=== PATIENT | male | born 1945 | race Caucasian/White ===

== ENCOUNTER 2022-04-06 09:44 | Emergency (ER) | payer MEDICARE, OTHER, SELFPAY ==
[2022-04-06] VITALS (7 sets, daily range): BP systolic 126–144; BP diastolic 74–100; PULSE 59–99; RESP 12–18; TEMP 36.2–36.9; O2SAT 98–100; BMI 20.9
--- NOTE | 2022-04-06 10:02 | CRLHL7_ITS ---
For Patients: As a result of the Cures Act, medical imaging exams and procedure reports are released immediately into your electronic medical record. You may view this report before your referring provider. If you have questions, please contact your health care provider. INDICATION: Fall. FINDINGS: Three views of the left wrist were obtained. There is a comminuted fracture in the distal radius which is displaced and impacted posteriorly. There is no other fracture seen or dislocation. There are degenerative change in the 1st carpometacarpal joint. Impression: Comminuted fracture distal radius with posterior displacement and impaction. Dictated by Rober Edwards MD @ 04/06/2022 10:47:39 AM (Electronically Signed)
--- NOTE | 2022-04-06 12:20 | ED.UPPEXIN ---
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 He was knocked down landing on an outstretched left wrist. He had immediate left wrist pain. Denies any numbness tingling. Denies any pain elsewhere. States nothing else was injured. There was no loss of consciousness, no neck or back pain. No difficulty breathing. MD complaint: injury to: left and wrist Other injuries: none Related Data Allergies Allergy/AdvReac Type Severity Reaction Status Date / Time No Known Drug Allergies Allergy Verified 04/06/22 10:02 Review of Systems Narrative: as per HPI Exam Const: Vital Signs, click to edit/add: Vital Signs - 24 hr 04/06/22 09:52 Temperature 97.2 F L Pulse Rate [Pulse Oximeter] 69 Respiratory Rate 12 Blood Pressure [Ri ght Upper Arm] 129/74 Pulse Oximetry 99 Oxygen Delivery Me thod Room Air Documenting provider has reviewed patient's vital signs: yes Common normals: no apparent distress, average body habitus, oriented x3, no limitations, healthy appearing, alert and well nourished General appearance: cooperative, comfortable, well kempt and well developed Other: Swelling and deformitiy noted along left wrist with dorsal angulation noted. Can move fingers but states it hurts wrist to do so. Has normal cap refill and light touch sensation throughout left hand. HENMT: Common normals: normocephalic, head/scalp atraumatic, hearing grossly normal bilaterally, external nose normal, nasal mucous membranes and turbinates normal, moist oral mucous membranes, oropharynx normal, dentition normal and gingiva normal Head and scalp: normocephalic and atraumatic Nose: external nose normal and nasal mucous membranes and turbinates normal Eye: Common normals: PERRL, EOMs intact bilaterally, conjunctivae normal and no scleral icterus Conjunctiva: conjunctiva(e) normal Pupil: PERRL Neck & C-Spine: Common normals: full ROM, no lymphadenopathy, supple and no JVD Chest: Common normals: inspection of chest normal Resp: Common normals: normal respiratory effort, no retractions, no use of accessory muscles and clear to auscultation bilaterally Auscultation: clear to auscultation bilaterally Cardio: Common normals: no JVD, regular rate, regular rhythm, S1 normal heart sound, S2 normal heart sound, no gallops, no clicks and no murmurs Rate: regular rate Rhythm: regular rhythm Heart sounds: S1 normal and S2 normal Neuro: Common normals: oriented x3 Sensorium/orientation: alert Psych: Appearance: well kempt Course Course Hospital Course: Performed hematoma block along left wrist. Try to palpate along the fracture line along the dorsal wrist. Fanned out 10 mL of 1% lidocaine. Will let this sit, give him 1 tablet of Manson and see how he tolerates that. Plan will be to try a reduction with the hematoma block. Reevaluation(s) Reevaluation #1: Patient's hematoma block has been unsuccessful. I do believe to comfortably reduce this, will need to have some IV anesthesia. We will be calling in the nurse religious studies professor to help assist us. It is far too busy and the volume too high for the other ED partner to assist me. Anesthesia has been page but they are busy doing another procedure at this point. Will need to just wait a few moments for them to arrive. Time: 13:34 Reevaluation #2: Patient's neurovascular status remains intact. He has gotten sling for comfort. We will discharge to home for outpatient orthopedic follow-up. Time: 15:55 Consultations Consultation #1: Spoke with Dr. Freedman orthopedic hand surgery at [place]. He has the patient's contact information and will follow up with them for outpatient management, surgery at some point. I will contact him back if I have any concerns post reduction. Time: 14:11 Vital Signs Vital signs: Initial Vital Signs Temperature 97.2 F L 04/06/22 09:52 Temperature Source Temporal Artery Scan 04/06/22 09:52 Pulse Rate 69 04/06/22 09:52 Pulse Rhythm 04/06/22 09:52 Respiratory Rate 12 04/06/22 09:52 Blood Pressure 129/74 04/06/22 09:52 Blood Pressure Mean 92 04/06/22 09:52 Blood Pressure Position Sitting 04/06/22 09:52 Pulse Oximetry 99 04/06/22 09:52 Oxygen Delivery Method 04/06/22 09:52 Vital Signs Temperature 97.2 F L 04/06/22 09:52 Pulse Rate 69 04/06/22 09:52 Respiratory Rate 12 04/06/22 09:52 Blood Pressure 129/74 04/06/22 09:52 Pulse Oximetry 99 04/06/22 09:52 Oxygen Delivery Method 04/06/22 09:52 Temperature 97.2 F L 04/06/22 09:52 Pulse Rate 69 04/06/22 09:52 Respiratory Rate 12 04/06/22 09:52 Blood Pressure 129/74 04/06/22 09:52 Pulse Oximetry 99 04/06/22 09:52 Oxygen Delivery Method 04/06/22 09:52 MDM - Extremity Injury (Upper) Imaging Data X-ray left wrist: Attestation: I have reviewed the pertinent imaging results. My impression: Distal left radius with comminution, displacement. Radiologist's impression: Patient: [facility] Facility:?[facility] Patient ID:?[id number] Site Patient ID:?[id number]. Site :?[id number] Study:?XRay Extremity Left WRIST 3 VIEW-04/06/2022 10:18:34 AM Ordering Physician:?PROVIDER TEMGermán Final Report: INDICATION: Fall. FINDINGS: Three views of the left wrist were obtained. There is a comminuted fracture in the distal radius which is displaced and impacted posteriorly. There is no other fracture seen or dislocation. There are degenerative change in the 1st carpometacarpal joint. Impression: Comminuted fracture distal radius with posterior displacement and impaction. Dictated by Rober Edwards MD @ 04/06/2022 10:47:39 AM (Electronic Signature) X-ray left wrist post reduction images: Attestation: I have reviewed the pertinent imaging results. My impression: On AP view, much better alignment. On the lateral view, still see some slight dorsal angulation but improved from pre reduction on my preliminary review. Await Radiology over-read. Radiologist's impression: Patient: [facility] Facility:?[facility] Patient ID:?[id number] Site Patient ID:?[id number]. Site :?[id number] Study:?XRay Extremity Left WRIST 2V-04/06/2022 2:49:23 PM Ordering Physician:Heidi Gabriel Final Report: Indication: Post reduction Comparison: Three views left wrist dated April 06, 2022 Technique: AP and lateral views left wrist were obtained. Findings: There is a mildly impacted fracture of the distal radius with mild apex dorsal angulation, moderately improved status post casting and reduction. Degenerative changes of the 1st carpometacarpal and radiocarpal joints are appreciated. There is moderate carpal soft tissue swelling. Impression: Improved fracture alignment of mildly impacted Colles fracture of the distal radius status post reduction and casting. Dictated by Moy Ferrera MD @ 04/06/2022 3:41:44 PM (Electronic Signature) Core Measures AMI core measures followed: No Critical Care Time Critical Care Time Critical Care Time: No Discharge Plan Discharge Clinical Impression: Distal radius fracture, left Patient Disposition: Home, Self-Care Condition: Stable Instructions: Wrist Fracture in Adults (ED) Additional Instructions: Need to keep splint on and keep this dry. Ice and elevate this wrist area as much as possible or the next few days to help diminish swelling. Need to follow up with Orthopedics at [place] with the appointment that they will contact you with. Did speak with Dr. Freedman while you were here. He is a [place] orthopedic hand surgeon. He will have his office contact you for appropriate follow-up. Can use [id number] medicines that you typically would use such as Tylenol for pain control, follow bottle directions for dosing. Follow Up/Referrals: Francisco Santana MD [Primary Care Provider] - Stand Alone Forms: [facility] Info Instructions Procedures Orthopedic Fracture Reduction Fracture #1: Written consent by: patient Time Out Performed: Yes Side: left Fracture location: radius Details: distal Analgesia: procedural sedation and hematoma block (failed, moved to sedation) Technique: direct manipulation and traction/counter-traction Post Reduction X-rays Demonstrate: acceptable reduction (Still some mild dorsal angulation on my review of the films but much better than prior to the reduction) Post-reduction neuro exam: intact Post-reduction vascular exam: intact Splint Applied: Yes (Dorsal volar short-arm with Ortho Glass) Patient Tolerated Procedure: well Additional Comments: We are sending all of his images to [place] for the surgeon.
[2022-04-06] MEDS: HYDROCODONE-ACETAMIN 5-325 MG 1 TAB PO (13:24)
--- NOTE | 2022-04-06 14:28 | CRLHL7_ITS ---
For Patients: As a result of the Century Cures Act, medical imaging exams and procedure reports are released immediately into your electronic medical record. You may view this report before your referring provider. If you have questions, please contact your health care provider. Indication: Post reduction Comparison: Three views left wrist dated April 06, 2022 Technique: AP and lateral views left wrist were obtained. Findings: There is a mildly impacted fracture of the distal radius with mild apex dorsal angulation, moderately improved status post casting and reduction. Degenerative changes of the 1st carpometacarpal and radiocarpal joints are appreciated. There is moderate carpal soft tissue swelling. Impression: Improved fracture alignment of mildly impacted Colles fracture of the distal radius status post reduction and casting. Dictated by Moy Ferrera MD @ 04/06/2022 3:41:44 PM (Electronically Signed)
--- NOTE | 2022-04-06 14:43 | W.ANESCHARGE ---
Anesthesia Charges Start Date/Time Anesthesia Start Date: 04/06/22 Anesthesia Start Time: 14:14 Stop Date/Time Anesthesia Stop Date: 04/06/22 Anesthesia Stop Time: 14:38 Summary Emergency: Yes Extremes of Age: Over 71-CPT [id number]
== END 2022-04-06 17:01 | disposition home or self-care (01) ==
PROVIDERS: Emergency Provider Family Medicine; PCP Family Medicine
DX: S52.502A Unspecified fracture of the lower end of left radius, initial encounter for closed fracture (principal); W03.XXXA Other fall on same level due to collision with another person, initial encounter
CPT/HCPCS: 1820; 25605; 73100; 73110; 94761; 99100; 99140; 99283; 99284; A9270; J2250; J2704; J3010

== ENCOUNTER 2022-05-10 10:11 | Outpatient (CLI) | payer MEDICARE, OTHER, SELFPAY | END 2022-05-10 10:12 | disposition home or self-care (01) | LOC: NFLDUCREF 05-13 14:59 | PROVIDERS: PCP Family Medicine; Visit Provider Nurse Practitioner Family | DX: R30.0 Dysuria (principal); N39.0 Urinary tract infection, site not specified | CPT/HCPCS: 87086 ==

== ENCOUNTER 2022-07-24 19:53 | Outpatient (CLI) | payer MEDICARE, OTHER, SELFPAY | END 2022-07-24 19:54 | disposition home or self-care (01) | LOC: AMB 07-25 06:58 | PROVIDERS: Visit Provider Family Medicine | DX: R50.9 Fever, unspecified (principal); R53.81 Other malaise | CPT/HCPCS: A0425; A0427 ==

== ENCOUNTER 2022-07-24 20:24 | Inpatient (IN) | payer MEDICARE, OTHER, SELFPAY ==
[2022-07-24] VITALS (28 sets, daily range): BP systolic 102–149; BP diastolic 56–132; PULSE 50–83; RESP 20–24; TEMP 36.9–38.9; O2SAT 91–100; BMI 23.0
--- NOTE | 2022-07-24 20:43 | CRLHL7_ITS ---
For Patients: As a result of the Cures Act, medical imaging exams and procedure reports are released immediately into your electronic medical record. You may view this report before your referring provider. If you have questions, please contact your health care provider. INDICATION: Fever of unknown origin. History of multiple myeloma. TECHNIQUE: Chest 2 views. COMPARISON: None. FINDINGS: No focal consolidation, pleural effusion, or pneumothorax. Interstitial opacities in the lower lungs bilaterally. Cardiomegaly with prominent central pulmonary vascularity. Degenerative changes of the spine. IMPRESSION: 1. Interstitial opacities in the lower lungs may be infectious/inflammatory due to edema. 2. Cardiomegaly. Dictated by Ivy Ortiz MD @ 07/24/2022 9:12:16 PM (Electronically Signed)
--- NOTE | 2022-07-24 20:46 | ED.GENADULT ---
HPI - General Adult General Chief complaint: Fever Stated complaint: Fever, Dehydration Time Seen by Provider: 07/24/22 20:25 Source: patient Mode of arrival: ambulatory Limitations: no limitations History of Present Illness HPI narrative: 76-year-old male currently on treatment for multiple myeloma presents to the emergency department with fever. Fever started yesterday was up to 102 at home. He called his oncologist for advice and they recommended ED presentation. He regularly uses Tylenol for arthritis pain and has been taking that. He was instructed to discontinue at the request of his crystallography teacher because they were worried it could mask further fever. He denies any localizing symptoms of infection. There is no productive cough, no dysuria, no abdominal pain, no sore throat or myalgias. He notes no recent falls, trauma or injury. I reviewed the records and see that he was evaluated for urinary infection back in April, treated without complication. He does not have an indwelling catheter. He has no history of bacteremia or sepsis. He gets his oncology care through [facility] and I do not have access to those records unfortunately. He has not tried any other interventions to help with his symptoms. He denies weakness, headache or other neurological changes. Past medical history most notable for prior GI bleed, on pantoprazole now for this with no complications. He does take aspirin daily because this per his report balance is out thrombotic risk from 1 of his chemotherapy agents. He is actively on chemotherapy both oral and injectable for his multiple myeloma with no recent adjustments in his therapy plan. He does not have an indwelling port or PICC line. He has a history of a nephrectomy for kidney cancer he also has a prior history of prostate cancer. His home meds are amlodipine, pantoprazole, aspirin 81 once daily, levothyroxine, his chemotherapy meds which he cannot pronounce and a B12 supplement. Socially no tobacco, no alcohol. 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 ROS is notable for the fever and some generalized aches as above, otherwise denies times 12 systems. Related Data Home Medications Medication Instructions Recorded Confirmed acetaminophen 325 mg tablet 975 mg PO BID PRN 05/10/22 07/24/22 acyclovir 400 mg tablet 400 mg PO BID 05/10/22 07/24/22 amlodipine 10 mg tablet 10 mg PO QDAY 05/10/22 07/24/22 aspirin 325 mg tablet,delayed 325 mg PO QDAY 05/10/22 07/24/22 release calcium carbonate-vitamin D3 1 tab PO DAILY 05/10/22 07/24/22 daratumumab 20 mg/mL intravenous 1,800 mg IV .Thursday05/10/22 07/24/22 solution dexamethasone 4 mg tablet 20 mg PO .Thursday05/10/22 07/24/22 lenalidomide 10 mg capsule 10 mg PO QDAY 05/10/22 07/24/22 (Revlimid) levothyroxine 150 mcg capsule 150 mcg PO QDAY 05/10/22 07/24/22 levothyroxine 175 mcg tablet 175 mcg PO QDAY 05/10/22 07/24/22 (Levo-T) mecobalamin (vitamin B12) 1,000 1,000 mcg PO QDAY 05/10/22 07/24/22 mcg chewable tablet metronidazole 0.75 % topical gel 1 applic topical QDAY 05/10/22 07/24/22 pantoprazole 40 mg tablet,delayed 40 mg PO QDAY 05/10/22 07/24/22 release prochlorperazine maleate 10 mg 10 mg PO Q6H PRN 05/10/22 07/24/22 tablet sulfamethoxazole 400 1 tab PO QDAY 05/10/22 07/24/22 mg-trimethoprim 80 mg tablet Allergies Allergy/AdvReac Type Severity Reaction Status Date / Time No Known Drug Allergies Allergy Verified 05/10/22 10:03 [facility] Medical History (Updated 07/24/22 @ 22:29 by Latha Madrid MD) History of kidney cancer History of prostate cancer Multiple myeloma Phimosis of penis Urinary tract infection Surgical History (Updated 07/24/22 @ 20:51 by Latha Madrid MD) History of nephrectomy Social History Smoking Status: Never smoker Do you use any of these nicotine containing products: None How often do you have a drink containing alcohol: never AUDIT-C Alcohol total score: 0 Non-prescribed substance use: denies use service: No Exam Const: Vital Signs, click to edit/add: Vital Signs - 24 hr 07/24/22 20:29 07/24/22 21:10 07/24/22 20:41 Temperature 102.1 F H 102 F H Pulse Rate 75 Pulse Rate [Right Pulse Oximeter] 78 Respiratory Rate 24 20 Blood Pressure Blood Pressure [Ri ght Upper Arm] 133/78 Pulse Oximetry 100 97 96 Oxygen Delivery Me thod Room Air Room Air 07/24/22 20:45 07/24/22 20:46 07/24/22 21:00 Temperature Pulse Rate 75 75 73 Pulse Rate [Right Pulse Oximeter] Respiratory Rate Blood Pressure 138/76 Blood Pressure [Ri ght Upper Arm] Pulse Oximetry 97 96 97 Oxygen Delivery Me thod 07/24/22 21:01 07/24/22 21:02 07/24/22 21:15 Temperature Pulse Rate 74 73 75 Pulse Rate [Right Pulse Oximeter] Respiratory Rate Blood Pressure 148/77 H Blood Pressure [Ri ght Upper Arm] Pulse Oximetry 97 96 98 Oxygen Delivery Me thod 07/24/22 21:22 07/24/22 21:30 07/24/22 21:31 Temperature Pulse Rate 77 71 73 Pulse Rate [Right Pulse Oximeter] Respiratory Rate Blood Pressure 149/132 H 145/77 H Blood Pressure [Ri ght Upper Arm] Pulse Oximetry 97 93 94 Oxygen Delivery Me thod Documenting provider has reviewed patient's vital signs: yes Common normals: no apparent distress and alert General appearance: cooperative Orientation/consciousness: Yes awake Other: Patient presents with rigors, mentating normally. Does appear slightly dehydrated but well kept. Answers questions appropriately, excellent historian. HENMT: Common normals: normocephalic Head and scalp: normal to inspection and normocephalic Face and sinus: normal facial exam Mouth: oral and palatal mucosa normal Throat: posterior oropharynx normal Eye: Common normals: EOMs intact bilaterally and conjunctivae normal General eye: normal appearance of both eyes Conjunctiva: conjunctiva(e) normal Neck & C-Spine: Common normals: full ROM and no lymphadenopathy Resp: Common normals: normal respiratory effort, no use of accessory muscles and clear to auscultation bilaterally Effort & inspection: able to speak in complete sentences Auscultation: clear to auscultation bilaterally Cardio: Common normals: regular rate, regular rhythm, S1 normal heart sound, S2 normal heart sound, no murmurs and peripheral pulses 2+ throughout Rate: regular rate Rhythm: regular rhythm Heart sounds: S1 normal and S2 normal Peripheral pulses: pulses 2+ throughout GI: Other: Large periUmbilical hernia noted, easily reduces and is nontender. Normoactive bowel sounds throughout. No masses, no hepatosplenomegaly. Extremity: Common normals: normal capillary refill and no pedal edema Neuro: Sensorium/orientation: awake and alert Speech: speech normal Motor exam: strength 5/5 throughout Other: Tremor noted Psych: Attitude: engaged Activity/motor behavior: appropriate eye contact Memory/cognition: memory grossly intact Insight: insight good Judgement: judgment good Skin: Common normals: no rashes or lesions noted Narrative: No wounds, open ulcerations or cellulitis General skin exam: no rashes or lesions noted Course Vital Signs Vital signs: Initial Vital Signs Temperature 102.1 F H 07/24/22 20:29 Temperature Source Temporal Artery Scan 07/24/22 20:29 Pulse Rate 78 07/24/22 20:29 Pulse Rhythm 07/24/22 20:29 Respiratory Rate 24 07/24/22 20:29 Blood Pressure 133/78 07/24/22 20:29 Blood Pressure Mean 96 07/24/22 20:29 Pulse Oximetry 100 07/24/22 20:29 Oxygen Delivery Method 07/24/22 20:29 Vital Signs Temperature 102.1 F H 07/24/22 20:29 Pulse Rate 78 07/24/22 20:29 Respiratory Rate 24 07/24/22 20:29 Blood Pressure 133/78 07/24/22 20:29 Pulse Oximetry 100 07/24/22 20:29 Oxygen Delivery Method 07/24/22 20:29 Temperature 102 F H 07/24/22 21:10 Pulse Rate 73 07/24/22 21:31 Respiratory Rate 20 07/24/22 21:10 Blood Pressure 145/77 H 07/24/22 21:31 Pulse Oximetry 94 07/24/22 21:31 Oxygen Delivery Method 07/24/22 21:10 Medical Decision Making [facility] Narrative Medical decision making narrative: Differential diagnosis including fever of unknown origin. Most likely neutropenic fever. Cannot exclude occult urine, respiratory, viral, pharyngeal or blood infections. 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 Bolus 1 L of IV fluid, Tylenol for fever. This will not impair my ability to make any diagnosis. Patient will likely need to be admitted for further workup, following blood cultures and empiric antibiotics if he is neutropenic. Update: Patient not neutropenic but certainly white blood cell count is suppressed. Markedly elevated CRP, elevated prolactin. Normal lactate with no signs of hypotension. Creatinine is elevated but sounds like it is fairly near his baseline currently. Findings reviewed with patient. Recommend hospitalization. Discussed antibiotic management with hospitalist team, they recommend Zosyn. I have dosed the 1st doses at 3.375, will defer further management to their team. Patient has received 1 L of fluids. He was agreeable to hospitalization. Lab Data Lab results reviewed: Yes I reviewed the patient's lab results Labs: Lab Results 07/24/22 07/24/22 07/24/22 Range/Units 20:40 20:46 20:46 WBC 2.31 L (4.50-11.00) K/uL RBC 3.05 L (4.30-5.90) m/uL Hgb 10.4 L (13.5-17.5) gm/dL Hct 31.5 L (37.0-53.0) % MCV 103 H (80-100) fL MCH 34 (26-34) pg MCHC 33 (32-36) gm/dL RDW Coeff of Trena 14.4 (11.5-15.5) % Plt Count 116 L (140-440) K/uL Neut % (Auto) 71.0 (42.0-72.0) % Lymph % (Auto) 14.3 L (20-44) % Phelps % (Auto) 7.8 (0.0-11.0) % Eos % (Auto) 1.7 (0.0-7.0) % Baso % (Auto) 0.0 (0.0-3.0) % Neut # (Auto) 1.60 L (1.7-7.0) K/uL Lymph # (Auto) 0.30 L (0.90-2.90) K/uL Phelps # (Auto) 0.20 (0.00-0.90) K/UL Eos # (Auto) 0.00 (0.00-0.50) K/uL Baso # (Auto) 0.00 (0.00-0.30) K/uL Diff Slide Review Acceptable Review (Acceptable) Sodium 133 L (135-149) mmol/L Potassium 4.3 (3.6-5.1) mmol/L Chloride 104 (96-114) mmol/L Carbon Dioxide 20 (20-32) mmol/L BUN 30 (7-30) mg/dL Creatinine 1.7 H (0.5-1.5) mg/dL Estimated Creat Clear 38.54 Estimated GFR 42 ml/min Glucose 97 (60-115) mg/dL Lactate (0.5-1.9) mmol/L Calcium 8.0 L (8.4-10.6) mg/dL Magnesium (1.5-2.6) mg/dL Total Bilirubin 0.4 (0.1-1.5) mg/dL AST 17 (12-35) U/L ALT 16 (4-50) U/L Alkaline Phosphatase 59 (40-150) U/L C-Reactive Protein 21.5 H (0.5-1.0) mg/dL Total Protein 5.9 L (6.0-8.3) g/dL Albumin 3.2 L (3.3-5.0) g/dL Procalcitonin 1.96 H (<0.50) ng/mL Urine Color (Yellow) Urine Appearance (Clear) Urine pH (5.0-8.5) Ur Specific Dumont (1.000-1.030) Urine Protein (Negative) Urine Glucose (UA) (Negative) Urine Ketones (Negative) Urine Blood (Negative) Urine Nitrite (Negative) Urine Bilirubin (Negative) Urine Urobilinogen (0.2-1.0) Ur Leukocyte Esterase (Negative) SARS-CoV-2 (PCR) Negative SARS-CoV-2 (Negative) Influenza Type A (PCR) Negative PCR FLU A (Negative) Influenza Type B (PCR) Negative PCR FLU B (Negative) RSV (PCR) Negative PCR RSV (Negative) Group A Strep DNA (Not Detectd) 07/24/22 07/24/22 07/24/22 Range/Units 20:46 21:00 21:20 WBC (4.50-11.00) K/uL RBC (4.30-5.90) m/uL Hgb (13.5-17.5) gm/dL Hct (37.0-53.0) % MCV (80-100) fL MCH (26-34) pg MCHC (32-36) gm/dL RDW Coeff of Trena (11.5-15.5) % Plt Count (140-440) K/uL Neut % (Auto) (42.0-72.0) % Lymph % (Auto) (20-44) % Phelps % (Auto) (0.0-11.0) % Eos % (Auto) (0.0-7.0) % Baso % (Auto) (0.0-3.0) % Neut # (Auto) (1.7-7.0) K/uL Lymph # (Auto) (0.90-2.90) K/uL Phelps # (Auto) (0.00-0.90) K/UL Eos # (Auto) (0.00-0.50) K/uL Baso # (Auto) (0.00-0.30) K/uL Diff Slide Review (Acceptable) Sodium (135-149) mmol/L Potassium (3.6-5.1) mmol/L Chloride (96-114) mmol/L Carbon Dioxide (20-32) mmol/L BUN (7-30) mg/dL Creatinine (0.5-1.5) mg/dL Estimated Creat Clear Estimated GFR ml/min Glucose (60-115) mg/dL Lactate 1.5 (0.5-1.9) mmol/L Calcium (8.4-10.6) mg/dL Magnesium 1.6 (1.5-2.6) mg/dL Total Bilirubin (0.1-1.5) mg/dL AST (12-35) U/L ALT (4-50) U/L Alkaline Phosphatase (40-150) U/L C-Reactive Protein (0.5-1.0) mg/dL Total Protein (6.0-8.3) g/dL Albumin (3.3-5.0) g/dL Procalcitonin (<0.50) ng/mL Urine Color (Yellow) Urine Appearance (Clear) Urine pH (5.0-8.5) Ur Specific Dumont (1.000-1.030) Urine Protein (Negative) Urine Glucose (UA) (Negative) Urine Ketones (Negative) Urine Blood (Negative) Urine Nitrite (Negative) Urine Bilirubin (Negative) Urine Urobilinogen (0.2-1.0) Ur Leukocyte Esterase (Negative) SARS-CoV-2 (PCR) (Negative) Influenza Type A (PCR) (Negative) Influenza Type B (PCR) (Negative) RSV (PCR) (Negative) Group A Strep DNA NOT DETECTED (Not Detectd) 07/24/22 Range/Units 21:45 WBC (4.50-11.00) K/uL RBC (4.30-5.90) m/uL Hgb (13.5-17.5) gm/dL Hct (37.0-53.0) % MCV (80-100) fL MCH (26-34) pg MCHC (32-36) gm/dL RDW Coeff of Trena (11.5-15.5) % Plt Count (140-440) K/uL Neut % (Auto) (42.0-72.0) % Lymph % (Auto) (20-44) % Phelps % (Auto) (0.0-11.0) % Eos % (Auto) (0.0-7.0) % Baso % (Auto) (0.0-3.0) % Neut # (Auto) (1.7-7.0) K/uL Lymph # (Auto) (0.90-2.90) K/uL Phelps # (Auto) (0.00-0.90) K/UL Eos # (Auto) (0.00-0.50) K/uL Baso # (Auto) (0.00-0.30) K/uL Diff Slide Review (Acceptable) Sodium (135-149) mmol/L Potassium (3.6-5.1) mmol/L Chloride (96-114) mmol/L Carbon Dioxide (20-32) mmol/L BUN (7-30) mg/dL Creatinine (0.5-1.5) mg/dL Estimated Creat Clear Estimated GFR ml/min Glucose (60-115) mg/dL Lactate (0.5-1.9) mmol/L Calcium (8.4-10.6) mg/dL Magnesium (1.5-2.6) mg/dL Total Bilirubin (0.1-1.5) mg/dL AST (12-35) U/L ALT (4-50) U/L Alkaline Phosphatase (40-150) U/L C-Reactive Protein (0.5-1.0) mg/dL Total Protein (6.0-8.3) g/dL Albumin (3.3-5.0) g/dL Procalcitonin (<0.50) ng/mL Urine Color Yellow (Yellow) Urine Appearance Clear (Clear) Urine pH 7.0 (5.0-8.5) Ur Specific Dumont 1.020 (1.000-1.030) Urine Protein 2+ A (Negative) Urine Glucose (UA) Negative (Negative) Urine Ketones Negative (Negative) Urine Blood 1+ A (Negative) Urine Nitrite Positive A (Negative) Urine Bilirubin Negative (Negative) Urine Urobilinogen 0.2 (0.2-1.0) Ur Leukocyte Esterase Trace A (Negative) SARS-CoV-2 (PCR) (Negative) Influenza Type A (PCR) (Negative) Influenza Type B (PCR) (Negative) RSV (PCR) (Negative) Group A Strep DNA (Not Detectd) Imaging Data Chest x-ray: My impression: There is something right greater than left but bilateral in the lower half of the lungs. I would favor more of an edematous process over infectious, but cannot exclude. and there certainly is some hyperinflation, diaphragm flattening and some chronic appearing changes. He has terrible kyphosis and signs of osteoporosis which are of course chronic. Radiologist's impression: IMPRESSION: 1. Interstitial opacities in the lower lungs may be infectious/inflammatory due to edema. ECG Data Attestation: I personally reviewed and interpreted this ECG as follows: Prior ECG tracings: not available for review Interpretation: Normal sinus rhythm, rate 72. [place] is essentially normal. There is a right bundle branch block and a slight widening of the QRS. Unfortunately do not have a comparison. Discharge Plan Discharge Clinical Impression: Complicated urinary tract infection, Neutropenia, Acute on chronic renal failure Patient Disposition: Admitted As Inpatient
[2022-07-24 20:55] LABS: Lactate* 1.5 mmol/L (0.5-1.9)
[2022-07-24 20:57] LABS: Eosinophils Percent Auto 1.7 % (0.0-7.0); Hematocrit 31.5 % (37.0-53.0); Hemoglobin* 10.4 gm/dL (13.5-17.5); Immature Granulocytes Pct Auto 5.2 %; Lymphocytes Percent Auto 14.3 % (20-44); Mean Corpuscular HGB Conc 33 gm/dL (32-36); Mean Corpuscular Hemoglobin 34 pg (26-34); Mean Corpuscular Volume 103 fL (80-100); Monocytes Percent Auto 7.8 % (0.0-11.0); Platelet Count* 116 K/uL (140-440); RDW Coefficient of Variation % 14.4 % (11.5-15.5); Red Blood Count 3.05 m/uL (4.30-5.90); White Blood Count* 2.31 K/uL (4.50-11.00)
[2022-07-24] MEDS: 0.9 % SODIUM CHLORIDE 1000 ml 1,000 ML 500 ML IV (21:00)
[2022-07-24 21:03] LABS: Slide Review Reflex Yes
[2022-07-24 21:11] LABS: Albumin* 3.2 g/dL (3.3-5.0); Chloride* 104 mmol/L (96-114); Sodium* 133 mmol/L (135-149)
[2022-07-24 21:12] LABS: Potassium* 4.3 mmol/L (3.6-5.1)
[2022-07-24 21:14] LABS: Bilirubin Total* 0.4 mg/dL (0.1-1.5); Creatinine* 1.7 mg/dL (0.5-1.5); Est. Creatinine Clearance* 38.54; Estimated Glomerular Filt Rate 42 ml/min
[2022-07-24] MEDS: ACETAMINOPHEN 500 MG TABLET 1000 MG PO (21:14)
[2022-07-24 21:15] LABS: Alanine Aminotransferase* 16 U/L (4-50); Alkaline Phosphatase* 59 U/L (40-150); Aspartate Amino Transferase* 17 U/L (12-35); Blood Urea Nitrogen* 30 mg/dL (7-30); Carbon Dioxide* 20 mmol/L (20-32); Glucose* 97 mg/dL (60-115); Total Protein* 5.9 g/dL (6.0-8.3)
[2022-07-24 21:21] LABS: Slide Review Acceptable Review (Acceptable)
[2022-07-24 21:27] LABS: PCR FLU A Negative PCR FLU A (Negative); PCR FLU B Negative PCR FLU B (Negative); PCR RSV Negative PCR RSV (Negative)
[2022-07-24 21:31] LABS: Procalcitonin* 1.96 ng/mL (<0.50)
[2022-07-24 21:32] LABS: C Reactive Protein* 21.5 mg/dL (0.5-1.0)
[2022-07-24 21:35] LABS: SARS PCR* Negative SARS-CoV-2 (Negative)
[2022-07-24 21:36] LABS: Strep A DNA Probe* NOT DETECTED (Not Detectd)
[2022-07-24 21:43] LABS: Magnesium* 1.6 mg/dL (1.5-2.6)
[2022-07-24 21:48] LABS: Appearance Urine Clear (Clear); Bilirubin Urine Negative (Negative); Blood Urine 1+ (Negative); Color Urine Yellow (Yellow); Glucose Urine Negative (Negative); Ketones Urine Negative (Negative); Leukocyte Esterase Urine Trace (Negative); Nitrite Urine Positive (Negative); Protein Urine 2+ (Negative); Urobilinogen Urine 0.2 (0.2-1.0)
[2022-07-24 22:32] LABS: Bacteria Urine Many; Mucus Urine Moderate; RBC Urine 0-2 (0-2); Squamous Epithelial Cell Urine Few (None-Few)
--- NOTE | 2022-07-24 22:45 | W.PC.EDHO ---
Primary Language: Preferred Language: Orientation Status: x Alert & Oriented Transfers By: x Assist of 1 Active Medications Discontinued Medications Generic Name Dose Route Start Last Admin Trade Name Satish PRN Reason Stop Dose Admin Acetaminophen 1,000 mg 07/24/22 20:47 07/24/22 21:14 Acetaminophen 500 Mg Tablet PO 07/24/22 20:48 1,000 mg ONCE ONE Administration Sodium Chloride 1,000 mls @ 500 mls/hr 07/24/22 20:45 07/24/22 22:30 0.9 % Sodium Chloride 1000 Ml IV 07/24/22 22:44 Infused .Q2H JEWELL Infusion Description of Symptoms ED Triage Present Problem Patient currently being treated with chemotherapy Description for multiple myeloma. On his last week. States that he gets injections in his belly and also takes a tablet. No port access. Presents with a 102 degree fever that started last evening. 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 Started chemotherapy in February. Pain Pain Intensity 5 Pain Scale Used Arredondo-Luke (Faces) IV Insertion/Site Date of IV Line Insertion [ 07/24/22 Left Antecubital] Oxygen Administration Pulse Oximetry 94 Pulse Oximetry 93 Pulse Oximetry 97 Pulse Oximetry 98 Pulse Oximetry 97 Pulse Oximetry 96 Pulse Oximetry 97 Pulse Oximetry 97 Pulse Oximetry 96 Pulse Oximetry 97 Pulse Oximetry 96 Pulse Oximetry 100 Oxygen Delivery Method Room Air Oxygen Delivery Method Room Air Cardiac Monitoring EKG Method 12 Lead
--- NOTE | 2022-07-24 22:47 | ED.NURSE ---
Patient report given to Mel CANTRELL
--- NOTE | 2022-07-24 23:25 | PM.IMHP1 ---
Hospitalist- H&P: HPI History of Present Illness Date Seen: 07/24/22 Chief complaint: Fever, Dehydration Narrative: ADMISSION HISTORY AND PHYSICAL - HOSPITALIST Chief Complaint: Weakness, fever HPI: 76-year-old male who is currently being treated for multiple myeloma presents with fever and weakness. His symptoms started rather abruptly in the last 48 hours. Chills. One loose stool yesterday. No cough. No phlegm. No headache. No abdominal pain. Lack of appetite getting worse throughout last 24 hours. No dysuria. Incontinence that is a little worse than baseline. He has a history of renal cell and prostate cancer in the past but those are both in remission. He is followed at [facility] for his multiple myeloma. She has no history of artificial valve or joint replacement. No recent travel. 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 He was just admitted in May in [place] for hyperkalemia, TC. That had presented as a sudden onset of dysuria with ultimately a negative urine culture. His UA did look suspicious for UTI prior to negative culture. His hyperkalemia was thought to be related to Bactrim dosing. His TC was likely related to Bactrim, diuretics, pre renal azotemia. ER COURSE: Febrile illness labs: Elevated CRP, procalcitonin. Low normal white blood cell count without neutropenia. Evidence of leukopenia. Potentially bilateral infiltrates verses edema. Cardiomegaly. Other than rigors and fever, vital signs are stable. He is on room air. Chest x-ray was reviewed with Radiology. Given his chronic kidney disease we chose not to order CT scan CODE STATUS: FULL CODE EMERGENCY CONTACT PLAN: , Yesenia, emergency contact [phone] Cell Phone I've updated the PFSH, medications and allergies in the [facility] tabs. INVESTIGATIONS: LABS/MICRO/ECG/IMAGING Temp upon arrival to the ED 102? F Blood pressure 148/77, the low has been 102/65 Pulses been 50s to 60s Respiratory rate 20, unlabored Pulse ox 92% on room air CBC reflects a Total white blood cell count of 2.31, neutrophils 71% (ANC 1640), lymphocytes 14.3% (330) --this is decreased from even 2 days ago when his will white count was 5.5. Lymphopenia is not new. --CRP 21.5, procalcitonin 1.96 Hemoglobin is stable, 10.4 - previously 10.8 Platelet count 116, was 139 earlier this week Sodium 133 this is been noted previously to be 130-133. Creatinine is 1.7, 1.79 2 days ago. Earlier this year he was up to greater than 2 within TC on CKD secondary to Bactrim use Magnesium is normal Lactate normal LFTs are normal UA shows 1+ blood, positive nitrite, trace leukocyte esterase, 10-25 white blood cells CXR 1. Interstitial opacities in the lower lungs may be infectious/inflammatory due to edema. 2. Cardiomegaly. Blood culture x2 pending Urine culture pending Right bundle branch block on his EKG is not new. This is been noted back to the 1970s at [facility] (thought to be congenital) REVIEW OF SYSTEMS: 12-point ROS completed with patient and negative unless otherwise stated in HPI or below. PHYSICAL EXAM: CONSTITUTIONAL: looks ill; shaking/incontinence noted. tired appearing. soft spoken but knows his history. VITAL SIGNS: see record. HEENT: Normocephalic, atraumatic. PERRL, EOMI, conjunctivae pink, no scleral icterus. Ears and nose externally normal. Pharynx DRY. NECK: No JVD. No carotid bruit, no thyromegaly, no adenopathy. CHEST: crackles @ bases HEART: S1 and S2 normal. No harsh murmurs. no edema. MUSCULOSKELETAL: No gross joint deformity or swelling. NEURO: Cranial nerves intact. Grossly intact. No asymmetric findings. : uncircumscribed. no obvious discharge, redness. SKIN: No rashes, petechiae, concerning changes PSYCHIATRIC: Euthymic. ADMIT TO MEDSURG: FLOOR CARE DVT: Lovenox GI: PO intake Time spent: 70 minutes examining patient, conferring with family and patient, care staff, developing care plan [facility] Medical History (Updated 07/25/22 @ 00:14 by Ashley Mcintyre MD) Chronic anemia History of GI bleed History of kidney cancer History of prostate cancer Hypertension Multiple myeloma Phimosis of penis Surgical History (Updated 07/24/22 @ 23:27 by Ashley Mcintyre MD) History of bone marrow biopsy History of nephrectomy History of prostatectomy S/P tonsillectomy and adenoidectomy Social History Smoking Status: Never smoker Do you use any of these nicotine containing products: None How often do you have a drink containing alcohol: never AUDIT-C Alcohol total score: 0 Non-prescribed substance use: denies use service: No Meds Home Medications and Allergies Home Medications Medication Instructions Recorded Confirmed Type acetaminophen 325 mg tablet 975 mg PO BID PRN 05/10/22 07/24/22 History acyclovir 400 mg tablet 400 mg PO BID 05/10/22 07/24/22 History amlodipine 10 mg tablet 10 mg PO QDAY 05/10/22 07/24/22 History aspirin 325 mg tablet,delayed 325 mg PO QDAY 05/10/22 07/24/22 History release calcium carbonate-vitamin D3 1 tab PO DAILY 05/10/22 07/24/22 History daratumumab 20 mg/mL intravenous 1,800 mg IV .Thursday05/10/22 07/24/22 History solution dexamethasone 4 mg tablet 20 mg PO .Thursday05/10/22 07/24/22 History lenalidomide 10 mg capsule 10 mg PO QDAY 05/10/22 07/24/22 History (Revlimid) levothyroxine 150 mcg capsule 150 mcg PO QDAY 05/10/22 07/24/22 History levothyroxine 175 mcg tablet 175 mcg PO QDAY 05/10/22 07/24/22 History (Levo-T) mecobalamin (vitamin B12) 1,000 1,000 mcg PO QDAY 05/10/22 07/24/22 History mcg chewable tablet metronidazole 0.75 % topical gel 1 applic topical QDAY 05/10/22 07/24/22 History pantoprazole 40 mg tablet,delayed 40 mg PO QDAY 05/10/22 07/24/22 History release prochlorperazine maleate 10 mg 10 mg PO Q6H PRN 05/10/22 07/24/22 History tablet sulfamethoxazole 400 1 tab PO QDAY 05/10/22 07/24/22 History mg-trimethoprim 80 mg tablet Allergies Allergy/AdvReac Type Severity Reaction Status Date / Time No Known Drug Allergies Allergy Verified 05/10/22 10:03 Exam Const: Vital Signs, click to edit/add: Vital Signs - 24 hr 07/24/22 20:29 07/24/22 21:10 07/24/22 20:41 Temperature 102.1 F H 102 F H Pulse Rate 75 Pulse Rate [Right Pulse Oximeter] 78 Respiratory Rate 24 20 Blood Pressure Blood Pressure [Ri ght Upper Arm] 133/78 Pulse Oximetry 100 97 96 Oxygen Delivery Me thod Room Air Room Air 07/24/22 20:45 07/24/22 20:46 07/24/22 21:00 Temperature Pulse Rate 75 75 73 Pulse Rate [Right Pulse Oximeter] Respiratory Rate Blood Pressure 138/76 Blood Pressure [Ri ght Upper Arm] Pulse Oximetry 97 96 97 Oxygen Delivery Me thod 07/24/22 21:01 07/24/22 21:02 07/24/22 21:15 Temperature Pulse Rate 74 73 75 Pulse Rate [Right Pulse Oximeter] Respiratory Rate Blood Pressure 148/77 H Blood Pressure [Ri ght Upper Arm] Pulse Oximetry 97 96 98 Oxygen Delivery Me thod 07/24/22 21:22 07/24/22 21:30 07/24/22 21:31 Temperature Pulse Rate 77 71 73 Pulse Rate [Right Pulse Oximeter] Respiratory Rate Blood Pressure 149/132 H 145/77 H Blood Pressure [Ri ght Upper Arm] Pulse Oximetry 97 93 94 Oxygen Delivery Me thod 07/24/22 21:32 07/24/22 21:45 07/24/22 21:47 Temperature Pulse Rate 75 76 77 Pulse Rate [Right Pulse Oximeter] Respiratory Rate Blood Pressure 131/69 Blood Pressure [Ri ght Upper Arm] Pulse Oximetry 92 93 92 Oxygen Delivery Me thod 07/24/22 22:00 07/24/22 22:02 07/24/22 22:15 Temperature Pulse Rate 81 83 83 Pulse Rate [Right Pulse Oximeter] Respiratory Rate Blood Pressure 119/62 Blood Pressure [Ri ght Upper Arm] Pulse Oximetry 92 93 94 Oxygen Delivery Me thod 07/24/22 22:17 07/24/22 22:30 07/24/22 22:31 Temperature Pulse Rate 77 58 L 50 L Pulse Rate [Right Pulse Oximeter] Respiratory Rate Blood Pressure 113/64 110/56 L Blood Pressure [Ri ght Upper Arm] Pulse Oximetry 93 91 92 Oxygen Delivery Me thod 07/24/22 22:45 07/24/22 22:47 07/24/22 23:00 Temperature Pulse Rate 60 60 59 L Pulse Rate [Right Pulse Oximeter] Respiratory Rate Blood Pressure 107/61 Blood Pressure [Ri ght Upper Arm] Pulse Oximetry 92 92 92 Oxygen Delivery Me thod 07/24/22 23:02 07/24/22 23:06 Temperature Pulse Rate 65 Pulse Rate [Right Pulse Oximeter] 78 Respiratory Rate 20 Blood Pressure 102/65 Blood Pressure [Ri ght Upper Arm] 133/78 Pulse Oximetry 92 Oxygen Delivery Me thod Hospitalist - H&P: Result Labs Labs: Short CBC 07/24/22 Range/Units 20:46 WBC 2.31 L (4.50-11.00) K/uL Hgb 10.4 L (13.5-17.5) gm/dL Hct 31.5 L (37.0-53.0) % Plt Count 116 L (140-440) K/uL BMP 07/24/22 20:46 Sodium 133 L Potassium 4.3 Chloride 104 Carbon Dioxide 20 BUN 30 Creatinine 1.7 H Glucose 97 Calcium 8.0 L Liver Function 07/24/22 Range/Units 20:46 Total Bilirubin 0.4 (0.1-1.5) mg/dL AST 17 (12-35) U/L ALT 16 (4-50) U/L Alkaline Phosphatase 59 (40-150) U/L Albumin 3.2 L (3.3-5.0) g/dL Urine 07/24/22 Range/Units 21:45 Urine Color Yellow (Yellow) Urine Appearance Clear (Clear) Urine pH 7.0 (5.0-8.5) Ur Specific [place] 1.020 (1.000-1.030) Urine Protein 2+ A (Negative) Urine Glucose (UA) Negative (Negative) Assessment and Plan Assessment and plan (1) Febrile illness, acute: Problem comment: -rigors, chills. Documented fever. Not technically neutropenic. Lymphopenic. Immunocompromised on current multiple myeloma therapy. Bacteremia risk high. Started Zosyn, add vanc and azithromycin. Can be tailored 24 hours based on culture results. -hx of phimosis; prev urine culture negative at [facility] 06/02 - keep broad view for source of fever -possible community-acquired pneumonia with elevated procalcitonin and chest x-ray findings -adding BNP and echo for tomorrow -fluids, monitor labs and fever curve -, Yes[place], is bedside and his advocate. 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 Iverson is a 76 year old male with IgG [place] Myeloma who is on daratumumab SQ on days 1, 15 for C3-C6, and day 1 of cycle 7 and beyond, lenalidomide 5 mg daily, dexamethasone 12 mg on Tuesdays, and 8 mg on Fridays. He remains on acyclovir and aspirin. -PJP ppx: no need given dex 20 weekly < 40 weekly threshold -VZV/HSV ppx: home acyclovir 400 BID -thrombosis ppx: home aspirin 325mg daily -bone ppx: quarterly Zometa, daily calcium-vitamin D -home PRN compazine/zofran Status: Acute (3) Acute on chronic renal failure: Problem comment: baseline creat is 1.5 (HTN, left nephrectomy) 1.7 tonight; pre-renal from febrile illness Status: Acute (4) Hypertension: Problem comment: Will hold amlodipine while blood pressures are normotensive Status: Acute (5) CKD (chronic kidney disease): Problem comment: Secondary to hypertension and nephrectomy Status: Acute (6) Hypothyroid: Problem comment: -home levothyroxine 150 mcg three times weekly plus 175 mcg four times weekly Status: Acute (7) Chronic anemia: Problem comment: Hemoglobin runs in the mid 10s. Needed transfusions after a GI bleed in 2014. Thought to have a chronic anemia related to chronic kidney disease and B12 deficiency. Status: Acute (8) Phimosis of penis: Problem comment: Noted. Uncircumcised. Foreskin did not retract. Status: Acute
[2022-07-25] VITALS (10 sets, daily range): BP systolic 101–139; BP diastolic 61–74; PULSE 57–72; RESP 16–18; TEMP 36.7–37.2; O2SAT 95–97
[2022-07-25] MEDS: PANTOPRAZOLE SODIUM 40 MG INJ IVP (01:43)
[2022-07-25] MEDS: CYANOCOBALAMIN (VITAMIN B-12) 500 MCG TABLET 1000 MCG PO ×2 (01:43→09:07)
[2022-07-25] MEDS: 0.9 % SODIUM CHLORIDE 1000 ml 1,000 ML 125 ML IV (01:43)
[2022-07-25] MEDS: ASPIRIN EC 325 MG TABLET PO ×2 (01:43→09:07)
[2022-07-25 03:00] LABS: NT Pro B Type NatriureticPept* 1230 pg/mL
[2022-07-25] MEDS: ACETAMINOPHEN 325 MG TABLET PO (03:54)
[2022-07-25] MEDS: PIPERACILLIN/TAZOBACTAM 3.375 GM in 0.9 % SODIUM CHLORIDE Mini-bag 100 ML IVPB ×4 (04:05→22:16)
[2022-07-25] MEDS: LEVOTHYROXINE 75 MCG TABLET 150 MCG PO (06:35)
[2022-07-25 07:03] LABS: HCO3 VBG 23 mmol/L (21-28); Ionized Calcium* 1.02 mmol/L (1.11-1.30); Lactate* 0.7 mmol/L (0.5-1.9); PCO2 VBG 35 mmHG (40-50); PO2 VBG 28.3 mmHG (25-47); pH VBG 7.418 (7.32-7.43)
[2022-07-25 07:05] LABS: Eosinophils Percent Auto 2.3 % (0.0-7.0); Hemoglobin* 9.1 gm/dL (13.5-17.5); Immature Granulocytes Pct Auto 4.7 %; Immature Reticulocyte Fraction 8.6 % (2.3-13.4); Lymphocytes Percent Auto 13.4 % (20-44); Mean Corpuscular HGB Conc 33 gm/dL (32-36); Mean Corpuscular Hemoglobin 34 pg (26-34); Mean Corpuscular Volume 104 fL (80-100); Monocytes Percent Auto 7.6 % (0.0-11.0); Platelet Count* 95 K/uL (140-440); RDW Coefficient of Variation % 14.5 % (11.5-15.5); Reticulocyte Hemoglobin Equivi 25.9 pg (29.0-35.0); Reticulocyte Percent 0.4 % (0.5-2.0); Reticulocytes Absolute 0.01 # (0.03-0.08)
[2022-07-25 07:20] LABS: Hemoglobin A1C* 5.55 % (0-5.6)
[2022-07-25 07:26] LABS: Albumin* 2.6 g/dL (3.3-5.0); Chloride* 105 mmol/L (96-114); Sodium* 131 mmol/L (135-149)
[2022-07-25 07:29] LABS: Creatinine* 1.8 mg/dL (0.5-1.5); Est. Creatinine Clearance* 34.68; Estimated Glomerular Filt Rate 39 ml/min
[2022-07-25 07:30] LABS: Alanine Aminotransferase* 13 U/L (4-50); Alkaline Phosphatase* 44 U/L (40-150); Aspartate Amino Transferase* 17 U/L (12-35); Bilirubin Total* 0.5 mg/dL (0.1-1.5); Blood Urea Nitrogen* 28 mg/dL (7-30); Calcium* 7.1 mg/dL (8.4-10.6); Carbon Dioxide* 22 mmol/L (20-32); Glucose* 89 mg/dL (60-115); Iron* 17 ug/dL (49-181); Magnesium* 1.5 mg/dL (1.5-2.6); Total Protein* 5.1 g/dL (6.0-8.3)
[2022-07-25 07:37] LABS: Slide Review Reflex Yes; White Blood Count* 1.72 K/uL (4.50-11.00)
[2022-07-25 07:38] LABS: Slide Review Acceptable Review (Acceptable)
[2022-07-25 07:39] LABS: Percent Iron Saturation 8 % (20-50); Total Iron Binding Capacity 211 ug/dL (261-462)
[2022-07-25 07:41] LABS: NT Pro B Type NatriureticPept* 1210 pg/mL; Troponin I* 0.05 ng/mL (0.01-0.04)
[2022-07-25 07:46] LABS: Procalcitonin* 1.85 ng/mL (<0.50)
[2022-07-25 08:00] LABS: C Reactive Protein* 20.1 mg/dL (0.5-1.0)
--- NOTE | 2022-07-25 08:15 | PC.NURSE ---
Pt is alert and oriented x3. Afebrile. Pt reports 2/10 pain in back of neck and lower back, pain managed with?scheduled Tylenol. Pt denies SOB, Chest pain, and N/V. Pt is up with A1 and tolerating a regular diet.?Pt slept intermittently throughout night,?pt was pleasant and cooperative. at bed side. ?
[2022-07-25] MEDS: ACYCLOVIR 200 MG CAPSULE 400 MG PO ×2 (09:07→20:37)
[2022-07-25] MEDS: AZITHROMYCIN 250 MG TABLET 500 MG PO (09:07)
[2022-07-25] MEDS: OMEPRAZOLE 20 MG CAPSULE DR 40 MG PO (09:07)
--- NOTE | 2022-07-25 10:14 | PM.IMPN1 ---
Progress Note: A&P Assessment and plan (1) Febrile illness, acute: Problem details: -rigors, chills. Documented fever. Not technically neutropenic. Lymphopenic. Immunocompromised on current multiple myeloma therapy. Bacteremia risk high. Started Zosyn and azithromycin. Can be tailored 24 hours based on culture results. -hx of phimosis; prev urine culture negative at [place] 06/02 - keep broad view for source of fever -possible community-acquired pneumonia with elevated procalcitonin and chest x-ray findings. Consider PCP. I favor pneumonia over UTI as the cause of current illness. -adding BNP and echo for tomorrow -fluids, monitor labs and fever curve -, Yesenia, is bedside and his advocate. 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 Iverson is a 76 year old male with IgG [place] Myeloma who is on daratumumab SQ on days 1, 15 for C3-C6, and day 1 of cycle 7 and beyond, lenalidomide 5 mg daily, dexamethasone 12 mg on Tuesdays, and 8 mg on Fridays. He remains on acyclovir and aspirin. -PJP ppx: no need given dex 20 weekly < 40 weekly threshold -VZV/HSV ppx: home acyclovir 400 BID -thrombosis ppx: home aspirin 325mg daily -bone ppx: quarterly Zometa, daily calcium-vitamin D -home PRN compazine/zofran Status: Acute (3) CKD (chronic kidney disease): Problem details: Secondary to hypertension and nephrectomy. Continue to monitor. TC with hyperkalemia in May due to Bactrim Status: Acute (4) Pancytopenia: Problem details: Due to multiple myeloma and treatment. Status: Acute (5) Hyponatremia: Problem details: Due to aggressive water drinking. Modest fluid restriction. Encourage solid food Status: Acute (6) Acute on chronic renal failure: Problem details: baseline creat is 1.5 (HTN, left nephrectomy) 1.7 tonight; pre-renal from febrile illness Status: Acute Plan Continue in hospital for monitoring and treatment of infection, pneumonia and UTI. Therapy to assess for acute weakness. Coordinate with [facility] Time Spent With Patient Total time spent: Total time spent today is 50 minutes, 30 minutes in coordination of care and discussing with patient, and other providers ongoing evaluation management of fever and myeloma Subjective Date Seen: 07/25/22 Interval history: 76-year-old male undergoing treatment for multiple myeloma is seen in follow-up for hospital admission for fever, fatigue malaise and weakness. Onset of symptoms the evening 2 days ago with chills and profound weakness. Yesterday he spent most the day in bed. He ate some food but by evening had no appetite. He had fever. He has had no respiratory illness symptoms no GI or symptoms. On admission he was found to have mild pulmonary infiltrates, consistent with pneumonia, as well as abnormal urinalysis. He has been treated with Zosyn and azithromycin. He is currently getting treated with lenalidomide and daratumumab. Due to side effects similar to what he is currently experiencing his lenalidomide dose is reduced to 5 mg daily. He received his last injection of daratumumab, his 14th, 3 days ago. He has not had any adverse reaction to daratumumab in the past. He also received dexamethasone 12 mg on Tuesdays and 8 mg on Fridays. He had previously been on Bactrim for PCP prophylaxis. At the beginning of May he was hospitalized after getting full-dose Bactrim for UTI which caused him to have hyperkalemia and acute kidney injury. Bactrim has subsequently been discontinued. He is also on acyclovir. He is not aware of any ongoing fever or chills. Does not have cold or cough symptoms today. He did have breakfast this morning and has been drinking water consistently. He still feels profoundly weak. Exam Narrative: Exam Narrative: He is alert and in no distress. Tired appearing. He is oriented to his circumstances and able to give his own history. This is corroborated by his was also present. Eyes normal. Sclerae nonicteric. Oropharynx normal. Neck is supple without mass or adenopathy. Respirations are clear to auscultation except for a rare crackle at the right mid lung field laterally. Cardiovascular: S1, S2, regular rate and rhythm. No murmur gallop or rub. Abdomen: Bowel sounds active. Abdomen is soft. He has a large incisional abdominal hernia, possibly a diastasis recti below the umbilicus. This is nontender. No other tenderness or mass. Extremities with good perfusion, good pulses, no edema or tenderness. Skin without rash. Const: Vital Signs, click to edit/add: Vital Signs - 24 hr 07/24/22 20:29 07/24/22 21:10 07/24/22 20:41 Temperature 102.1 F H 102 F H Pulse Rate 75 Pulse Rate [Pulse Oximeter] Pulse Rate [Right Pulse Oximeter] 78 Respiratory Rate 24 20 Blood Pressure Blood Pressure [Ri ght Arm] Blood Pressure [Ri ght Upper Arm] 133/78 Pulse Oximetry 100 97 96 Oxygen Delivery Me thod Room Air Room Air 07/24/22 20:45 07/24/22 20:46 07/24/22 21:00 Temperature Pulse Rate 75 75 73 Pulse Rate [Pulse Oximeter] Pulse Rate [Right Pulse Oximeter] Respiratory Rate Blood Pressure 138/76 Blood Pressure [Ri ght Arm] Blood Pressure [Ri ght Upper Arm] Pulse Oximetry 97 96 97 Oxygen Delivery Me thod 07/24/22 21:01 07/24/22 21:02 07/24/22 21:15 Temperature Pulse Rate 74 73 75 Pulse Rate [Pulse Oximeter] Pulse Rate [Right Pulse Oximeter] Respiratory Rate Blood Pressure 148/77 H Blood Pressure [Ri ght Arm] Blood Pressure [Ri ght Upper Arm] Pulse Oximetry 97 96 98 Oxygen Delivery Me thod 07/24/22 21:22 07/24/22 21:30 07/24/22 21:31 Temperature Pulse Rate 77 71 73 Pulse Rate [Pulse Oximeter] Pulse Rate [Right Pulse Oximeter] Respiratory Rate Blood Pressure 149/132 H 145/77 H Blood Pressure [Ri ght Arm] Blood Pressure [Ri ght Upper Arm] Pulse Oximetry 97 93 94 Oxygen Delivery Me thod 07/24/22 21:32 07/24/22 21:45 07/24/22 21:47 Temperature Pulse Rate 75 76 77 Pulse Rate [Pulse Oximeter] Pulse Rate [Right Pulse Oximeter] Respiratory Rate Blood Pressure 131/69 Blood Pressure [Ri ght Arm] Blood Pressure [Ri ght Upper Arm] Pulse Oximetry 92 93 92 Oxygen Delivery Me thod 07/24/22 22:00 07/24/22 22:02 07/24/22 22:15 Temperature Pulse Rate 81 83 83 Pulse Rate [Pulse Oximeter] Pulse Rate [Right Pulse Oximeter] Respiratory Rate Blood Pressure 119/62 Blood Pressure [Ri ght Arm] Blood Pressure [Ri ght Upper Arm] Pulse Oximetry 92 93 94 Oxygen Delivery Me thod 07/24/22 22:17 07/24/22 22:30 07/24/22 22:31 Temperature Pulse Rate 77 58 L 50 L Pulse Rate [Pulse Oximeter] Pulse Rate [Right Pulse Oximeter] Respiratory Rate Blood Pressure 113/64 110/56 L Blood Pressure [Ri ght Arm] Blood Pressure [Ri ght Upper Arm] Pulse Oximetry 93 91 92 Oxygen Delivery Me thod 07/24/22 22:45 07/24/22 22:47 07/24/22 23:00 Temperature Pulse Rate 60 60 59 L Pulse Rate [Pulse Oximeter] Pulse Rate [Right Pulse Oximeter] Respiratory Rate Blood Pressure 107/61 Blood Pressure [Ri ght Arm] Blood Pressure [Ri ght Upper Arm] Pulse Oximetry 92 92 92 Oxygen Delivery Me thod 07/24/22 23:02 07/24/22 23:06 07/24/22 23:22 Temperature 98.4 F Pulse Rate 65 Pulse Rate [Pulse Oximeter] Pulse Rate [Right Pulse Oximeter] 78 Respiratory Rate 20 22 Blood Pressure 102/65 Blood Pressure [Ri ght Arm] 110/64 Blood Pressure [Ri ght Upper Arm] 133/78 Pulse Oximetry 92 93 Oxygen Delivery Me thod Room Air 07/24/22 23:22 07/24/22 23:57 07/24/22 23:57 Temperature 98.4 F Pulse Rate Pulse Rate [Pulse Oximeter] 64 Pulse Rate [Right Pulse Oximeter] Respiratory Rate 22 Blood Pressure Blood Pressure [Ri ght Arm] 110/64 Blood Pressure [Ri ght Upper Arm] Pulse Oximetry 93 93 93 Oxygen Delivery Me thod Room Air Room Air 07/25/22 03:54 07/25/22 03:00 07/24/22 23:57 Temperature 99.0 F 99.0 F Pulse Rate 66 Pulse Rate [Pulse Oximeter] 65 Pulse Rate [Right Pulse Oximeter] Respiratory Rate 18 Blood Pressure Blood Pressure [Ri ght Arm] 120/63 Blood Pressure [Ri ght Upper Arm] Pulse Oximetry 96 Oxygen Delivery Me thod Room Air 07/25/22 07:20 07/25/22 07:17 Temperature 98.4 F Pulse Rate 57 L Pulse Rate [Pulse Oximeter] 58 L Pulse Rate [Right Pulse Oximeter] Respiratory Rate 18 Blood Pressure Blood Pressure [Ri ght Arm] 110/65 [facility] Pulse Oximetry 95 Oxygen Delivery Me thod Room Air Labs Labs: Laboratory Results - last 24 hr 07/24/22 07/24/22 07/24/22 20:40 20:46 20:46 WBC 2.31 L RBC 3.05 L Hgb 10.4 L Hct 31.5 L MCV 103 H MCH 34 MCHC 33 RDW Coeff of Trena 14.4 Plt Count 116 L Neut % (Auto) 71.0 Lymph % (Auto) 14.3 L [place] % (Auto) 7.8 Eos % (Auto) 1.7 Baso % (Auto) 0.0 Neut # (Auto) 1.60 L Lymph # (Auto) 0.30 L [place] # (Auto) 0.20 Eos # (Auto) 0.00 Baso # (Auto) 0.00 Diff Slide Review Acceptable Review Absolute Retic Percent Retic Immature Retic Fraction Retic Hgb Equivalent VBG pH VBG pCO2 VBG pO2 VBG HCO3 Sodium 133 L Potassium 4.3 Chloride 104 Carbon Dioxide 20 BUN 30 Creatinine 1.7 H Estimated Creat Clear 38.54 Estimated GFR 42 Glucose 97 Hemoglobin A1c Lactate Calcium 8.0 L Ionized Calcium Mariah Magnesium Iron TIBC % Saturation Total Bilirubin 0.4 AST 17 ALT 16 Alkaline Phosphatase 59 Troponin I C-Reactive Protein 21.5 H NT-Pro-B Natriuret Pep Total Protein 5.9 L Albumin 3.2 L Procalcitonin 1.96 H TSH Urine Color Urine Appearance Urine pH Ur Specific Colbert Urine Protein Urine Glucose (UA) Urine Ketones Urine Blood Urine Nitrite Urine Bilirubin Urine Urobilinogen Ur Leukocyte Esterase Urine RBC Urine WBC Ur Squamous Epith Cells Urine Bacteria Urine Mucus SARS-CoV-2 (PCR) Negative SARS-CoV-2 Influenza Type A (PCR) Negative PCR FLU A Influenza Type B (PCR) Negative PCR FLU B RSV (PCR) Negative PCR RSV Group A Strep DNA 07/24/22 07/24/22 07/24/22 20:46 21:00 21:20 WBC RBC Hgb Hct MCV MCH MCHC RDW Coeff of Trena Plt Count Neut % (Auto) Lymph % (Auto) [place] % (Auto) Eos % (Auto) Baso % (Auto) Neut # (Auto) Lymph # (Auto) [place] # (Auto) Eos # (Auto) Baso # (Auto) Diff Slide Review Absolute Retic Percent Retic Immature Retic Fraction Retic Hgb Equivalent VBG pH VBG pCO2 VBG pO2 VBG HCO3 Sodium Potassium Chloride Carbon Dioxide BUN Creatinine Estimated Creat Clear Estimated GFR Glucose Hemoglobin A1c Lactate 1.5 Calcium Ionized Calcium Mariah Magnesium 1.6 Iron TIBC % Saturation Total Bilirubin AST ALT Alkaline Phosphatase Troponin I C-Reactive Protein NT-Pro-B Natriuret Pep 1230 Total Protein Albumin Procalcitonin TSH Urine Color Urine Appearance Urine pH Ur Specific Colbert Urine Protein Urine Glucose (UA) Urine Ketones Urine Blood Urine Nitrite Urine Bilirubin Urine Urobilinogen Ur Leukocyte Esterase Urine RBC Urine WBC Ur Squamous Epith Cells Urine Bacteria Urine Mucus SARS-CoV-2 (PCR) Influenza Type A (PCR) Influenza Type B (PCR) RSV (PCR) Group A Strep DNA NOT DETECTED 07/24/22 07/25/22 07/25/22 21:45 05:48 05:48 WBC 1.72 L* RBC 2.70 L Hgb 9.1 L Hct 28.0 L MCV 104 H MCH 34 MCHC 33 RDW Coeff of Trena 14.5 Plt Count 95 L Neut % (Auto) 72.0 Lymph % (Auto) 13.4 L [place] % (Auto) 7.6 Eos % (Auto) 2.3 Baso % (Auto) 0.0 Neut # (Auto) 1.20 L Lymph # (Auto) 0.20 L [place] # (Auto) 0.10 Eos # (Auto) 0.00 Baso # (Auto) 0.00 Diff Slide Review Acceptable Review Absolute Retic 0.01 L Percent Retic 0.4 L Immature Retic Fraction 8.6 Retic Hgb Equivalent 25.9 L VBG pH VBG pCO2 VBG pO2 VBG HCO3 Sodium 131 L Potassium 4.0 Chloride 105 Carbon Dioxide 22 BUN 28 Creatinine 1.8 H Estimated Creat Clear 34.68 Estimated GFR 39 Glucose 89 Hemoglobin A1c Lactate Calcium 7.1 L Ionized Calcium Mariah Magnesium 1.5 Iron TIBC % Saturation Total Bilirubin 0.5 AST 17 ALT 13 Alkaline Phosphatase 44 Troponin I 0.05 H C-Reactive Protein 20.1 H NT-Pro-B Natriuret Pep 1210 Total Protein 5.1 L Albumin 2.6 L Procalcitonin 1.85 H TSH Urine Color Yellow Urine Appearance Clear Urine pH 7.0 Ur Specific Colbert 1.020 Urine Protein 2+ A Urine Glucose (UA) Negative Urine Ketones Negative Urine Blood 1+ A Urine Nitrite Positive A Urine Bilirubin Negative Urine Urobilinogen 0.2 Ur Leukocyte Esterase Trace A Urine RBC 0-2 Urine WBC 10-25 A Ur Squamous Epith Cells Few Urine Bacteria Many A Urine Mucus Moderate A SARS-CoV-2 (PCR) Influenza Type A (PCR) Influenza Type B (PCR) RSV (PCR) Group A Strep DNA 07/25/22 07/25/22 07/25/22 05:48 05:48 05:48 WBC RBC Hgb Hct MCV MCH MCHC RDW Coeff of Trena Plt Count Neut % (Auto) Lymph % (Auto) [place] % (Auto) Eos % (Auto) Baso % (Auto) Neut # (Auto) Lymph # (Auto) [place] # (Auto) Eos # (Auto) Baso # (Auto) Diff Slide Review Absolute Retic Percent Retic Immature Retic Fraction Retic Hgb Equivalent VBG pH 7.418 VBG pCO2 35 L VBG pO2 28.3 VBG HCO3 23 Sodium Potassium Chloride Carbon Dioxide BUN Creatinine Estimated Creat Clear Estimated GFR Glucose Hemoglobin A1c 5.55 Lactate 0.7 Calcium Ionized Calcium Mariah 1.02 L Magnesium Iron 17 L TIBC 211 L % Saturation 8 L Total Bilirubin AST ALT Alkaline Phosphatase Troponin I C-Reactive Protein NT-Pro-B Natriuret Pep Total Protein Albumin Procalcitonin TSH 3.800 Urine Color Urine Appearance Urine pH Ur Specific Colbert Urine Protein Urine Glucose (UA) Urine Ketones Urine Blood Urine Nitrite Urine Bilirubin Urine Urobilinogen Ur Leukocyte Esterase Urine RBC Urine WBC Ur Squamous Epith Cells Urine Bacteria Urine Mucus SARS-CoV-2 (PCR) Influenza Type A (PCR) Influenza Type B (PCR) RSV (PCR) Group A Strep DNA Imaging Chest x-ray: Radiologist's impression: INDICATION: Fever of unknown origin. History of multiple myeloma. TECHNIQUE: Chest 2 views. COMPARISON: None. FINDINGS: No focal consolidation, pleural effusion, or pneumothorax. Interstitial opacities in the lower lungs bilaterally. Cardiomegaly with prominent central pulmonary vascularity.? Degenerative changes of the spine. IMPRESSION: 1. Interstitial opacities in the lower lungs may be infectious/inflammatory due to edema. 2. Cardiomegaly.
--- NOTE | 2022-07-25 10:59 | NUTR.NU ---
RDN Note for RN Consult: On admission, pt states he has had >34 lb recent weight loss. Current BMI 21.9 which is lower than ideal for this age population. Weight history obtained from pt and : pt was up to 185 in 2019, prior to diagnosis of Multiple Myeloma. Weight loss has been over 3 years time. With current treatment, has now begun to regain weight. Lowest weight at [place] was 142 lbs, about 2 months ago. Has been gaining since that time (gets weekly visit). States his appetite has been good and he hasn't even needed his antinausea medication. They have received education for nutrition with primary concern to limit potassium due to higher levels. 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 Pt denies need or interest in any additional snacks or supplements.
--- NOTE | 2022-07-25 17:58 | PC.NURSE ---
Pt has been cooperative, pleasant, and calm during shift. Pt has been tired and slept on and off during shift. Pt is alert and oriented x 4. Pt has had pain ranging from 0-2 during shift. Pt was up in chair and tolerated well. Pt is a SBA with a walker. Pt at bedside most of shift. Pt has had a good appetite for breakfast and lunch.?
[2022-07-25] MEDS: ENOXAPARIN 40 MG/0.4 ML INJ SUBCUT (20:38)
[2022-07-25] MEDS: SODIUM CHLORIDE 0.9 % (FLUSH) 10 ML SYRINGE 5 ML IVF (20:39)
[2022-07-26] VITALS (10 sets, daily range): BP systolic 111–144; BP diastolic 67–78; PULSE 62–93; RESP 14–20; TEMP 36.6–37.3; O2SAT 91–97
[2022-07-26] MEDS: PIPERACILLIN/TAZOBACTAM 3.375 GM in 0.9 % SODIUM CHLORIDE Mini-bag 100 ML IVPB ×2 (04:32→04:33)
[2022-07-26] MEDS: 0.9 % SODIUM CHLORIDE 250 ml IV ×2 (04:36→14:11)
[2022-07-26 06:27] LABS: Basophils Percent Auto 0.7 % (0.0-3.0); Eosinophils Percent Auto 0.7 % (0.0-7.0); Hematocrit 28.1 % (37.0-53.0); Hemoglobin* 9.1 gm/dL (13.5-17.5); Immature Granulocytes Pct Auto 0.7 %; Lymphocytes Percent Auto 11.3 % (20-44); Mean Corpuscular HGB Conc 32 gm/dL (32-36); Mean Corpuscular Hemoglobin 34 pg (26-34); Mean Corpuscular Volume 103 fL (80-100); Monocytes Percent Auto 6.6 % (0.0-11.0); Platelet Count* 99 K/uL (140-440); RDW Coefficient of Variation % 14.3 % (11.5-15.5); Red Blood Count 2.72 m/uL (4.30-5.90)
--- NOTE | 2022-07-26 06:32 | PC.NURSE ---
Patient is alert and oriented x 3, vss, on RA, Assist of 1-2, regular diet. Patient slightly febrile @ 99.5, very weak and tremulous, has difficulty standing and remaining upright. No cough present or sputum. Patient has been using his IS regularly. Voiding in urinal at bedside. stayed overnight, it appears that her presence is comforting to him as well as reducing most anxiety. BP and HR are stable.
[2022-07-26 06:39] LABS: Chloride* 104 mmol/L (96-114); Potassium* 3.5 mmol/L (3.6-5.1); Sodium* 132 mmol/L (135-149)
[2022-07-26 06:42] LABS: Creatinine* 2.1 mg/dL (0.5-1.5); Est. Creatinine Clearance* 29.49; Estimated Glomerular Filt Rate 32 ml/min
[2022-07-26 06:43] LABS: Blood Urea Nitrogen* 24 mg/dL (7-30); Calcium* 6.9 mg/dL (8.4-10.6); Carbon Dioxide* 21 mmol/L (20-32); Glucose* 99 mg/dL (60-115)
[2022-07-26 07:09] LABS: C Reactive Protein* 19.9 mg/dL (0.5-1.0); Troponin I* 0.08 ng/mL (0.01-0.04)
[2022-07-26 07:18] LABS: Slide Review Reflex Yes; White Blood Count* 1.51 K/uL (4.50-11.00)
[2022-07-26] MEDS: LEVOTHYROXINE 100 MCG TABLET PO (07:24)
[2022-07-26] MEDS: LEVOTHYROXINE 75 MCG TABLET PO (07:25)
--- NOTE | 2022-07-26 07:25 | PC.NURSE ---
Critical lab: WBC of 1.51 received @ 07[address] this morning [address] lab. Dr. Valera updated; no new orders immediately. Primary nurse also updated.
[2022-07-26 08:18] LABS: Slide Review Acceptable Review (Acceptable)
[2022-07-26] MEDS: ASPIRIN EC 325 MG TABLET PO (09:39)
[2022-07-26] MEDS: CYANOCOBALAMIN (VITAMIN B-12) 500 MCG TABLET 1000 MCG PO (09:39)
[2022-07-26] MEDS: OMEPRAZOLE 20 MG CAPSULE DR 40 MG PO (09:39)
[2022-07-26] MEDS: POTASSIUM CHLORIDE 10 MEQ CAPSULE ER 40 MEQ PO (09:39)
[2022-07-26] MEDS: ACYCLOVIR 200 MG CAPSULE 400 MG PO ×2 (09:39→21:13)
[2022-07-26] MEDS: AZITHROMYCIN 250 MG TABLET 500 MG PO (09:40)
[2022-07-26] MEDS: PIPERACILLIN/TAZOBACTAM 2.25 GM in 0.9 % SODIUM CHLORIDE Mini-bag 100 ML IVPB ×3 (09:57→21:13)
[2022-07-26] MEDS: MAGNESIUM IV 2 GM/50 ML PIGGYBACK IVPB (10:44)
--- NOTE | 2022-07-26 15:03 | P.IMPN_ITS ---
Progress Note: A&P Assessment and plan (1) Febrile illness, acute: Problem details: -rigors, chills. Documented fever. Not technically neutropenic. Lymphopenic. Immunocompromised on current multiple myeloma therapy. Bacteremia risk high. Started Zosyn and azithromycin. Can be tailored 24 hours based on culture results. -hx of phimosis; prev urine culture negative at [place] 06/02 - keep broad view for source of fever -possible community-acquired pneumonia with elevated procalcitonin and chest x- ray findings. Consider PCP. I favor pneumonia over UTI as the cause of current illness. -adding BNP and echo for tomorrow -fluids, monitor labs and fever curve -, Yesenia, is bedside and his advocate. 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 Iverson is a 76 year old male with IgG [place] Myeloma who is on daratumumab SQ on days 1, 15 for C3-C6, and day 1 of cycle 7 and beyond, lenalidomide 5 mg daily, dexamethasone 12 mg on Tuesdays, and 8 mg on Fridays. He remains on acyclovir and aspirin. -PJP ppx: no need given dex 20 weekly < 40 weekly threshold -VZV/HSV ppx: home acyclovir 400 BID -thrombosis ppx: home aspirin 325mg daily -bone ppx: quarterly Zometa, daily calcium-vitamin D -home PRN compazine/zofran Status: Acute (3) CKD (chronic kidney disease): Problem details: Secondary to hypertension and nephrectomy. Continue to monitor. TC with hyperkalemia in May due to Bactrim Status: Acute (4) Pancytopenia: Problem details: Due to multiple myeloma and treatment. Status: Acute (5) Hyponatremia: Problem details: Due to aggressive water drinking. Modest fluid restriction. Encourage solid food Status: Acute (6) Acute on chronic renal failure: Problem details: baseline creat is 1.5 (HTN, left nephrectomy) 1.7 tonight; pre-renal from febrile illness. Continue to monitor and dose medications accordingly. Status: Acute (7) Hypokalemia: Problem details: Replace and follow. Status: Acute (8) Elevated troponin: Problem details: Asymptomatic. Suspect stress-induced ischemia. Status: Acute Plan Continue in-hospital for IV antibiotics, monitoring and management of acute kidney injury and pancytopenia. Time Spent With Patient Total time spent: Total time spent today is 40 minutes, 30 minutes in coordination of care discussing with patient and ongoing evaluation management of these issues. Subjective Date Seen: 07/26/22 Interval history: 76-year-old male seen in followup of hospital admission for sepsis. Source of info fact judd is possibly pneumonia and/or urinary tract infection. Urine culture now showing Klebsiella pneumonia a which is ESBL positive. It is sensitive to levofloxacin and piperacillin tazobactam. Patient reports feeling no better today. Possibly even a little weaker today than yesterday. He does feel warm and cold but has not had documented fever. Vital signs are relatively stable. He has a poor appetite but has been taking in fluid, primarily water. He is encouraged to take in nutritious liquids as well. No new symptoms of illness. Exam Narrative: Exam Narrative: He is alert and oriented and tired appearing. Otherwise appears in no distress. He is able to give his own history. He is seen with his today. Oropharynx normal. Neck is supple out mass or adenopathy. Respirations are clear to auscultation with a rare basilar crackle. Cardiovascular: S1, S2, regular rate and rhythm. Abdomen: Bowel sounds active. Abdomen is soft. Mid abdominal incisional hernia is nontender and easily reduced. Extremities without edema and with good peripheral pulses Const: Vital Signs, click to edit/add: Vital Signs - 24 hr 07/25/22 15:43 07/25/22 19:25 07/25/22 22:57 Temperature 98.1 F Pulse Rate 69 Pulse Rate [Pulse Oximeter] 72 72 Respiratory Rate 16 16 Blood Pressure [Ri t Arm] 126/74 Pulse Oximetry 96 Oxygen Delivery Me thod 07/25/22 22:57 07/25/22 23:00 07/26/22 03:00 Temperature 98.3 F Pulse Rate 69 Pulse Rate [Pulse Oximeter] 72 69 Respiratory Rate 16 16 Blood Pressure [Ri t Arm] 139/73 144/76 H Pulse Oximetry 97 91 Oxygen Delivery Me thod Room Air Room Air 07/26/22 07:48 07/26/22 07:51 07/26/22 11:50 Temperature 98.5 F 97.8 F Pulse Rate 74 Pulse Rate [Pulse Oximeter] 71 62 Respiratory Rate 20 18 Blood Pressure [Ri ght Arm] 141/77 H 120/71 Pulse Oximetry 93 97 Oxygen Delivery Me thod Room Air Room Air 07/26/22 14:34 Temperature Pulse Rate 71 Pulse Rate [Pulse Oximeter] Respiratory Rate Blood Pressure [Ri ght Arm] Pulse Oximetry Oxygen Delivery Me thod Documenting provider has reviewed patient's vital signs: yes Labs Labs: Laboratory Results - last 24 hr 07/26/22 07/26/22 05:57 05:57 WBC 1.51 L* RBC 2.72 L Hgb 9.1 L Hct 28.1 L MCV 103 H MCH 34 MCHC 32 RDW Coeff of Trena 14.3 Plt Count 99 L Neut % (Auto) 80.0 H Lymph % (Auto) 11.3 L [place] % (Auto) 6.6 Eos % (Auto) 0.7 Baso % (Auto) 0.7 Neut # (Auto) 1.20 L Lymph # (Auto) 0.20 L [place] # (Auto) 0.10 Eos # (Auto) 0.00 Baso # (Auto) 0.00 Diff Slide Review Acceptable Review Sodium 132 L Potassium 3.5 L Chloride 104 Carbon Dioxide 21 BUN 24 Creatinine 2.1 H Estimated Creat Clear 29.49 Estimated GFR 32 Glucose 99 Calcium 6.9 L Troponin I 0.08 H* C-Reactive Protein 19.9 H
--- NOTE | 2022-07-26 17:55 | PC.NURSE ---
Shift Summary: Patient pleasant and cooperative. Worked with PT/OT today. at bedside most of day and has been helpful. Tolerating regular diet well, patients appetite has improved since yesterday. Denies pain or nausea. Vitals stable and WNL, o2 sats >90% on RA. Using urinal when tired, otherwise has ambulated to bathroom.
[2022-07-26] MEDS: ENOXAPARIN 40 MG/0.4 ML INJ SUBCUT (21:13)
[2022-07-27] VITALS (12 sets, daily range): BP systolic 120–143; BP diastolic 69–82; PULSE 62–80; RESP 12–20; TEMP 36.7–38.2; O2SAT 91–98
[2022-07-27] MEDS: PIPERACILLIN/TAZOBACTAM 2.25 GM in 0.9 % SODIUM CHLORIDE Mini-bag 100 ML IVPB ×4 (03:40→21:05)
--- NOTE | 2022-07-27 06:06 | PC.NURSE ---
Patient is alert and oriented x 4, on RA, vss, regular diet. Patient is afebrile, fluid intake and output is very good, appetite is poor. He continues to be tremulous and weak, requiring an assist of two to safely transfer. Complained of intermittent hot flashes but when checked temp was normal. Patient and his feeling frustrated about lack of definitive etiology for his current illness. continues to help patient with cares, voiding as well as emotional support.
[2022-07-27 07:10] LABS: Chloride* 102 mmol/L (96-114); Potassium* 3.6 mmol/L (3.6-5.1); Sodium* 128 mmol/L (135-149)
[2022-07-27 07:13] LABS: Creatinine* 2.2 mg/dL (0.5-1.5); Est. Creatinine Clearance* 28.11; Estimated Glomerular Filt Rate 30 ml/min
[2022-07-27 07:14] LABS: Blood Urea Nitrogen* 21 mg/dL (7-30); Calcium* 6.7 mg/dL (8.4-10.6); Carbon Dioxide* 19 mmol/L (20-32); Glucose* 98 mg/dL (60-115); Hematocrit 29.7 % (37.0-53.0); Hemoglobin* 9.9 gm/dL (13.5-17.5); Immature Granulocytes Pct Auto 0.9 %; Lymphocytes Percent Auto 13.4 % (20-44); Magnesium* 1.8 mg/dL (1.5-2.6); Mean Corpuscular HGB Conc 33 gm/dL (32-36); Mean Corpuscular Hemoglobin 34 pg (26-34); Mean Corpuscular Volume 102 fL (80-100); Monocytes Percent Auto 7.1 % (0.0-11.0); Neutrophils Percent Auto 78.6 % (42.0-72.0); Platelet Count* 111 K/uL (140-440); RDW Coefficient of Variation % 14.1 % (11.5-15.5); Red Blood Count 2.92 m/uL (4.30-5.90)
[2022-07-27 07:36] LABS: C Reactive Protein* 18.3 mg/dL (0.5-1.0); Troponin I* 0.09 ng/mL (0.01-0.04)
[2022-07-27] MEDS: LEVOTHYROXINE 100 MCG TABLET PO (08:08)
[2022-07-27] MEDS: LEVOTHYROXINE 75 MCG TABLET PO (08:09)
[2022-07-27] MEDS: 0.9 % SODIUM CHLORIDE 1000 ml 1,000 ML 500 ML IV (08:13)
[2022-07-27 08:18] LABS: White Blood Count* 1.12 K/uL (4.50-11.00)
[2022-07-27 08:19] LABS: Slide Review Reflex No
[2022-07-27] MEDS: OMEPRAZOLE 20 MG CAPSULE DR 40 MG PO (09:04)
[2022-07-27] MEDS: ACYCLOVIR 200 MG CAPSULE 400 MG PO ×2 (09:04→21:00)
[2022-07-27] MEDS: CYANOCOBALAMIN (VITAMIN B-12) 500 MCG TABLET 1000 MCG PO (09:04)
[2022-07-27] MEDS: ASPIRIN EC 325 MG TABLET PO (09:04)
[2022-07-27] MEDS: AZITHROMYCIN 250 MG TABLET 500 MG PO (09:04)
--- NOTE | 2022-07-27 15:13 | PM.IMPN1 ---
Progress Note: A&P Assessment and plan (1) Febrile illness, acute: Problem details: -rigors, chills. Documented fever. Immunocompromised on current multiple myeloma therapy. Bacteremia risk high. Started Zosyn and azithromycin. -hx of phimosis; prev urine culture negative at [facility] 06/02 - keep broad view for source of fever -possible community-acquired pneumonia with elevated procalcitonin and chest x-ray findings. Consider PCP. Absolute neutrophil count now 900 I favor urinary tract infection as the source of his acute illness. 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 Iverson is a 76 year old male with IgG [place] Myeloma who is on daratumumab SQ on days 1, 15 for C3-C6, and day 1 of cycle 7 and beyond, lenalidomide 5 mg daily, dexamethasone 12 mg on Tuesdays, and 8 mg on Fridays. He remains on acyclovir and aspirin. -PJP ppx: no need given dex 20 weekly < 40 weekly threshold -VZV/HSV ppx: home acyclovir 400 BID -thrombosis ppx: home aspirin 325mg daily -bone ppx: quarterly Zometa, daily calcium-vitamin D -home PRN compazine/zofran Status: Acute (3) CKD (chronic kidney disease): Problem details: Secondary to hypertension and nephrectomy. Continue to monitor. TC with hyperkalemia in May due to Bactrim Status: Acute (4) Pancytopenia: Problem details: Due to multiple myeloma and treatment. Absolute neutrophil count now 900. I spoke with [facility]hematology on-call. They recommended continuing current course of treatment without any intervention for pancytopenia or neutropenia Status: Acute (5) Hyponatremia: Problem details: Due to aggressive water drinking. Modest fluid restriction. Encourage solid food. Status: Acute (6) Acute on chronic renal failure: Problem details: baseline creat is 1.5 (HTN, left nephrectomy) 1.7 tonight; pre-renal from febrile illness. Continue to monitor and dose medications accordingly. Status: Acute (7) Hypokalemia: Problem details: Replace and follow. Status: Acute (8) Elevated troponin: Problem details: Asymptomatic. Suspect stress-induced ischemia. Status: Acute (9) Weakness: Problem details: Profound weakness due to current illness. PT and OT to evaluate and treat Status: Acute Plan Continue in hospital for IV antibiotics and monitoring of neutropenia. Anticipate discharge to home when strong enough to walk, fever has resolved, able to take in adequate p.o. food and fluid and stable electrolytes. Time Spent With Patient Total time spent: Total time spent today is 45 minutes, 35 minutes in coordination of care and discussing with patient, and [facility] corporate director plan of care for multiple myeloma and infection Subjective Date Seen: 07/27/22 Interval history: 76-year-old male seen in followup of hospitalization for sepsis in the context of multiple myeloma treatment and pancytopenia. Patient reports still feeling profoundly weak and fatigued. He if continues to feel warm and have sweats but has not had a documented fever. He noted that he was able to walk to the bathroom today for the 1st time. No significant breathing troubles no cough or chest pain. Still a very poor appetite. He is tolerating liquids quite a bit and continues to drink a lot of water. Exam Narrative: Exam Narrative: He is alert and appears in no distress. Tired appearing however. Speech is normal in he is oriented to his circumstances. He is seen with his today. Respirations are clear to auscultation. Cardiovascular: S1, S2, regular rate and rhythm. No murmur gallop or rub. Abdomen: Bowel sounds active. Abdomen is soft without tenderness or mass extremities without edema. Good perfusion all 4 extremities. Const: Vital Signs, click to edit/add: Vital Signs - 24 hr 07/26/22 19:55 07/26/22 20:22 07/26/22 22:04 Temperature 98 F Pulse Rate Pulse Rate [Pulse Oximeter] 67 Respiratory Rate 16 16 16 Blood Pressure [Ri t Arm] 132/78 Pulse Oximetry 93 Oxygen Delivery Me thod Room Air 07/26/22 23:35 07/27/22 02:07 07/27/22 03:37 Temperature 98.2 F 98.8 F Pulse Rate 64 Pulse Rate [Pulse Oximeter] 65 66 Respiratory Rate 14 14 Blood Pressure [Ri t Arm] 119/72 134/73 Pulse Oximetry 92 91 Oxygen Delivery Me thod Room Air Room Air 07/27/22 07:17 07/27/22 07:56 07/27/22 11:21 Temperature 99 F 99.4 F Pulse Rate 67 Pulse Rate [Pulse Oximeter] 80 68 Respiratory Rate 18 Blood Pressure [Ri ght Arm] 143/77 H 127/75 Pulse Oximetry 93 98 Oxygen Delivery Me thod Room Air Room Air 07/27/22 15:05 Temperature 98.1 F Pulse Rate Pulse Rate [Pulse Oximeter] 64 Respiratory Rate 18 Blood Pressure [Ri ght Arm] 124/73 Pulse Oximetry 94 Oxygen Delivery Me thod Room Air Documenting provider has reviewed patient's vital signs: yes Labs Labs: Laboratory Results - last 24 hr 07/27/22 07/27/22 06:03 06:03 WBC 1.12 L* RBC 2.92 L Hgb 9.9 L Hct 29.7 L MCV 102 H MCH 34 MCHC 33 RDW Coeff of Trena 14.1 Plt Count 111 L Neut % (Auto) 78.6 H Lymph % (Auto) 13.4 L [place] % (Auto) 7.1 Eos % (Auto) 0.0 Baso % (Auto) 0.0 Neut # (Auto) 0.90 L Lymph # (Auto) 0.20 L [place] # (Auto) 0.10 Eos # (Auto) 0.00 Baso # (Auto) 0.00 Sodium 128 L Potassium 3.6 Chloride 102 Carbon Dioxide 19 L BUN 21 Creatinine 2.2 H Estimated Creat Clear 28.11 Estimated GFR 30 Glucose 98 Calcium 6.7 L Magnesium 1.8 Troponin I 0.09 H* C-Reactive Protein 18.3 H
--- NOTE | 2022-07-27 17:08 | PC.NURSE ---
Addendum entered by Jazmyn Quiroga RN 07/27/22 19:00: @ 1830 patient states pain has resolved, repeat EKG done per MD order, Temp taken at this time 99. Addendum entered by Jazmyn Quiroga RN 07/27/22 18:07: Patient c/o not feeling right and a short episode of chest pain. Temp 100.7, given PRN acetaminophen. EKG done, updated and new orders for lab draw now. Original Note: Shift Summary: Patient pleasant and cooperative. Up with one assist, walker and gait belt. Up in chair for meals, ambulated to bathroom, throughout day became more fatigued. T-max 99.4. Vitals stable and WNL, o2 sats >90% on RA. Encouraged to increase calorie intake, drinking ensure clear between meals. Denied pain or nausea.
[2022-07-27] MEDS: ACETAMINOPHEN 325 MG TABLET 975 MG PO (17:47)
--- NOTE | 2022-07-27 18:28 | CRLHL7_ITS ---
For Patients: As a result of the Century Cures Act, medical imaging exams and procedure reports are released immediately into your electronic medical record. You may view this report before your referring provider. If you have questions, please contact your health care provider. INDICATION: fever, chest pain HISTORY: Fever. Chest pain. COMPARISON: 07/24/2022. TECHNIQUE: Chest, 1 view portable semi upright. FINDINGS: Interstitial and alveolar opacities, right greater than left, have progressed when compared with 07/24/2022. There is no pneumothorax or deep sulcus sign. The central airway is normal. The osseous structures are intact. No sizable pleural effusion. IMPRESSION: 1. Pulmonary opacities have progressed, particularly in the right lower lung zone, when compared with 07/24/2022. 2. Pneumonia is favored over asymmetric pulmonary edema. Dictated by Declan Lewis MD @ 07/27/2022 8:15:03 PM Dictated by: Declan Lewis MD @ 07/27/2022 20:15:10 (Electronically Signed)
[2022-07-27 18:39] LABS: Eosinophils Percent Auto 1.1 % (0.0-7.0); Hematocrit 25.7 % (37.0-53.0); Hemoglobin* 8.6 gm/dL (13.5-17.5); Immature Granulocytes Pct Auto 1.1 %; Mean Corpuscular HGB Conc 34 gm/dL (32-36); Mean Corpuscular Hemoglobin 34 pg (26-34); Mean Corpuscular Volume 102 fL (80-100); Monocytes Percent Auto 6.5 % (0.0-11.0); Neutrophils Percent Auto 79.3 % (42.0-72.0); Platelet Count* 110 K/uL (140-440); Red Blood Count 2.52 m/uL (4.30-5.90)
[2022-07-27 18:40] LABS: White Blood Count* 0.92 K/uL (4.50-11.00)
[2022-07-27 18:41] LABS: Slide Review Reflex No
[2022-07-27 18:55] LABS: Chloride* 104 mmol/L (96-114); Potassium* 3.4 mmol/L (3.6-5.1); Sodium* 128 mmol/L (135-149)
[2022-07-27 18:57] LABS: Creatinine* 2.1 mg/dL (0.5-1.5); Est. Creatinine Clearance* 29.44; Estimated Glomerular Filt Rate 32 ml/min
[2022-07-27 18:58] LABS: Blood Urea Nitrogen* 22 mg/dL (7-30); Calcium* 6.4 mg/dL (8.4-10.6); Carbon Dioxide* 17 mmol/L (20-32); Glucose* 113 mg/dL (60-115)
[2022-07-27 19:15] LABS: Procalcitonin* 1.67 ng/mL (<0.50)
[2022-07-27 19:21] LABS: Troponin I* 0.08 ng/mL (0.01-0.04)
[2022-07-27] MEDS: SODIUM CHLORIDE 0.9 % (FLUSH) 10 ML SYRINGE 5 ML IVF (21:04)
[2022-07-27] MEDS: ENOXAPARIN 40 MG/0.4 ML INJ SUBCUT (21:04)
--- NOTE | 2022-07-27 21:13 | P.IMPN_ITS ---
Progress Note: A&P Assessment and plan (1) Elevated troponin: Problem details: Asymptomatic. Suspect stress-induced ischemia. - CP this evening, but EKG and troponin reassuring; troponin now trending down with peak of 0.9. ECHO done 07/24. Status: Acute (2) Pancytopenia: Problem details: Due to multiple myeloma and treatment. Absolute neutrophil count now 900. I spoke with [facility]/hematology on-call. They recommended continuing current course of treatment without any intervention for pancytopenia or neutropenia Status: Acute (3) Febrile illness, acute: Problem details: -rigors, chills. Documented fever. Immunocompromised on current multiple myeloma therapy. Bacteremia risk high. Started Zosyn and azithromycin. -hx of phimosis; prev urine culture negative at [facility] 06/02 - keep broad view for source of fever -possible community-acquired pneumonia with elevated procalcitonin and chest x- ray findings. Consider PCP. Absolute neutrophil count now 900 I favor urinary tract infection as the source of his acute illness. Pyelonephritis with a solitary kidney - New fever this evening with progression of infiltrate on CXR. Procalcitonin is slightly improved, but with new fever, I think we should add vancomycin to cover for possible HCAP/MRSA. Discussed risk of worsening renal failure with use of vanco/zosyn with patient and family. Also need to consider PCP, but I think this is less likely and patient had recent adverse reaction to bactrim use. Consider ID consult. 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 Iverson is a 76 year old male with IgG [place] Myeloma who is on daratumumab SQ on days 1, 15 for C3-C6, and day 1 of cycle 7 and beyond, lenalidomide 5 mg daily, dexamethasone 12 mg on Tuesdays, and 8 mg on Fridays. He remains on acyclovir and aspirin. -PJP ppx: no need given dex 20 weekly < 40 weekly threshold -VZV/HSV ppx: home acyclovir 400 BID -thrombosis ppx: home aspirin 325mg daily -bone ppx: quarterly Zometa, daily calcium-vitamin D -home PRN compazine/zofran Status: Acute (5) Acute on chronic renal failure: Problem details: baseline creat is 1.5 (HTN, left nephrectomy) stabilized around 2; pre-renal from febrile illness. Continue to monitor and dose medications accordingly. Status: Acute Subjective Time Seen by Provider: 20:45 Date Seen: 07/27/22 Interval history: 76 y/o male on chemo for MM has been in hospital on zosyn/vanco for neutropenic fever. This afternoon he felt tired after therapy and had a brief episode of sharp chest pain while shifting in bed. The pain was a zing or a twinge and lasted only seconds, but because he felt generally unwell, he asked his nurse to check his vitals and his temp was elevated. His last true fever was on 07/24. He has had several low grade temperatures in the meantime. He has no other new symptoms today. He feels better now. His is with him in the room. She tells me she is a retired nurse and she is concerned about his kidney, especially with the addition of any new medications. We discussed the results of the labs drawn this evening as well as the chest x-ray. We discussed the possibility of drug resistant organisms, such as MRSA, treating with vancomycin, and the possibility of worsening renal function with the use of zosyn and vanco together. Exam Narrative: Exam Narrative: General: No acute distress. Awake alert oriented. Const: Vital Signs, click to edit/add: Vital Signs - 24 hr 07/26/22 22:04 07/26/22 23:35 07/27/22 02:07 Temperature 98.2 F Pulse Rate 64 Pulse Rate [Pulse Oximeter] 65 Respiratory Rate 16 14 Blood Pressure [Ri ght Arm] 119/72 Pulse Oximetry 92 Oxygen Delivery Me thod Room Air 07/27/22 03:37 07/27/22 07:17 07/27/22 07:56 Temperature 98.8 F 99 F Pulse Rate 67 Pulse Rate [Pulse Oximeter] 66 80 Respiratory Rate 14 Blood Pressure [Ri ght Arm] 134/73 143/77 H Pulse Oximetry 91 93 Oxygen Delivery Me thod Room Air Room Air 07/27/22 11:21 07/27/22 15:05 07/27/22 17:47 Temperature 99.4 F 98.1 F 100.7 F H Pulse Rate Pulse Rate [Pulse Oximeter] 68 64 Respiratory Rate 18 18 Blood Pressure [Ri ght Arm] 127/75 124/73 Pulse Oximetry 98 94 Oxygen Delivery Me thod Room Air Room Air 07/27/22 17:50 07/27/22 18:35 07/27/22 18:55 Temperature 100.7 F H 99 F 99 F Pulse Rate Pulse Rate [Pulse Oximeter] 69 Respiratory Rate 20 Blood Pressure [Ri ght Arm] 141/82 H Pulse Oximetry 91 Oxygen Delivery Me thod Room Air Documenting provider has reviewed patient's vital signs: yes Labs Labs: Laboratory Results - last 24 hr 07/27/22 07/27/22 07/27/22 06:03 06:03 18:22 WBC 1.12 L* 0.92 L* RBC 2.92 L 2.52 L Hgb 9.9 L 8.6 L Hct 29.7 L 25.7 L MCV 102 H 102 H MCH 34 34 MCHC 33 34 RDW Coeff of Trena 14.1 14.0 Plt Count 111 L 110 L Neut % (Auto) 78.6 H 79.3 H Lymph % (Auto) 13.4 L 12.0 L [place] % (Auto) 7.1 6.5 Eos % (Auto) 0.0 1.1 Baso % (Auto) 0.0 0.0 Neut # (Auto) 0.90 L 0.70 L Lymph # (Auto) 0.20 L 0.10 L [place] # (Auto) 0.10 0.10 Eos # (Auto) 0.00 0.00 Baso # (Auto) 0.00 0.00 Sodium 128 L Potassium 3.6 Chloride 102 Carbon Dioxide 19 L BUN 21 Creatinine 2.2 H Estimated Creat Clear 28.11 Estimated GFR 30 Glucose 98 Lactate Calcium 6.7 L Magnesium 1.8 Troponin I 0.09 H* C-Reactive Protein 18.3 H Procalcitonin 07/27/22 07/27/22 18:22 18:22 WBC RBC Hgb Hct MCV MCH MCHC RDW Coeff of Trena Plt Count Neut % (Auto) Lymph % (Auto) [place] % (Auto) Eos % (Auto) Baso % (Auto) Neut # (Auto) Lymph # (Auto) [place] # (Auto) Eos # (Auto) Baso # (Auto) Sodium 128 L Potassium 3.4 L Chloride 104 Carbon Dioxide 17 L BUN 22 Creatinine 2.1 H Estimated Creat Clear 29.44 Estimated GFR 32 Glucose 113 Lactate 1.0 Calcium 6.4 L Magnesium Troponin I 0.08 H* C-Reactive Protein Procalcitonin 1.67 H Ordering Physician: Ana Koenig M.D. Date of Service: 07/27/22 Procedure(s): XR chest 1V portable Accession Number(s): [id number] cc: Ana Koenig M.D.; Provider,Not a Local ~ For Patients: As a result of the Cures Act, medical imaging exams and procedure reports are released immediately into your electronic medical record. You may view this report before your referring provider. If you have questions, please contact your health care provider. INDICATION: fever, chest pain HISTORY: Fever. Chest pain. COMPARISON: 07/24/2022. TECHNIQUE: Chest, 1 view portable semi upright. FINDINGS: Interstitial and alveolar opacities, right greater than left, have progressed when compared with 07/24/2022. There is no pneumothorax or deep sulcus sign. The central airway is normal. The osseous structures are intact. No sizable pleural effusion. IMPRESSION: 1. Pulmonary opacities have progressed, particularly in the right lower lung zone, when compared with 07/24/2022. 2. Pneumonia is favored over asymmetric pulmonary edema. Dictated by Declan Lewis MD @ 07/27/2022 8:15:03 PM Dictated by: Declan Lewis MD @ 07/27/2022 20:15:10 (Electronically Signed) EKG at 4:50 p.m. had the right and left limb leads switched, but was otherwise unchanged from previous EKG. Repeat EKG was done around 6:30 p.m. and was unchanged from previous EKGs.
[2022-07-28] VITALS (10 sets, daily range): BP systolic 120–142; BP diastolic 72–86; PULSE 60–68; RESP 12–28; TEMP 36.8–39; O2SAT 91–97
[2022-07-28] MEDS: PIPERACILLIN/TAZOBACTAM 2.25 GM in 0.9 % SODIUM CHLORIDE Mini-bag 100 ML IVPB ×4 (03:52→20:55)
[2022-07-28] MEDS: LEVOTHYROXINE 75 MCG TABLET 150 MCG PO (06:17)
[2022-07-28 07:01] LABS: Eosinophils Percent Auto 1.3 % (0.0-7.0); Hematocrit 27.1 % (37.0-53.0); Immature Granulocytes Pct Auto 5.2 %; Lymphocytes Percent Auto 11.7 % (20-44); Mean Corpuscular HGB Conc 33 gm/dL (32-36); Mean Corpuscular Hemoglobin 34 pg (26-34); Mean Corpuscular Volume 101 fL (80-100); Monocytes Percent Auto 6.5 % (0.0-11.0); Neutrophils Percent Auto 75.3 % (42.0-72.0); Platelet Count* 112 K/uL (140-440); RDW Coefficient of Variation % 13.9 % (11.5-15.5); Red Blood Count 2.68 m/uL (4.30-5.90)
[2022-07-28 07:14] LABS: Chloride* 104 mmol/L (96-114); Potassium* 3.3 mmol/L (3.6-5.1); Sodium* 129 mmol/L (135-149)
[2022-07-28 07:16] LABS: Creatinine* 2.3 mg/dL (0.5-1.5); Est. Creatinine Clearance* 27.32; Estimated Glomerular Filt Rate 29 ml/min
[2022-07-28 07:17] LABS: Blood Urea Nitrogen* 21 mg/dL (7-30); Carbon Dioxide* 18 mmol/L (20-32)
[2022-07-28 07:18] LABS: Calcium* 6.6 mg/dL (8.4-10.6); Glucose* 93 mg/dL (60-115)
[2022-07-28 07:34] LABS: C Reactive Protein* 16.5 mg/dL (0.5-1.0)
[2022-07-28 07:58] LABS: Slide Review Reflex Yes; White Blood Count* 0.77 K/uL (4.50-11.00)
[2022-07-28 07:59] LABS: Slide Review Acceptable Review (Acceptable)
[2022-07-28] MEDS: POTASSIUM BICARB 25 MEQ EFFERVESCENT TAB 50 MEQ PO (09:12)
[2022-07-28] MEDS: OMEPRAZOLE 20 MG CAPSULE DR 40 MG PO (09:13)
[2022-07-28] MEDS: ASPIRIN EC 325 MG TABLET PO (09:13)
[2022-07-28] MEDS: CYANOCOBALAMIN (VITAMIN B-12) 500 MCG TABLET 1000 MCG PO (09:13)
[2022-07-28] MEDS: AZITHROMYCIN 250 MG TABLET 500 MG PO (09:13)
[2022-07-28] MEDS: ACYCLOVIR 200 MG CAPSULE 400 MG PO ×2 (09:14→20:54)
[2022-07-28] MEDS: SODIUM CHLORIDE 0.9 % (FLUSH) 10 ML SYRINGE 5 ML IVF ×2 (09:32→20:56)
[2022-07-28] MEDS: SODIUM BICARBONATE 650 MG TABLET PO ×3 (10:23→18:00)
[2022-07-28 13:18] LABS: C.Difficile Negative (Negative); CDIFFEPI 027 PRESUMPTIVE NEGATIVE (Negative)
--- NOTE | 2022-07-28 13:41 | PM.IMPN1 ---
Progress Note: A&P Assessment and plan (1) Elevated troponin: Problem details: Asymptomatic. Suspect stress-induced ischemia. - CP this evening, but EKG and troponin reassuring; troponin now trending down with peak of 0.9. ECHO done 07/24. Status: Acute (2) Pancytopenia: Problem details: Due to multiple myeloma and treatment. Absolute neutrophil count now 900. I spoke with [facility]/hematology on-call. They recommended continuing current course of treatment without any intervention for pancytopenia or neutropenia Status: Acute (3) Febrile illness, acute: Problem details: Two likely sources for sepsis with acute febrile illness are urinary tract infection/pyelonephritis due to Klebsiella pneumonia and bilateral pneumonia with radiographically worsening infiltrates. Patient is not having specific symptoms related to these but is constitutionally quite ill with weakness fatigue malaise and fever. 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 Iverson is a 76 year old male with IgG [place] Myeloma who is on daratumumab SQ on days 1, 15 for C3-C6, and day 1 of cycle 7 and beyond, lenalidomide 5 mg daily, dexamethasone 12 mg on Tuesdays, and 8 mg on Fridays. He remains on acyclovir and aspirin. -PJP ppx: no need given dex 20 weekly < 40 weekly threshold -VZV/HSV ppx: home acyclovir 400 BID -thrombosis ppx: home aspirin 325mg daily -bone ppx: quarterly Zometa, daily calcium-vitamin D -home PRN compazine/zofran Status: Acute (5) Acute on chronic renal failure: Problem details: baseline creat is 1.5 (HTN, left nephrectomy) Creatinine continuing to rise. Now somewhat acidotic. Continue to monitor and dose medications accordingly. Status: Acute (6) Pneumonia: Problem details: Bilateral pneumonia, right greater than left. Radiographically appears worse on July 28 than on admission on July 24 2022. Continue piperacillin tazobactam and azithromycin. Testing from 3 days ago shows a normal beta D glucan. Check MRSA nasal swab. if no MRSA will hold off on vancomycin. If positive for MRSA start vancomycin and switch from Zosyn to imipenem Status: Acute (7) Urinary tract infection: Problem details: Urinary tract infection with ESBL Klebsiella pneumonia 07/24/2022. Susceptible to piperacillin tazobactam. Status: Acute (8) Diarrhea: Problem details: Acute on chronic. Check C diff test. Status: Acute Plan I spoke with Oncology at [facility] about possible transfer. They have no beds available at this time. Unable to speak to Infectious Disease consult at this time. Continue in our hospital for IV antibiotics for pyelonephritis and pneumonia as well as monitoring of vital signs and clinical illness. Plan of care was discussed in detail with patient and his and other providers. Time Spent With Patient Total time spent: Total time spent today is 55 minutes, 35 minutes in coordination of care discussing with patient, and other providers ongoing evaluation management of sepsis, pneumonia, pyelonephritis, pancytopenia, immunosuppression, acute kidney injury. Subjective Date Seen: 07/28/22 Interval history: 76-year-old male seen in followup of hospital admission for fever, sepsis, non STEMI, pancytopenia. He reports feeling a little stronger today. His appetite is also modestly improved. He had a fever last night of 100.7. He reports no trouble with breathing. He is not requiring oxygen. His vitals have been relatively normal other than his low-grade fever. He is still profoundly weak but able to walk with a walker now. 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 He is having diarrhea. Still drinking plenty of fluids and having good urine output. Exam Narrative: Exam Narrative: He is tired appearing and tremulous but otherwise appears in no distress. He is a little more talkative today. He is oriented to his circumstances. Respirations are clear to auscultation. No obvious wheezing crackles or consolidation. Cardiovascular: S1, S2, regular rate and rhythm. Abdomen is soft without tenderness or mass. Abdominal hernia is nontender and easily be reduced. Extremities without edema. He has somewhat diminished perfusion and extremities are mildly cool to touch today. Const: Vital Signs, click to edit/add: Vital Signs - 24 hr 07/27/22 15:05 07/27/22 17:47 07/27/22 17:50 Temperature 98.1 F 100.7 F H 100.7 F H Pulse Rate [Pulse Oximeter] 64 69 Respiratory Rate 18 20 Blood Pressure [Ri ght Arm] 124/73 141/82 H Pulse Oximetry 94 91 Oxygen Delivery Me thod Room Air Room Air 07/27/22 18:35 07/27/22 18:55 07/27/22 19:35 Temperature 99 F 99 F 98.5 F Pulse Rate [Pulse Oximeter] 66 Respiratory Rate 12 Blood Pressure [Ri ght Arm] 120/72 Pulse Oximetry 94 Oxygen Delivery Me thod Room Air 07/27/22 22:15 07/28/22 03:47 07/28/22 07:00 Temperature 98.5 F 98.2 F 98.6 F Pulse Rate [Pulse Oximeter] 62 64 68 Respiratory Rate 12 12 25 H Blood Pressure [Ri ght Arm] 126/69 142/74 H 139/77 Pulse Oximetry 96 91 94 Oxygen Delivery Me thod Room Air Room Air Room Air 07/28/22 07:00 07/28/22 10:41 07/28/22 11:00 Temperature 98.6 F Pulse Rate [Pulse Oximeter] 68 68 66 Respiratory Rate 25 H 28 H 24 Blood Pressure [Ri ght Arm] 120/77 Pulse Oximetry 95 Oxygen Delivery Me thod Room Air Documenting provider has reviewed patient's vital signs: yes Labs Labs: Laboratory Results - last 24 hr 07/27/22 07/27/22 07/27/22 18:22 18:22 18:22 WBC 0.92 L* RBC 2.52 L Hgb 8.6 L Hct 25.7 L MCV 102 H MCH 34 MCHC 34 RDW Coeff of Trena 14.0 Plt Count 110 L Neut % (Auto) 79.3 H Lymph % (Auto) 12.0 L [place] % (Auto) 6.5 Eos % (Auto) 1.1 Baso % (Auto) 0.0 Neut # (Auto) 0.70 L Lymph # (Auto) 0.10 L [place] # (Auto) 0.10 Eos # (Auto) 0.00 Baso # (Auto) 0.00 Diff Slide Review Sodium 128 L Potassium 3.4 L Chloride 104 Carbon Dioxide 17 L BUN 22 Creatinine 2.1 H Estimated Creat Clear 29.44 Estimated GFR 32 Glucose 113 Lactate 1.0 Calcium 6.4 L Troponin I 0.08 H* C-Reactive Protein Procalcitonin 1.67 H Stl C.difficile Tox PCR St C. diff Tox Epid 027 07/28/22 07/28/22 07/28/22 06:00 06:00 12:00 WBC 0.77 L* RBC 2.68 L Hgb 9.0 L Hct 27.1 L MCV 101 H MCH 34 MCHC 33 RDW Coeff of Trena 13.9 Plt Count 112 L Neut % (Auto) 75.3 H Lymph % (Auto) 11.7 L [place] % (Auto) 6.5 Eos % (Auto) 1.3 Baso % (Auto) 0.0 Neut # (Auto) 0.60 L Lymph # (Auto) 0.10 L [place] # (Auto) 0.10 Eos # (Auto) 0.00 Baso # (Auto) 0.00 Diff Slide Review Acceptable Review Sodium 129 L Potassium 3.3 L Chloride 104 Carbon Dioxide 18 L BUN 21 Creatinine 2.3 H Estimated Creat Clear 27.32 Estimated GFR 29 Glucose 93 Lactate Calcium 6.6 L Troponin I C-Reactive Protein 16.5 H Procalcitonin Stl C.difficile Tox PCR Negative St C. diff Tox Epid 027 PRESUMPTIVE NEGATIVE
[2022-07-28] MEDS: 0.9 % SODIUM CHLORIDE 250 ml IV (16:04)
--- NOTE | 2022-07-28 18:30 | PC.NURSE ---
Nursing Care Hours: [id number] Pt this shift calm and cooperative, alert and oriented. Assist x1 with walker and gait belt. Fairly steady once standing up right. Continuous total body tremors this shift. Pt intermittently c/o feeling cold but denies that the shivering is from being cold. Oral temp highest was 99.6, oxygen stable on room air. Bilat mottled legs after breakfast noted while sitting in chair. Observed after 1 hour in bed and bilat legs WNL. Loose stool x4 this shift. Preliminary stool sample negative for c.diff. Left LS coarse, IS effort at 1000. Pt easily fatigued but does state he is starting to feel stronger today than previous days.
[2022-07-28] MEDS: ENOXAPARIN 30 MG/0.3ML INJ SUBCUT (20:54)
[2022-07-28] MEDS: ACETAMINOPHEN 325 MG TABLET 975 MG PO (20:54)
[2022-07-29] VITALS (7 sets, daily range): BP systolic 123–142; BP diastolic 63–91; PULSE 53–68; RESP 18–32; TEMP 36.3–37.1; O2SAT 95–99
--- NOTE | 2022-07-29 03:10 | PC.NURSE ---
SHIFT NOTE 19-23: Pt had a temp of 102.2F at 2029, updated with no new orders received, PRN Tylenol given, temp rechecked one hour after Tylenol and was 98.4F Pt's stayed the night, very doting and supportive to pt. Pt A&O, fatigued, up to BR with a 1 assist and a walker. Denies pain, SOB, CP, and N/V. Oxygen saturations >90% on RA.
[2022-07-29] MEDS: PIPERACILLIN/TAZOBACTAM 2.25 GM in 0.9 % SODIUM CHLORIDE Mini-bag 100 ML IVPB ×2 (03:19→09:19)
[2022-07-29] MEDS: SODIUM CHLORIDE 0.9 % (FLUSH) 10 ML SYRINGE 5 ML IVF ×3 (03:20→21:18)
--- NOTE | 2022-07-29 05:31 | PC.NURSE ---
Shift note: Temperature rechecked at 0030 was 98.9, pt complained chill and sweating. Bed linens and gown changed. Temperature checked at 0300 was 98.8, complained of chilled again and warm blanket given which stabilized patient's the condition. Denied pain, SOB, and cough. present to support care of .
[2022-07-29] MEDS: LEVOTHYROXINE 75 MCG TABLET PO (06:11)
[2022-07-29] MEDS: LEVOTHYROXINE 100 MCG TABLET PO (06:11)
[2022-07-29 07:05] LABS: Basophils Percent Auto 1.3 % (0.0-3.0); Eosinophils Percent Auto 1.3 % (0.0-7.0); Hematocrit 28.1 % (37.0-53.0); Hemoglobin* 9.4 gm/dL (13.5-17.5); Immature Granulocytes Pct Auto 1.3 %; Lymphocytes Percent Auto 15.6 % (20-44); Mean Corpuscular HGB Conc 34 gm/dL (32-36); Mean Corpuscular Hemoglobin 34 pg (26-34); Mean Corpuscular Volume 100 fL (80-100); Monocytes Percent Auto 7.8 % (0.0-11.0); Neutrophils Percent Auto 72.7 % (42.0-72.0); Platelet Count* 135 K/uL (140-440); RDW Coefficient of Variation % 13.8 % (11.5-15.5)
[2022-07-29 07:18] LABS: Chloride* 105 mmol/L (96-114); Potassium* 3.4 mmol/L (3.6-5.1); Sodium* 132 mmol/L (135-149)
[2022-07-29 07:21] LABS: Carbon Dioxide* 22 mmol/L (20-32); Creatinine* 2.3 mg/dL (0.5-1.5); Est. Creatinine Clearance* 28.65; Estimated Glomerular Filt Rate 29 ml/min
[2022-07-29 07:22] LABS: Blood Urea Nitrogen* 26 mg/dL (7-30); Calcium* 7.1 mg/dL (8.4-10.6); Glucose* 106 mg/dL (60-115)
[2022-07-29 07:48] LABS: Slide Review Acceptable Review (Acceptable); Slide Review Reflex Yes; White Blood Count* 0.77 K/uL (4.50-11.00)
[2022-07-29] MEDS: ASPIRIN EC 325 MG TABLET PO (09:18)
[2022-07-29] MEDS: OMEPRAZOLE 20 MG CAPSULE DR 40 MG PO (09:18)
[2022-07-29] MEDS: CYANOCOBALAMIN (VITAMIN B-12) 500 MCG TABLET 1000 MCG PO (09:18)
[2022-07-29] MEDS: AZITHROMYCIN 250 MG TABLET 500 MG PO (09:18)
[2022-07-29] MEDS: ACYCLOVIR 200 MG CAPSULE 400 MG PO (09:18)
[2022-07-29] MEDS: SODIUM BICARBONATE 650 MG TABLET PO ×3 (09:19→18:37)
[2022-07-29] MEDS: POTASSIUM BICARB 25 MEQ EFFERVESCENT TAB PO (10:25)
--- NOTE | 2022-07-29 11:17 | PM.IMPN1 ---
Progress Note: A&P Assessment and plan (1) Elevated troponin: Problem details: Asymptomatic. Suspect stress-induced ischemia. - CP this evening, but EKG and troponin reassuring; troponin now trending down with peak of 0.9. ECHO done 07/24. Status: Acute (2) Pancytopenia: Problem details: Due to multiple myeloma and treatment. Absolute neutrophil count now 600. I spoke with [facility]ology/hematology on-call. They recommended continuing current course of treatment without any intervention for pancytopenia or neutropenia. Platelets are slowly improving. Hemoglobin is stable to improving. Status: Acute (3) Febrile illness, acute: Problem details: Two likely sources for sepsis with acute febrile illness are urinary tract infection/pyelonephritis due to ESBL Klebsiella pneumonia and bilateral pneumonia with radiographically worsening infiltrates. Patient is not having specific symptoms related to these but is constitutionally quite ill with weakness, fatigue, malaise and fever. Continue treating both conditions and monitoring for other potential infectious problems in the context of immunosuppression from myeloma and myeloma treatment Status: Acute (4) Multiple myeloma: Problem details: Followed by [facility] (Peyton Ryder MD). Testing at [facility] last week, July 22, showed the myeloma was well controlled. 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 Iverson is a 76 year old male with IgG [place] Myeloma who is on daratumumab SQ on days 1, 15 for C3-C6, and day 1 of cycle 7 and beyond, lenalidomide 5 mg daily, dexamethasone 12 mg on Tuesdays, and 8 mg on Fridays. He remains on acyclovir and aspirin. Has previously tolerated daratumumab injections well. Did require reduction in lenalidomide dose due to toxicity. -PJP ppx: no need given dex 20 weekly < 40 weekly threshold -VZV/HSV ppx: home acyclovir 400 BID -thrombosis ppx: home aspirin 325mg daily -bone ppx: quarterly Zometa, daily calcium-vitamin D -home PRN compazine/zofran Status: Acute (5) Acute on chronic renal failure: Problem details: baseline creat is 1.5 (HTN, left nephrectomy) Creatinine continuing to rise. Now somewhat acidotic. On sodium bicarb. Continue to monitor and dose medications accordingly. Status: Acute (6) Pneumonia: Problem details: Bilateral pneumonia, right greater than left. Radiographically appears worse on July 28 than on admission on July 24 2022. Has had 5 days of Zosyn and azithromycin. Switched to levofloxacin today, renally dosed. Testing from 4 days ago shows a normal beta D glucan. MRSA nasal swab is negative. Status: Acute (7) Urinary tract infection: Problem details: Probably pyelonephritis in solitary kidney. Urinary tract infection with ESBL Klebsiella pneumonia 07/24/2022. Susceptible to piperacillin tazobactam and levofloxacin. Status: Acute (8) Diarrhea: Problem details: Acute on chronic. C diff negative Status: Acute Plan Continue in hospital for evaluation management of fever, acute kidney injury, pneumonia, pyelonephritis, Time Spent With Patient Total time spent: Total time spent today is 45 minutes, 30 minutes in coordination of care and discussing with patient and other providers ongoing management of sepsis and pneumonia and pyelonephritis and acute kidney injury Subjective Date Seen: 07/29/22 Interval history: 76-year-old male seen in followup of hospital admission for fever, sepsis, non STEMI, pancytopenia. He reports feeling a little stronger today. His appetite is also modestly improved. He had a fever last night of 102.2. He reports no trouble with breathing. He is not requiring oxygen. His vitals have been relatively normal other than his low-grade fever. He is still profoundly weak but able to walk with a walker now. 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 He is having small frequent episodes of diarrhea. No blood in his stool. C diff test yesterday was negative. Still drinking plenty of fluids and having good urine output. Exam Narrative: Exam Narrative: He is alert, tremulous but otherwise in no distress. Breathing is unlabored. He is oriented to his circumstances. Respirations are clear to auscultation. Cardiovascular: S1, S2, regular rate and rhythm. No murmur gallop or rub. Abdomen: Bowel sounds active. Abdomen is soft without tenderness. Hernia is soft and herniated bowels easy to reduce. No tenderness. Extremities are slightly cool to touch and slightly mottled. Const: Vital Signs, click to edit/add: Vital Signs - 24 hr 07/28/22 15:00 07/28/22 15:00 07/28/22 17:09 Temperature 98.6 F 99.2 F Pulse Rate [Pulse Oximeter] 64 64 Respiratory Rate 18 18 26 H Blood Pressure [Ri ght Arm] 134/79 Pulse Oximetry 97 Oxygen Delivery Me thod Room Air 07/28/22 20:54 07/28/22 20:30 07/28/22 23:00 Temperature 102.2 F H 102.2 F H 98.6 F Pulse Rate [Pulse Oximeter] 66 60 Respiratory Rate 20 18 Blood Pressure [Ri ght Arm] 141/86 H 122/72 Pulse Oximetry 96 94 Oxygen Delivery Me thod Room Air Room Air 07/28/22 21:45 07/28/22 23:00 07/29/22 03:00 Temperature 98.4 F 98.8 F Pulse Rate [Pulse Oximeter] 60 53 L Respiratory Rate 18 18 Blood Pressure [Ri ght Arm] 139/82 Pulse Oximetry 96 Oxygen Delivery Me thod Room Air Documenting provider has reviewed patient's vital signs: yes Labs Labs: Laboratory Results - last 24 hr 07/28/22 07/29/22 07/29/22 12:00 05:59 05:59 WBC 0.77 L* RBC 2.80 L Hgb 9.4 L Hct 28.1 L MCV 100 MCH 34 MCHC 34 RDW Coeff of Trena 13.8 Plt Count 135 L Neut % (Auto) 72.7 H Lymph % (Auto) 15.6 L [place] % (Auto) 7.8 Eos % (Auto) 1.3 Baso % (Auto) 1.3 Neut # (Auto) 0.60 L Lymph # (Auto) 0.10 L [place] # (Auto) 0.10 Eos # (Auto) 0.00 Baso # (Auto) 0.00 Diff Slide Review Acceptable Review Sodium 132 L Potassium 3.4 L Chloride 105 Carbon Dioxide 22 BUN 26 Creatinine 2.3 H Estimated Creat Clear 28.65 Estimated GFR 29 Glucose 106 Calcium 7.1 L Stl C.difficile Tox PCR Negative St C. diff Tox Epid 027 PRESUMPTIVE NEGATIVE
[2022-07-29] MEDS: levoFLOXacin 500 MG TABLET PO (13:21)
[2022-07-29] MEDS: ACYCLOVIR 200 MG CAPSULE 800 MG PO (18:38)
[2022-07-29] MEDS: ENOXAPARIN 30 MG/0.3ML INJ SUBCUT (20:27)
--- NOTE | 2022-07-29 23:20 | PC.NURSE ---
Nursing Care Hours: [id number] Pt this shift calm and cooperative with cares, in the room assisting pt with needs. SB assist with walker, steady gait noted. Loose stools x2 this shift. Maroon color noted, Hemoccult positive x1. Eating greater than 50% of meals. Pt states I had a good, almost normal day today. Right lung coarse mid lobe, Left lung clear. SL, IV patent.
[2022-07-30] VITALS (8 sets, daily range): BP systolic 119–132; BP diastolic 70–88; PULSE 62–81; RESP 18–24; TEMP 36.5–37.4; O2SAT 94–98
[2022-07-30] MEDS: ACYCLOVIR 200 MG CAPSULE 800 MG PO ×5 (00:02→23:35)
[2022-07-30] MEDS: guaiFENesin 100 MG/ML CUP PO (04:07)
[2022-07-30] MEDS: LEVOTHYROXINE 75 MCG TABLET 150 MCG PO (06:28)
[2022-07-30 06:52] LABS: Eosinophils Percent Auto 1.2 % (0.0-7.0); Immature Granulocytes Pct Auto 1.2 %; Lymphocytes Percent Auto 14.8 % (20-44); Mean Corpuscular HGB Conc 33 gm/dL (32-36); Mean Corpuscular Hemoglobin 34 pg (26-34); Mean Corpuscular Volume 102 fL (80-100); Monocytes Percent Auto 7.4 % (0.0-11.0); Neutrophils Percent Auto 75.4 % (42.0-72.0); Platelet Count* 164 K/uL (140-440); RDW Coefficient of Variation % 13.8 % (11.5-15.5); Red Blood Count 2.66 m/uL (4.30-5.90)
[2022-07-30 07:16] LABS: Chloride* 102 mmol/L (96-114); Sodium* 130 mmol/L (135-149)
[2022-07-30 07:19] LABS: Blood Urea Nitrogen* 24 mg/dL (7-30); Calcium* 7.1 mg/dL (8.4-10.6); Carbon Dioxide* 22 mmol/L (20-32); Creatinine* 1.9 mg/dL (0.5-1.5); Est. Creatinine Clearance* 32.93; Estimated Glomerular Filt Rate 36 ml/min; Glucose* 93 mg/dL (60-115)
[2022-07-30 07:20] LABS: Magnesium* 1.6 mg/dL (1.5-2.6)
--- NOTE | 2022-07-30 07:44 | PC.NURSE ---
END OF SHIFT NOTE: PT PLEASANT AND COOPERATIVE. JAYY () STAYED THE NIGHT AT PT BEDSIDE; CARES VERY WELL FOR . PT DENIES CP, SOB, N/V. AMBULATES WITH WALKER A1/SBA. VSS ON RA; AFEBRILE. PT AND REPORT PT MOVING MUCH BETTER TODAY THAN PREVIOUS DAYS. ORTHOSTATIC BP'S COMPLETED. BED ALARM ON AND CALL LIGHT WITHIN PT?S REACH.?
[2022-07-30 07:50] LABS: Slide Review Reflex No; White Blood Count* 0.81 K/uL (4.50-11.00)
[2022-07-30] MEDS: OMEPRAZOLE 20 MG CAPSULE DR 40 MG PO (08:58)
[2022-07-30] MEDS: CYANOCOBALAMIN (VITAMIN B-12) 500 MCG TABLET 1000 MCG PO (09:38)
[2022-07-30] MEDS: levoFLOXacin 250 MG TABLET PO (09:38)
[2022-07-30] MEDS: SODIUM BICARBONATE 650 MG TABLET PO ×3 (09:39→17:37)
[2022-07-30] MEDS: ASPIRIN EC 325 MG TABLET PO (09:39)
[2022-07-30] MEDS: SODIUM CHLORIDE 0.9 % (FLUSH) 10 ML SYRINGE 5 ML IVF ×2 (09:39→21:21)
--- NOTE | 2022-07-30 10:28 | PC.NURSE ---
End of shift- [id number]: Pleasant and cooperative, alert and oriented patient. VSS and pt is afebrile. SPO2 maintained >90% on RA. He denied any pain. LS CTA, but diminished. He denied nausea and ate 75% of a regular diet without difficulty. 1x loose BM this morning and voided approximately 600ml of clear, yellow urine. He was up to the chair and BR with SBA and belt and tolerated it well. is at bedside and assisting with cares.
--- NOTE | 2022-07-30 11:12 | P.IMPN_ITS ---
Progress Note: A&P Assessment and plan (1) Elevated troponin: Problem details: Asymptomatic. Suspect stress-induced ischemia. Status: Acute (2) Pancytopenia: Problem details: Due to multiple myeloma and treatment. Absolute neutrophil count stabilized at 600. Hemoglobin and platelets are relatively stable. Continue to monitor Status: Acute (3) Febrile illness, acute: Problem details: Two likely sources for sepsis with acute febrile illness are urinary tract infection/pyelonephritis due to ESBL Klebsiella pneumonia and bilateral pneumonia with radiographically worsening infiltrates. Patient is not having specific symptoms related to these but is constitutionally quite ill with weakness, fatigue, malaise and fever. Continue treating both conditions and monitoring for other potential infectious problems in the context of immunosuppression from myeloma and myeloma treatment. I spoke with his oncologist at [facility]. She requested testing for EBV, CMV, adenovirus. She also recommended increasing acyclovir to treatment doses rather than prophylactic doses temporarily Status: Acute (4) Multiple myeloma: Problem details: Followed by [facility] (Peyton Ryder MD). Testing at [facility] last week, July 22, showed the myeloma was well controlled. 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 Iverson is a 76 year old male with IgG [place] Myeloma who is on daratumumab SQ on days 1, 15 for C3-C6, and day 1 of cycle 7 and beyond, lenalidomide 5 mg daily, dexamethasone 12 mg on Tuesdays, and 8 mg on Fridays. He remains on acyclovir and aspirin. Has previously tolerated daratumumab injections well. Did require reduction in lenalidomide dose due to toxicity. -PJP ppx: no need given dex 20 weekly < 40 weekly threshold -VZV/HSV ppx: home acyclovir 400 BID -thrombosis ppx: home aspirin 325mg daily -bone ppx: quarterly Zometa, daily calcium-vitamin D -home PRN compazine/zofran Status: Acute (5) Acute on chronic renal failure: Problem details: baseline creat is 1.5 (HTN, left nephrectomy) Creatinine improved today from 2.3 down to 1.9. Continue sodium bicarb for now. Status: Acute (6) Pneumonia: Problem details: Bilateral pneumonia, right greater than left. Radiographically appears worse on July 28 than on admission on July 24 2022. Has had 5 days of Zosyn and azithromycin. Switched to levofloxacin today, renally dosed. Testing from 4 days ago shows a normal beta D glucan. MRSA nasal swab is negative. Status: Acute (7) Urinary tract infection: Problem details: Probably pyelonephritis in solitary kidney. Urinary tract infection with ESBL Klebsiella pneumonia 07/24/2022. Susceptible to piperacillin tazobactam and levofloxacin. Continue levofloxacin, dosed for kidney function Status: Acute (8) Diarrhea: Problem details: Acute on chronic. C diff negative Status: Acute (9) GI bleeding: Problem details: Small blood in stool. Continue to monitor hemoglobin. History of a GI bleed in 2014 requiring 13 units of blood transfusion. Source of the bleed was never fully identified. Patient is on omeprazole. Has a history of iron deficiency anemia but has not recently been on iron supplementation. If hemoglobin is stablethan this can be evaluated as an outpatient. Status: Acute (10) Iron deficiency anemia: Problem details: Restart oral iron. Probably will need IV iron. Status: Acute (11) Hypocalcemia: Problem details: Increase calcium supplementation Status: Acute Plan Continue in-hospital for monitoring of pneumonia and sepsis. Anticipate discharge in the next 1-2 days if he continues to improve. Time Spent With Patient Total time spent: Total time spent today is 45 minutes, 30 minutes in coordination care discussing with patient and and other providers ongoing management of fever and weakness and myeloma Subjective Date Seen: 07/30/22 Interval history: 76-year-old male seen in followup of hospital admission for fever, sepsis, non STEMI, pancytopenia. He reports feeling better today. His appetite is improved. He has been walking independently with a walker and now trying to walk without his walker. He had no fever or chills last night and no documented fever. He reports no trouble with breathing. He is not requiring oxygen. His vitals have been relatively normal. He is having small frequent episodes of diarrhea. He had a small amount of blood in his stool last night. C diff test 2 days ago was negative. Still drinking plenty of fluids and having good urine output. He had previously been on iron therapy orally but that was discontinued. On this admission his iron studies indicate iron deficiency. Exam Narrative: Exam Narrative: He is alert and appears in no distress. He is less tremulous today. He is moving better with his walker and walking today. Respirations with few bibasilar crackles. Fairly good air exchange. Cardiovascular: S1, S2, regular rate and rhythm. No murmur gallop rub. Abdomen: Bowel sounds active. Abdomen is soft without tenderness. Large hernia is easily reduced and nontender. Extremities without edema. Good peripheral perfusion. No rash Const: Vital Signs, click to edit/add: Vital Signs - 24 hr 07/29/22 13:00 07/29/22 15:00 07/29/22 15:00 Temperature 98.1 F 97.6 F Pulse Rate [Pulse Oximeter] 63 60 60 Pulse Rate [orthos tatic lying Pulse Oximeter] Pulse Rate [orthos tatic sitting Puls e Oximeter] Pulse Rate [orthos tatic standing Pul se Oximeter] Respiratory Rate 18 24 24 Blood Pressure [Ri ght Arm] 123/63 142/87 H Blood Pressure [or thostatic lying Ri ght Arm] Blood Pressure [or thostatic sitting Right Arm] Blood Pressure [or thostatic standing Right Arm] Pulse Oximetry 96 98 Oxygen Delivery Me thod Room Air Room Air 07/29/22 18:44 07/29/22 21:18 07/29/22 23:00 Temperature 97.5 F L 98.5 F Pulse Rate [Pulse Oximeter] 62 68 62 Pulse Rate [orthos tatic lying Pulse Oximeter] Pulse Rate [orthos tatic sitting Puls e Oximeter] Pulse Rate [orthos tatic standing Pul se Oximeter] Respiratory Rate 20 32 H 20 Blood Pressure [Ri ght Arm] 142/91 H Blood Pressure [or thostatic lying Ri ght Arm] Blood Pressure [or thostatic sitting Right Arm] Blood Pressure [or thostatic standing Right Arm] Pulse Oximetry 99 98 Oxygen Delivery Me thod Room Air Room Air 07/29/22 23:00 07/30/22 03:00 07/30/22 06:00 Temperature 97.3 F L 98.3 F Pulse Rate [Pulse Oximeter] 62 62 Pulse Rate [orthos tatic lying Pulse Oximeter] 63 Pulse Rate [orthos tatic sitting Puls e Oximeter] 69 Pulse Rate [orthos tatic standing Pul se Oximeter] 81 Respiratory Rate 20 20 Blood Pressure [Ri ght Arm] 137/81 131/79 Blood Pressure [or thostatic lying Ri ght Arm] 130/74 Blood Pressure [or thostatic sitting Right Arm] 132/84 Blood Pressure [or thostatic standing Right Arm] 119/76 Pulse Oximetry 95 94 Oxygen Delivery Me thod Room Air Room Air 07/30/22 08:32 07/30/22 07:00 Temperature 98.4 F Pulse Rate [Pulse Oximeter] 66 66 Pulse Rate [orthos tatic lying Pulse Oximeter] Pulse Rate [orthos tatic sitting Puls e Oximeter] Pulse Rate [orthos tatic standing Pul se Oximeter] Respiratory Rate 24 24 Blood Pressure [Ri ght Arm] 124/88 Blood Pressure [or thostatic lying Ri ght Arm] Blood Pressure [or thostatic sitting Right Arm] Blood Pressure [or thostatic standing Right Arm] Pulse Oximetry 96 Oxygen Delivery Me thod Room Air Documenting provider has reviewed patient's vital signs: yes Labs Labs: Laboratory Results - last 24 hr 07/30/22 07/30/22 05:44 05:44 WBC 0.81 L* RBC 2.66 L Hgb 9.0 L Hct 27.0 L MCV 102 H MCH 34 MCHC 33 RDW Coeff of Trena 13.8 Plt Count 164 Neut % (Auto) 75.4 H Lymph % (Auto) 14.8 L [place] % (Auto) 7.4 Eos % (Auto) 1.2 Baso % (Auto) 0.0 Neut # (Auto) 0.60 L Lymph # (Auto) 0.10 L [place] # (Auto) 0.10 Eos # (Auto) 0.00 Baso # (Auto) 0.00 Sodium 130 L Potassium 4.0 Chloride 102 Carbon Dioxide 22 BUN 24 Creatinine 1.9 H Estimated Creat Clear 32.93 Estimated GFR 36 Glucose 93 Calcium 7.1 L Magnesium 1.6
--- NOTE | 2022-07-30 18:38 | PC.NURSE ---
Pt up with SBA within room. Denies pain. Lungs clear, using IS with encouragement. Pt's , Yesenia, at bedside helpful and considerate.
[2022-07-30] MEDS: ENOXAPARIN 30 MG/0.3ML INJ SUBCUT (21:20)
[2022-07-31 03:24] VITALS: BP 125/78; PULSE 63; RESP 18; TEMP 37.3; O2SAT 93
--- NOTE | 2022-07-31 06:04 | PC.NURSE ---
END OF SHIFT NOTE: PT PLEASANT AND COOPERATIVE. - JAYY, AT BEDSIDE THROUGHOUT THE NIGHT. PT DENIES?CP, SOB, N/V. AMBULATES WITH WALKER AND SBA. VSS ON RA; AFEBRILE. CALL LIGHT WITHIN PT?S REACH. PT TAKES MEDS ONE AT A TIME. UNEVENTFUL NIGHT.
[2022-07-31] MEDS: ACYCLOVIR 200 MG CAPSULE 800 MG PO ×2 (06:13→11:34)
[2022-07-31] MEDS: LEVOTHYROXINE 100 MCG TABLET PO (06:14)
[2022-07-31] MEDS: LEVOTHYROXINE 75 MCG TABLET PO (06:14)
[2022-07-31 07:36] LABS: Hematocrit 27.6 % (37.0-53.0); Hemoglobin* 9.1 gm/dL (13.5-17.5); Lymphocytes Percent Auto 13.3 % (20-44); Mean Corpuscular HGB Conc 33 gm/dL (32-36); Mean Corpuscular Hemoglobin 34 pg (26-34); Mean Corpuscular Volume 102 fL (80-100); Monocytes Percent Auto 9.2 % (0.0-11.0); Neutrophils Percent Auto 72.5 % (42.0-72.0); Platelet Count* 196 K/uL (140-440); RDW Coefficient of Variation % 13.8 % (11.5-15.5); Red Blood Count 2.72 m/uL (4.30-5.90)
[2022-07-31 07:45] VITALS: BP 135/85; PULSE 60; RESP 16; TEMP 36.7; O2SAT 97
[2022-07-31 07:51] LABS: Chloride* 103 mmol/L (96-114)
[2022-07-31 07:52] LABS: Potassium* 3.9 mmol/L (3.6-5.1); Sodium* 131 mmol/L (135-149)
[2022-07-31] MEDS: SODIUM BICARBONATE 650 MG TABLET PO ×2 (07:53→11:34)
[2022-07-31] MEDS: FERROUS SULFATE 325 MG TABLET PO (07:53)
[2022-07-31 07:54] LABS: Creatinine* 1.9 mg/dL (0.5-1.5); Est. Creatinine Clearance* 32.67; Estimated Glomerular Filt Rate 36 ml/min
[2022-07-31 07:55] LABS: Blood Urea Nitrogen* 27 mg/dL (7-30); Carbon Dioxide* 24 mmol/L (20-32); Glucose* 92 mg/dL (60-115)
[2022-07-31 07:56] LABS: Calcium* 7.3 mg/dL (8.4-10.6)
[2022-07-31] MEDS: ASPIRIN EC 325 MG TABLET PO (08:30)
[2022-07-31] MEDS: levoFLOXacin 250 MG TABLET PO (08:30)
[2022-07-31] MEDS: OMEPRAZOLE 20 MG CAPSULE DR 40 MG PO (08:30)
[2022-07-31] MEDS: CYANOCOBALAMIN (VITAMIN B-12) 500 MCG TABLET 1000 MCG PO (08:30)
[2022-07-31 08:51] LABS: Slide Review Reflex Yes
[2022-07-31 08:52] LABS: White Blood Count* 0.98 K/uL (4.50-11.00)
[2022-07-31 08:58] LABS: Slide Review Acceptable Review (Acceptable)
[2022-07-31 10:25] VITALS: BP 102/65; PULSE 67; RESP 16; TEMP 36.7
[2022-07-31 11:30] VITALS: BP 135/83; PULSE 66; RESP 18; TEMP 36.8; O2SAT 97
--- NOTE | 2022-07-31 14:54 | PC.NURSE ---
D/c: Pt A&O. Vs WNL and reported no pain. SBA. helped with shower. Discharge paper went over with pt and . All questions answered. Pt awaiting to leave hospital following virtual nephrology appt.
--- NOTE | 2022-07-31 15:01 | P.DS_ITS ---
DS: Providers Provider Date Seen: 07/31/22 Date of admission: 07/24/22 23:11 Primary care physician: Not a Local Provider Admitting Clinician: Ashley Mcintyre MD Attending Physician on discharge: Cheko Valera MD Date of Discharge: 07/31/22 DS: Diagnosis Discharge Diagnosis (1) Febrile illness, acute: Status: Acute Problem details: Two likely sources for sepsis with acute febrile illness are urinary tract infection/pyelonephritis due to ESBL Klebsiella pneumonia and bilateral pneumonia with radiographically worsening infiltrates. Patient is not having specific symptoms related to these but is constitutionally quite ill with weakness, fatigue, malaise and fever. Continue treating both conditions and monitoring for other potential infectious problems in the context of immunosuppression from myeloma and myeloma treatment. (2) Pneumonia: Status: Acute Problem details: Bilateral pneumonia, right greater than left. Radiographically appears worse on July 28 than on admission on July 24 2022. Has had 5 days of Zosyn and azithromycin. Switched to levofloxacin today, renally dosed. Testing from 4 days ago shows a normal beta D glucan. MRSA nasal swab is negative. (3) Urinary tract infection: Status: Acute Problem details: Probably pyelonephritis in solitary kidney. Urinary tract infection with ESBL Klebsiella pneumonia 07/24/2022. Susceptible to piperacillin tazobactam and levofloxacin. Continue levofloxacin, dosed for kidney function (4) Elevated troponin: Status: Acute Problem details: Asymptomatic. Suspect stress-induced ischemia. (5) Pancytopenia: Status: Acute Problem details: Due to multiple myeloma and treatment. Absolute neutrophil count sujey of 600 and now 700. Hemoglobin and platelets are relatively stable. Continue to monitor (6) Multiple myeloma: Status: Acute Problem details: Followed by [facility] (Peyton Ryder MD). Testing at [facility] last week, July 22, showed the myeloma was well controlled. 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 Iverson is a 76 year old male with IgG [place] Myeloma who is on daratumumab SQ on days 1, 15 for C3-C6, and day 1 of cycle 7 and beyond, lenalidomide 5 mg daily, dexamethasone 12 mg on Tuesdays, and 8 mg on Fridays. He remains on acyclovir and aspirin. Has previously tolerated daratumumab injections well. Did require reduction in lenalidomide dose due to toxicity. -PJP ppx: no need given dex 20 weekly < 40 weekly threshold -VZV/HSV ppx: home acyclovir 400 BID -thrombosis ppx: home aspirin 325mg daily -bone ppx: quarterly Zometa, daily calcium-vitamin D -home PRN compazine/zofran (7) Acute on chronic renal failure: Status: Acute Problem details: baseline creat is 1.5 (HTN, left nephrectomy) Creatinine improved today from 2.3 down to 1.9. (8) Diarrhea: Status: Acute Problem details: Acute on chronic. C diff negative (9) GI bleeding: Status: Acute Problem details: Small blood in stool. Continue to monitor hemoglobin. History of a GI bleed in 2015 requiring 13 units of blood transfusion. Source of the bleed was never fully identified. Patient is on omeprazole. Has a history of iron deficiency anemia but has not recently been on iron supplementation. If hemoglobin is stable then this can be evaluated as an outpatient. (10) Iron deficiency anemia: Status: Acute Problem details: Restart oral iron. Probably will need IV iron. Review with hematology (11) Hypocalcemia: Status: Acute Problem details: Increase calcium supplementation. Review with nephrology DS: Summary Hospital Course Hospital Course: 76-year-old male with multiple myeloma admitted to the hospital with onset of profound fatigue weakness malaise fever and chills. Severity of illness consistent with sepsis. The time of admission he was found to have both bibasilar pneumonia and abnormal urinalysis. He did not have symptoms suggestive of urinary infection or pneumonia. He did not have cough or dyspnea, dysuria or flank pain. He was treated with fluids and piperacillin/tazobactam and azithromycin. His urine culture grew Klebsiella pneumonia which was susceptible to piperacillin tazobactam and Levaquin. After 5 days of piperacillin tazobactam he was switched to Levaquin. Clinically he very slowly improved over the next few days. On admission he was unable to stand and was not eating. He has now progressed to ambulating independently. He is now eating and near normal diet. He had acute on chronic kidney injury. His baseline creatinine is but 1.5. On admission it was 1.7. Despite resuscitation for sepsis his creatinine went up to 2.3. With this he had metabolic acidosis. His CO2 went down to 18. He was treated with sodium bicarb and this normalized. He did not have hyperkalemia but did have some hypokalemia. He had good urine output through his hospital stay. He had mild elevation of his troponin without chest pain or electrocardiographic changes. This was felt to be type 2 or stressed induced myocardial ischemia. He had some diarrhea through his hospital stay. He he tested negative for C diff. he had a small amount of blood in 1 of his stools. Hemoglobin remains stable. There was no further investigation for GI bleeding. He did have iron studies which showed iron deficiency based on a reduced iron of 17 and TIBC of 211 giving a saturation of 8%. He had pancytopenia through his hospital stay. Hemoglobin stabilized in the low 9 range and platelets stabilized in the low 100 to 120 range. Neutrophils were 1100 on admission, dropped to 600 and improved to 700 on discharge. Status at Discharge Functional status at discharge: independent ambulation Overall status at discharge: patient is progressing back to baseline Time Spent with Patient Time attestation: Total time spent providing and/or coordinating discharge services: Time spent: Greater than 30 minutes Exam Narrative: Exam Narrative: He is alert and appears in no distress. Speech is normal. He is less tremulous today. Respirations are clear to auscultation. Cardiovascular: S1, S2, regular rate and rhythm. Abdomen is soft without tenderness or mass. Hernia is soft and easily reduced. Extremities with good perfusion. No edema. Const: Vital Signs, click to edit/add: Vital Signs - 24 hr 07/30/22 16:15 07/30/22 16:15 07/30/22 20:00 Temperature 97.7 F 98 F Pulse Rate Pulse Rate [Pulse Oximeter] 69 69 67 Respiratory Rate 18 18 Blood Pressure Blood Pressure [Ri t Arm] 120/78 119/75 Pulse Oximetry 98 98 Oxygen Delivery Me thod Room Air Room Air 07/30/22 23:30 07/30/22 23:30 07/31/22 03:24 Temperature 99.3 F 99.2 F Pulse Rate Pulse Rate [Pulse Oximeter] 63 63 63 Respiratory Rate 18 18 18 Blood Pressure Blood Pressure [[facility]] 124/70 125/78 Pulse Oximetry 96 93 Oxygen Delivery Me thod Room Air Room Air 07/31/22 07:45 07/31/22 10:25 07/31/22 11:30 Temperature 98.0 F 98.0 F 98.3 F Pulse Rate 67 Pulse Rate [Pulse Oximeter] 60 66 Respiratory Rate 16 16 18 Blood Pressure 102/65 Blood Pressure [Ri ght Arm] 135/85 135/83 Pulse Oximetry 97 97 Oxygen Delivery Me thod Room Air Room Air Documenting provider has reviewed patient's vital signs: yes DS: Data Data Completed and Pending Labs on day of discharge: Labs from last 24 hours 07/31/22 06:06 WBC 0.98 L* RBC 2.72 L Hgb 9.1 L Hct 27.6 L MCV 102 H MCH 34 MCHC 33 RDW Coeff of Trena 13.8 Plt Count 196 Neut % (Auto) 72.5 H Lymph % (Auto) 13.3 L [place] % (Auto) 9.2 Eos % (Auto) 2.0 Baso % (Auto) 1.0 Neut # (Auto) 0.70 L Lymph # (Auto) 0.10 L [place] # (Auto) 0.10 Eos # (Auto) 0.00 Baso # (Auto) 0.00 Diff Slide Review Acceptable Review Sodium 131 L Potassium 3.9 Chloride 103 Carbon Dioxide 24 BUN 27 Creatinine 1.9 H Estimated Creat Clear 32.67 Estimated GFR 36 Glucose 92 Calcium 7.3 L C-Reactive Protein 6.0 H Preliminary micro results at discharge 07/27/22 18:31 Blood Culture - Preliminary Blood NO GROWTH AFTER 72 HOURS 07/27/22 18:22 Blood Culture - Preliminary Blood NO GROWTH AFTER 72 HOURS Discharge Plan Discharge Disposition: Home, Self-Care Date of Admission: 07/24/22 23:11 Attending Provider on Discharge: Rober Valera Primary Care Provider: Provider,Not a Local Condition: Improved Anticipated Discharge Date/Time: 07/31/22 15:30 Discharge Medications: New levofloxacin 250 mg Tablet 250 mg PO DAILY Qty: 4 0RF calcium carbonate-vitamin D3 [Oyster Shell Calcium-Vit D3] 500 mg-5 mcg (200 unit) Tablet 1 tab PO BIDWM Qty: 60 0RF ferrous sulfate 325 mg (65 mg iron) Tablet 325 mg PO DAILYWM Qty: 30 0RF Continued acyclovir 400 mg tablet 400 mg PO BID aspirin 325 mg tablet,delayed release (DR/EC) 325 mg PO DAILY calcium carbonate-vitamin D3 [Calcium 600 with Vitamin D3] 1 tab PO DAILY dexamethasone 4 mg tablet 20 mg PO .Thursday Patient Comments: on thursday weekly prochlorperazine maleate 10 mg tablet 10 mg PO Q6H PRN amlodipine 10 mg tablet 10 mg PO DAILY levothyroxine 150 mcg capsule 150 mcg PO MOWEFR@0630 Patient Comments: 3 days a week levothyroxine [Levo-T] 175 mcg tablet 175 mcg PO SUTUTHSA@0630 Patient Comments: 4 days a week pantoprazole 40 mg tablet,delayed release (DR/EC) 40 mg PO DAILY mecobalamin (vitamin B12) 1,000 mcg tablet,chewable 1,000 mcg PO DAILY acetaminophen 325 mg tablet 975 mg PO BID PRN metronidazole 0.75 % gel 1 applic topical QDAY qkhiygqxetv-ythevqjkjypan-lkod 1,800 mg-30,000 unit/15 mL solution 15 ml subcut Q14D Rx Instructions: administer weeks 1 through 9 of treatment regimen, ON Thursday cetirizine [24Hour Allergy] 10 mg tablet 10 mg PO DAILY Discontinued lenalidomide [Revlimid] 5 mg capsule 5 mg PO DAILY Rx Instructions: days 1- Discharge Orders: Discharge Order (Routine); Ordered 07/31/22 Ordered By: Rober Valera Patient Education: Iron Supplements (By mouth), Levofloxacin (By mouth), Calcium Supplement (By mouth) (Antacid, Aneesh-Citrate, Calcarb 600,... Activity Level: Activity as Tolerated Discharge Diet: Regular Follow Up Appointments: Francisco Santana MD [Staff Physician] - Provider,Not a Local [Primary Care Provider] - Forms: [employer] Info Instructions
[2022-07-31 15:48] LABS: Phosphorus* 3.5 mg/dL (2.5-4.5)
--- NOTE | 2022-07-31 16:34 | PC.NURSE ---
PATIENT DISCHARGED TO HOME WITH AT 1632
[2022-08-01 23:07] LABS: CMV Qnt Plasma IU/mL Not Detected; CMV Qnt Plasma Interp Not Detected (Not Detected); CMV Qnt Plasma log IU/mL Not Detected
== END 2022-07-31 16:30 | disposition home or self-care (01) | DRG 871 ==
LOC: ED 22:29 → MEDSURG 23:12
PROVIDERS: Family Medicine; Admitting Provider Family Medicine; Emergency Provider Family Medicine; Visit Provider Family Medicine
DX: A41.9 Sepsis, unspecified organism (principal); J18.9 Pneumonia, unspecified organism; C90.00 Multiple myeloma not having achieved remission; N39.0 Urinary tract infection, site not specified; N17.9 Acute kidney failure, unspecified; E87.1 Hypo-osmolality and hyponatremia; I24.8 Other forms of acute ischemic heart disease; Z16.12 Extended spectrum beta lactamase (ESBL) resistance; D61.818 Other pancytopenia; K92.1 Melena; N10 Acute pyelonephritis; D70.9 Neutropenia, unspecified; R50.81 Fever presenting with conditions classified elsewhere; I12.9 Hypertensive chronic kidney disease with stage 1 through stage 4 chronic kidney disease, or unspecified chronic kidney disease; N18.9 Chronic kidney disease, unspecified; D63.1 Anemia in chronic kidney disease; Z90.5 Acquired absence of kidney; N47.1 Phimosis; R19.7 Diarrhea, unspecified; B96.1 Klebsiella pneumoniae [K. pneumoniae] as the cause of diseases classified elsewhere; D50.9 Iron deficiency anemia, unspecified; E83.51 Hypocalcemia; E87.6 Hypokalemia; I45.10 Unspecified right bundle-branch block; E03.9 Hypothyroidism, unspecified; Z85.528 Personal history of other malignant neoplasm of kidney; Z85.46 Personal history of malignant neoplasm of prostate
CPT/HCPCS: 36415; 51798; 71045; 71046; 80048; 80053; 81003; 81015; 82330; 82803; 83036; 83540; 83550; 83605; 83735; 83880; 84100; 84145; 84443; 84484; 85025; 85045; 86140; 86664; 87040; 87045; 87046; 87081; 87086; 87186; 87252; 87427; 87493; 87497; 87502; 87634; 87635; 87651; 93005; 93306; 97110; 97112; 97116; 97161; 97165; 97530; 97535; 99283; 99285; A9270; C9113; J1650; J2543; J3370; J3475; J7030; J7050; J7120

== ENCOUNTER 2022-12-20 20:57 | Inpatient (IN) | payer MEDICARE, OTHER, SELFPAY ==
[2022-12-20 21:25] VITALS: BP 103/64; PULSE 73; RESP 16; TEMP 36.9; O2SAT 95; BMI 23.5
[2022-12-20 21:59] LABS: Appearance Urine Cloudy (Clear); Bilirubin Urine Negative (Negative); Blood Urine Trace-lysed (Negative); Color Urine Yellow (Yellow); Glucose Urine Negative (Negative); Ketones Urine Negative (Negative); Leukocyte Esterase Urine Trace (Negative); Nitrite Urine Negative (Negative); Protein Urine 2+ (Negative); Urobilinogen Urine 0.2 (0.2-1.0)
[2022-12-20 22:09] LABS: Amorphous Sediment Urine Few; Bacteria Urine Many; RBC Urine 0-2 (0-2); Squamous Epithelial Cell Urine Few (None-Few)
[2022-12-20 22:35] LABS: PCR FLU A Negative PCR FLU A (Negative); PCR FLU B Negative PCR FLU B (Negative); PCR RSV Negative PCR RSV (Negative)
[2022-12-20 22:43] LABS: SARS PCR* Negative SARS-CoV-2 (Negative)
[2022-12-20 22:53] VITALS: BP 129/88; RESP 18; TEMP 37.3; O2SAT 95
[2022-12-21] VITALS (12 sets, daily range): BP systolic 96–127; BP diastolic 60–83; PULSE 63–76; RESP 16–26; TEMP 36.2–37.2; O2SAT 89–99; BMI 23.5
--- NOTE | 2022-12-21 00:25 | XR_ITS ---
Patient: IRINA MANDUJANO Facility:?[facility] Patient ID:?[id number] Site Patient ID:?[id number] Site :?[id number] Study:?XRay-Chest 2 VIEWS-12/21/2022 1:08:03 AM Ordering Physician:THAI Final Report: HISTORY: Shortness of breath. TECHNIQUE: Two views of the chest. COMPARISON: 07/27/2022. FINDINGS: Cardiac size within normal limits. No pulmonary vascular congestion. No consolidation or pulmonary edema. No pneumothorax or pleural effusion. There are degenerative changes of the spine. IMPRESSION: No acute cardiopulmonary disease. Dictated by Thomas Andino MD @ 12/21/2022 1:26:22 AM Dictated by: Thomas Andino MD @ 12/21/2022 01:26:28 Signed by:Laura Andino MD @12/21/2022 1:26:28 AM (Electronic Signature)
--- NOTE | 2022-12-21 00:27 | ED_ITS ---
HPI - General Adult General Chief complaint: Fever Stated complaint: Fever, fatigue, chills Time Seen by Provider: 12/21/22 00:08 Source: patient and family History of Present Illness HPI narrative: 77-year-old male with known history multiple myeloma presents to the emergency department with a 2 day history of fatigue and chills, fever beginning this evening to 100.0 at home. No obvious localizing source of infection. No neurological changes, focal weakness, falls or injury, cough or abdominal pain. Patient had similar symptoms a week ago. His reports that they were evaluated at the [facility]. He was also having some left lateral lower rib pain at that time. CT scan of the abdomen and x-rays were normal per their report. I do not have access to those records. Conservative management was recommended. He reports that he did feel a little bit better the began feeling worse yesterday. Appetite has remained stable. No diarrhea. He does have a history of urinary tract infections. He is status post prostate surgery and does have some ongoing urinary incontinence. Reports that this is unchanged. No obvious dysuria. He is known to carry Klebsiella in his urine, based on his report it sounds as though this is treated for the most part as a non infectious bacterial colonization. He has had a bumpy medical course this spring and was hospitalized at our facility in July for complicated urinary infection. He also later went on to have a GI bleed. He does have immunosuppression secondary to his multiple myeloma and is still actively on treatment, followed by [facility]. Prior hospitalization from July as well as cultures that I do have access to a reviewed. Past medical history most notable for recent GI bleed, complicated urinary infections in the past mostly stemming from history of prostate cancer and also history of multiple myeloma. He also has a history of well-controlled hypertension. Allergies are to Bactrim and contrast. ROS notable for the generalized symptoms as above. Previous left rib pain has resolved. Related Data Home Medications Medication Instructions Recorded Confirmed acetaminophen 325 mg tablet 975 mg PO BID PRN 05/10/22 12/20/22 acyclovir 400 mg tablet 400 mg PO BID 05/10/22 12/20/22 amlodipine 10 mg tablet 10 mg PO DAILY 05/10/22 12/20/22 aspirin 325 mg tablet,delayed 325 mg PO DAILY 05/10/22 12/20/22 release calcium carbonate-vitamin D3 1 tab PO DAILY 05/10/22 12/20/22 dexamethasone 4 mg tablet 20 mg PO .Thursday05/10/22 12/20/22 levothyroxine 150 mcg capsule 150 mcg PO MOWEFR@30 05/10/22 12/20/22 levothyroxine 175 mcg tablet 175 mcg PO SUTUTHSA@0630 05/10/22 12/20/22 (Levo-T) metronidazole 0.75 % topical gel 1 applic topical QDAY 05/10/22 12/20/22 pantoprazole 40 mg tablet,delayed 40 mg PO DAILY 05/10/22 12/20/22 release prochlorperazine maleate 10 mg 10 mg PO Q6H PRN 05/10/22 12/20/22 tablet cetirizine 10 mg tablet (24Hour 10 mg PO DAILY 07/25/22 12/20/22 Allergy) daratumumab 1,800 15 ml subcut Q14D 07/25/22 12/20/22 [id number] 30,000 unit/15 mL subcut soln aspirin 162.5 mg capsule,extended 162.5 mg PO DAILY 12/20/22 12/20/22 release 24 hr lenalidomide 5 mg capsule 5 mg PO DAILY 12/20/22 12/20/22 (Revlimid) Previous Rx's Medication Instructions Recorded calcium carbonate 500 mg-vitamin 1 tab PO BIDWM #60 tabs 07/31/22 D3 5 mcg (200 unit) tablet (Oyster Shell Calcium-Vitamin D3) ferrous sulfate 325 mg (65 mg 325 mg PO DAILYWM #30 tabs 07/31/22 iron) tablet Allergies Allergy/AdvReac Type Severity Reaction Status Date / Time Iodinated Contrast Media Allergy Severe Verified 08/25/22 15:37 sulfamethoxazole Allergy Severe Verified 08/25/22 15:37 [From Bactrim] trimethoprim [From Bactrim] Allergy Severe Verified 08/25/22 15:37 [facility] Medical History Hypocalcemia ?E83.51 - Hypocalcemia (ICD-10) Iron deficiency anemia ?D50.9 - Iron deficiency anemia, unspecified (ICD-10) GI bleeding ?K92.2 - Gastrointestinal hemorrhage, unspecified (ICD-10) Diarrhea ?R19.7 - Diarrhea, unspecified (ICD-10) Urinary tract infection ?N39.0 - Urinary tract infection, site not specified (ICD-10) Pneumonia ?J18.9 - Pneumonia, unspecified organism (ICD-10) Weakness ?R53.1 - Weakness (ICD-10) Iron deficiency ?E61.1 - Iron deficiency (ICD-10) Pancytopenia ?D61.818 - Other pancytopenia (ICD-10) Chronic anemia ?D64.9 - Anemia, unspecified (ICD-10) History of GI bleed ?Z87.19 - Personal history of other diseases of the digestive system (ICD-10) Hypothyroid ?E03.9 - Hypothyroidism, unspecified (ICD-10) CKD (chronic kidney disease) ?N18.9 - Chronic kidney disease, unspecified (ICD-10) Hypertension ?I10 - Essential (primary) hypertension (ICD-10) History of kidney cancer ?Z85.528 - Personal history of other malignant neoplasm of kidney (ICD-10) History of prostate cancer ?Z85.46 - Personal history of malignant neoplasm of prostate (ICD-10) Multiple myeloma ?C90.00 - Multiple myeloma not having achieved remission (ICD-10) 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 - Phimosis (ICD-10) Surgical History History of bone marrow biopsy ?Z98.890 - Other specified postprocedural states (ICD-10) S/P tonsillectomy and adenoidectomy ?Z90.89 - Acquired absence of other organs (ICD-10) History of prostatectomy ?Z90.79 - Acquired absence of other genital organ(s) (ICD-10) History of nephrectomy ?Z90.5 - Acquired absence of kidney (ICD-10) Social History Smoking Status: Never smoker Do you use any of these nicotine containing products: None How often do you have a drink containing alcohol: never AUDIT-C Alcohol total score: 0 Non-prescribed substance use: denies use service: No Exam Const: Vital Signs, click to edit/add: Vital Signs - 24 hr 12/20/22 21:25 12/20/22 22:53 12/20/22 22:53 Temperature 98.4 F 99.1 F 99.1 F Pulse Rate [Pulse Oximeter] 73 Respiratory Rate 16 18 18 Blood Pressure [Le ft Arm] 129/88 Blood Pressure [Ri ght Upper Arm] 103/64 129/88 Pulse Oximetry 95 95 95 Oxygen Delivery Me thod Room Air Room Air Room Air Documenting provider has reviewed patient's vital signs: yes Common normals: no apparent distress and alert General appearance: cooperative, comfortable and well kempt Orientation/consciousness: Yes awake Other: Good historian. Does not appear acutely ill. HENMT: Common normals: normocephalic and head/scalp atraumatic Head and scalp: normocephalic and atraumatic Face and sinus: normal facial exam Mouth: oral and palatal mucosa normal Throat: posterior oropharynx normal Eye: Common normals: conjunctivae normal General eye: normal appearance of both eyes Conjunctiva: conjunctiva(e) normal Neck & C-Spine: Common normals: full ROM and no lymphadenopathy Chest: Common normals: inspection of chest normal Resp: Common normals: normal respiratory effort, no use of accessory muscles and clear to auscultation bilaterally Effort & inspection: able to speak in complete sentences Auscultation: clear to auscultation bilaterally Cardio: Common normals: regular rate, regular rhythm, S1 normal heart sound, S2 normal heart sound and no murmurs Rate: regular rate Rhythm: regular rhythm Heart sounds: S1 normal and S2 normal GI: Common normals: Normal to inspection, nondistended, normoactive bowel sounds present Other: Incisional hernia present, reducible, lower abdomen. No obvious mass Extremity: Common normals: normal capillary refill and no pedal edema Neuro: Sensorium/orientation: awake and alert Motor exam: strength 5/5 throughout (Able pull self up on bed rales, move limbs independently.) and no movement abnormalities noted Psych: Appearance: well kempt Activity/motor behavior: appropriate eye contact Insight: insight good Judgement: judgment good Skin: Common normals: no rashes or lesions noted General skin exam: no rashes or lesions noted Course Course Hospital Course: Suspect infection. Recommended viral swabs come blood cultures, urinalysis, chest x-ray. Basic labs to look at liver, electrolytes in CBC. Suspect he will be neutropenic. No obvious signs of sepsis. No hypotension, tachycardia or fever currently. Awaiting findings. Reevaluation(s) Reevaluation #1: Continue documentation on Kishor mckeon?: Created during EMR down time Chest x-ray per my interpretation showing no evidence of cardiac enlargement, no pneumonia, rib fracture or other abnormality. Per Radiology interpretation, normal chest x-ray. I have spent some time reviewing outpatient [facility] records. Again I have some access to those but not [facility] records due to EMR down time and maintenance. I can see that his creatinine is stable for him but a little elevated today at to. His white blood cell count is better than usual at 2.84 as he is often neutropenic. Hemoglobin essentially stable at 10.5 with a baseline of what appears to be around 11 typically. Platelets 188. Sodium 132 which is stable for patient normal liver enzymes creatinine mildly elevated at 2 as stated with normal glucose of 105. His urinalysis does show some small amount of leukocyte esterase and blood. It looks like he does often have those present. Before down time I was able to see that is viral swabs were negative a s well. I reviewed some cultures and sensitivities from his outside records and he does clearly grow ESBL multi-drug resistant Klebsiella. It appears as though he is sensitive to meropenem and Zosyn. Indeterminate to Unasyn, nitrofurantoin and tobramycin in the low last culture but had previously been sensitive to tobramycin and nitrofurantoin in August. It would be unsafe to assume that these will work this time due to the most recent culture and sensitivity from August. Patient is now requiring 1 L of oxygen, is not showing hypotension. I do believe he needs be admitted for IV carbapenems, further observation and IV antibiotic for treatment of presumptive urine infection and possible early sepsis. Will discuss with hospitalist team.? Reevaluation #2: Update: Patient was accepted by hospitalist team. Started on imipenem due to availability. Based on his creatinine clearance should dose every 12 hours. Accepted by hospitalist, will transfer to medical floor for treatment of suspected urosepsis. Vital Signs Vital signs: Initial Vital Signs Temperature 98.4 F 12/20/22 21:25 Temperature Source Oral 12/20/22 21:25 Pulse Rate 73 12/20/22 21:25 Respiratory Rate 16 12/20/22 21:25 Blood Pressure 103/64 12/20/22 21:25 Blood Pressure Mean 77 12/20/22 21:25 Blood Pressure Position Sitting 12/20/22 21:25 Pulse Oximetry 95 12/20/22 21:25 Oxygen Delivery Method Room Air 12/20/22 21:25 Vital Signs Temperature 98.4 F 12/20/22 21:25 Pulse Rate 73 12/20/22 21:25 Respiratory Rate 16 12/20/22 21:25 Blood Pressure 103/64 12/20/22 21:25 Pulse Oximetry 95 12/20/22 21:25 Oxygen Delivery Method Room Air 12/20/22 21:25 Temperature 99.1 F 12/20/22 22:53 Pulse Rate 73 12/20/22 21:25 Respiratory Rate 18 12/20/22 22:53 Blood Pressure 129/88 12/20/22 22:53 Pulse Oximetry 95 12/20/22 22:53 Oxygen Delivery Method Room Air 12/20/22 22:53 Medical Decision Making Lab Data Lab results reviewed: Yes I reviewed the patient's lab results Lab results narrative: Chemistries reported separately, see down time form. Notable for creatinine higher than typical. Labs: Lab Results 12/20/22 12/21/22 Range/Units 21:43 00:46 WBC 2.84 L (4.50-11.00) K/uL RBC 3.46 L (4.30-5.90) m/uL Hgb 10.5 L (13.5-17.5) gm/dL Hct 32.7 L (37.0-53.0) % MCV 95 (80-100) fL MCH 30 (26-34) pg MCHC 32 (32-36) gm/dL RDW Coeff of Trena 16.7 H (11.5-15.5) % Plt Count 188 (140-440) K/uL Neut % (Auto) 66.5 (42.0-72.0) % Lymph % (Auto) 14.1 L (20-44) % Eddy % (Auto) 13.0 H (0.0-11.0) % Eos % (Auto) 3.9 (0.0-7.0) % Baso % (Auto) 0.4 (0.0-3.0) % Neut # (Auto) 1.90 (1.7-7.0) K/uL Lymph # (Auto) 0.40 L (0.90-2.90) K/uL Eddy # (Auto) 0.40 (0.00-0.90) K/UL Eos # (Auto) 0.10 (0.00-0.50) K/uL Baso # (Auto) 0.00 (0.00-0.30) K/uL Abs Immat Gran (auto) 0.10 (0.00-0.30) K/uL Imm/Tot Granulo (auto) 2.1 % Lactate 1.7 (0.5-1.9) mmol/L Urine Color Yellow (Yellow) Urine Appearance Cloudy A (Clear) Urine pH 5.0 (5.0-8.5) Ur Specific [place] 1.020 (1.000-1.030) Urine Protein 2+ A (Negative) Urine Glucose (UA) Negative (Negative) Urine Ketones Negative (Negative) Urine Blood Trace-lysed A (Negative) Urine Nitrite Negative (Negative) Urine Bilirubin Negative (Negative) Urine Urobilinogen 0.2 (0.2-1.0) Ur Leukocyte Esterase Trace A (Negative) Urine RBC 0-2 (0-2) Urine WBC 10-25 A (0-5) Ur Squamous Epith Cells Few (None-Few) Amorphous Sediment Few A (None) Urine Bacteria Many A (None) SARS-CoV-2 (PCR) Negative SARS-CoV-2 (Negative) Influenza Type A (PCR) Negative PCR FLU A (Negative) Influenza Type B (PCR) Negative PCR FLU B (Negative) RSV (PCR) Negative PCR RSV (Negative) Discharge Plan Discharge Clinical Impression: Infection due to ESBL-producing Klebsiella pneumoniae, Acute on chronic renal failure Patient Disposition: Admitted As Inpatient
[2022-12-21 00:49] LABS: Lactate* 1.7 mmol/L (0.5-1.9)
[2022-12-21 00:52] LABS: Basophils Percent Auto 0.4 % (0.0-3.0); Eosinophils Percent Auto 3.9 % (0.0-7.0); Hematocrit 32.7 % (37.0-53.0); Hemoglobin* 10.5 gm/dL (13.5-17.5); Immature Granulocytes Pct Auto 2.1 %; Lymphocytes Percent Auto 14.1 % (20-44); Mean Corpuscular HGB Conc 32 gm/dL (32-36); Mean Corpuscular Hemoglobin 30 pg (26-34); Mean Corpuscular Volume 95 fL (80-100); Neutrophils Percent Auto 66.5 % (42.0-72.0); Platelet Count* 188 K/uL (140-440); RDW Coefficient of Variation % 16.7 % (11.5-15.5); Red Blood Count 3.46 m/uL (4.30-5.90); White Blood Count* 2.84 K/uL (4.50-11.00)
[2022-12-21 00:53] LABS: Slide Review Reflex No
[2022-12-21 04:37] LABS: Albumin* 3.1 g/dL (3.3-5.0); Chloride* 104 mmol/L (96-114); Potassium* 4.4 mmol/L (3.6-5.1); Sodium* 132 mmol/L (135-149)
[2022-12-21 05:02] LABS: Blood Urea Nitrogen* 40 mg/dL (7-30); Calcium* 8.5 mg/dL (8.4-10.6); Carbon Dioxide* 18 mmol/L (20-32); Est. Creatinine Clearance* 29.38; Estimated Glomerular Filt Rate 34 ml/min
[2022-12-21 05:03] LABS: Alanine Aminotransferase* 16 U/L (4-50); Alkaline Phosphatase* 55 U/L (40-150); Aspartate Amino Transferase* 16 U/L (12-35); Bilirubin Total* 0.3 mg/dL (0.1-1.5); Glucose* 105 mg/dL (60-115); Procalcitonin* 0.18 ng/mL (<0.50); Total Protein* 6.1 g/dL (6.0-8.3)
--- NOTE | 2022-12-21 05:09 | PC.NURSE ---
0200 updated on patients need for 02, 1L per NC applied. M/S updated on [facility] acceptance [id number] report given to Olive CANTRELL on M/S 0451. patient to room 260 on M/S at 0515
--- NOTE | 2022-12-21 06:03 | PM.IMCN1 ---
Date of Consult Consult date: 12/21/22 Primary Care Provider: Juwan Goldman MD Consult Narrative Narrative: 77-year-old male with past medical history of prostate CA, CKD, multiple myeloma and HTN was brought in to the emergency department by his family for 2 days history of progressive fatigue, fevers and chills. He reports since last Thursday he has been experiencing significant lack of energy and all what he wanted his to sleep. He was hospitalized back in 07/2022 and was treated with levofloxacin and Zosyn for presumed pneumonia and UTI and at that time his urine grew Klebsiella. He denies otherwise any chest pain, shortness of breath, cough, change in bowel habits. Reports was fairly functional 2 to 3 weeks ago. In the ED, he was hemodynamically stable, labs grossly unremarkable except for CKD and positive nitrate, leukocyte esterase and small bacteria on a clean-catch of urine. He does have a history of Klebsiella ESBL in his urine which is nguyen resistant except for imipenem and meropenem. He was also noted to have an elevated CRP for which was opted to be hospitalized for IV antibiotics and further monitoring for concern of possible early sepsis. [facility] Medical History Hypocalcemia ?E83.51 - Hypocalcemia (ICD-10) Iron deficiency anemia ?D50.9 - Iron deficiency anemia, unspecified (ICD-10) GI bleeding ?K92.2 - Gastrointestinal hemorrhage, unspecified (ICD-10) Diarrhea ?R19.7 - Diarrhea, unspecified (ICD-10) Urinary tract infection ?N39.0 - Urinary tract infection, site not specified (ICD-10) Pneumonia ?J18.9 - Pneumonia, unspecified organism (ICD-10) Weakness ?R53.1 - Weakness (ICD-10) Iron deficiency ?E61.1 - Iron deficiency (ICD-10) Pancytopenia ?D61.818 - Other pancytopenia (ICD-10) Chronic anemia ?D64.9 - Anemia, unspecified (ICD-10) History of GI bleed ?Z87.19 - Personal history of other diseases of the digestive system (ICD-10) Hypothyroid ?E03.9 - Hypothyroidism, unspecified (ICD-10) CKD (chronic kidney disease) ?N18.9 - Chronic kidney disease, unspecified (ICD-10) Hypertension ?I10 - Essential (primary) hypertension (ICD-10) History of kidney cancer ?Z85.528 - Personal history of other malignant neoplasm of kidney (ICD-10) History of prostate cancer ?Z85.46 - Personal history of malignant neoplasm of prostate (ICD-10) Multiple myeloma ?C90.00 - Multiple myeloma not having achieved remission (ICD-10) 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 - Phimosis (ICD-10) Surgical History History of bone marrow biopsy ?Z98.890 - Other specified postprocedural states (ICD-10) S/P tonsillectomy and adenoidectomy ?Z90.89 - Acquired absence of other organs (ICD-10) History of prostatectomy ?Z90.79 - Acquired absence of other genital organ(s) (ICD-10) History of nephrectomy ?Z90.5 - Acquired absence of kidney (ICD-10) Social History Smoking Status: Never smoker Do you use any of these nicotine containing products: None How often do you have a drink containing alcohol: never AUDIT-C Alcohol total score: 0 Non-prescribed substance use: denies use service: No Meds Home Medications and Allergies Home Medications Medication Instructions Recorded Confirmed Type acetaminophen 325 mg tablet 975 mg PO BID PRN 05/10/22 12/20/22 History acyclovir 400 mg tablet 400 mg PO BID 05/10/22 12/20/22 History amlodipine 10 mg tablet 10 mg PO DAILY 05/10/22 12/20/22 History aspirin 325 mg tablet,delayed 325 mg PO DAILY 05/10/22 12/20/22 History release calcium carbonate-vitamin D3 1 tab PO DAILY 05/10/22 12/20/22 History dexamethasone 4 mg tablet 20 mg PO .Thursday05/10/22 12/20/22 History levothyroxine 150 mcg capsule 150 mcg PO MOWEFR@30 05/10/22 12/20/22 History levothyroxine 175 mcg tablet 175 mcg PO SUTUTHSA@0630 05/10/22 12/20/22 History (Levo-T) metronidazole 0.75 % topical gel 1 applic topical QDAY 05/10/22 12/20/22 History pantoprazole 40 mg tablet,delayed 40 mg PO DAILY 05/10/22 12/20/22 History release prochlorperazine maleate 10 mg 10 mg PO Q6H PRN 05/10/22 12/20/22 History tablet cetirizine 10 mg tablet (24Hour 10 mg PO DAILY 07/25/22 12/20/22 History Allergy) daratumumab 1,800 15 ml subcut Q14D 07/25/22 12/20/22 History [id number]-[id number] 30,000 unit/15 mL subcut soln aspirin 162.5 mg capsule,extended 162.5 mg PO DAILY 12/20/22 12/20/22 History release 24 hr lenalidomide 5 mg capsule 5 mg PO DAILY 12/20/22 12/20/22 History (Revlimid) Allergies Allergy/AdvReac Type Severity Reaction Status Date / Time Iodinated Contrast Media Allergy Severe Verified 08/25/22 15:37 sulfamethoxazole Allergy Severe Verified 08/25/22 15:37 [From Bactrim] trimethoprim [From Bactrim] Allergy Severe Verified 08/25/22 15:37 Exam Narrative: Exam Narrative: Exam (performed via interactive video with assistance of bedside nurse): General: alert, cooperative, no acute distress, appears fatigued HEENT: Pupils reported ERRL, oral mucosa pink and moist without erythema Lungs: clear to auscultation bilaterally without crackle or wheeze CV: regular rate and rhythm without loud murmur rub or gallop Abd: bowel sounds present, denies tenderness and does not exhibit signs of pain with palpation done by bedside nurse Ext: no pitting edema noted Skin: no rashes, bruises or lesions appreciated on gross visualization of exposed skin Neuro: alert, oriented x 3. grossly intact, moves all extremities without any significant focal deficit appreciated by nurse Const: Vital Signs, click to edit/add: Vital Signs - 24 hr 12/20/22 21:25 12/20/22 22:53 12/20/22 22:53 Temperature 98.4 F 99.1 F 99.1 F Pulse Rate [Pulse Oximeter] 73 Respiratory Rate 16 18 18 Blood Pressure [Le ft Arm] 129/88 Blood Pressure [Ri ght Upper Arm] 103/64 129/88 Pulse Oximetry 95 95 95 Oxygen Delivery Me thod Room Air Room Air Room Air Oxygen Flow Rate 12/21/22 01:00 12/21/22 02:00 12/21/22 02:01 Temperature 99 F Pulse Rate [Pulse Oximeter] 63 68 Respiratory Rate 18 16 Blood Pressure [Le ft Arm] Blood Pressure [Ri ght Upper Arm] 127/74 124/76 Pulse Oximetry 94 89 91 Oxygen Delivery Me thod Room Air Room Air Nasal Cannula Oxygen Flow Rate 1 12/21/22 04:00 12/21/22 05:11 Temperature 99 F Pulse Rate [Pulse Oximeter] 66 Respiratory Rate 16 Blood Pressure [Le ft Arm] Blood Pressure [Ri ght Upper Arm] 118/76 Pulse Oximetry 94 92 Oxygen Delivery Me thod Nasal Cannula Nasal Cannula Oxygen Flow Rate 1 1 Labs Labs: Short CBC 12/21/22 Range/Units 00:46 WBC 2.84 L (4.50-11.00) K/uL Hgb 10.5 L (13.5-17.5) gm/dL Hct 32.7 L (37.0-53.0) % Plt Count 188 (140-440) K/uL BMP 12/21/22 00:46 Sodium 132 L Potassium 4.4 Chloride 104 Carbon Dioxide 18 L BUN 40 H Creatinine 2.0 H Glucose 105 Calcium 8.5 Liver Function 12/21/22 Range/Units 00:46 Total Bilirubin 0.3 (0.1-1.5) mg/dL AST 16 (12-35) U/L ALT 16 (4-50) U/L Alkaline Phosphatase 55 (40-150) U/L Albumin 3.1 L (3.3-5.0) g/dL Urine 12/20/22 Range/Units 21:43 Urine Color Yellow (Yellow) Urine Appearance Cloudy A (Clear) Urine pH 5.0 (5.0-8.5) Ur Specific [place] 1.020 (1.000-1.030) Urine Protein 2+ A (Negative) Urine Glucose (UA) Negative (Negative) Assessment and Plan Assessment and plan (1) Urinary tract infection: Problem comment: Probably pyelonephritis in solitary kidney. Urinary tract infection with ESBL Klebsiella pneumonia 07/24/2022. Susceptible to piperacillin tazobactam and levofloxacin. Continue levofloxacin, dosed for kidney function Status: Acute Plan 1. Complicated UTI: Patient with history of ESBL Klebsiella. Received one-time dose of imipenem in the ED. Continue with ertapenem based on previous sensitivities. Follow-up final urine culture results. Currently HD stable. 2. CKD: Avoid nephrotoxins and adjust medications based on kidney function. Daily renal panel. Has new low bicarb, check lactate 3. HTN: Hydralazine as needed for BP more than 160/110 4. Multiple myeloma 5. History of prostate CA Prophylaxis: Heparin subcu CODE STATUS: Sofia [facility] Thank you for including Kamini Rushing Hospitalist in the patients care. This service is available for further assistance as requested by your care team by calling [phone].
[2022-12-21] MEDS: LEVOTHYROXINE 75 MCG TABLET PO (06:40)
[2022-12-21] MEDS: OMEPRAZOLE 20 MG CAPSULE DR 40 MG PO (06:40)
[2022-12-21] MEDS: LEVOTHYROXINE 100 MCG TABLET PO (06:41)
[2022-12-21] MEDS: 0.9 % SODIUM CHLORIDE 500 ML 500 ML 75 ML IV (06:54)
--- NOTE | 2022-12-21 07:25 | PC.NURSE ---
pt to floor at 0525 accompanied by his Yesenia. Titrated pt to RA. respirations in the 20s, pt denies SOB. afebrile.
[2022-12-21 07:27] LABS: Lactate Sepsis w/Reflex* 0.7 mmol/L (0.5-1.9)
[2022-12-21] MEDS: FERROUS SULFATE 325 MG TABLET PO (09:21)
[2022-12-21] MEDS: CETIRIZINE HCL 10 MG TABLET PO (09:21)
[2022-12-21] MEDS: AMLODIPINE 10 MG TABLET PO (09:21)
[2022-12-21] MEDS: ACYCLOVIR 200 MG CAPSULE 400 MG PO ×2 (09:21→20:34)
--- NOTE | 2022-12-21 16:53 | P.IMHP_ITS ---
Hospitalist- H&P: HPI History of Present Illness Time Seen by Provider: 16:00 Date Seen: 12/21/22 Chief complaint: Fever, fatigue, chills Narrative: Kishor Christianson is a 77 year old man presents with 2 days of increasing fatigue, rigors, and rising temperatures up to 100.0? F at home. No obvious localizing symptoms. Does have history of Klebsiella pneumoniae urinary tract infection with extended spectrum beta lactamase activity. Most recently this occurred in July of 2022 for which he was on several days of IV ertapenem including in the outpatient setting. Is actively receiving treatment for multiple myeloma at this time. Follows with [facility]. On assessment in our emergency department blood cultures were obtained. These are negative today. Urine cultures are growing Gram-negative rods. Id and sensitivity on these are still pending. Presently on IV ertapenem and tolerating. Review of Systems Status of ROS: Reports: 10 or more systems reviewed and unremarkable except as noted in History and below Narrative: Chronic physical debility. Lives with his . 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 She is very concerned about the fact that he has a single kidney. They work very well together. [facility] Medical History (Updated 12/21/22 @ 16:53 by Terence Greenfield MD) Single kidney ?Z90.5 - Acquired absence of kidney (ICD-10) Elevated troponin ?R77.8 - Other specified abnormalities of plasma proteins (ICD-10) Hypokalemia ?E87.6 - Hypokalemia (ICD-10) Infection due to ESBL-producing Klebsiella pneumoniae ?A49.8 - Other bacterial infections of unspecified site (ICD-10) ?Z16.12 - Extended spectrum beta lactamase (ESBL) resistance (ICD-10) Hypocalcemia ?E83.51 - Hypocalcemia (ICD-10) Iron deficiency anemia ?D50.9 - Iron deficiency anemia, unspecified (ICD-10) GI bleeding ?K92.2 - Gastrointestinal hemorrhage, unspecified (ICD-10) Diarrhea ?R19.7 - Diarrhea, unspecified (ICD-10) Pneumonia ?J18.9 - Pneumonia, unspecified organism (ICD-10) Urinary tract infection ?N39.0 - Urinary tract infection, site not specified (ICD-10) Weakness ?R53.1 - Weakness (ICD-10) Iron deficiency ?E61.1 - Iron deficiency (ICD-10) Pancytopenia ?D61.818 - Other pancytopenia (ICD-10) Chronic anemia ?D64.9 - Anemia, unspecified (ICD-10) History of GI bleed ?Z87.19 - Personal history of other diseases of the digestive system (ICD-10) Hypothyroid ?E03.9 - Hypothyroidism, unspecified (ICD-10) CKD (chronic kidney disease) ?N18.9 - Chronic kidney disease, unspecified (ICD-10) Hypertension ?I10 - Essential (primary) hypertension (ICD-10) History of kidney cancer ?Z85.528 - Personal history of other malignant neoplasm of kidney (ICD-10) History of prostate cancer ?Z85.46 - Personal history of malignant neoplasm of prostate (ICD-10) Multiple myeloma ?C90.00 - Multiple myeloma not having achieved remission (ICD-10) 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 - Phimosis (ICD-10) Surgical History History of bone marrow biopsy ?Z98.890 - Other specified postprocedural states (ICD-10) S/P tonsillectomy and adenoidectomy ?Z90.89 - Acquired absence of other organs (ICD-10) History of prostatectomy ?Z90.79 - Acquired absence of other genital organ(s) (ICD-10) History of nephrectomy ?Z90.5 - Acquired absence of kidney (ICD-10) Social History What is your current living situation?: I presently have a place to live Problems where you live: no known problems Problems where you live details: na In the past 12 months, utilities in danger of being shut off: no In the past 12 mos, have been you worried that your food would run out before you had money to buy more?: never true In the past 12 mos, the food you bought just didn't last and you didn't have money to buy more?: never true Highest level of school completed/degree received: Bachelor's degree Smoking Status: Never smoker Do you use any of these nicotine containing products: None How often do you have a drink containing alcohol: never AUDIT-C Alcohol total score: 0 Non-prescribed substance use: denies use How often does anyone, including family, friends and others, physically hurt you : never How often does anyone, including family, friends and others, insult or talk down to you: never How often does anyone, including family, friends and others, threaten you with harm: never How often does anyone, including family, friends and others, scream or curse at you: never service: No Meds Home Medications and Allergies Home Medications Medication Instructions Recorded Confirmed Type acetaminophen 325 mg tablet 975 mg PO BID PRN 05/10/22 12/20/22 History acyclovir 400 mg tablet 400 mg PO BID 05/10/22 12/20/22 History amlodipine 10 mg tablet 10 mg PO DAILY 05/10/22 12/20/22 History dexamethasone 4 mg tablet 20 mg PO Q7D 05/10/22 12/21/22 History levothyroxine 175 mcg tablet 175 mcg PO SUTUTHSA@0630 05/10/22 12/20/22 History (Levo-T) pantoprazole 40 mg tablet,delayed 40 mg PO DAILY 05/10/22 12/20/22 History release prochlorperazine maleate 10 mg 10 mg PO Q6H PRN 05/10/22 12/20/22 History tablet cetirizine 10 mg tablet (24Hour 10 mg PO DAILY 07/25/22 12/20/22 History Allergy) aspirin 162.5 mg capsule,extended 162.5 mg PO DAILY 12/20/22 12/20/22 History release 24 hr lenalidomide 10 mg capsule 10 mg PO DAILY 12/21/22 12/21/22 History (Revlimid) levothyroxine 150 mcg tablet 150 mcg PO MOWEFR@0630 12/21/22 12/21/22 History Allergies Allergy/AdvReac Type Severity Reaction Status Date / Time Iodinated Contrast Media Allergy Severe Verified 08/25/22 15:37 sulfamethoxazole Allergy Severe Verified 08/25/22 15:37 [From Bactrim] trimethoprim [From Bactrim] Allergy Severe Verified 08/25/22 15:37 Exam Narrative: Exam Narrative: I examine him often on throughout the day. I start exam in the morning. I last see him this afternoon. When I examine him in the afternoon I meet his as well. Appears tired. When I 1st see him he is hardly able to move for being so weak. By the time I see him later in the afternoon he is actually able to transfer from supine to sitting and sitting to standing and walk to and from the bathroom with standby assist. Vision and hearing are grossly normal. Alert, oriented to self, place, time, situation. Friendly, articulate, cooperative. Mood and affect are congruent. No Franklin's or conjunctival injection. Pupils equally round react to light and accommodation. Extraocular muscles are intact. Buccal mucosa is dry. Neck is supple. Midline trachea. No JVD, hepatojugular reflux, carotid bruits. Lungs are clear to auscultation. No CVA tenderness. Heart tones with regular rhythm, normal S1-S2. Abdomen with active bowel sounds, soft, nontender. Extremities without edema. No focal motor neurologic deficits. Skin is warm, dry, intact. Const: Vital Signs, click to edit/add: Vital Signs - 24 hr 12/20/22 21:25 12/20/22 22:53 12/20/22 22:53 Temperature 98.4 F 99.1 F 99.1 F Pulse Rate [Pulse Oximeter] 73 Respiratory Rate 16 18 18 Blood Pressure [Le ft Arm] 129/88 Blood Pressure [Ri ght Upper Arm] 103/64 129/88 Pulse Oximetry 95 95 95 Oxygen Delivery Me thod Room Air Room Air Room Air Oxygen Flow Rate 12/21/22 01:00 12/21/22 02:00 12/21/22 02:01 Temperature 99 F Pulse Rate [Pulse Oximeter] 63 68 Respiratory Rate 18 16 Blood Pressure [Le ft Arm] Blood Pressure [Ri ght Upper Arm] 127/74 124/76 Pulse Oximetry 94 89 91 Oxygen Delivery Me thod Room Air Room Air Nasal Cannula Oxygen Flow Rate 1 12/21/22 04:00 12/21/22 05:11 12/21/22 05:25 Temperature 99 F 98 F Pulse Rate [Pulse Oximeter] 66 Respiratory Rate 16 26 H Blood Pressure [Le ft Arm] 117/75 Blood Pressure [Ri ght Upper Arm] 118/76 Pulse Oximetry 94 92 93 Oxygen Delivery Me thod Nasal Cannula Nasal Cannula Room Air Oxygen Flow Rate 1 1 12/21/22 06:50 12/21/22 07:50 12/21/22 11:32 Temperature 97.7 F 97.7 F Pulse Rate [Pulse Oximeter] 64 76 Respiratory Rate 24 22 Blood Pressure [Le ft Arm] 120/83 118/73 Blood Pressure [Ri ght Upper Arm] Pulse Oximetry 93 97 99 Oxygen Delivery Me thod Room Air Room Air Oxygen Flow Rate Hospitalist - H&P: Result Labs Labs: Short CBC 12/21/22 Range/Units 00:46 WBC 2.84 L (4.50-11.00) K/uL Hgb 10.5 L (13.5-17.5) gm/dL Hct 32.7 L (37.0-53.0) % Plt Count 188 (140-440) K/uL BMP 12/21/22 00:46 Sodium 132 L Potassium 4.4 Chloride 104 Carbon Dioxide 18 L BUN 40 H Creatinine 2.0 H Glucose 105 Calcium 8.5 Liver Function 12/21/22 Range/Units 00:46 Total Bilirubin 0.3 (0.1-1.5) mg/dL AST 16 (12-35) U/L ALT 16 (4-50) U/L Alkaline Phosphatase 55 (40-150) U/L Albumin 3.1 L (3.3-5.0) g/dL Urine 12/20/22 Range/Units 21:43 Urine Color Yellow (Yellow) Urine Appearance Cloudy A (Clear) Urine pH 5.0 (5.0-8.5) Ur Specific [place] 1.020 (1.000-1.030) Urine Protein 2+ A (Negative) Urine Glucose (UA) Negative (Negative) Imaging Chest x-ray: Attestation: I have reviewed the pertinent imaging results. Radiologist's impression: Radiologist report is not yet back. My own review is that patient has no acute infiltrates, no effusions, no pneumothorax. No obvious acute rib fractures. Does have increased AP diameter suggesting underlying COPD. Assessment and Plan Assessment and plan (1) Weakness: Problem comment: Profound weakness due to current illness. PT and OT to evaluate and treat Status: Acute (2) Urinary tract infection: Problem comment: Probably pyelonephritis in solitary kidney. Urinary tract infection with ESBL Klebsiella pneumonia 07/24/2022. Susceptible to piperacillin tazobactam and levofloxacin. Continue levofloxacin, dosed for kidney function Status: Acute (3) Multiple myeloma: Problem comment: Followed by [facility] (Pyeton Ryder MD). Testing at [facility] last week, July 22, showed the myeloma was well controlled. 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 Iverson is a 76 year old male with IgG [place] Myeloma who is on daratumumab SQ on days 1, 15 for C3-C6, and day 1 of cycle 7 and beyond, lenalidomide 5 mg daily, dexamethasone 12 mg on Tuesdays, and 8 mg on Fridays. He remains on acyclovir and aspirin. Has previously tolerated daratumumab injections well. Did require reduction in lenalidomide dose due to toxicity. -PJP ppx: no need given dex 20 weekly < 40 weekly threshold -VZV/HSV ppx: home acyclovir 400 BID -thrombosis ppx: home aspirin 325mg daily -bone ppx: quarterly Zometa, daily calcium-vitamin D -home PRN compazine/zofran Status: Acute (4) Hyponatremia: Problem comment: Due to aggressive water drinking. Modest fluid restriction. Encourage solid food. Status: Acute (5) Acute on chronic renal failure: Problem comment: baseline creat is 1.5 (HTN, left nephrectomy) Creatinine improved today from 2.3 down to 1.9. Status: Acute (6) Pancytopenia: Problem comment: Due to multiple myeloma and treatment. Absolute neutrophil count sujey of 600 and now 700. Hemoglobin and platelets are relatively stable. Continue to monitor Status: Acute (7) Iron deficiency: Status: Acute (8) Single kidney: Status: Acute Plan 1. Reviewed impression with patient and . 2. Answered their questions are satisfaction. 3. Continue with IV ertapenem. 4. Takes dexamethasone 20 mg once weekly. Will give stress doses of dexamethasone at this time for 2 days. 5. Normal saline IV fluid bolus. 6. Advance diet as tolerated. 7. Increase activity as tolerated. 8. Will resume some of his usual medications. 9. Patient agreeable to above stated plans and recommendations.
[2022-12-21] MEDS: dexAMETHasone 4 MG TABLET 20 MG PO (17:42)
[2022-12-21] MEDS: 0.9 % SODIUM CHLORIDE 500 ML 500 ML IV (17:43)
[2022-12-21] MEDS: ERTAPENEM IVPB (17:56)
[2022-12-21] MEDS: SODIUM CHLORIDE MINI 0.9% IVPB (17:56)
--- NOTE | 2022-12-21 18:08 | PC.NURSE ---
Pt alert and oriented. Pt pleasant and cooperative. Pt had no complaints of pain. Pt up with one assist and gait belt. Pt up to chair in AM. Pt slept midafternoon until early evening. Pt allowed to sleep.?Pt stated has rested well.? Pt?s at bedside until early evening then son came in. Pt awake mid evening. P?
[2022-12-22 03:00] VITALS: BP 114/78; PULSE 54; RESP 18; TEMP 36.3; O2SAT 93
[2022-12-22 06:54] LABS: Basophils Percent Auto 0.6 % (0.0-3.0); Hemoglobin* 11.3 gm/dL (13.5-17.5); Immature Granulocytes Pct Auto 1.8 %; Lymphocytes Percent Auto 16.3 % (20-44); Mean Corpuscular HGB Conc 32 gm/dL (32-36); Mean Corpuscular Hemoglobin 30 pg (26-34); Mean Corpuscular Volume 94 fL (80-100); Neutrophils Percent Auto 75.3 % (42.0-72.0); Platelet Count* 158 K/uL (140-440); RDW Coefficient of Variation % 16.3 % (11.5-15.5); Red Blood Count 3.74 m/uL (4.30-5.90)
[2022-12-22] MEDS: OMEPRAZOLE 20 MG CAPSULE DR 40 MG PO (07:02)
[2022-12-22] MEDS: LEVOTHYROXINE 75 MCG TABLET 150 MCG PO (07:02)
[2022-12-22 07:11] LABS: Albumin* 3.1 g/dL (3.3-5.0); Chloride* 105 mmol/L (96-114); Sodium* 135 mmol/L (135-149)
[2022-12-22 07:12] LABS: Potassium* 4.7 mmol/L (3.6-5.1)
[2022-12-22 07:14] LABS: Bilirubin Total* 0.2 mg/dL (0.1-1.5); Carbon Dioxide* 20 mmol/L (20-32); Creatinine* 1.7 mg/dL (0.5-1.5); Est. Creatinine Clearance* 34.56; Estimated Glomerular Filt Rate 41 ml/min; Total Protein* 6.3 g/dL (6.0-8.3)
[2022-12-22 07:15] LABS: Alanine Aminotransferase* 18 U/L (4-50); Alkaline Phosphatase* 60 U/L (40-150); Aspartate Amino Transferase* 18 U/L (12-35); Blood Urea Nitrogen* 45 mg/dL (7-30); Calcium* 8.1 mg/dL (8.4-10.6); Glucose* 155 mg/dL (60-115); Magnesium* 1.9 mg/dL (1.5-2.6); Phosphorus* 4.4 mg/dL (2.5-4.5)
[2022-12-22 07:17] LABS: C Reactive Protein* 7.5 mg/dL (0.5-1.0)
--- NOTE | 2022-12-22 07:35 | PC.NURSE ---
END OF SHIFT NOTE: PT PLEASANT AND COOPERATIVE WITH CARES. A&Ox3. DENIES CP, SOB, N/V. AMBULATES WITH WALKER, GB, A1. VSS ON RA; AFEBRILE. PT'S - JAYY AT BEDSIDE THROUGHOUT NIGHT; VERY LOVING. PT DIAPHORETIC NOC WITH A GOWN CHANGE. DECLINED LINEN CHANGE NOC. PT AND REPORTS SWEATING HAPPENS AFTER CERTAIN MEDICATION IS GIVEN. PT REPORTS SHAKES THIS MORNING THAT HAVE SINCE SUBSIDED. CALL LIGHT WITHIN PT?S REACH.?
[2022-12-22 08:00] VITALS: BP 118/84; BP 128/88; BP 146/83; PULSE 45; PULSE 71; PULSE 77; RESP 18; TEMP 36.4; O2SAT 96
[2022-12-22 08:18] LABS: Slide Review Reflex Yes; White Blood Count* 1.66 K/uL (4.50-11.00)
[2022-12-22] MEDS: FERROUS SULFATE 325 MG TABLET PO (09:22)
[2022-12-22] MEDS: AMLODIPINE 10 MG TABLET PO (09:22)
[2022-12-22] MEDS: CETIRIZINE HCL 10 MG TABLET PO (09:22)
[2022-12-22] MEDS: ACYCLOVIR 200 MG CAPSULE 400 MG PO ×2 (09:23→20:31)
[2022-12-22 10:16] VITALS: BMI 23.5
[2022-12-22 11:57] LABS: Slide Review Acceptable Review (Acceptable)
[2022-12-22] MEDS: dexAMETHasone 4 MG TABLET 20 MG PO (12:15)
[2022-12-22 12:23] VITALS: BP 122/81; PULSE 78; RESP 18; TEMP 35.9; O2SAT 98
--- NOTE | 2022-12-22 14:04 | PC.NURSE ---
end of shift. Pt is pleasant. he is alert and oriented. x4 he is pleasant and cooperative. no complaints of pain. Pt up with sba and gait belt. Pt up to chair/bed. Pt?s at bedside. he is eating, drinking and voiding. SL is patent. is helping with most of cares./
[2022-12-22 15:30] VITALS: BP 115/75; PULSE 66; RESP 18; TEMP 36.3; O2SAT 100
--- NOTE | 2022-12-22 17:13 | P.IMPN_ITS ---
Progress Note: A&P Assessment and plan (1) Weakness: Problem details: Profound weakness due to current illness. PT and OT to evaluate and treat Status: Acute (2) Urinary tract infection: Problem details: Probably pyelonephritis in solitary kidney. Urinary tract infection with ESBL Klebsiella pneumonia 07/24/2022. Susceptible to piperacillin tazobactam and levofloxacin. Continue levofloxacin, dosed for kidney function Status: Acute (3) Multiple myeloma: Problem details: Followed by [facility] (Peyton Ryder MD). Testing at [place] last week, July 22, showed the myeloma was well controlled. 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 Iverson is a 76 year old male with IgG [place] Myeloma who is on daratumumab SQ on days 1, 15 for C3-C6, and day 1 of cycle 7 and beyond, lenalidomide 5 mg daily, dexamethasone 12 mg on Tuesdays, and 8 mg on Fridays. He remains on acyclovir and aspirin. Has previously tolerated daratumumab injections well. Did require reduction in lenalidomide dose due to toxicity. -PJP ppx: no need given dex 20 weekly < 40 weekly threshold -VZV/HSV ppx: home acyclovir 400 BID -thrombosis ppx: home aspirin 325mg daily -bone ppx: quarterly Zometa, daily calcium-vitamin D -home PRN compazine/zofran Status: Acute (4) Hyponatremia: Problem details: Due to aggressive water drinking. Modest fluid restriction. Encourage solid food. Status: Acute (5) Acute on chronic renal failure: Problem details: baseline creat is 1.5 (HTN, left nephrectomy) Creatinine improved today from 2.3 down to 1.9. Status: Acute (6) Pancytopenia: Problem details: Due to multiple myeloma and treatment. Absolute neutrophil count sujey of 600 and now 700. Hemoglobin and platelets are relatively stable. Continue to monitor Status: Acute (7) Iron deficiency: Status: Acute (8) Single kidney: Status: Acute (9) Acute adrenal crisis: Problem details: Iatrogenic related to long-term use of dexamethasone and acute severe illness. Status: Acute Plan 1. Continue with plan as specified above. 2. Will likely need a 10-14 day course of IV ertapenem. Will need to discuss possibility of PICC line placement in the future. 3. 1 more day of stress doses of dexamethasone and then stop. 4. Continue work with physical therapy and occupational therapy as warranted. 5. Spent 30 minutes conversing with him and his in regard to his questions and concerns. These were addressed to their satisfaction. Time Spent With Patient Total time spent: 45 minutes Subjective Time Seen by Provider: 10:30 Date Seen: 12/22/22 Interval history: Hospital day 2. History of present illness: Kishor Christianson is a 77 year old man presents with 2 days of increasing fatigue, rigors, and rising temperatures up to 100.0? F at home. No obvious localizing symptoms. Does have history of Klebsiella pneumoniae urinary tract infection with extended spectrum beta lactamase activity. Most recently this occurred in July of 2022 for which he was on several days of IV ertapenem including in the outpatient setting. Is actively receiving treatment for multiple myeloma at this time. Follows with [facility]. On assessment in our emergency department blood cultures were obtained. These are negative [to date]. Urine cultures are growing Gram-negative rods. Id and sensitivity on these are still pending. Presently on IV ertapenem and tolerating. Treated with stress doses of dexamethasone yesterday. He feels vastly improved today. Urine cultures grew out Klebsiella pneumoniae with ESBL, similar sensitivities as urine culture from July 2022. Exam Narrative: Exam Narrative: I examine him in his hospital room. Vision and hearing are grossly normal. Much more awake and interactive. Articulate and talkative. Alert and oriented to self, place, time, situation. Lungs clear to auscultation. Heart tones with regular rhythm. Abdomen benign. No CVA tenderness. Extremities without edema. Although he is independent in transfer, station, and gait, he has a forward stooped posture, and takes his time with these efforts. Const: Vital Signs, click to edit/add: Vital Signs - 24 hr 12/21/22 20:30 12/21/22 20:30 12/21/22 22:30 Temperature 97.1 F L 97.2 F L Pulse Rate [Pulse Oximeter] 71 71 66 Pulse Rate [orthos tatic lying Right Radial] Pulse Rate [orthos tatic sitting Righ t Radial] Pulse Rate [orthos tatic standing Rig ht Radial] Respiratory Rate 22 22 20 Blood Pressure [Le ft Arm] 96/60 113/79 Blood Pressure [or thostatic lying Ri ght Arm] Blood Pressure [or thostatic sitting Right Arm] Blood Pressure [or thostatic standing Right Arm] Pulse Oximetry 94 96 Oxygen Delivery Me thod Room Air Room Air 12/22/22 03:00 12/22/22 08:00 12/22/22 08:00 Temperature 97.4 F L 97.6 F Pulse Rate [Pulse Oximeter] 54 L 71 71 Pulse Rate [orthos tatic lying Right Radial] Pulse Rate [orthos tatic sitting Righ t Radial] Pulse Rate [orthos tatic standing Rig ht Radial] Respiratory Rate 18 18 18 Blood Pressure [Le ft Arm] 114/78 118/84 Blood Pressure [or thostatic lying Ri ght Arm] Blood Pressure [or thostatic sitting Right Arm] Blood Pressure [or thostatic standing Right Arm] Pulse Oximetry 93 96 Oxygen Delivery Me thod Room Air Room Air 12/22/22 08:00 12/22/22 12:23 12/22/22 15:30 Temperature 96.7 F L 97.4 F L Pulse Rate [Pulse Oximeter] 78 66 Pulse Rate [orthos tatic lying Right Radial] 71 Pulse Rate [orthos tatic sitting Righ t Radial] 77 Pulse Rate [orthos tatic standing Rig ht Radial] 45 L Respiratory Rate 18 18 Blood Pressure [Le ft Arm] 122/81 115/75 Blood Pressure [or thostatic lying Ri ght Arm] 118/84 Blood Pressure [or thostatic sitting Right Arm] 128/88 Blood Pressure [or thostatic standing Right Arm] 146/83 H Pulse Oximetry 98 100 Oxygen Delivery Me thod Room Air Room Air Documenting provider has reviewed patient's vital signs: yes Labs Labs: Laboratory Results - last 24 hr 12/22/22 06:27 WBC 1.66 L* RBC 3.74 L Hgb 11.3 L Hct 35.0 L MCV 94 MCH 30 MCHC 32 RDW Coeff of Trena 16.3 H Plt Count 158 Neut % (Auto) 75.3 H Lymph % (Auto) 16.3 L [place] % (Auto) 6.0 Eos % (Auto) 0.0 Baso % (Auto) 0.6 Neut # (Auto) 1.20 L Lymph # (Auto) 0.30 L [place] # (Auto) 0.10 Eos # (Auto) 0.00 Baso # (Auto) 0.00 Abs Immat Gran (auto) 0.00 Imm/Tot Granulo (auto) 1.8 Diff Slide Review Acceptable Review Sodium 135 Potassium 4.7 Chloride 105 Carbon Dioxide 20 BUN 45 H Creatinine 1.7 H Estimated Creat Clear 34.56 Estimated GFR 41 Glucose 155 H Lactate 1.0 Calcium 8.1 L Phosphorus 4.4 Magnesium 1.9 Total Bilirubin 0.2 AST 18 ALT 18 Alkaline Phosphatase 60 C-Reactive Protein 7.5 H Total Protein 6.3 Albumin 3.1 L TSH 1.730
[2022-12-22 19:04] VITALS: BP 115/75; PULSE 66; RESP 16; TEMP 36.3; O2SAT 100
[2022-12-22] MEDS: SODIUM CHLORIDE 0.9 % (FLUSH) 10 ML SYRINGE 5 ML IVF (20:39)
--- NOTE | 2022-12-22 22:49 | PC.NURSE ---
Shift [id number]- Patient denies pain throughout shift. He is up SBA/ independently in room with . Appetite intact. ESBL/ Neutropenic precautions now in place.
[2022-12-22 23:00] VITALS: BP 115/77; PULSE 67; RESP 16; TEMP 36.4; O2SAT 97
[2022-12-23 02:47] VITALS: BP 115/80; PULSE 65; RESP 16; TEMP 36.6; O2SAT 100
[2022-12-23] MEDS: LEVOTHYROXINE 100 MCG TABLET PO (06:38)
[2022-12-23] MEDS: LEVOTHYROXINE 75 MCG TABLET PO (06:39)
--- NOTE | 2022-12-23 06:50 | PC.NURSE ---
Shift note: Pt continue to feel week and has been in bed most of the shift. A/O, cooperate with care and treatment. Denied pain, cough, SOB and n/v. PT had hard time falling asleep. Slept around 0330. SBA, swallow pill whole. Vitally stable.
[2022-12-23 06:58] LABS: Hematocrit 31.7 % (37.0-53.0); Hemoglobin* 10.3 gm/dL (13.5-17.5); Mean Corpuscular HGB Conc 33 gm/dL (32-36); Mean Corpuscular Hemoglobin 31 pg (26-34); Mean Corpuscular Volume 94 fL (80-100); Platelet Count* 180 K/uL (140-440); Red Blood Count 3.38 m/uL (4.30-5.90); White Blood Count* 2.82 K/uL (4.50-11.00)
[2022-12-23 07:03] LABS: Slide Review Reflex No
[2022-12-23 07:32] LABS: Chloride* 108 mmol/L (96-114); Potassium* 5.1 mmol/L (3.6-5.1); Sodium* 135 mmol/L (135-149)
[2022-12-23 07:35] LABS: Creatinine* 1.7 mg/dL (0.5-1.5); Est. Creatinine Clearance* 34.56; Estimated Glomerular Filt Rate 41 ml/min
[2022-12-23 07:36] LABS: Blood Urea Nitrogen* 56 mg/dL (7-30); Calcium* 6.9 mg/dL (8.4-10.6); Carbon Dioxide* 17 mmol/L (20-32); Glucose* 150 mg/dL (60-115); Magnesium* 1.9 mg/dL (1.5-2.6); Phosphorus* 4.2 mg/dL (2.5-4.5)
[2022-12-23 07:50] LABS: NT Pro B Type NatriureticPept* 532 pg/mL
[2022-12-23 09:00] VITALS: BP 118/80; PULSE 60; RESP 16; TEMP 36.2; O2SAT 100
[2022-12-23] MEDS: CETIRIZINE HCL 10 MG TABLET PO (09:03)
[2022-12-23] MEDS: OMEPRAZOLE 20 MG CAPSULE DR 40 MG PO (09:03)
[2022-12-23] MEDS: AMLODIPINE 10 MG TABLET PO (09:03)
[2022-12-23] MEDS: FERROUS SULFATE 325 MG TABLET PO (09:03)
[2022-12-23] MEDS: SODIUM CHLORIDE 0.9 % (FLUSH) 10 ML SYRINGE 5 ML IVF ×2 (09:04→14:32)
[2022-12-23] MEDS: ACYCLOVIR 200 MG CAPSULE 400 MG PO (09:04)
[2022-12-23 11:55] VITALS: BP 112/74; PULSE 70; RESP 16; TEMP 36.2; O2SAT 98
[2022-12-23] MEDS: ERTAPENEM 0.5 GM in 0.9 % SODIUM CHLORIDE 100 ml 100 ML IVPB (14:31)
--- NOTE | 2022-12-23 16:04 | PC.NURSE ---
End of shift nursing note: Pt alert and oriented, pleasant and compliant. Pt denies pain, excellent appetite, tolerating PO intake and fluids. IV saline locked and flushed. Vitlly stable, afebrile. Pt denies concerns. Voiding without issue, x1 BM this AM. Had shower this afternoon with assist from . Pt to d/c this afternoon w/ peripheral IV for outpatient IV abx infusions to finish course. After abx infusion this afternoon and when returns pt to d/c home.
--- NOTE | 2022-12-23 16:44 | PC.NURSE ---
reviewed discharge packet with pt and his . Both verbalized understanding of discharge instructions and follow up appointments as well as infusion treatment scheduled at [facility] for tomorrow. IV to right FA flushed and covered with tubigrip. Pt was discharged to home in the care of his via wheelchair at 1655.
--- NOTE | 2022-12-30 11:12 | P.IMPN_ITS ---
Subjective Date Seen: 12/22/22
--- NOTE | 2022-12-30 11:12 | P.DS_ITS ---
DS: Providers Provider Time Seen by Provider: 10:00 Date Seen: 12/23/22 Date of admission: 12/22/22 09:07 Primary care physician: Juwan Goldman MD Admitting Clinician: Latha Madrid MD Consults: 12/21/22 07:11 Consult to Physical Therapy [CONS] Routine Comment: Reason(s) for PT Consult:: Evaluate Ambulation Any Restrictions?:: No Restrictions Attending Physician on discharge: Terence Greenfield MD Date of Discharge: 12/23/22 DS: Diagnosis Discharge Diagnosis (1) Infection due to ESBL-producing Klebsiella pneumoniae: Status: Acute Problem details: UTI Dx and started tx on 12/21/2022 (2) History of ESBL Klebsiella pneumoniae infection: Status: Acute Problem details: Urinary tract Infection: 1st dx & tx 07/2022; 2nd dx & tx 12/2022 (3) Acute adrenal crisis: Status: Acute Problem details: Iatrogenic related to long-term use of dexamethasone and acute severe illness. (4) Single kidney: Status: Acute (5) Weakness: Status: Acute Problem details: Profound weakness due to current illness. PT and OT to evaluate and treat (6) Pancytopenia: Status: Acute Problem details: Due to multiple myeloma and treatment. Absolute neutrophil count sujey of 600 and now 700. Hemoglobin and platelets are relatively stable. Continue to monitor (7) Multiple myeloma: Status: Acute Problem details: Followed by [facility] (Peyton Ryder MD). Testing at [facility] last week, July 22, showed the myeloma was well controlled. 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 Iverson is a 76 year old male with IgG [place] Myeloma who is on daratumumab SQ on days 1, 15 for C3-C6, and day 1 of cycle 7 and beyond, lenalidomide 5 mg daily, dexamethasone 12 mg on Tuesdays, and 8 mg on Fridays. He remains on acyclovir and aspirin. Has previously tolerated daratumumab injections well. Did require reduction in lenalidomide dose due to toxicity. -PJP ppx: no need given dex 20 weekly < 40 weekly threshold -VZV/HSV ppx: home acyclovir 400 BID -thrombosis ppx: home aspirin 325mg daily -bone ppx: quarterly Zometa, daily calcium-vitamin D -home PRN compazine/zofran (8) Acute on chronic renal failure: Status: Acute Problem details: baseline creat is 1.5 (HTN, left nephrectomy) Creatinine improved today from 2.3 down to 1.9. (9) Hyponatremia: Status: Acute Problem details: Due to aggressive water drinking. Modest fluid restriction. Encourage solid food. (10) Iron deficiency: Status: Acute DS: Summary Hospital Course Hospital Course: History of present illness: Kishor Christianson is a 77 year old man presents with 2 days of increasing fatigue, rigors, and rising temperatures up to 100.0? F at home. No obvious localizing symptoms. Does have history of Klebsiella pneumoniae urinary tract infection with extended spectrum beta lactamase activity. Most recently this occurred in July of 2022 for which he was on several days of IV ertapenem including in the outpatient setting. Is actively receiving treatment for multiple myeloma at this time. Follows with [facility]. On assessment in our emergency department blood cultures were obtained. These are negative [to date]. Urine cultures are growing Gram-negative rods. Id and sensitivity on these are still pending. Presently on IV ertapenem and tolerat ing. Eventually urine culture grew out Klebsiella pneumoniae with ESBL very similar to the sensitivities of the urine culture obtained in July of 2022. Patient was treated with ertapenem while in hospital and arrange to have additional outpatient ertapenem for total of 14 days. Also patient did not respond simply to fluids and antibiotics that were started when he 1st presented and thus I gav e him stress doses of dexamethasone and his condition improved vastly subsequently. Time Spent with Patient Time attestation: Total time spent providing and/or coordinating discharge services: Exam Narrative: Exam Narrative: I examine him in his hospital room. Vision and hearing are grossly normal. Much more awake and interactive. Articulate and talkative. Alert and oriented to self, place, time, situation. Lungs clear to auscultation. Heart tones with regular rhythm. Abdomen benign. No CVA tenderness. Extremities without edema. Although he is independent in transfer, station, and gait, he has a forward stooped posture, and takes his time with these efforts. DS: Data Imaging Chest x-ray: Attestation: I have reviewed the pertinent imaging results. Radiologist's impression: No acute cardiopulmonary findings. Discharge Plan Discharge Disposition: Home, Self-Care Date of Admission: 12/22/22 09:07 Attending Provider on Discharge: Terence Greenfield Primary Care Provider: Juwan Goldman Condition: Improved Anticipated Discharge Date/Time: 12/23/22 15:30 Discharge Medications: New Ertapenem 0.5 GM 0.9 % SODIUM CHLORIDE 100 ml 100 ML 200 mls/hr IVPB Q24H 500 mg IV once daily with last dose on 01/03/2023 - treatment of ESBL UTI Ordered By: Terence Greenfield MD Last Taken: Unknown Continued acyclovir 400 mg tablet 400 mg PO BID dexamethasone 4 mg tablet 20 mg PO Q7D Patient Comments: on thursday weekly prochlorperazine maleate 10 mg tablet 10 mg PO Q6H PRN amlodipine 10 mg tablet 10 mg PO DAILY Hold Instructions: per Dr. Valera levothyroxine [Levo-T] 175 mcg tablet 175 mcg PO SUTUTHSA@0630 Patient Comments: 4 days a week pantoprazole 40 mg tablet,delayed release (DR/EC) 40 mg PO DAILY acetaminophen 325 mg tablet 975 mg PO BID PRN cetirizine [24Hour Allergy] 10 mg tablet 10 mg PO DAILY calcium carbonate-vitamin D3 [Oyster Shell Calcium-Vit D3] 500 mg-5 mcg (200 unit) Tablet 1 tab PO BIDWM Qty: 60 0RF ferrous sulfate 325 mg (65 mg iron) Tablet 325 mg PO DAILYWM Qty: 30 0RF aspirin 162.5 mg capsule,extended release 24hr 162.5 mg PO DAILY levothyroxine 150 mcg tablet 150 mcg PO MOWEFR@0630 Held lenalidomide [Revlimid] 10 mg capsule 10 mg PO DAILY Hold Instructions: Resume on 12/30/22. Hold until directed to start again by hematology/oncology Rx Instructions: Days 1-21, every 28 days Discharge Orders: Discharge Order (Routine); Ordered 12/23/22 Ordered By: Terence Greenfield Patient Education: Ertapenem (By injection), Urinary Tract Infection in Men (DC), Extended Spectrum Beta-Lactamase (GEN) Additional Instructions: 1. Dr. Goldman in 50-10 days regarding ESBL UTI follow-up and TC - needs previsit kidney function panel and UA/UC Activity Level: Activity as Tolerated Discharge Diet: Regular Follow Up Appointments: Juwan Goldman MD [Primary Care Provider] - 12/26/22 3:35 pm ([facility] for postop.) Forms: [employer] Info Instructions
--- NOTE | 2022-12-30 11:12 | PM.IMPN1 ---
Subjective Date Seen: 12/22/22
== END 2022-12-23 16:48 | disposition home or self-care (01) | DRG 689 ==
LOC: ED 12-21 04:39 → MEDSURG 12-21 05:09
PROVIDERS: Hospitalist; Student in an Organized Health Care Education/Training Program; Admitting Provider Internal Medicine; Emergency Provider Family Medicine; PCP Family Medicine; Visit Provider Family Medicine
DX: N39.0 Urinary tract infection, site not specified (principal); D61.810 Antineoplastic chemotherapy induced pancytopenia; D61.818 Other pancytopenia; E27.2 Addisonian crisis; Z16.12 Extended spectrum beta lactamase (ESBL) resistance; C90.00 Multiple myeloma not having achieved remission; N17.9 Acute kidney failure, unspecified; E87.1 Hypo-osmolality and hyponatremia; B96.1 Klebsiella pneumoniae [K. pneumoniae] as the cause of diseases classified elsewhere; T45.1X5A Adverse effect of antineoplastic and immunosuppressive drugs, initial encounter; T38.0X5A Adverse effect of glucocorticoids and synthetic analogues, initial encounter; I12.9 Hypertensive chronic kidney disease with stage 1 through stage 4 chronic kidney disease, or unspecified chronic kidney disease; N18.9 Chronic kidney disease, unspecified; D50.9 Iron deficiency anemia, unspecified; Z90.5 Acquired absence of kidney; E03.9 Hypothyroidism, unspecified; Z85.528 Personal history of other malignant neoplasm of kidney; Z85.46 Personal history of malignant neoplasm of prostate
CPT/HCPCS: 36415; 71046; 80048; 80053; 81001; 83605; 83735; 83880; 84100; 84145; 84443; 85025; 85027; 86140; 87040; 87086; 87186; 87631; 97110; 97116; 97162; 99284; 99285; A9270; G0378; J0743; J1335; J7120

== ENCOUNTER 2023-01-03 09:54 | Outpatient (RCR) | payer MEDICARE, OTHER, SELFPAY ==
[2022-08-25 14:09] VITALS: BP 143/86; PULSE 62; RESP 16; TEMP 36.4; O2SAT 96
[2022-08-25] MEDS: ERTAPENEM 1 GM in 0.9 % SODIUM CHLORIDE Mini-bag 100 ML IVPB (14:33)
[2022-08-25] MEDS: 0.9 % SODIUM CHLORIDE 250 ml IV (15:46)
[2022-08-25] MEDS: SODIUM CHLORIDE 0.9 % (FLUSH) 10 ML SYRINGE IVF (15:46)
[2022-08-26] MEDS: ERTAPENEM 1 GM in 0.9 % SODIUM CHLORIDE Mini-bag 100 ML IVPB (14:05)
[2022-08-26] MEDS: 0.9 % SODIUM CHLORIDE 250 ml IV (14:05)
[2022-08-26] MEDS: SODIUM CHLORIDE 0.9 % (FLUSH) 10 ML SYRINGE IVF (14:05)
[2022-08-26 14:13] VITALS: BP 124/78; PULSE 74; RESP 16; TEMP 36.7; O2SAT 97
[2022-08-27 14:06] VITALS: BP 144/80; PULSE 77; RESP 16; TEMP 36.1; O2SAT 96
[2022-08-27] MEDS: 0.9 % SODIUM CHLORIDE 250 ml IV (14:06)
[2022-08-27] MEDS: SODIUM CHLORIDE 0.9 % (FLUSH) 10 ML SYRINGE IVF (14:06)
[2022-08-27] MEDS: ERTAPENEM 1 GM in 0.9 % SODIUM CHLORIDE Mini-bag 100 ML IVPB (14:06)
[2022-08-28 14:22] VITALS: BP 131/79; PULSE 76; RESP 16; TEMP 36.4; O2SAT 96
[2022-08-28] MEDS: ERTAPENEM 1 GM in 0.9 % SODIUM CHLORIDE Mini-bag 100 ML IVPB (14:41)
[2022-08-29] MEDS: SODIUM CHLORIDE 0.9 % (FLUSH) 10 ML SYRINGE IVF (14:05)
[2022-08-29] MEDS: ERTAPENEM 1 GM in 0.9 % SODIUM CHLORIDE Mini-bag 100 ML IVPB (14:05)
[2022-08-29] MEDS: 0.9 % SODIUM CHLORIDE 250 ml IV (14:06)
[2022-08-30 13:00] VITALS: BP 134/78; PULSE 72; RESP 16; TEMP 36.4; O2SAT 97
[2022-08-30] MEDS: 0.9 % SODIUM CHLORIDE 250 ml IV (13:14)
[2022-08-30] MEDS: ERTAPENEM 1 GM in 0.9 % SODIUM CHLORIDE Mini-bag 100 ML IVPB (13:15)
[2022-08-30] MEDS: SODIUM CHLORIDE 0.9 % (FLUSH) 10 ML SYRINGE IVF (13:15)
[2022-08-31 13:15] VITALS: BP 127/90; PULSE 68; RESP 22; TEMP 36.3; O2SAT 98
[2022-08-31] MEDS: ERTAPENEM 1 GM in 0.9 % SODIUM CHLORIDE Mini-bag 100 ML IVPB (13:27)
[2022-08-31] MEDS: SODIUM CHLORIDE 0.9 % (FLUSH) 10 ML SYRINGE IVF (13:29)
--- NOTE | 2022-08-31 14:39 | PC.NURSE ---
IV antibiotic. pt was very pleasant. no pain. he had a sour stomach no nausea and more weak today. talking about diet and probiotics. and eating small meals more frequent. also talked about taking it more easy. he has a very busy day yesterday and was more weak and tired today. VSS. he got a w/c ride out. he was very excited to be going to the [employer].
[2022-09-01 14:13] VITALS: BP 116/80; PULSE 84; RESP 16; TEMP 36.4; O2SAT 98
[2022-09-01] MEDS: ERTAPENEM 1 GM in 0.9 % SODIUM CHLORIDE Mini-bag 100 ML IVPB (14:40)
[2022-09-01] MEDS: SODIUM CHLORIDE 0.9 % (FLUSH) 10 ML SYRINGE IVF (14:40)
[2022-09-01] MEDS: 0.9 % SODIUM CHLORIDE 250 ml IV (14:40)
[2022-09-01 14:45] VITALS: BP 121/76; PULSE 80; RESP 20; O2SAT 99
[2022-09-01 14:50] VITALS: BP 123/80; PULSE 89; RESP 22; O2SAT 100
[2022-09-01 14:55] VITALS: BP 122/74; PULSE 107; RESP 16; O2SAT 100
--- NOTE | 2022-09-01 15:10 | ONC.NURNOTE ---
Patient here for day 12/22 of IV Ertapenem for diagnosis of complicated UTI and RLL Pneumonia via x-ray. Patient was hospitalized in July for 1 week for bilateral pneumonia. Patient Followed up with [facility] with Brooke SIMENTAL, who then started him on PO antibiotics. Failed outpatient for these and UTI had grown out sensitive urine cultures. The determination was to have him do 14 days of IV Ertapenem. Today, patient is complaining of shortness of breath with any activity. States his arms and hands go tingly and gets very light headed. Patient stated he just hasn't felt any better since starting the IV antibiotics and is wondering if this is normal. Orthostatic BPs completed (lyin/76 HR 80, sittin/80 HR 89, Standin/74 HR107.) Ambulated patient up and down the hallway. Oxygen saturation stayed 99-100% on RA. Patient felt very fatigued and short of breath during exercise and needed to sit down. Made it about 50ft total. Patient and his are very concerned that he is not getting better and wondering if maybe we are missing something. Patient only has 1 kidney, so IV contrast has always been deferred. [employer] called the ordering provider, Brooke Osborn and discussed situation. Requested an order for a hemoglobin as this has not been checked in a little while. Brooke recommends that patient be seen by a provider today for a comprehensive exam where a hemoglobin will be checked. They do not have any appointments at [facility] today or tomorrow and Brooke recommended that patient go to an Urgent care or an ER and that [facility] might be the most appropriate for him given that his hematology and nephrology doctors are at [facility] and that they also have other specialties that might need to way in on his case. Discussed these options with patient and patients . They want to proceed by being evaluated in an ER and will go there today.
--- NOTE | 2022-09-02 07:42 | ONC.NURNOTE ---
Patients spouse left message on machine stating that patient will not be in for his antibiotic this afternoon, as he has been admitted to the hospital in [place].
[2022-12-24 14:00] VITALS: BP 122/75; PULSE 69; RESP 16; TEMP 36.1; O2SAT 98
[2022-12-24] MEDS: ERTAPENEM 0.5 GM in 0.9 % SODIUM CHLORIDE 100 ml 100 ML IVPB (14:19)
[2022-12-24] MEDS: SODIUM CHLORIDE 0.9 % (FLUSH) 10 ML SYRINGE IVF (14:19)
[2022-12-24] MEDS: 0.9 % SODIUM CHLORIDE 250 ml IV (14:19)
[2022-12-25] MEDS: ERTAPENEM 0.5 GM in 0.9 % SODIUM CHLORIDE 100 ml 100 ML IVPB (15:21)
[2022-12-25] MEDS: SODIUM CHLORIDE 0.9 % (FLUSH) 10 ML SYRINGE IVF (15:21)
[2022-12-25] MEDS: 0.9 % SODIUM CHLORIDE 250 ml IV (15:22)
[2022-12-26 15:15] VITALS: BP 129/63; PULSE 67; RESP 24; TEMP 37.3; O2SAT 93
[2022-12-26 15:40] VITALS: TEMP 37.6
[2022-12-26] MEDS: ERTAPENEM 0.5 GM in 0.9 % SODIUM CHLORIDE 100 ml 100 ML IVPB (15:56)
[2022-12-26] MEDS: 0.9 % SODIUM CHLORIDE 250 ml IV (15:57)
[2022-12-26] MEDS: SODIUM CHLORIDE 0.9 % (FLUSH) 10 ML SYRINGE IVF (15:57)
[2022-12-26 16:00] VITALS: TEMP 37.8
[2022-12-26 16:09] VITALS: TEMP 38.2
--- NOTE | 2022-12-26 17:15 | ONC.NURNOTE ---
Pt presented today for daily Ertapenem infusion with rigors and shaking chills. He has rigors occasionally but chills are new. Pt with complex medical history including Multiple Myeloma (Revlimid stopped 12/18, 10 days into C3 for poor tolerance); pt also has chronic Kleibsella present in urine. Pt had labs drawn at [facility] today for Med Onc f/u next 12/30. T 99.1, OVSS. Over next 45 min T max 100.7. Dr. Valera, Hospitalist, able to come assess pt, as he discharged from Med Surg 12/23. Blood cultures redrawn; ok for pt to take Tylenol per usual 975 mg BID routine for arthritis pain. Pt to have Ertapenem infusions in [facility] over weekend; Dr. Valera is on as Hospitalist over the weekend and will follow patient as needed.
--- NOTE | 2022-12-26 17:18 | P.EN_ITS ---
Chart Event Note Time Seen by Provider: 17:18 Date Seen: 12/26/22 Chart Event Note: S: 77-year-old male undergoing treatment for multiple myeloma and recently hospitalized for ESBL Klebsiella urinary infection is seen today for outpatient IV ertapenem. In the [facility] he received his ertapenem and was also noted to have a feve of 100.7 F. I was asked to see him because of this. He has had on and off rigors for some time. He is not regularly checked his temperature. Mostly he gets chills but he does report occasional getting sweats as well. He has been seen at [facility] and was hospitalized here briefly earlier this week for evaluation of rigors and fever. Evaluation has shown that he has ESBL Klebsiella infection which is a longstanding problem with colonization that he has had. He had a chest x-ray which showed no acute findings. His myeloma is being treated with Revlimid 10 mg daily by [facility]. He started his 3rd cycle of this on December 09 and took it for 9 days. The dose was reduced to 5 mg today due to poor tolerance. He took 5 mg daily for a few more days and then stopped about a week ago. With previous cycles he found the Revlimid was difficult to tolerate. He takes dexamethasone 20 mg on Tuesdays along with this. Previously he was on Darzalex along with the Revlimid but he has not had Darzalex since July due to poor tolerance. The intolerance of the Revlimid is prominent fatigue and malaise and tremor and possibly fever. O: He is alert and appears in no obvious distress. He gives his own history along with his . Eyes are normal. Oropharynx is normal. Neck is supple without mass or adenopathy. Respirations are clear to auscultation. Breathing is unlabored. Cardiovascular: S1, S2, regular rate and rhythm. Abdomen is soft without tenderness or mass. Extremities without edema. Labs obtained at [facility] today: Normal immunoglobulins, hemoglobin of 10.2, platelets 181, leukocytes 2.9 with 1.9 neutrophils and 0.4 lymphocytes, 0.4 monocytes, 0.09 eosinophils. Sodium 139, potassium 5.2, AST 13 alk fossas 66, calcium 8.5, creatinine 1.7 giving an estimated GFR of 42. A: 77-year-old male undergoing treatment for multiple myeloma now getting treatment for ESBL Klebsiella urinary infection with ertapenem. Still having ongoing fevers. Most likely cause of fevers in this case are his multiple myeloma or his Revlimid or and untreated infection. P: I am going to repeat blood cultures today looking for evidence of an occult infection not identified so far. Patient will go home with his and return daily for ertapenem and check in with me daily about symptoms. If his fever is related to Revlimid or Klebsiella urine infection I expect it will improve in the next few days. If it is due to myeloma it will probably not change much. I discussed monitoring signs and symptoms including his fever which is is willing to do. I discussed symptomatic treatment. I discussed indications for repeat hospitalization as well. Total time spent today is 40 minutes, 30 minutes in coordination of care and discussing with patient, and other providers ongoing evaluation management of fever in the context of multiple myeloma
[2022-12-27] MEDS: SODIUM CHLORIDE 0.9 % (FLUSH) 10 ML SYRINGE IVF (14:10)
[2022-12-27] MEDS: ERTAPENEM 0.5 GM in 0.9 % SODIUM CHLORIDE 100 ml 100 ML IVPB (14:15)
[2022-12-27] MEDS: 0.9 % SODIUM CHLORIDE 250 ml IV (14:15)
[2022-12-27 14:50] VITALS: BP 111/66; BP 98/63; RESP 18; TEMP 37; O2SAT 96
--- NOTE | 2022-12-27 16:22 | PC.NURSE ---
IV Ertapenam infused per protocol. VS wnl parameters, Yesenia present at bedside. Eval by Dr. Valera as previously arranged prior to d/c via w/c to own home.
[2022-12-28 15:00] VITALS: BP 100/74; PULSE 64; RESP 16; TEMP 36.6; O2SAT 95
[2022-12-28] MEDS: SODIUM CHLORIDE 0.9 % (FLUSH) 10 ML SYRINGE IVF ×2 (15:08→15:46)
[2022-12-28] MEDS: ERTAPENEM 1 GM in 0.9 % SODIUM CHLORIDE 100 ml 100 ML IVPB (15:10)
[2022-12-28] MEDS: 0.9 % SODIUM CHLORIDE 250 ml IV (15:10)
--- NOTE | 2022-12-28 15:10 | P.EN_ITS ---
Chart Event Note Time Seen by Provider: 15:10 Date Seen: 12/28/22 Chart Event Note: 77-year-old male with multiple myeloma and ESBL Klebsiella urinary infection here for ertapenem. The last couple days he has been intermittently feeling a little better at times and then a little worse at times. Two days ago he had fever of 101. In the last day he has not had a fever over 100 F. I have increased his ertapenem to 1 g daily. Will check renal function this week in [place] if they do not check it at his [facility] appointment on Thursday. His blood pressures been soft and I have stopped his amlodipine. Recommend if he does get elevated blood pressure that we resume it at a lower dose of 5 mg daily.
[2022-12-29 14:40] VITALS: BP 127/79; PULSE 54; RESP 16; TEMP 36.8; O2SAT 95
[2022-12-29] MEDS: ERTAPENEM 1 GM in 0.9 % SODIUM CHLORIDE Mini-bag 100 ML IVPB (15:45)
[2022-12-30 14:45] VITALS: BP 115/76; PULSE 69; RESP 16; TEMP 36.6; O2SAT 94
[2022-12-30] MEDS: ERTAPENEM 1 GM in 0.9 % SODIUM CHLORIDE Mini-bag 100 ML IVPB (15:01)
[2022-12-30] MEDS: 0.9 % SODIUM CHLORIDE 250 ml IV (15:03)
[2022-12-30] MEDS: SODIUM CHLORIDE 0.9 % (FLUSH) 10 ML SYRINGE IVF (15:04)
[2022-12-31 13:45] LABS: Basophils Absolute Auto 0.01 K/uL (0.00-0.30); Basophils Percent Auto 0.2 % (0.0-3.0); Hematocrit 32.6 % (37.0-53.0); Hemoglobin* 10.2 gm/dL (13.5-17.5); Immature Granulocytes Abs Auto 0.09 K/uL (0.00-0.30); Immature Granulocytes Pct Auto 1.7 %; Mean Corpuscular HGB Conc 31 gm/dL (32-36); Mean Corpuscular Hemoglobin 30 pg (26-34); Mean Corpuscular Volume 96 fL (80-100); Monocytes Percent Auto 6.8 % (0.0-11.0); Neutrophils Percent Auto 84.3 % (42.0-72.0); Platelet Count* 242 K/uL (140-440); RDW Coefficient of Variation % 16.6 % (11.5-15.5); Red Blood Count 3.38 m/uL (4.30-5.90)
[2022-12-31 13:49] LABS: Slide Review Reflex No
[2022-12-31 14:00] VITALS: BP 125/78; PULSE 63; RESP 16; TEMP 35.9; O2SAT 97
[2022-12-31 14:00] LABS: Chloride* 111 mmol/L (96-114); Potassium* 4.8 mmol/L (3.6-5.1); Sodium* 140 mmol/L (135-149)
[2022-12-31 14:03] LABS: Anion Gap 9 mEq/L (7-15); Blood Urea Nitrogen* 47 mg/dL (7-30); Calcium* 8.8 mg/dL (8.4-10.6); Carbon Dioxide* 20 mmol/L (20-32); Creatinine* 1.6 mg/dL (0.5-1.5); Estimated Glomerular Filt Rate 44 ml/min
[2022-12-31] MEDS: 0.9 % SODIUM CHLORIDE 250 ml IV (14:17)
[2022-12-31] MEDS: ERTAPENEM 1 GM in 0.9 % SODIUM CHLORIDE Mini-bag 100 ML IVPB (14:17)
[2022-12-31] MEDS: SODIUM CHLORIDE 0.9 % (FLUSH) 10 ML SYRINGE IVF (14:17)
--- NOTE | 2022-12-31 14:24 | PC.NURSE ---
Reported labs to Dr. Valera. Per sharee Cee to give [address] Valera.
[2022-12-31 14:56] LABS: Glucose* 125 mg/dL (60-115)
[2023-01-01 14:35] VITALS: BP 122/74; PULSE 61; RESP 16; TEMP 36.3; O2SAT 97
[2023-01-01] MEDS: SODIUM CHLORIDE 0.9 % (FLUSH) 10 ML SYRINGE IVF (14:35)
[2023-01-01] MEDS: 0.9 % SODIUM CHLORIDE 250 ml IV (14:45)
[2023-01-01] MEDS: ERTAPENEM 1 GM in 0.9 % SODIUM CHLORIDE Mini-bag 100 ML IVPB (15:21)
[2023-01-02 13:58] VITALS: BP 122/76; PULSE 61; RESP 16; TEMP 36.5; O2SAT 97
[2023-01-02] MEDS: 0.9 % SODIUM CHLORIDE 250 ml IV (14:00)
[2023-01-02] MEDS: ERTAPENEM 1 GM in 0.9 % SODIUM CHLORIDE Mini-bag 100 ML IVPB (14:09)
--- NOTE | 2023-01-02 14:19 | PC.NURSE ---
Pt requested an earlier infusion time on 01/03/2023 to be able to get to their family cabin for the weekend. RN spoke with Med Surg test engine operator and Pharmacist, Arya both of which ok'd the infusion time of 10:00 AM tomorrow. Pt very thankful.
[2023-01-03] MEDS: ERTAPENEM 1 GM in 0.9 % SODIUM CHLORIDE Mini-bag 100 ML IVPB (10:23)
[2023-01-03 10:24] VITALS: BP 138/86; PULSE 63; RESP 24; TEMP 36.7; O2SAT 98
[2023-01-03] MEDS: 0.9 % SODIUM CHLORIDE 250 ml IV (10:24)
--- NOTE | 2023-02-04 14:51 | ONC.NURNOTE ---
Patient and spouse are interested in moving his MM treatment to [place]. He is getting weekly Velcade in [place]. He would continue to see his oncologist team on day one and come here for the remaining three weeks. Candle Pourer talked with Dr. Crowe and she is willing to sign on these orders as long as patient is being seen in [place] with each cycle and will continue to reach out to them with questions. Candle Pourer talked with spouse today and she and patient would like to continue down to [place] in February, but come here for days 8 & 15 for cycle three, which would start on 03/03/2023, with patient coming for day 8 on 03/10/2023. Patient will see his team in [place] on 03/03/2023 and then call [facility] if they would like to go ahead with this plan. If so, information from [place] to be printed (chemo regimine and last note) and then signed by Dr. Crowe on 03/05/2023 when she is in office.
== END 2023-02-21 23:59 | disposition home or self-care (01) ==
LOC: CCIC 09:54
PROVIDERS: PCP Family Medicine; Visit Provider Clinical Nurse Specialist
DX: N39.0 Urinary tract infection, site not specified (principal); C90.00 Multiple myeloma not having achieved remission
CPT/HCPCS: 36415; 80048; 85025; 87040; 96365; 96376; 99211; J1335; J7050

== ENCOUNTER 2023-11-02 13:30 | Outpatient (RCR) | payer MEDICARE, OTHER, SELFPAY ==
--- NOTE | 2023-03-02 10:58 | PC.NURSE ---
[facility] received a treatment letter from Dr. Ryder in [place] for pt to receive Velcade days 8, 15, 22 at [facility] while getting day 1 injections at [facility] in [place]. Records requested. PA will be started and when approved, will schedule pt for injection on 03/10/[address] Crowe's co-signature.
--- NOTE | 2023-03-02 11:47 | URNOTE ---
Received request for prior authorization for Velcade ([id number]). Pt has Medicare primary. Prior authorization is not required as services are based on medical necessity.
[2023-06-03] MEDS: ERTAPENEM 1 GM in 0.9 % SODIUM CHLORIDE Mini-bag 100 ML IVPB (15:58)
[2023-06-03 16:06] VITALS: BP 175/88; PULSE 79; RESP 18; TEMP 36.7; O2SAT 97
[2023-06-04 14:04] VITALS: BP 146/82; PULSE 74; RESP 16; TEMP 36.6; O2SAT 98
[2023-06-04] MEDS: ERTAPENEM 1 GM in 0.9 % SODIUM CHLORIDE Mini-bag 100 ML IVPB (14:16)
[2023-06-05] MEDS: ERTAPENEM 1 GM in 0.9 % SODIUM CHLORIDE Mini-bag 100 ML IVPB (13:40)
[2023-06-05] MEDS: SODIUM CHLORIDE 0.9 % (FLUSH) 10 ML SYRINGE IVF (13:41)
[2023-06-05] MEDS: 0.9 % SODIUM CHLORIDE 250 ml IV (13:41)
[2023-06-06 13:03] VITALS: BP 137/91; PULSE 71; RESP 22; TEMP 36.4; O2SAT 100
[2023-06-06] MEDS: 0.9 % SODIUM CHLORIDE 250 ml IV (13:11)
[2023-06-06] MEDS: ERTAPENEM 1 GM in 0.9 % SODIUM CHLORIDE Mini-bag 100 ML IVPB (13:11)
[2023-06-06] MEDS: SODIUM CHLORIDE 0.9 % (FLUSH) 10 ML SYRINGE IVF (13:11)
--- NOTE | 2023-06-06 13:48 | PC.NURSE ---
Patient left floor by foot at 1348 with . Infusion performed and tolerated without complication. Patient vitally stable, IV SL and intact.
[2023-06-07 13:01] VITALS: BP 145/76; PULSE 56; RESP 24; TEMP 36.3; O2SAT 98
[2023-06-07] MEDS: SODIUM CHLORIDE 0.9 % (FLUSH) 10 ML SYRINGE IVF (13:03)
[2023-06-07] MEDS: 0.9 % SODIUM CHLORIDE 250 ml IV (13:03)
[2023-06-07] MEDS: ERTAPENEM 1 GM in 0.9 % SODIUM CHLORIDE Mini-bag 100 ML IVPB (13:05)
--- NOTE | 2023-06-07 13:46 | PC.NURSE ---
Patient vitally stable, IV SL and intact. Patient tolerated infusion well and left floor by foot at 1346.
[2023-06-08 14:09] VITALS: BP 124/80; PULSE 80; RESP 16; TEMP 36.6; O2SAT 97
[2023-06-08] MEDS: 0.9 % SODIUM CHLORIDE 250 ml IV (14:30)
[2023-06-08] MEDS: SODIUM CHLORIDE 0.9 % (FLUSH) 10 ML SYRINGE IVF (14:30)
[2023-06-08] MEDS: ERTAPENEM 1 GM in 0.9 % SODIUM CHLORIDE Mini-bag 100 ML IVPB (14:30)
[2023-10-26] MEDS: ERTAPENEM 1 GM in 0.9 % SODIUM CHLORIDE Mini-bag 100 ML IVPB (14:03)
[2023-10-26] MEDS: 0.9 % SODIUM CHLORIDE 250 ml IV (14:04)
[2023-10-26] MEDS: SODIUM CHLORIDE 0.9 % (FLUSH) 10 ML SYRINGE IVF (14:04)
[2023-10-26 15:29] VITALS: TEMP 36.1
[2023-10-27] MEDS: ERTAPENEM 1 GM in 0.9 % SODIUM CHLORIDE Mini-bag 100 ML IVPB (14:09)
[2023-10-27 14:38] VITALS: BP 129/77; PULSE 62; RESP 16; TEMP 36.4; O2SAT 97
[2023-10-28 13:42] VITALS: BP 154/76; PULSE 65; RESP 16; TEMP 36.4; O2SAT 97
[2023-10-28] MEDS: ERTAPENEM 1 GM in 0.9 % SODIUM CHLORIDE Mini-bag 100 ML IVPB (14:04)
[2023-10-28] MEDS: 0.9 % SODIUM CHLORIDE 250 ml IV (14:05)
[2023-10-28] MEDS: SODIUM CHLORIDE 0.9 % (FLUSH) 10 ML SYRINGE IVF (14:05)
[2023-10-29 13:37] VITALS: BP 145/73; PULSE 64; RESP 16; TEMP 36.7; O2SAT 100
[2023-10-29] MEDS: ERTAPENEM 1 GM in 0.9 % SODIUM CHLORIDE Mini-bag 100 ML IVPB (13:43)
[2023-10-29] MEDS: SODIUM CHLORIDE 0.9 % (FLUSH) 10 ML SYRINGE IVF (13:43)
[2023-10-29] MEDS: 0.9 % SODIUM CHLORIDE 250 ml IV (13:43)
[2023-10-30 13:58] VITALS: BP 144/74; PULSE 62; RESP 14; TEMP 36.3; O2SAT 98
[2023-10-30] MEDS: SODIUM CHLORIDE 0.9 % (FLUSH) 10 ML SYRINGE IVF (14:06)
[2023-10-30] MEDS: 0.9 % SODIUM CHLORIDE 250 ml IV (14:06)
[2023-10-30] MEDS: ERTAPENEM 1 GM in 0.9 % SODIUM CHLORIDE Mini-bag 100 ML IVPB (14:25)
--- NOTE | 2023-10-30 14:53 | ONC.NURNOTE ---
Patient in clinic today for day 7 of 10 of his IV ABX. He was seen today by his PCP Dr. Goldman. Per patient and his AVS he is to get his scheduled dose of Ertapenum today and then will start on PO Levaquin tomorrow for 4 days. Per patient he will not his his IV abx's next week. RN placed call to Dr. Goldman's care team and requested to have an order faxed with an ok to DC IV abx's early. Unable to talk to a nurse. Molly at [facility] took RN's information and will have care team call the clinic back.
== END 2023-11-30 23:59 | disposition home or self-care (01) ==
LOC: CCIC 13:30
PROVIDERS: PCP Family Medicine; Referring Provider Family Medicine; Visit Provider Clinical Nurse Specialist
DX: N39.0 Urinary tract infection, site not specified (principal)
CPT/HCPCS: 96365; G0463; J1335; J7050

== ENCOUNTER 2024-05-06 10:49 | Emergency (ER) | payer MEDICARE, OTHER, SELFPAY ==
[2024-05-06 11:11] VITALS: BP 158/75; PULSE 60; RESP 18; TEMP 37.2; O2SAT 98; BMI 26.3
--- NOTE | 2024-05-06 11:20 | ED_ITS ---
HPI - General Adult General Chief complaint: Urogenital Problems, Male Stated complaint: Possible UTI Time Seen by Provider: 05/06/24 11:18 History of Present Illness HPI narrative: This 78-year-old male comes in reporting pain with voiding urine and suspects that he has a another urinary tract infection. He states that he has had symptoms like this for 5 times in the past. He arrives here with normal vital signs. He does not report any fevers. Related Data Home Medications ?Medication ?Instructions ?Recorded ?Confirmed acetaminophen 325 mg tablet 975 mg PO BID PRN 05/10/22 06/03/23 acyclovir 400 mg tablet 400 mg PO BID 05/10/22 05/06/24 amlodipine 10 mg tablet 10 mg PO DAILY 05/10/22 05/06/24 levothyroxine 175 mcg tablet 175 mcg PO SUTUTHSA@0630 05/10/22 05/06/24 (Levo-T) pantoprazole 40 mg tablet,delayed 40 mg PO DAILY 05/10/22 05/06/24 release levothyroxine 150 mcg tablet 150 mcg PO MOWEFR@0630 12/21/22 05/06/24 bortezomib 3.5 mg injection powder 2.5 mg subcut QWEEK 06/03/23 05/06/24 for solution (Velcade) cyclophosphamide 1 gram 300 mg PO .weekly 06/03/23 06/03/23 intravenous powder for solution chlorthalidone 25 mg tablet 12.5 mg PO QAM 06/05/23 05/06/24 lisinopril 20 mg tablet 20 mg PO DAILY 06/05/23 05/06/24 Zometa 05/06/24 diclofenac sodium 1 % topical gel 1 ea topical QID 05/06/24 05/06/24 Previous Rx's ?Medication ?Instructions ?Recorded calcium 500 mg (as 1 tab PO BIDWM #60 tabs 07/31/22 carbonate)-vitamin D3 5 mcg (200 unit) tablet (Oyster Shell Calcium-Vitamin D3) ferrous sulfate 325 mg (65 mg 325 mg PO DAILYWM #30 tabs 07/31/22 iron) tablet cephalexin 500 mg capsule 500 mg PO BID 10 days #20 caps 05/06/24 Allergies Allergy/AdvReac Type Severity Reaction Status Date / Time Iodinated Contrast Media Allergy Severe Verified 10/30/23 13:54 sulfamethoxazole (From Allergy Severe Verified 10/30/23 13:54 Bactrim) trimethoprim (From Bactrim) Allergy Severe Verified 10/30/23 13:54 Review of Systems Status of ROS: Reports: 10 or more systems reviewed and unremarkable except as noted in History and below Narrative: Constitutional: No fevers, no weight gain or loss. Eyes: No discharge. No vision changes. HENT: No congestion, no sore throat, no ear pain. Cardiovascular: No chest pain, no palpitations. Respiratory: No shortness of breath, no wheezes, no cough. Gastrointestinal: No abdominal pain, no vomiting, no diarrhea. Genitourinary: Pain with voiding urine. Musculoskeletal: Normal range of motion. Skin: No rashes, no pruritis. Neurological: No dizziness, weakness, sensory change, speech change. Endo/Heme/Allergies: No bruising or bleeding. No polydipsia. Pysch: no suicidality, no anxiety, no insomnia. All other systems reviewed and are negative. [facility] Medical History (Updated 05/06/24 @ 12:07 by Bernabe Chan MD) Infection due to ESBL-producing Klebsiella pneumoniae ?A49.8 - Other bacterial infections of unspecified site (ICD-10) ?Z16.12 - Extended spectrum beta lactamase (ESBL) resistance (ICD-10) Single kidney ?Z90.5 - Acquired absence of kidney (ICD-10) Elevated troponin ?R77.8 - Other specified abnormalities of plasma proteins (ICD-10) Hypokalemia ?E87.6 - Hypokalemia (ICD-10) Hypocalcemia ?E83.51 - Hypocalcemia (ICD-10) Iron deficiency anemia ?D50.9 - Iron deficiency anemia, unspecified (ICD-10) GI bleeding ?K92.2 - Gastrointestinal hemorrhage, unspecified (ICD-10) Diarrhea ?R19.7 - Diarrhea, unspecified (ICD-10) Pneumonia ?J18.9 - Pneumonia, unspecified organism (ICD-10) Urinary tract infection ?N39.0 - Urinary tract infection, site not specified (ICD-10) Weakness ?R53.1 - Weakness (ICD-10) Iron deficiency ?E61.1 - Iron deficiency (ICD-10) Pancytopenia ?D61.818 - Other pancytopenia (ICD-10) Chronic anemia ?D64.9 - Anemia, unspecified (ICD-10) History of GI bleed ?Z87.19 - Personal history of other diseases of the digestive system (ICD-10) Hypothyroid ?E03.9 - Hypothyroidism, unspecified (ICD-10) CKD (chronic kidney disease) ?N18.9 - Chronic kidney disease, unspecified (ICD-10) Hypertension ?I10 - Essential (primary) hypertension (ICD-10) History of kidney cancer ?Z85.528 - Personal history of other malignant neoplasm of kidney (ICD-10) History of prostate cancer ?Z85.46 - Personal history of malignant neoplasm of prostate (ICD-10) Multiple myeloma ?C90.00 - Multiple myeloma not having achieved remission (ICD-10) 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 - Phimosis (ICD-10) Surgical History History of bone marrow biopsy ?Z98.890 - Other specified postprocedural states (ICD-10) S/P tonsillectomy and adenoidectomy ?Z90.89 - Acquired absence of other organs (ICD-10) History of prostatectomy ?Z90.79 - Acquired absence of other genital organ(s) (ICD-10) History of nephrectomy ?Z90.5 - Acquired absence of kidney (ICD-10) Social History What is your current living situation?: I presently have a place to live Problems where you live: no known problems Problems where you live details: na In the past 12 months, utilities in danger of being shut off: no In past 12 months, lack of transportation kept you from medical appts, meetings, work, or getting things needed for daily living: no In the past 12 mos, have been you worried that your food would run out before you had money to buy more?: never true In the past 12 mos, the food you bought just didn't last and you didn't have money to buy more?: never true Highest level of school completed/degree received: Bachelor's degree Smoking Status: Never smoker Do you use any of these nicotine containing products: None How often do you have a drink containing alcohol: never AUDIT-C Alcohol total score: 0 Non-prescribed substance use: denies use How often does anyone, including family, friends and others, physically hurt you : never How often does anyone, including family, friends and others, insult or talk down to you: never How often does anyone, including family, friends and others, threaten you with harm: never How often does anyone, including family, friends and others, scream or curse at you: never service: No Exam Narrative: Exam Narrative: Constitutional: Well-developed, well-nourished, no acute distress. HEENT: Normocephalic, atraumatic. Neck: Normal range of motion. Nontender. Supple. Heart: Intact distal pulses. Lungs: No chest discomfort. No wheezes, rhonchi, or rales. Abdomen: Nontender. Back: Normal range of motion. Extremities: Normal range of motion. No injury. Skin: Intact. No rash. Warm. No erythema or pallor. Neurologic: No altered sensation. No weakness. Alert and oriented. Psychiatric: No suicidality. No anxiety or depression. No insomnia. Nursing notes and vitals signs are reviewed. Const: Vital Signs, click to edit/add: Vital Signs - 24 hr 05/06/24 11:11 Temperature 98.9 F Pulse Rate [Pulse Oximeter] 60 Respiratory Rate 18 Blood Pressure [Ri ght Upper Arm] 158/75 H Pulse Oximetry 98 Oxygen Delivery Me thod Room Air Course Vital Signs Vital signs: Initial Vital Signs Temperature 98.9 F 05/06/24 11:11 Temperature Source Temporal Artery Scan 05/06/24 11:11 Pulse Rate 60 05/06/24 11:11 Respiratory Rate 18 05/06/24 11:11 Blood Pressure 158/75 H 05/06/24 11:11 Blood Pressure Mean 102 05/06/24 11:11 Blood Pressure Position Sitting 05/06/24 11:11 Pulse Oximetry 98 05/06/24 11:11 Oxygen Delivery Method Room Air 05/06/24 11:11 Vital Signs Temperature 98.9 F 05/06/24 11:11 Pulse Rate 60 05/06/24 11:11 Respiratory Rate 18 05/06/24 11:11 Blood Pressure 158/75 H 05/06/24 11:11 Pulse Oximetry 98 05/06/24 11:11 Oxygen Delivery Method Room Air 05/06/24 11:11 Temperature 98.9 F 05/06/24 11:11 Pulse Rate 60 05/06/24 11:11 Respiratory Rate 18 05/06/24 11:11 Blood Pressure 158/75 H 05/06/24 11:11 Pulse Oximetry 98 05/06/24 11:11 Oxygen Delivery Method Room Air 05/06/24 11:11 Medical Decision Making MDM Narrative Medical decision making narrative: This patient comes in with typical symptoms urinary tract infection. Urinalysis does confirm it as such. His significant other relayed the findings and treatments of his previous infections over which have occurred 3 or 4 times in this past year. He does have some renal insufficiency. He received a prescription for Keflex 500 mg twice daily for 10 days. Culture and sensitivity results are pending of course and may further clarify appropriate treatment. Lab Data Labs: Lab Results 05/06/24 Range/Units 11:18 Urine Color Yellow (Yellow) Urine Appearance Cloudy A (Clear) Urine pH 5.5 (5.0-8.5) Ur Specific [place] 1.010 (1.000-1.030) Urine Protein 2+ A (Negative) Urine Glucose (UA) Negative (Negative) Urine Ketones Negative (Negative) Urine Blood Trace-intact A (Negative) Urine Nitrite Positive A (Negative) Urine Bilirubin Negative (Negative) Urine Urobilinogen 0.2 (0.2-1.0) Ur Leukocyte Esterase 1+ A (Negative) Urine RBC 0-2 (0-2) Urine WBC 50-100 A (0-5) Urine WBC Clumps Moderate A (None) Ur Squamous Epith Cells Moderate A (None-Few) Urine Bacteria Many A (None) Discharge Plan Discharge Clinical Impression: Urinary tract infection Patient Disposition: Home w/ Parent or Adult Condition: Stable Additional Instructions: Take medication as prescribed. Follow up with MD or return if symptoms are persistent or worsening. Prescriptions: New cephalexin 500 mg capsule 500 mg PO BID 10 Days Qty: 20 0RF No Action acyclovir 400 mg tablet 400 mg PO BID amlodipine 10 mg tablet 10 mg PO DAILY levothyroxine [Levo-T] 175 mcg tablet 175 mcg PO SUSY@0630 Patient Comments: 4 days a week pantoprazole 40 mg tablet,delayed release (DR/EC) 40 mg PO DAILY acetaminophen 325 mg tablet 975 mg PO BID PRN calcium carbonate-vitamin D3 [Oyster Shell Calcium-Vit D3] 500 mg-5 mcg (200 unit) Tablet 1 tab PO BIDWM Qty: 60 0RF ferrous sulfate 325 mg (65 mg iron) Tablet 325 mg PO DAILYWM Qty: 30 0RF levothyroxine 150 mcg tablet 150 mcg PO MOWEFR@0630 cyclophosphamide 1 gram recon soln 300 mg PO .weekly bortezomib [Velcade] 3.5 mg recon soln 2.5 mg subcut QWEEK Rx Instructions: administer as 2.5 mg/mL final concentration lisinopril 20 mg tablet 20 mg PO DAILY chlorthalidone 25 mg tablet 12.5 mg PO QAM diclofenac sodium 1 % gel 1 ea topical QID Zometa Follow Up/Referrals: Juwan Goldman MD [Primary Care Provider] - Stand Alone Forms: MyHealth Info Instructions
[2024-05-06 11:35] LABS: Appearance Urine Cloudy (Clear); Bilirubin Urine Negative (Negative); Blood Urine Trace-intact (Negative); Color Urine Yellow (Yellow); Glucose Urine Negative (Negative); Ketones Urine Negative (Negative); Leukocyte Esterase Urine 1+ (Negative); Nitrite Urine Positive (Negative); Protein Urine 2+ (Negative); Urobilinogen Urine 0.2 (0.2-1.0); pH Urine 5.5 (5.0-8.5)
[2024-05-06 11:44] LABS: Bacteria Urine Many; RBC Urine 0-2 (0-2); Squamous Epithelial Cell Urine Moderate (None-Few); WBC Urine 50-100 (0-5)
[2024-05-06 11:45] LABS: WBC Clumps Urine Moderate
== END 2024-05-06 12:18 | disposition home or self-care (01) ==
PROVIDERS: Emergency Provider Emergency Medicine Emergency Medical Services; PCP Family Medicine
DX: N39.0 Urinary tract infection, site not specified (principal)
CPT/HCPCS: 81001; 87086; 87186; 99283; 99284

== ENCOUNTER 2024-05-13 20:08 | Emergency (ER) | payer MEDICARE, OTHER, SELFPAY ==
--- OUTSIDE RECORDS SUMMARY | 2024-05-13 20:10 | XMS_ITS | Clinical Summary ---
Author Organization [facility] Address [place], [place] [address] Care Team Providers Care Fish Boning Machine Feeder Name Role Phone Francisca Quinn MD Unavailable [phone] Judy Leavitt HAND CANDY DIPPER Unavailable Wai Rasheed RN Unavailable Unavailable Juwan Goldman MD Primary Care Provider [phone] Allergies Active Allergy Reactions Criticality Noted Date Comments Iodinated Contrast Media *Unknown High 05/19/2016 Told by medical providers to avoid contrast media due to solitary kidney Diatrizoate Allergen Other - Describe In Comment Field 05/19/2016 Only has one kidney Sulfamethoxazole *Unknown High 08/25/2022 Sulfamethoxazole-Trimethop rim Hyperkalemia,*Unkn own Low 09/02/2022 Hospitalized with high potassium from medication Hyperkalemia on 1 DS Bactrim BID with solitary kidney Trimethoprim *Unknown High 08/25/2022 Medications metroNIDAZOLE (METROGEL) 0.75 % gelIndications:Ros acea Apply topically to affected area(s) two times daily. 45 g 3 04/14/20 22 Active acyclovir (ZOVIRAX) 400 mg tablet Take 400 mg by mouth. 03/17/20 22 Active acetaminophen (TYLENOL) 325 mg tablet Take 975 mg by mouth. Active ferrous sulfate, 65 mg elemental, tablet Take by mouth. 09/10/19 23 Active zoledronic acid (ZOMETA) 4 mg/5 mL injection Inject 4 mg intravenous. Active bortezomib (VELCADE INJ) Inject As Directed. Once every other week on Thursday Will have to check on the dose Active calcium citrate/vitamin D3 (CALCIUM CITRATE + D ORAL) Take by mouth. 630 mg with vitamin D3 500 IU; 2 tabs po BID Active diclofenac topical (VOLTAREN) 1 % gelIndications:Valorie moira osteoarthritis of knees, bilateral Apply 2 g topically to affected area(s) four times daily. 100 g 5 06/17/19 24 Active amLODIPine (NORVASC) 10 mg tabletIndications: Essential hypertension Take 1 Tablet (10 mg) by mouth once daily. 90 Tablet 3 01/15/20 24 Active pantoprazole (PROTONIX) 40 mg delayed-release tabletIndications: Peptic ulcer disease Take 1 Tablet (40 mg) by mouth once daily before a meal. 90 Tablet 3 01/15/20 24 Active levothyroxine (SYNTHROID) 150 mcg tabletIndications: Other specified hypothyroidism TAKE ONE TABLET BY MOUTH EVERY OTHER DAY (ALTERNATE WITH 175MCG)-take 3 every week. 39 Tablet 3 01/15/20 24 Active levothyroxine (SYNTHROID) 175 mcg tabletIndications: Other specified hypothyroidism TAKE ONE TABLET BY MOUTH EVERY OTHER DAY (ALTERNATING WITH 150MCG)-take 4 every week. 52 Tablet 3 01/15/20 24 Active chlorthalidone (HYGROTON) 25 mg tabletIndications: Essential hypertension Take 1 Tablet (25 mg) by mouth once daily in the morning. 01/15/20 24 Active lisinopriL (PRINIVIL; ZESTRIL) 20 mg tabletIndications: Essential hypertension Take 1 Tablet (20 mg) by mouth once daily. 90 Tablet 1 04/20/20 24 Active lisinopriL (PRINIVIL; ZESTRIL) 20 mg tabletIndications: Essential hypertension Take 1 Tablet (20 mg) by mouth once daily. 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 He is followed by Dr. Ryder for this. Peptic ulcer disease 06/05/2015 Gastrointestinal hemorrhage 06/03/2014 Stage 3 chronic kidney disease 04/22/2012 Overview (09/11/2022): Left nephrectomy for cancer Umbilical hernia 04/07/2012 Malignant neoplasm of left kidney 03/18/2011 Overview (04/23/2011): S/P L nephrectomy 04/02/11 Papillary Renal Carcinoma Right bundle branch block 03/18/2011 Overview (09/11/2022): 1st noted in 1970's at [facility] Unspecified hypothyroidism 04/09/2007 Overview (09/11/2022): S/p radioactive iodine treatment many years ago Encounters Date Type Department Care Team Description 05/13/[address] [facility] [address] [place] [address] Juwan Goldman MD REQUESTING CALL BACK, NEED EGFR FOR KIDNEY FUNCTION 05/06/[address] [facility] [address] [place] [address] Louise Chiu PA Other (Call back ) 04/17/[address] [facility] [address] [place] [address] Juwan Goldman MD Refill Request (Lisinopril) 04/11/2024 1:15 PM FILLER SHREDDER MACHINE Orders Only [address] [place] [address] Lab, [place] 04/11/2024 Travel 04/06/2024 11:45 AM FILLER SHREDDER MACHINE Office Visit [facility] [address] [place] [address] Juwan Goldman MD Follow Up (Recent UTI; seen by Louise Chiu PA-C ); Medication List Update (Duplicates on allergy list that need to be cleaned up) 04/06/2024 Travel 04/01/2024 Travel 03/31/2024 9:00 AM FILLER SHREDDER MACHINE Office [facility] [address] [place] [address] Louise Chiu PA UTI 03/30/2024 Travel 02/24/2024 11:20 AM CDT Office Visit [facility] [address] [place] [address] Yash Deleon MD Musculoskeletal Problem (Follow up bilateral knee pain, wanting to repeat cortisone injecitons) 02/24/2024 Travel 02/19/2024 Travel from Last 3 Months Immunizations Name Administration Dates Next Due COVID-19 vaccine (Moderna 10 0mcg/0.5mL) PF, MDV 12/06/2021,07/27/2020,06/29/2020 COVID-19 vaccine (Moderna 50 mcg/0.5mL) 12YO+ BIVALENT PF, MDV 04/03/2022 Influenza, High-dose Quadriv alent Inactivated 02/18/2023,02/28/2021 Influenza, IIV4 03/03/2022 Influenza, Inactivated AIIV4 (Age 65+ Years) Preserv Free 03/03/2022 RSV, Bivalent Vaccine Recons tituted (Abrysvo 120MCG/0.5mL) 02/25/2023 Td (Age >=7 Years) 06/26/2004 Tdap 10/17/2011 Family History Medical History Relation Name Comments Cancer-prostate Father Other Father at 85 COPD /pneumonia Cancer-colon Maternal Uncle Heart Disease Mother at 96 CHF Other Mother abdominal tumor Relation Name Status Comments Father (Age 90) Maternal Uncle Mother (Age 90) Social History Tobacco Use Types Packs/Day Years Used Date Smoking Tobacco: Never Smokeless Tobacco: Never Tobacco Cessation:Counseling Given: Yes Alcohol Use Standard Drinks/Week Comments Not Currently 0 (1 standard drink = 0.6 oz pur e alcohol) [facility] Utilities Answer Date Recorded Do you have trouble paying f or utilities (for example, heat, electricity, water, phone)? Yes 10/26/2023 PHQ-2 Answer Date Recorded PHQ-2 TOTAL SCORE 1 03/25/2023 Social Connections Answer Date Recorded Do you often feel lonely or isolated from those around you? 0 10/26/2023 Financial Resource Strain Answer Date R ecorded Difficulty of Paying Living Expenses 3 10/26/2023 Difficulty of Paying Living Expenses Not on file 10/26/2023 Food Insecurity Answer Date Recorded Do you worry your food will run out before you are able to buy more? 1 10/26/2023 Transportation Needs Answer Date Record ed Does lack of transportation keep you from medica l appointments? 1 10/26/2023 Does lack of transportation keep you from work, meetings or getting things that you need? 1 10/26/2023 Housing Stability Answer Date Recorded What is your housing situation today? 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 Not on file Not on file Not on file Obstetrics History Last Filed Vital Signs Vital Sign Reading Time Taken Comments Blood Pressure 128/80 04/06/2024 12:28 PM FILLER SHREDDER MACHINE Pulse 58 04/06/2024 11:53 AM FILLER SHREDDER MACHINE Temperature 36.2 C (97.1 F) 04/06/2024 11:53 AM FILLER SHREDDER MACHINE Respiratory Rate 16 08/21/2021 10:1 2 AM CDT Oxygen Saturation 99% 04/06/2024 11: 53 AM FILLER SHREDDER MACHINE Inhaled Oxygen Concentration - - Weight 85.2 kg (187 lb 12.8 oz) 024 11:53 AM FILLER SHREDDER MACHINE Height 172 cm (5' 7.72) 01/15/2024 2:24 PM CDT Body Mass Index 28.79 01/15/2024 2:24 PM CDT Plan of Treatment Upcoming Encounters Date Type Department Care Team (Late st Contact Info) Description 05/20/2024 9:35 AM FILLER SHREDDER MACHINE Office [facility] [address] [place] [address] Alicia Burciaga DO [address] [place] [address] Health Maintenance Due Date Last Done Comments Pneumococcal series for age 50+ (1 of 2 - PCV) 1964 Zoster (shingles) series for age 50+ (1 of 2) 1964 Medicare Wellness for age 65+ 09/04/2011 Tetanus booster 10/16/2021 10/17/2011, 06/26/2004 Influenza for age 65+ 01/10/2024 02/18/2023 , 03/03/2022, 03/03/2022, Additional history exists Depression screening for age 12+ 03/25/2024 03/25/2023, 02/08/2019, 06/28/2018, Additional history exists COVID-19 vaccine series ( season) 2024 02/11/2024, 02/11/2023, 04/03/2022, Additional history exists BMI (ht and wt on same day) for age 18+ 01/14/2025 01/15/2024, 03/25/2023, 01/13/2023, Additional history exists Tdap Completed 10/17/2011 Hepatitis C screening for ag e 18-79 Completed 10/17/2020 RSV vaccine for adults or Completed 02/25/2023 Goals Goal Patient Goal Type Associated Problems Recent Progress Patient-Stated? Author BLOOD PRESSURE - MAINTAINS BP less than 140/90 Blood Pressure Francisco Mccartney MD Procedures Procedure Name Priority Date/Time Associated Diagnosis Comments URINE CULTURE Routine 04/11/2024 2:51 PM FILLER SHREDDER MACHINE UTI (urinary tract infection), uncomplicated BASIC METABOLIC PANEL Routine 04/06/2024 12:35 PM FILLER SHREDDER MACHINE UTI (urinary tract infection), uncomplicated URINALYSIS MICROSCOPIC Routine 03/31/2024 9:08 AM FILLER SHREDDER MACHINE Lower urinary tract symptoms (LUTS) URINE CULTURE Routine 03/31/2024 9:08 AM FILLER SHREDDER MACHINE Lower urinary tract symptoms (LUTS) URINALYSIS MACROSCOPIC - [facility] POC DIP ([facility]) Routine 03/31/2024 9:07 AM FILLER SHREDDER MACHINE Lower urinary tract symptoms (LUTS) ANTI HCV Routine 10/17/2020 10:15 AM CDT Encounter for hepatitis C screening test for low risk patient from Last 3 Months or Most Recently Relevant to Health Maintenance Results * URINE CULTURE (04/11/2024 2:51 PM FILLER SHREDDER MACHINE) Only the most recent of2 resultswithin the time period is included. Pathologist [facility] CULTURE No growth (<1,000 CFU/mL) 04/13/2024 1:42 PM FILLER SHREDDER MACHINE [facility] [employer] [facility] Urine URINE SPECIMEN / Unknown Non-Blood / Unknown 04/11/2024 2:51 PM FILLER SHREDDER MACHINE 04/11/2024 2:51 PM FILLER SHREDDER MACHINE us Juwan Goldman MD MICROBIOLOGY Final Resu lt [facility] [employer] [facility] [address] [place] [address], * (ABNORMAL) BASIC METABOLIC PANEL (04/06/2024 12:35 PM FILLER SHREDDER MACHINE) GLUCOSE 83 65 - 99 mg/dL [facility] Comment: Fasting reference interval UREA NITROGEN (BUN) 43(H) 7 - 25 mg/dL [facility] CREATININE 2.16(H) 0.70 - 1.28 mg/dL [facility] EGFR 31(L) > OR = 60 mL/min/1.7 3m2 [facility] BUN/CREATININE RATIO 20 6 - 22 (calc) [facility] SODIUM 136 135 - 146 mmol/L [facility] POTASSIUM 4.5 3.5 - 5.3 mmol/L [facility] CHLORIDE 103 98 - 110 mmol/L [facility] CARBON DIOXIDE 25 20 - 32 mmol/L [facility] ELECTROLYTE BALANCE 8 7 - 17 mmol/L (calc) [facility] CALCIUM 9.3 8.6 - 10.3 mg/dL [facility] Blood BLOOD SPECIMEN / Unknown 04/06/2024 12:35 PM FILLER SHREDDER MACHINE 04/06/2024 12:36 PM FILLER SHREDDER MACHINE Juwan Goldman MD CHEMISTRY Final Resu lt [facility] [address] [place] [address], [place] [phone] [facility] [address] [place] [address] * (ABNORMAL) URINALYSIS MICROSCOPIC (03/31/2024 9:08 AM FILLER SHREDDER MACHINE) WBC UA 10-20(A) < OR = 5 /HPF [facility] RBC UA NONE SEEN < OR = 2 /HPF [facility] SQUAMOUS EPITHELIAL CELLS UA 0-5 < OR = 5 /HPF [facility] BACTERIA UA FEW(A) NONE SEEN /HPF [facility] HYALINE CAST NONE SEEN NONE SEEN /LPF [facility] NOTE UA [facility] Comment: This urine was analyzed for the presence of WBC, RBC, bacteria, casts, and other formed elements. Only those elements seen were reported. Urine URINE SPECIMEN / Unknown 03/31/2024 9:08 AM FILLER SHREDDER MACHINE 03/31/2024 9:09 AM FILLER SHREDDER MACHINE Louise SIMENTAL URINE Final Result Performing Organization Address [facility]/ZIP Co de Phone Number [facility] [address] [facility] [place] [address], [place] [phone] [facility] [address] [place] [address] * (ABNORMAL) POCT Urinalysis Dipstick Only (03/31/2024 9:07 AM FILLER SHREDDER MACHINE) [facility] PH 5.0 5.0 - 8.0 [facility] SPECIFIC GRAVITY < OR = 1.005 1.001 - 1.035 [facility] Comment: Specific [place] values resulted are outside the analytical measurement range of this device. Recommend repeat/additional testing as clinically indicated. GLUCOSE NEGATIVE NEGATIVE [facility] BILIRUBIN NEGATIVE NEGATIVE [facility] KETONES NEGATIVE NEGATIVE [facility] OCCULT BLOOD NEGATIVE NEGATIVE [facility] PROTEIN 1+(A) NEGATIVE [facility] NITRITE NEGATIVE NEGATIVE [facility] LEUKOCYTE ESTERASE 2+(A) NEGATIVE [facility] Urine URINE SPECIMEN / Unknown 03/31/2024 9:07 AM FILLER SHREDDER MACHINE 03/31/2024 9:08 AM FILLER SHREDDER MACHINE us Louise SIMENTAL URINE Final Result [facility] [address] [place] [address], [facility] [address] [place] [address] * ANTI HCV (10/17/2020 10:15 AM CDT) [facility] HEPATITIS C ANTIBODY Non-React maricel Non-React maricel 10/17/2020 6:17 PM CDT [facility] Comment:Antibodies to HCV no t detected; does not exclude the possibility of exposure to HCV. Blood BLOOD SPECIMEN / Unknown Venipuncture / Unknown 10/17/2020 10:15 AM CDT 10/17/2020 10:20 AM CDT us Francisco Santana MD SEND OUTS Final Re sult [facility] [address] [place] [address], [place] from Last 3 Months or Most Recently Relevant to Health Maintenance Additional Health Concerns Infection Onset Date Last Indicated ESBL 08/20/2022 08/20/2022 Insurance MEDICARE PART A HB ONLY MEDICARE PB ONLY MEDICARE PART B HB ONLY MEDICARE PART B HB ONLY Advance Directives Documents on File Type Date Recorded Patient Administrative Office Clerk Expl anation Healthcare Directive 10/14/2022 [facility] [place], 10/14/2022 Healthcare Directive 04/09/2011 * Full Code (Latest Code Status on File) Date Activated Date Inactivated Comments 08/21/2021 10:13 AM 08/22/2021 2:16 AM Question Answer Comments Code Status Discussion: Unable to Assess Preferences, Provider to review later * Full Code Date Activated Date Inactivated Comments 06/03/2014 8:25 PM 06/13/2014 4:28 PM Care Teams Fish Boning Machine Feeder Relationship Specialty Start Date End Date Juwan Goldman MD [address] [place] [id number] PCP - General Family Practice 04/14/22 Francisca Quinn MD [address] [place] [address] Hematology and Oncology 08/07/21 Judy Leavitt, JOSE MIGUEL [address] [place] [address] Hematology and Oncology 08/07/21 Wai Rasheed, TAMIA [address] [place] [address] Nurse Navigator - Oncology Oncology 09/09/21
[2024-05-13 20:11] VITALS: BP 135/81; PULSE 46; RESP 16; TEMP 36.5; O2SAT 97; BMI 26.3
--- OUTSIDE RECORDS SUMMARY | 2024-05-13 20:11 | XMS_ITS | Clinical Summary ---
Author Organization [facility] Address [address] [place] [address] Care Team Providers Care Service Unit Operator Name Role Phone Elsewhere, Pcp Primary Care Provider Unavailabl e Source Comments Patient records contain information from all sites at [facility]. For routine questions regarding patient records, call [phone] during business hours, M-F 8:00 AM - 5:00 PM Central Time. Record requests for emergency care only can be directed to [phone] at any time.[facility] Allergies Active Allergy Reactions Criticality Noted Date Comments Sulfamethoxazole-Trime thoprim Other (see comments) Low 09/02/2022 Hyperkalemia on 1 DS Bactrim BID with solitary kidney Diatrizoate Meglumine Other (see comments) 01/2017 Told by medical providers to avoid contrast media due to solitary kidney Iodinated Contrast Media Other (see comments) 05/13/2022 Told by medical providers to avoid contrast media due to solitary kidney Medications * This document contains information received from the source organization and may not represent a complete record from that organization. levothyroxine (SYNTHROID, LEVOTHROID) 175 mcg tablet Take 1 tablet by mouth 4 (four) times a week. Thursday, Thursday, , Thursday 2 Active acetaminophen (TYLENOL) 325 mg tablet Take 975 mg by mouth 3 (three) times a day. Breakfast and bedtime Active zoledronic acid (ZOMETA) 4 mg/5 mL injection Infuse 4 mg into a venous catheter every 3 (three) months. Active ferrous sulfate 325 mg (65 mg iron) tablet Take 1 tablet (65 mg of iron total) by mouth daily. PLEASE HOLD UNTIL INSTRUCTED TO RESUME BY HEMATOLOGY 3 Active calcium citrate-vitamin D3 (CITRACAL+D) 315 mg-5 mcg (200 Unit) per tablet Take 2 tablets by mouth 2 (two) times a day with meals. Active bortezomib (VELCADE) 2.5 mg injection Inject 2.25 mg as directed once a week. Every Thursday Active lisinopriL (PRINIVIL,ZESTR IL) 20 mg tablet Take 1 tablet by mouth daily. 3 Active levothyroxine (SYNTHROID, LEVOTHROID) 150 mcg tablet Take 150 mcg by mouth every morning before breakfast. Thursday, Thursday and Thursday. Active diclofenac sodium (VOLTAREN) 1 % gel 4 Active acyclovir (Zovirax) 400 mg tabletIndicatio ns:Multiple Myeloma Not Having Achieved Remission (HCC) Take 1 tablet (400 mg total) by mouth 2 (two) times a day. 60 tablet 6 4 Active pantoprazole (Protonix) 40 mg EC tablet Take 1 tablet by mouth daily. 4 Active amLODIPine (Norvasc) 10 mg tablet Take 1 tablet by mouth daily. 4 Active chlorthalidone (Hygroton) 25 mg tablet Take 1 tablet (25 mg total) by mouth daily. 90 tablet 3 4 Active Active Problems Problem Noted Date Diagnosed Date Acute Cystitis Without Hematuria 06/02/2023 Hemorrhage Gastrointestinal 09/09/2022 Urinary Tract Infection Site Not Specified 09/09 Pneumonia 09/09/2022 Malnutrition Moderate Protein-Calorie 09/07/2022 Anemia Microcytic 09/02/2022 Pyelonephritis Acute 09/02/2022 Hypothyroidism 09/02/2022 Cancer Renal Cell Carcinoma Personal History Nephrectomy Status Post 09/02/2022 Acute Cystitis Without Hematuria 09/02/2022 Personal History Of Malignant Neoplasm Of Prosta te 09/02/2022 Stool Positive Occult Blood 09/02/2022 Bundle Branch Block Right 09/02/2022 Hypertension Essential Primary 09/02/2022 Shortness Of Breath 09/01/2022 Chronic Kidney Disease (CKD), Stage 3 Unspecifie d 07/31/2022 Dysuria 05/16/2022 Other Senior Db2 Systems Programmer Current Drug Therapy 04/08/2022 Senior Db2 Systems Programmer Current Drug Therapy, Chemotherapy Fracture Radius Distal Closed Initial Left 04/06 Overview (04/06/2022): Added automatically from request for surgery [id number] Multiple Myeloma Not Having Achieved Remission 0 11/21/2021 Overview (11/21/2021): 11/21/2021 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 Resolved Problems Problem Noted Date Diagnosed Date Resolved Date Hyperkalemia 05/13/2022 05/16/2022 Encounters Date Type Department Care Team Description 05/12/2024 Orders Only Division of Hematology in [address] [phone] Rita Mendoza APRN, C.N.P., M.S.N. 05/03/2024 11:00 AM CORRECTIONAL FOOD SERVICE SUPERVISOR Infusion Department of Oncology in [address] [phone] Peyton Ryder M.D. Multiple Myeloma Not Having Achieved Remission (HCC) (Primary Dx); Snf Current Drug Therapy, Chemotherapy 05/03/2024 Orders Only Division of Hematology in [place], [place] [address] [place] [phone] Rita Mendoza APRN, C.N.P., M.S.N. 04/25/2024 Orders Only Division of Hematology in [address] [phone] Rita Mendoza APRN C.N.P., M.S.N. 04/20/2024 11:30 AM CORRECTIONAL FOOD SERVICE SUPERVISOR Infusion Department of Oncology in [address] [phone] Peyton Ryder M.D. Multiple Myeloma Not Having Achieved Remission (HCC) (Primary Dx); Snf Current Drug Therapy, Chemotherapy 04/20/2024 10:30 AM CORRECTIONAL FOOD SERVICE SUPERVISOR Office Visit Division of Hematology in [place], [place] [address] [place] [phone] Rita Mendoza APRN, C.N.P., M.S.N. Elevated Creatinine (Primary Dx); Snf Current Drug Therapy, Chemotherapy; Multiple Myeloma Not Having Achieved Remission (HCC) 04/20/2024 8:11 AM CORRECTIONAL FOOD SERVICE SUPERVISOR - 04/20/2024 11:59 PM CORRECTIONAL FOOD SERVICE SUPERVISOR Hospital Encounter Department of Laboratory Medicine and Pathology, [facility] in [place], [place] [address] [place] [phone] Peyton Ryder M.D. Senior Db2 Systems Programmer Current Drug Therapy, Chemotherapy; Multiple Myeloma Not Having Achieved Remission (HCC) Discharge Disposition: Home or Self Care 04/01/2024 Orders Only Division of Hematology in [address] [phone] Peyton Ryder M.D. 03/31/2024 2:00 PM CORRECTIONAL FOOD SERVICE SUPERVISOR Telemedicine Division of Nephrology and Hypertension in [address] [phone] Bautista Gregory M.D. Chronic Kidney Disease (CKD), Stage 3 Unspecified (HCC) (Primary Dx) 03/25/2024 3:45 PM CORRECTIONAL FOOD SERVICE SUPERVISOR Clinical Communication Virtual Review in [place], [place] 200 [place] [address] Previsit Preparation 03/23/2024 Clinical Communication Division of Hematology in [address] [phone] Peyton Ryder M.D. 04/05+//myeloma//es t 03/22/2024 12:00 PM CORRECTIONAL FOOD SERVICE SUPERVISOR Infusion Department of Oncology in [place], [place] [address] [place] [phone] Peyton Ryder M.D. Multiple Myeloma Not Having Achieved Remission (HCC) (Primary Dx); Snf Current Drug Therapy, Chemotherapy 03/22/2024 11:30 AM CORRECTIONAL FOOD SERVICE SUPERVISOR Office Visit Division of Hematology in [address] [phone] Peyton Ryder M.D. Multiple Myeloma Not Having Achieved Remission (HCC) (Primary Dx); Senior Db2 Systems Programmer Current Drug Therapy, Chemotherapy 03/22/2024 9:57 AM CORRECTIONAL FOOD SERVICE SUPERVISOR - 03/22/2024 11:59 PM CORRECTIONAL FOOD SERVICE SUPERVISOR Hospital Encounter Department of Laboratory Medicine and Pathology, [place], [place] [address] [place] [phone] Bautista Gregory M.D. Chronic Kidney Disease (CKD), Stage 3 Unspecified (HCC) Discharge Disposition: Home or Self Care 03/22/2024 9:57 AM CORRECTIONAL FOOD SERVICE SUPERVISOR - 03/22/2024 11:59 PM CORRECTIONAL FOOD SERVICE SUPERVISOR Hospital Encounter Department of Laboratory Medicine and Pathology, [place], [place] [address] [place] [phone] Bautista Gregory M.D. Chronic Kidney Disease (CKD), Stage 3 Unspecified (HCC) Discharge Disposition: Home or Self Care 03/22/2024 Orders Only Division of Hematology in [address] [phone] Ricardo Macdonald M.B.B.SRodolfo Multiple Myeloma Not Having Achieved Remission (HCC) (Primary Dx); Snf Current Drug Therapy, Chemotherapy 03/08/2024 2:00 PM CDT Infusion Department of Oncology in [address] [phone] Peyton Ryder M.D. Urinary Tract Infection Site Not Specified (Primary Dx); Snf Current Drug Therapy, Chemotherapy; Multiple Myeloma Not Having Achieved Remission (HCC) 02/23/2024 2:00 PM CDT Infusion Department of Oncology in [address] [phone] Peyton Ryder M.D. Multiple Myeloma Not Having Achieved Remission (HCC) (Primary Dx); Snf Current Drug Therapy, Chemotherapy from Last 3 Months Immunizations Name Administration Dates Next Due Influenza high dose QV(65 years or older) (PF) 1 RESPIRATORY SYNCYTIAL VIRUS (RSV), UNSPECIFIED 1 Td (Adult), adsorbed 06/26/2004 Tdap 10/17/2011 influenza trivalent high dose (HD)(PF) 3 Family History Medical History Relation Name Comments Arthritis Father Pee Christianson Prostate cancer Father Pee Christianson Arthritis Mother Apollonia Sammy Colon cancer Mother Apollonia Sammy Hypertension Mother Apollonia Sammy Osteoporosis Mother Apollonia Sammy Other cancer Mother Apollonia Sammy Thyroid disease Mother Apollonia Sammy Colon cancer Mother's Brother Nilesh Iverson Relation Name Status Comments Father Pee Christianson Mother Apollnaheed Christianson Mother's Brother Nilesh Iverson Social History Tobacco Use Types Packs/Day Years Used Date Smoking Tobacco: Never Smokeless Tobacco: Never Tobacco Cessation:Counseling Given: Not Answered Comments:Never used Alcohol Use Standard Drinks/Week Comments Not Currently 4 (1 standard drink = 0.6 oz pure alcohol) None while on chemo. Before a couple of beers a week [facility] Curetisities Answer Date Recorded In the past 12 months has [facility] [employer], gas, oil, or water [employer] threatened to shut off services in your home? No 03/16/2024 Humiliation, Afraid, Rape, and Kick questionnair e Answer Date Recorded Within the last year, have y ou been afraid of your partner or ex-partner? No 02/17/2022 Within the last year, have y ou been humiliated or emotionally abused in other ways by your partner or ex-partner? No Within the last year, have y ou been kicked, hit, slapped, or otherwise physically hurt by your partner or ex-partner? No 02/17/2022 Within the last year, have y ou been raped or forced to have any kind of sexual activity by your partner or ex-partner? No 02/17/2022 Social Connection and Isolat ion Panel [NHANES] Answer Date Recorded In a typical week, how many times do you talk on the phone with family, friends, or neighbors? Twice a week 02/17/2022 How often do you get togethe r with friends or relatives? Once a week 02/17/2022 How often do you attend chur ch or islam services? More than 4 times per year 02/17/2022 Do you belong to any clubs o r organizations such as uatsdin groups, unions, fraternal or athletic groups, or school groups? Yes 02/17/2022 How often do you attend meet ings of the clubs or organizations you belong to? More than 4 times per year 02/17/2022 Are you , , di vorced, , never , or living with a partner? 02/17/2022 AUDIT-C Answer Date Recorded Q1: How often do you have a drink containing alc ohol? 2-3 times a week 02/17/2022 Q2: How many drinks containi ng alcohol do you have on a typical day when you are drinking? 1 or 2 02/17/2022 Q3: How often do you have si x or more drinks on one occasion? Never 02/17/2022 Overall Financial Resource Strain (CARDIA) Answe r Date Recorded How hard is it for you to pa y for the very basics like food, housing, medical care, and heating? Not hard at all 02/27/2023 PHQ-2 Answer Date Recorded PHQ-2 Score 0 03/10/2023 [facility] - Occupational Stress Questionnaire Answer Date Recorded Do you feel stress - tense, restless, nervous, or anxious, or unable to sleep at night because your mind is troubled all the time - these days? Only a little 02/17/2022 Exercise Vital Sign Answer Date Recorde d On average, how many days pe r week do you engage in moderate to strenuous exercise (like a brisk walk)? Patient declined On average, how many minutes do you engage in exercise at this level? Patient declined 03/16/2024 Hunger Vital Sign Answer Date Recorded Within the past 12 months, y ou worried that your food would run out before you got the money to buy more. Never true 03/16/20 24 Within the past 12 months, t he food you bought just didn't last and you didn't have money to get more. Never true 03/16/2024 PRAPARE - Transportation Answer Date Re corded In the past 12 months, has l ack of transportation kept you from medical appointments or from getting medications? No 10/2023 In the past 12 months, has l ack of transportation kept you from meetings, work, or from getting things needed for daily living? No 03/16/2024 Nutrition Answer Date Recorded On average, how many serving s of fruits and vegetables do you eat per day (serving size is equal to 1 cup or approximately the size of a tennis ball)? 3-5 03/16/2024 Dental Answer Date Recorded Dental: Regular Dentist Yes 02/18/20 Employment Answer Date Recorded Employment status Retired 03/16/2024 Housing Stability Answer Date Recorded What is your living situation today? I have a [facility] place to live 03/16/2024 Education Answer Date Recorded What is the highest level of school you have completed or the highest degree you have received? Bachelor's degree (e.g., BA, AB, BS) 02/17/2022 Sex and Gender Information Value Date Recorded Sex Assigned at Male 02/17/2022 4:26 PM CDT Legal Sex Male 11:09 PM CORRECTIONAL FOOD SERVICE SUPERVISOR Gender Identity Male 02/17/2022 4:26 PM CDT Sexual Orientation Straight 02/17/2022 4: 26 PM CDT Last Filed Vital Signs Vital Sign Reading Time Taken Comments Blood Pressure 145/63 05/03/2024 10:24 AM CORRECTIONAL FOOD SERVICE SUPERVISOR Pulse 56 05/03/2024 11:05 AM CORRECTIONAL FOOD SERVICE SUPERVISOR Temperature 36.5 C (97.7 F) 05/03/2024 10:24 AM CORRECTIONAL FOOD SERVICE SUPERVISOR Respiratory Rate 24 06/02/2023 1:47 PM CORRECTIONAL FOOD SERVICE SUPERVISOR Oxygen Saturation 95% 12/14/2022 5:15 AM CDT Inhaled Oxygen Concentration - - Weight 81 kg (178 lb 7.4 oz) 05/03/2024 10:24 AM CORRECTIONAL FOOD SERVICE SUPERVISOR Height 171.1 cm (5' 7.36) 04/20/2024 10:29 AM Bubba PAINTER Body Mass Index 27.65 04/20/2024 10:29 AM CORRECTIONAL FOOD SERVICE SUPERVISOR Plan of Treatment Upcoming Encounters Date Type Department Care Team (Late st Contact Info) Description 05/18/2024 8:30 AM CORRECTIONAL FOOD SERVICE SUPERVISOR Appointment Department of Laboratory Medicine and Pathology, [facility], in [place], [place] [address] [place] [address] Peyton Ryder M.D. [address] [place] [phone] 05/18/2024 10:30 AM CORRECTIONAL FOOD SERVICE SUPERVISOR Office Visit Division of Hematology in [place], [place] [address] [place] [phone] Rita Mendoza APRN, C.NJesus, M.S.N. [address] [place] [phone] 05/18/2024 11:30 AM CORRECTIONAL FOOD SERVICE SUPERVISOR Infusion Department of Oncology in [place], [place] [address] [place] [phone] Peyton Ryder M.D. [address] [place] [phone] 05/18/2024 3:00 PM CORRECTIONAL FOOD SERVICE SUPERVISOR Appointment Department of Radiology, [facility] in [place], [place] [address] [place] [phone] Rita Mendoza APRN, Bubba.NFrandy., M.S.N. [address] [place] [phone] 05/31/2024 11:00 AM CORRECTIONAL FOOD SERVICE SUPERVISOR Lab Department of Laboratory Medicine and Pathology, [facility], in [place], [place] [address] [place] [phone] Brayan Gregg M.B.B.SRodolfo [address] [place] [phone] 05/31/2024 1:00 PM CORRECTIONAL FOOD SERVICE SUPERVISOR Infusion Department of Oncology in [place], [place] [address] [place] [phone] Peyton Ryder M.D. [address] [place] [phone] Health Maintenance Due Date Last Done Comments Hepatitis C Screening 1945 Pneumococcal vaccine (50+ years) (1 of 2 - PCV) 1965 Zoster Vaccines (1 of 2) 1965 DTaP,Tdap,and Td Vaccines (2 - Td or Tdap) 10/16/2021 10/17/2011, 06/26/2004 Influenza Vaccine (#1) 2024 , 03/03/2022, 02/28/2021 Depression Screening (Annual PHQ-2) 05/11/2024 Fall Risk Screen (Annual) 05/11/2024 Office Visit for Blood Pressure Check / Re-check 08/01/2024 05/03/2024 Thyroid Stimulating Hormone (TSH) test for thyroid function 12/21/2024 12/22/2023, 05/29/2023, 09/12/2022, Additional history exists Creatinine Level (Kidney Function Test) 05/03/2025 05/03/2024, 04/20/2024, 03/22/2024, Additional history exists Potassium Level 05/03/2025 05/03/2024, 04/10, 03/22/2024, Additional history exists Sodium Level 05/03/2025 05/03/2024, 04/10, 03/22/2024, Additional history exists Colonoscopy Discontinued 09/04/2022, 08/10, 06/05/2014 Colonoscopy Discontinued 09/04/2022, 08/10, 06/05/2014 Colorectal Cancer Screening Discontinued Colorectal Cancer Surveillance Discontinued RSV vaccine - (32-36 weeks) or 60+ years Completed 02/25/2023 COVID-19 Vaccine Completed 02/11/2024, 08/2022, 04/03/2022, Additional history exists CT Colonography Discontinued CT Colonography Discontinued Cologuard Discontinued FIT Discontinued HPV Vaccines Aged Out No longer eligi ble based on patient's age to complete this topic IPV Vaccines Aged Out No longer eligi ble based on patient's age to complete this topic Procedures Procedure Name Priority Date/Time Associated Diagnosis Comments CBC CHEMO - NO ALERTS Routine 05/03/2024 8:51 AM CORRECTIONAL FOOD SERVICE SUPERVISOR Senior Db2 Systems Programmer Current Drug Therapy, Chemotherapy Multiple Myeloma Not Having Achieved Remission (HCC) QUANTITATIVE M-PROTEIN STUDY, S Routine 05/03/2024 8:51 AM CORRECTIONAL FOOD SERVICE SUPERVISOR Snf Current Drug Therapy, Chemotherapy Multiple Myeloma Not Having Achieved Remission (HCC) IMMUNOGLOBULIN FREE LIGHT CHAINS, S Routine 05/03/2024 8:51 AM CORRECTIONAL FOOD SERVICE SUPERVISOR Senior Db2 Systems Programmer Current Drug Therapy, Chemotherapy Multiple Myeloma Not Having Achieved Remission (HCC) COMPREHENSIVE METABOLIC PANEL, S/P Routine 05/03/2024 8:51 AM CORRECTIONAL FOOD SERVICE SUPERVISOR Snf Current Drug Therapy, Chemotherapy Multiple Myeloma Not Having Achieved Remission (HCC) CBC CHEMO - NO ALERTS Routine 04/20/2024 8:35 AM CORRECTIONAL FOOD SERVICE SUPERVISOR Snf Current Drug Therapy, Chemotherapy Multiple Myeloma Not Having Achieved Remission (HCC) QUANTITATIVE M-PROTEIN STUDY, S Routine 04/20/2024 8:35 AM CORRECTIONAL FOOD SERVICE SUPERVISOR Snf Current Drug Therapy, Chemotherapy Multiple Myeloma Not Having Achieved Remission (HCC) IMMUNOGLOBULIN FREE LIGHT CHAINS, S Routine 04/20/2024 8:35 AM CORRECTIONAL FOOD SERVICE SUPERVISOR Snf Current Drug Therapy, Chemotherapy Multiple Myeloma Not Having Achieved Remission (HCC) COMPREHENSIVE METABOLIC PANEL, S/P Routine 04/20/2024 8:35 AM CORRECTIONAL FOOD SERVICE SUPERVISOR Snf Current Drug Therapy, Chemotherapy Multiple Myeloma Not Having Achieved Remission (HCC) CYSTATIN C WITH EGFR Routine 04/20/2024 8:32 AM CORRECTIONAL FOOD SERVICE SUPERVISOR Multiple Myeloma Not Having Achieved Remission (HCC) Elevated Creatinine PH, U Routine 03/22/2024 10:41 AM CORRECTIONAL FOOD SERVICE SUPERVISOR DIPSTICK, U Routine 03/22/2024 10:41 AM CORRECTIONAL FOOD SERVICE SUPERVISOR OSMOLALITY, U Routine 03/22/2024 10:41 AM CORRECTIONAL FOOD SERVICE SUPERVISOR MICROSCOPIC AUTOMATED Routine 03/22/2024 10:41 AM CORRECTIONAL FOOD SERVICE SUPERVISOR PROTEIN/CREATININE RATIO, RANDOM, URINE Routine 03/22/2024 10:41 AM CORRECTIONAL FOOD SERVICE SUPERVISOR Chronic Kidney Disease (CKD), Stage 3 Unspecified (HCC) ALBUMIN, RANDOM, U Routine 03/22/2024 10 :41 AM CORRECTIONAL FOOD SERVICE SUPERVISOR Chronic Kidney Disease (CKD), Stage 3 Unspecified (HCC) URINALYSIS WITH MICROSCOPIC Routine 03/22/2024 10:41 AM CORRECTIONAL FOOD SERVICE SUPERVISOR Chronic Kidney Disease (CKD), Stage 3 Unspecified (HCC) PARATHYROID HORMONE (PTH), S Routine 03/22/2024 10:14 AM CORRECTIONAL FOOD SERVICE SUPERVISOR Chronic Kidney Disease (CKD), Stage 3 Unspecified (HCC) RENAL FUNCTION PANEL, S Routine 03/22/2024 10:14 AM CORRECTIONAL FOOD SERVICE SUPERVISOR Chronic Kidney Disease (CKD), Stage 3 Unspecified (HCC) CBC WITHOUT DIFFERENTIAL, B Routine 03/22/2024 10:14 AM CORRECTIONAL FOOD SERVICE SUPERVISOR Chronic Kidney Disease (CKD), Stage 3 Unspecified (HCC) CBC CHEMO - NO ALERTS Routine 03/08/2024 12:04 PM CDT Senior Db2 Systems Programmer Current Drug Therapy, Chemotherapy Multiple Myeloma Not Having Achieved Remission (HCC) QUANTITATIVE M-PROTEIN STUDY, S Routine 03/08/2024 12:04 PM CDT Senior Db2 Systems Programmer Current Drug Therapy, Chemotherapy Multiple Myeloma Not Having Achieved Remission (HCC) IMMUNOGLOBULIN FREE LIGHT CHAINS, S Routine 03/08/2024 12:04 PM CDT Senior Db2 Systems Programmer Current Drug Therapy, Chemotherapy Multiple Myeloma Not Having Achieved Remission (HCC) COMPREHENSIVE METABOLIC PANEL, S/P Routine 03/08/2024 12:04 PM CDT Snf Current Drug Therapy, Chemotherapy Multiple Myeloma Not Having Achieved Remission (HCC) CALCIUM, TOT, S/P Routine 03/08/2024 12: 04 PM CDT Multiple Myeloma Not Having Achieved Remission (HCC) CREATININE WITH EGFR, S/P Routine 03/08/2024 12:04 PM CDT Multiple Myeloma Not Having Achieved Remission (HCC) COMPREHENSIVE METABOLIC PANEL, S/P Routine 02/23/2024 12:09 PM CDT Multiple Myeloma Not Having Achieved Remission (HCC) CBC WITH DIFFERENTIAL, B Routine 02/23/2024 12:09 PM CDT Multiple Myeloma Not Having Achieved Remission (HCC) COLONOSCOPY Routine 09/04/2022 11:41 AM CDT THYROID-STIMULATING HORMONE-SENSITIVE (S-TSH) Timed 09/02/2022 6:05 AM CDT from Last 3 Months or Most Recently Relevant to Health Maintenance Results * (ABNORMAL) Quantitative M-protein Study (05/03/2024 8:51 AM CORRECTIONAL FOOD SERVICE SUPERVISOR) Only the most recent of3 resultswithin the time period is included. Immunoglobulin A (IgA), S 150 61 - 356 mg/dL 05/03/2024 2:34 PM CORRECTIONAL FOOD SERVICE SUPERVISOR [facility] Immunoglobulin M (IgM), S 22(L) 37 - 286 mg/dL 05/03/2024 2:34 PM CORRECTIONAL FOOD SERVICE SUPERVISOR [facility] Immunoglobulin G (IgG), S 985 767 - 1590 mg/dL 05/03/2024 2:34 PM CORRECTIONAL FOOD SERVICE SUPERVISOR [facility] Therapeutic Antibody Administered? Unspecified 05/03/2024 11:00 AM CORRECTIONAL FOOD SERVICE SUPERVISOR [facility] M-protein GK 0.132(H) g/dL 05/05/2024 1:31 PM CORRECTIONAL FOOD SERVICE SUPERVISOR [facility] Glycosylation Yes(A) 05/05/2024 1:31 PM CORRECTIONAL FOOD SERVICE SUPERVISOR [facility] Flag, M-protein Isotype Positive(A) Negative 05/05/2024 1:31 PM CORRECTIONAL FOOD SERVICE SUPERVISOR [facility] QMPTS Interpretation IgG kappa 0.014 g/dL IgG kappa 0.117 g/dL Glycosylated. Patients with glycosylated light chains are at higher risk for AL amyloidosis. 05/05/2024 1:31 PM CORRECTIONAL FOOD SERVICE SUPERVISOR [facility] Comment: ----ADDITIONAL INFORMATION---- The submitted sample was assayed by five separate immunopurifications for IgG, IgA, IgM, kappa and lambda. The result reflects the findings of either no monoclonal protein detected or those monoclonal immunoglobulins that were detected. This test was developed and its performance characteristics determined by [facility] in a manner consistent with CLIA requirements. This test has not been cleared or approved by the U.S. Food and Drug Administration. Blood (Blood, Venous) 05/03/2024 8:51 AM CORRECTIONAL FOOD SERVICE SUPERVISOR 05/03/2024 11:01 AM CORRECTIONAL FOOD SERVICE SUPERVISOR Narrative [facility] - 05/05/2024 1:31 PM CORRECTIONAL FOOD SERVICE SUPERVISOR Specimen Information: Specimen ID: [id number] Specimen Type: Blood Specimen Collection Start Date: 05/03/2024 8:51 AM Specimen Received Date: 05/03/2024 11:01 AM Specimen ID: [id number] Specimen Type: Blood Specimen Collection Start Date: 05/03/2024 8:51 AM Specimen Received Date: 05/03/2024 11:00 AM Peyton Ryder M.D. LAB BLOOD ADD-ON Final Result [facility] [address] [place] [address] [facility] [address] [place], [place] [id number] [place] [address] DR[address] SMALLS [address] [place] [address] [place] [address] * (ABNORMAL) CBC, Chemotherapy, No Alerts (05/03/2024 8:51 AM CORRECTIONAL FOOD SERVICE SUPERVISOR) Only the most recent of3 resultswithin the time period is included. Hemoglobin 12.4(L) 13.2 - 16.6 g/dL 05/03/2024 9:15 AM CORRECTIONAL FOOD SERVICE SUPERVISOR METH Platelet Count 191 135 - 317 x10(9)/L 05/03/2024 9:15 AM CORRECTIONAL FOOD SERVICE SUPERVISOR METH Leukocytes 4.6 3.4 - 9.6 x10(9)/L 05/03/2024 9:15 AM CORRECTIONAL FOOD SERVICE SUPERVISOR METH Neutrophils 2.97 1.56 - 6.45 x10(9)/L 05/03/2024 9:14 AM CORRECTIONAL FOOD SERVICE SUPERVISOR DHPM Blood (Blood, Venous) 05/03/2024 8:51 AM CORRECTIONAL FOOD SERVICE SUPERVISOR 05/03/2024 9:12 AM CORRECTIONAL FOOD SERVICE SUPERVISOR Peyton Ryder M.D. LAB BLOOD ADD-ON Final Result Performing Organization Address City/[facility]/ZIP Co de Phone Number [facility] [address] [place] [address], [place] METH [facility] [address] [place] [address] [facility] [address] [place] [address] * (ABNORMAL) Immunoglobulin Free Light Chains (05/03/2024 8:51 AM CORRECTIONAL FOOD SERVICE SUPERVISOR) Only the most recent of3 resultswithin the time period is included. [place] Free Light Chain, S 6.34(H) 0.3300 - 1.94 mg/dL 05/03/2024 3:45 PM CORRECTIONAL FOOD SERVICE SUPERVISOR SDSC Lambda Free Light Chain, S 3.92(H) 0.5700 - 2.63 mg/dL 05/03/2024 4:54 PM CORRECTIONAL FOOD SERVICE SUPERVISOR SDSC [place]/Lambda FLC Ratio 1.62 0.2600 - 1.65 05/03/2024 4:54 PM CORRECTIONAL FOOD SERVICE SUPERVISOR [facility] Blood (Blood, Venous) 05/03/2024 8:51 AM CORRECTIONAL FOOD SERVICE SUPERVISOR 05/03/2024 11:01 AM CORRECTIONAL FOOD SERVICE SUPERVISOR us Peyton Ryder M.D. LAB BLOOD ADD-ON Final Result [facility] [address] [place] [address] [facility] [address] [place] [address] * (ABNORMAL) Comprehensive Metabolic Panel (05/03/2024 8:51 AM CORRECTIONAL FOOD SERVICE SUPERVISOR) Only the most recent of4 resultswithin the time period is included. Potassium, S 4.6 3.6 - 5.2 mmol/L 05/03/2024 9:38 AM CORRECTIONAL FOOD SERVICE SUPERVISOR DTL Sodium, S 141 135 - 145 mmol/L 05/03/2024 9:38 AM CORRECTIONAL FOOD SERVICE SUPERVISOR DTL Chloride, S 107 98 - 107 mmol/L 05/03/2024 9:38 AM CORRECTIONAL FOOD SERVICE SUPERVISOR DTL Bicarbonate, S 25 22 - 29 mmol/L 05/03/2024 9:38 AM CORRECTIONAL FOOD SERVICE SUPERVISOR DTL Anion Gap 9 7 - 15 05/03/2024 9:38 AM CORRECTIONAL FOOD SERVICE SUPERVISOR DTL BUN (Blood Urea Nitrogen), S 43(H) 8 - 24 mg/dL 05/03/2024 9:38 AM CORRECTIONAL FOOD SERVICE SUPERVISOR DTL Creatinine 2.22(H) 0.74 - 1.35 mg/dL 05/03/2024 9:38 AM CORRECTIONAL FOOD SERVICE SUPERVISOR DTL Estimated GFR (eGFR) 30(L) >=60 mL/min/BS A 05/03/2024 9:38 AM CORRECTIONAL FOOD SERVICE SUPERVISOR DTL Comment: Estimated GFR calculated using the 2020 CKD_EPI creatinine equation. Calcium, Total, S 8.8 8.8 - 10.2 mg/dL 05/03/2024 9:38 AM CORRECTIONAL FOOD SERVICE SUPERVISOR DTL Glucose, S 97 70 - 140 mg/dL 05/03/2024 9:38 AM CORRECTIONAL FOOD SERVICE SUPERVISOR DTL Protein, Total, S 6.3 6.3 - 7.9 g/dL 05/03/2024 9:38 AM CORRECTIONAL FOOD SERVICE SUPERVISOR DTL Albumin, S 4.0 3.5 - 5.0 g/dL 05/03/2024 9:38 AM CORRECTIONAL FOOD SERVICE SUPERVISOR DTL Aspartate Aminotransferase (AST), S 17 8 - 48 U/L 05/03/2024 9:38 AM CORRECTIONAL FOOD SERVICE SUPERVISOR DTL Alkaline Phosphatase, S 75 40 - 129 U/L 05/03/2024 9:38 AM CORRECTIONAL FOOD SERVICE SUPERVISOR DTL Alanine Aminotransferase (ALT), S 14 7 - 55 U/L 05/03/2024 9:38 AM CORRECTIONAL FOOD SERVICE SUPERVISOR DTL Bilirubin, Total, S 0.3 0.0 - 1.2 mg/dL 05/03/2024 9:38 AM CORRECTIONAL FOOD SERVICE SUPERVISOR DTL Blood (Blood, Venous) 05/03/2024 8:51 AM CORRECTIONAL FOOD SERVICE SUPERVISOR 05/03/2024 9:18 AM CORRECTIONAL FOOD SERVICE SUPERVISOR us Peyton Ryder M.D. LAB BLOOD ADD-ON Final Result [facility] [address] [place] [address], [place] DTL [facility] [address] [place] [address] * (ABNORMAL) Cystatin C with Estimated GFR (04/20/2024 8:32 AM CORRECTIONAL FOOD SERVICE SUPERVISOR) eGFR by Cystatin C 21(L) >60 mL/min/BSA 04/20/2024 11:35 AM CORRECTIONAL FOOD SERVICE SUPERVISOR DTL Comment: Estimated GFR calculated using the CKD-EPI Cystatin C (2012) equation. ----ADDITIONAL INFORMATION---- Cystatin C-based eGFR may differ substantially from creatinine- based eGFR in patients with abnormal muscle mass or acutely changing renal function. Please interpret together with relevant clinical features. On 10/04/2020 the cystatin C assay method changed. Cystatin C eGFR results > 50 ml/min/1.73m2 are approximately 10% lower with the new assay. Cystatin C 2.55(H) 0.67 - 1.21 mg/L 04/20/2024 11:35 AM CORRECTIONAL FOOD SERVICE SUPERVISOR DTL Blood (Blood, Venous) 04/20/2024 8:32 AM CORRECTIONAL FOOD SERVICE SUPERVISOR 04/20/2024 11:13 AM CORRECTIONAL FOOD SERVICE SUPERVISOR Rita Mendoza APRN, C.N.P., M.S.N. LAB BLOOD ADD-ON Final Result [facility] [address] [place] [address], [facility] [address] [place] [address] * Dipstick, Urine (03/22/2024 10:41 AM CORRECTIONAL FOOD SERVICE SUPERVISOR) Hemoglobin, QL, U Negative Negative 03/22/2024 11:59 AM CORRECTIONAL FOOD SERVICE SUPERVISOR DTL Leukocyte Esterase, U Negative Negative 03/22/2024 11:59 AM CORRECTIONAL FOOD SERVICE SUPERVISOR DTL Nitrite, U Negative Negative 03/22/2024 11:59 AM CORRECTIONAL FOOD SERVICE SUPERVISOR DTL Ketone, U Negative Negative mg/dL 03/22/2024 11:59 AM CORRECTIONAL FOOD SERVICE SUPERVISOR DTL Glucose, U Negative Negative mg/dL 03/22/2024 11:59 AM CORRECTIONAL FOOD SERVICE SUPERVISOR DTL Urine 03/22/2024 10:4 1 AM CORRECTIONAL FOOD SERVICE SUPERVISOR 03/22/2024 11:39 AM CORRECTIONAL FOOD SERVICE SUPERVISOR Bautista Gregory M.D. LAB URINE ORDERABLES Glenny l Result Performing Organization Address City/[facility]/ZIP Co de Phone Number [facility] [address] [place] [address], [facility] [address] [place] [address] * Microscopic Automated (03/22/2024 10:41 AM CORRECTIONAL FOOD SERVICE SUPERVISOR) Microscopy Normal 03/22/2024 11:59 AM CORRECTIONAL FOOD SERVICE SUPERVISOR DTL RBC None Seen <3 /hpf 03/22/2024 11:59 AM CORRECTIONAL FOOD SERVICE SUPERVISOR DTL WBC None Seen /hpf 03/22/2024 11:59 AM CORRECTIONAL FOOD SERVICE SUPERVISOR DTL Comment: ----REFERENCE VALUE---- <4 (Males) <11 (Females) Urine 03/22/2024 10:4 1 AM CORRECTIONAL FOOD SERVICE SUPERVISOR 03/22/2024 11:39 AM CORRECTIONAL FOOD SERVICE SUPERVISOR Bautista Gregory M.D. LAB URINE ORDERABLES Glenny l Result Performing Organization Address [facility] Co de Phone Number [facility] [address] [place] [address], [facility] [address] [place] [address] * pH, Urine (03/22/2024 10:41 AM CORRECTIONAL FOOD SERVICE SUPERVISOR) Pathologist [facility] pH, U 5.0 4.5 - 8.0 03/22/2024 12: 30 PM CORRECTIONAL FOOD SERVICE SUPERVISOR DTL Urine 03/22/2024 10:4 1 AM CORRECTIONAL FOOD SERVICE SUPERVISOR 03/22/2024 11:39 AM CORRECTIONAL FOOD SERVICE SUPERVISOR Bautista Gregory M.D. LAB URINE ORDERABLES Glenny l Result Performing Organization Address City/[facility]/ZIP Co de Phone Number [facility] [address] [place] [address], [facility] [address] [place] [address] * (ABNORMAL) Albumin, Random, Urine (03/22/2024 10:41 AM CORRECTIONAL FOOD SERVICE SUPERVISOR) Albumin, Random, U 71.7 mg/L 2023 1:20 PM CORRECTIONAL FOOD SERVICE SUPERVISOR DTL Comment: ----ADDITIONAL INFORMATION---- This test has been modified from the associate professor of theatre's instructions. Its performance characteristics were determined by [facility] in a manner consistent with CLIA requirements. This test has not been cleared or approved by the U.S. Food and Drug Administration. Creatinine 51 mg/dL 03/22/2024 12:18 PM CORRECTIONAL FOOD SERVICE SUPERVISOR DTL Albumin/Creatinine Ratio 141(H) <17 mg/g 03/22/2024 1:20 PM CORRECTIONAL FOOD SERVICE SUPERVISOR DTL Urine (Urine, Midstream) 03/22/2024 10:41 AM CORRECTIONAL FOOD SERVICE SUPERVISOR 03/22/2024 11:38 AM CORRECTIONAL FOOD SERVICE SUPERVISOR Bautista Gregory M.D. LAB URINE ORDERABLES Glenny l Result Performing Organization Address [facility] Co de Phone Number [facility] [address] [place] [address], [facility] [address] [address] * (ABNORMAL) Protein/Creatinine Ratio, Random, Urine (03/22/2024 10:41 AM CORRECTIONAL FOOD SERVICE SUPERVISOR) Protein, Total, Random, U 15 mg/dL 03/22/2024 12:18 PM CORRECTIONAL FOOD SERVICE SUPERVISOR DTL Creatinine, Random, U 51 16 - 326 mg/dL 03/22/2024 12:18 PM CORRECTIONAL FOOD SERVICE SUPERVISOR DTL Protein/Creati nine Ratio 0.29(H) <0.18 mg/mg 03/22/2024 12:18 PM CORRECTIONAL FOOD SERVICE SUPERVISOR DTL Urine (Urine, Midstream) 03/22/2024 10:41 AM CORRECTIONAL FOOD SERVICE SUPERVISOR 03/22/2024 11:38 AM CORRECTIONAL FOOD SERVICE SUPERVISOR Bautista rGegory M.D. LAB URINE ORDERABLES Glenny l Result Performing Organization Address City/[facility] Co de Phone Number [facility] [address] [place] [address], [facility] [address] [address] * Osmolality, Urine (03/22/2024 10:41 AM CORRECTIONAL FOOD SERVICE SUPERVISOR) Osmolality, U 268 150 - 1150 mOsm/kg 03/22/2024 12:30 PM CORRECTIONAL FOOD SERVICE SUPERVISOR DTL Urine 03/22/2024 10:4 1 AM CORRECTIONAL FOOD SERVICE SUPERVISOR 03/22/2024 11:39 AM CORRECTIONAL FOOD SERVICE SUPERVISOR Bautista Gregory M.D. LAB URINE ORDERABLES Glenny l Result Performing Organization Address City/[facility]/ZIP Co de Phone Number [facility] [address] [place] [address], [facility] DTL [facility] [address] [place] [address] * (ABNORMAL) Urinalysis, with Microscopic: Urine, Midstream (03/22/2024 10:41 AM CORRECTIONAL FOOD SERVICE SUPERVISOR) Source Urine, Urine, Midstream 03/22/2024 11:38 AM CORRECTIONAL FOOD SERVICE SUPERVISOR DTL Color, U Yellow 03/22/2024 11:39 AM CORRECTIONAL FOOD SERVICE SUPERVISOR DTL Clarity, U Clear 03/22/2024 11:39 AM CORRECTIONAL FOOD SERVICE SUPERVISOR DTL Protein, U 15 <26 mg/dL 03/22/2024 12:18 PM CORRECTIONAL FOOD SERVICE SUPERVISOR DTL Protein/Osmol ality 0.56(H) <0.42 ratio 03/22/2024 12:30 PM CORRECTIONAL FOOD SERVICE SUPERVISOR DTL Predicted 24 HR Protein, U 542(H) <229 mg/24 h 03/22/2024 12:30 PM CORRECTIONAL FOOD SERVICE SUPERVISOR DTL Predicted Range 172-1706 mg/24 h 03/22/2024 12:30 PM CORRECTIONAL FOOD SERVICE SUPERVISOR DTL Urine (Urine, Midstream) 03/22/2024 10:41 AM CORRECTIONAL FOOD SERVICE SUPERVISOR 03/22/2024 11:38 AM CORRECTIONAL FOOD SERVICE SUPERVISOR Bautista Gregory M.D. LAB URINE ORDERABLES Glenny l Result Performing Organization Address City/[facility]/ZIP Co de Phone Number [facility] [address] [place] [address], [facility] DTL [facility] [address] [place] [address] * (ABNORMAL) Renal Function Panel (03/22/2024 10:14 AM CORRECTIONAL FOOD SERVICE SUPERVISOR) Potassium, S 4.4 3.6 - 5.2 mmol/L 03/22/2024 11:28 AM CORRECTIONAL FOOD SERVICE SUPERVISOR DTL Sodium, S 140 135 - 145 mmol/L 03/22/2024 11:28 AM CORRECTIONAL FOOD SERVICE SUPERVISOR DTL Chloride, S 104 98 - 107 mmol/L 03/22/2024 11:28 AM CORRECTIONAL FOOD SERVICE SUPERVISOR DTL Bicarbonate, S 26 22 - 29 mmol/L 03/22/2024 11:28 AM CORRECTIONAL FOOD SERVICE SUPERVISOR DTL Anion Gap 10 7 - 15 03/22/2024 11:28 AM CORRECTIONAL FOOD SERVICE SUPERVISOR DTL BUN (Blood Urea Nitrogen), S 42(H) 8 - 24 mg/dL 03/22/2024 11:28 AM CORRECTIONAL FOOD SERVICE SUPERVISOR DTL Creatinine 2.23(H) 0.74 - 1.35 mg/dL 03/22/2024 11:28 AM CORRECTIONAL FOOD SERVICE SUPERVISOR DTL Estimated GFR (eGFR) 30(L) >=60 mL/min/BSA 03/22/2024 11:28 AM CORRECTIONAL FOOD SERVICE SUPERVISOR DTL Comment: Estimated GFR calculated using the 2020 CKD_EPI creatinine equation. Calcium, Total, S 9.2 8.8 - 10.2 mg/dL 03/22/2024 11:28 AM CORRECTIONAL FOOD SERVICE SUPERVISOR DTL Glucose, S 88 70 - 140 mg/dL 03/22/2024 11:28 AM CORRECTIONAL FOOD SERVICE SUPERVISOR DTL Albumin, S 4.1 3.5 - 5.0 g/dL 03/22/2024 11:28 AM CORRECTIONAL FOOD SERVICE SUPERVISOR DTL Phosphorus (Inorganic), S 3.1 2.5 - 4.5 mg/dL 03/22/2024 11:28 AM CORRECTIONAL FOOD SERVICE SUPERVISOR DTL Blood (Blood, Venous) 03/22/2024 10:14 AM CORRECTIONAL FOOD SERVICE SUPERVISOR 03/22/2024 10:52 AM CORRECTIONAL FOOD SERVICE SUPERVISOR us Bautista Gregory M.D. LAB BLOOD ADD-ON Final Re sult [facility] [address] [place] [address], [place] DTL [facility] [address] [place] [address] * (ABNORMAL) CBC without Differential (03/22/2024 10:14 AM CORRECTIONAL FOOD SERVICE SUPERVISOR) Pathologist [facility] Hemoglobin 12.2(L) 13.2 - 16.6 g/dL 03/22/2024 11:14 AM CORRECTIONAL FOOD SERVICE SUPERVISOR DTL Hematocrit 37.1(L) 38.3 - 48.6 % 03/22/2024 11:14 AM CORRECTIONAL FOOD SERVICE SUPERVISOR DTL Erythrocytes 3.68(L) 4.35 - 5.65 x10(12)/L 03/22/2024 11:14 AM CORRECTIONAL FOOD SERVICE SUPERVISOR DTL MCV 100.8(H) 78.2 - 97.9 fL 03/22/2024 11:14 AM CORRECTIONAL FOOD SERVICE SUPERVISOR DTL RBC Distrib Width 13.1 11.8 - 14.5 % 03/22/2024 11:14 AM CORRECTIONAL FOOD SERVICE SUPERVISOR DTL Platelet Count 220 135 - 317 x10(9)/L 03/22/2024 11:14 AM CORRECTIONAL FOOD SERVICE SUPERVISOR DTL Leukocytes 4.7 3.4 - 9.6 x10(9)/L 03/22/2024 11:14 AM CORRECTIONAL FOOD SERVICE SUPERVISOR DTL Blood (Blood, Venous) 03/22/2024 10:14 AM CORRECTIONAL FOOD SERVICE SUPERVISOR 03/22/2024 10:42 AM CORRECTIONAL FOOD SERVICE SUPERVISOR Bautista Gregory M.D. LAB BLOOD ADD-ON Final Re sult Performing Organization Address City/[facility]/ZIP Co de Phone Number [facility] [address] [facility] [address] [place] [address] * (ABNORMAL) Parathyroid Hormone (PTH) (03/22/2024 10:14 AM CORRECTIONAL FOOD SERVICE SUPERVISOR) Pathologist [facility] Parathyroid Hormone (PTH), S 102(H) 15 - 65 pg/mL 03/22/2024 11:28 AM CORRECTIONAL FOOD SERVICE SUPERVISOR DTL Blood (Blood, Venous) 03/22/2024 10:14 AM CORRECTIONAL FOOD SERVICE SUPERVISOR 03/22/2024 10:52 AM CORRECTIONAL FOOD SERVICE SUPERVISOR us Bautista Gregory M.D. LAB BLOOD ADD-ON Final Re sult Performing Organization Address City/[facility]/ZIP Co de Phone Number [facility] [address] DTL [facility] [address] [place] [address] * (ABNORMAL) Creatinine with Estimated GFR (03/08/2024 12:04 PM CDT) Pathologist [facility] Creatinine 2.11(H) 0.74 - 1.35 mg/dL 03/08/2024 12:45 PM CDT METH Estimated GFR (eGFR) 32(L) >=60 mL/min/BSA 03/08/2024 12:45 PM CDT METH Comment: Estimated GFR calculated using the 2020 CKD_EPI creatinine equation. Blood (Blood, Venous) 03/08/2024 12:04 PM CDT 03/08/2024 12:19 PM CDT Bryaan Baltazar.Beni.B.S. LAB BLOOD ADD-ON Final Result Performing Organization Address City/[facility]/ZIP Co de Phone Number [facility] [address] METH [facility] [address] [place] [address] * Calcium, Total (03/08/2024 12:04 PM CDT) [facility] Calcium, Total, P 9.3 8.8 - 10.2 mg/dL 03/08/2024 12:45 PM CDT METH Blood (Blood, Venous) 03/08/2024 12:04 PM CDT 03/08/2024 12:19 PM CDT Brayan Baltazar.B.B.S. LAB BLOOD ADD-ON Final Result [facility] [address] METH [facility] [address] [place] [address] * (ABNORMAL) CBC with Differential, Blood (02/23/2024 12:09 PM CDT) [facility] Hemoglobin 13.1(L) 13.2 - 16.6 g/dL 02/23/2024 12:54 PM CDT DTL Hematocrit 40.2 38.3 - 48.6 % 02/23/2024 12:54 PM CDT DTL Erythrocytes 3.92(L) 4.35 - 5.65 x10(12)/L 02/23/2024 12:54 PM CDT DTL MCV 102.6(H) 78.2 - 97.9 fL 02/23/2024 12:54 PM CDT DTL RBC Distrib Width 13.4 11.8 - 14.5 % 02/23/2024 12:54 PM CDT DTL Platelet Count 217 135 - 317 x10(9)/L 02/23/2024 12:54 PM CDT DTL Leukocytes 5.0 3.4 - 9.6 x10(9)/L 02/23/2024 12:54 PM CDT DTL Neutrophils 3.20 1.56 - 6.45 x10(9)/L 02/23/2024 12:54 PM CDT DHPM Lymphocytes 0.93(L) 0.95 - 3.07 x10(9)/L 02/23/2024 12:54 PM CDT DTL Monocytes 0.77 0.26 - 0.81 x10(9)/L 02/23/2024 12:54 PM CDT DTL Eosinophils 0.08 0.03 - 0.48 x10(9)/L 02/23/2024 12:54 PM CDT DTL Basophils <0.03 0.01 - 0.08 x10(9)/L 02/23/2024 12:54 PM CDT DTL Blood (Blood, Venous) 02/23/2024 12:09 PM CDT 02/23/2024 12:44 PM CDT Peyton Ryder M.D. LAB BLOOD ADD-ON Final Result [facility] [address] [place] [address], [place] DTL [facility] [address] [place] [address] [facility] [address] [place] [address] * (ABNORMAL) S-TSH (Thyroid-Stimulating Hormone - Sensitive) (09/02/2022 6:05 AM CDT) TSH, Sensitive 5.7(H) 0.3 - 4.2 mIU/L 09/02/2022 8:30 AM CDT DTL Blood (Blood, Venous) 09/02/2022 6:05 AM CDT 09/02/2022 6:46 AM CDT Blaise Urias M.D., M.P.H. 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 Advance Directives 11/12/2022 10:54 AM Yesenia Garcia toshia Mikeuse HCPOA/ADVOCATE/AGENT/R EPRESENTATIVE/SURROGAT E * Full Code (Latest Code Status on File) Date Activated Date Inactivated Comments 09/02/2022 1:27 AM 09/09/2022 6:03 PM Question Answer Comments Full Code: Discussed * Full Code Date Activated Date Inactivated Comments 05/13/2022 9:07 PM 05/16/2022 5:49 PM Question Answer Comments Full Code: Discussed Healthcare Agents on File Name Relationship Healthcare Agent Relationship Communication Yesenia Mikeuse Spouse Health Care Agent [email or web address] Yash Bond Sammy Son First Alternat e Health Care Agent Cameliade Christianson Daughter Second Alterna te Health Care Agent Care Teams Service Unit Operator Relationship Specialty Start Date End Date Elsewhere, Pcp PCP - General Internal Medicine 09/03/22
--- OUTSIDE RECORDS SUMMARY | 2024-05-13 20:11 | XMS_ITS | Encounter Summary ---
Author Organization [facility] Address [address] [place] [address] Care Team Providers Care Stucco Plasterer Name Role Phone Elsewhere, Pcp Primary Care Provider Unavailabl e Reason for Referral * Specialty Diagnoses / Procedures Referred By Contac t Referred To Contact Diagnoses Chronic Kidney Disease (CKD), Stage 3 Unspecified (HCC) Bautista Gregory M.D. [address] [place] [address] Phone: tel: fax: [facility] Referral ID Status Reason Start Date Expiration Date Visits Re quested Visits Authorized GERIATRIC * Specialty Diagnoses / Procedures Referred By Contac t Referred To Contact Diagnoses Chronic Kidney Disease (CKD), Stage 3 Unspecified (HCC) Bautista Gregory M.D. [address] [place] [address] Phone: tel: fax: [facility] Referral ID Status Reason Start Date Expiration Date Visits Re quested Visits Authorized GERIATRIC * Specialty Diagnoses / Procedures Referred By Contac t Referred To Contact Diagnoses Chronic Kidney Disease (CKD), Stage 3 Unspecified (HCC) Bautista Gregory M.D. [address] [place] [phone] Phone: tel: fax: [facility] Referral ID Status Reason Start Date Expiration Date Visits Re quested Visits Authorized GERIATRIC * Outpatient (Routine) - Authorized Specialty Diagnoses / Procedures Referred By Lilly t Referred To Contact Nephrology and Hypertension Bautista Gregory M.D. [address] [place] [phone] Phone: tel: fax: [facility] Referral ID Status Reason Start Date Expiration Date V isits Requested Visits Authorized [id number] Authorized 03/31/2024 09/30/2025 1 1 GERIATRIC Reason for Visit * Outpatient (Routine) - Closed Specialty Diagnoses / Procedures Referred By Lilly garnica Referred To Contact Nephrology and Hypertension Bautista Gregory M.D. [address] [place] [address] Phone: tel: fax: [facility] Referral ID Status Reason Start Date Expiration Date Visits Re quested Visits Authorized [id number] Closed 12/30/2023 06/30/2025 1 1 Encounter Details Date Type Department Care Team (Late st Contact Info) Description 03/31/2024 2:00 PM RN GERIATRIC Telemedicine Division of Nephrology and Hypertension in [place], [place] [address] [place] [phone] Bautista Gregory M.D. [address] [place] [phone] Chronic Kidney Disease (CKD), Stage 3 Unspecified (HCC) (Primary Dx) Social History Tobacco Use Types Packs/Day Years Used Date Smoking Tobacco: Never Smokeless Tobacco: Never Comments:Never used Alcohol Use Standard Drinks/Week Comments Not Currently 4 (1 standard drink = 0.6 oz pure alcohol) None while on chemo. Before a couple of beers a week [facility] Utilities Answer Date Recorded In the past 12 months has th e [employer], [employer], oil, or water [employer] threatened to shut off services in your [...] 02/17/2022 How often do you attend chur or quaker services? More than 4 times per year 02/17/2022 Do you belong to any clubs o r organizations such as worship groups, unions, fraternal or athletic groups, or [...] Answer Date Recorded PHQ-2 Score 0 03/10/2023 [facility] Occupational Stress Questionnaire Answer Date Recorded [...] your living situation today? I have a [facility] to live 03/16/2024 Education Answer Date Recorded What is the highest level of school you have completed or the highest degree you have received? Bachelor's degree (e.g., BA, AB, BS) 02/17/2022 Sex and Gender Information Value Date Recorded Sex Assigned at Male 02/17/2022 4:26 PM CDT Legal Sex Male 11:09 PM RN GERIATRIC Gender Identity Male 02/17/2022 4:26 PM CDT Sexual Orientation Straight 02/17/2022 4: 26 PM CDT documented as of this encounter Last Filed Vital Signs Vital Sign Reading Time Taken Comments Blood Pressure 132/82 03/31/2024 1:48 PM RN GERIATRIC Pt reported taken at 9:10am Pulse - - Temperature - - Respiratory Rate - - Oxygen Saturation - - Inhaled Oxygen Concentration - - Weight - - Height - - Body Mass Index - - documented in this encounter Progress Notes * Bautista Gregory M.D. - 03/31/2024 2:00 PM CST Nephrology Virtual Visit The patient was virtually interviewed via real time video in the patient's home by Krystal Gregory M.D. at [facility]. The history and findings below are based on review of available medical records and a virtual conversation with the patient. BILLING Time: 45 minutes Referring Provider: Bautista Gregory M.D. SUBJECTIVE HISTORY OF PRESENT ILLNESS Mr. Christianson is a very pleasant 78 y.o. 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 He is seen virtually today at the [facility] for scheduled follow up of . Briefly, he was diagnosed with multiple myeloma in August 2021 and referred to [facility] in February 2022. Initial labs in August 2021 demonstrated a Hb of 11.3, serum Cr of 1.67, and serum Ca of 8.3.SPEP was abnormal w/ an M-spike of 2.22 (M spike 1 1.95 + M spike 2 0.27), IgG was high at 2650 mg/dL, kappa at 40.3, lambda at 5.18, sonu/lambda ratio of 7.78. Bone marrow biopsy showed plasma cell myeloma w/ 30-35% involvement. No treatment was initially done at that time due to patient's preference, however, w/ the development of fatigue, loss of appetite, night sweats, and drastic weight loss, he was initiated on daratumumab, revlimid and dexamethasone on 03/18/2022. He unfortunately did not tolerate this regimen with development of pancytopenia and bacterial sepsis secondary to bibasilar pneumonia and Klebsiella pneumonia UTI. He was transitioned to Revlimid and dexamethasone 20 mg after a 4 week holiday. He was again admitted to the hospital from 09/02-09/09/2022 with dyspnea in the setting of anemia at GI bleed, during which time his Revlimid was held. In December 2022, however, he was hospitalized again w/ UTI sepsis while on Revlimid. He was treated with a 14 day course of Ertapenem. On 01/06/2023, he was initiated on CyBorD therapy, w/ a plan to complete 9 cycles. He fortunately has responded very well to CyBorD w/ near normalization of his light chains and no development of pancytopenia or sepsis. When the patient was seen by me on 06/16/2023, he was recovering from a recent UTI but otherwise doing well on CyBorD. Based on his blood work and urine studies, he had responded well to improved blood pressure control with chlorthalidone, w/ interval improvement in his ACR to 265 from 776 previously and UPCR to 0.41 from 1.18 previously. His serum creatinine had peaked at 1.99 on Chlorthalidone so we decided to discontinue chlorthalidone and switch to a less potent thiazide diuretic, HCTZ 12.5mg daily. When the patient was seen virtually by me on 10/01/2023, his blood pressure was generally controlled at home- with some readings above 150mmHg systolic. He was last seen by Hematology on 09/09/2023 at which time he had completed CyBorD (since May this year) and was on maintenance Velcade therapy every two weeks. His serum creatinine had improved to 1.9 mg/dL from a peak of 2.14 mg/dL. Hammon free light chain was 5.23 from 6.8 previously and FLC ratio was 1.49. Urinalysis was noted for moderate leukocyte esterase, with 11-20 wbc's, with bacteria present and nitrite positive. ACR had trendedup to 445 from 265 previously. Given the rise in his ACR, we switched him back to chlorthalidone and discontinue hydrochlorothiazide. When I last saw the patient in clinic on 12/30/2023, his hypertension was still suboptimally controlled. His electrolyte profile was stable and his creatinine was 2.06mg/dL from 1.91mg/dL previously.His urine ACR was 301 from 445 previously and UPCR was 0.48 from 041 when last checked in Jun 2023.I decided to increase his chlorthalidone dose to 25 mg daily from 12.5 mg daily. Initiating an SGLT2i was discussed, however, we ultimately deferred w/ the patient expressing concern over developing UTIs as an adverse side effect. The patient presents to Nephrology Clinic virtually today feeling well. His blood pressure at home has been in the 120-130/80 mmHg range. When he was last seen by Oncology on 03/22, he complained of headaches and LEFT heel pain. He had received a cortisone shot in his knees and new insoles for his shoes. Since his Velcade dose (every two weeks) had been reduced to 1.0 mg/m2 (from 1.3) in Jan w/ concerns of neuropathy, no further changes were made in his chemotherapy regimen. Review of his laboratory workup is noted for serum creatinine of 2.2, sodium 140, potassium 4.4, bicarbonate 26, and calcium 9.2. Phosphorous level was 3.1 w/ a PTH of 102. UA was bland w/ an interval decrease in ACR to 141 from 301 and UPCR to 0.29 from 0.48 previously. He continues to take lisinopril 20 mg qHS, amlodipine 10 mg daily, chlorthalidone 25 mg daily. He gets Velcade 2.5 mg injection every two weeks. He takes acyclovir daily for prophylaxis. He also takes levothyroxine, pantoprazole (history of GI bleed), and zoledronic acid every 3 months for MM bone prophylaxis. He did develop a UTI (first one after five months) and has started on Levaquin. The following portions of the patient's history were reviewed and updated as appropriate: allergies, current medications, family history, medical history, social history, surgical history, and problem list. REVIEW OF SYSTEMS Pertinent items are noted in HPI; all other review of systems was negative. DIAGNOSTICS Recent Labs 03/22/24 1014 03/08/24 1204 02/23/24 1209 HGB 12.2 L 12.9 L 13.1 L WBC 4.7 4.8 5.0 PLT 220 175 217 Recent Labs 03/22/24 1014 03/08/24 1204 02/23/24 1209 08/13/23 0850 07/28/23 1116 07/07/23 0955 06/30/23 1124 06/16/23 1054 06/02/23 0945 NA 140 141 145 < > -- < > -- < > -- KSERUM 4.4 4.8 4.5 < > -- < > -- < > -- KPLASMA -- -- -- -- 4.2 -- 4.2 -- 4.5 BICARB 26 27 24 < > -- < > -- < > -- BUN 42 H 37 H 40 H < > -- < > -- < > -- CREATININE 2.23 H CANCELED 2.11 H 2.08 H < > -- < > -- < > -- < > = values in this interval not displayed. 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 His microalbuminuria has improved, and his blood pressure is now generally in goal range. His serum creatinine has trended up slightly, however, most likely secondary to increased chlorthalidone dose. His baseline is between 1.8 and 2.1 mg/dL. Given the patient's recurrent UTIs, he is most likely not an ideal candidate for SGLTi therapy for his microalbuminuria. Should his microalbuminuria worsen, next step to consider may in increasing his Lisinopril dose. I did share with the patient his steadily declining renal function and GFR graph over the past few years. Given that he has advanced/progressive CKD, we will refer the patient to [facility] to establish care and have the patient receive advanced CKD management and ESRDoptions education as well. Plan: -continue amlodipine 10 mg daily -continue chlorthalidone 25 mg daily -continue lisinopril 20 mg daily -follow up in 6 months Krystal Gregory M.D. Patient discussed w/ Dr. Hill GERIATRIC documented in this encounter Plan of Treatment Upcoming Encounters Date Type Department Care Team (Late st Contact Info) Description 05/18/2024 8:30 AM RN GERIATRIC Appointment Department of Laboratory Medicine and Pathology, [facility] in [place], [place] [address] [place] [phone] Peyton Ryder M.D. [address] [place] [phone] 05/18/2024 10:30 AM RN GERIATRIC Office Visit Division of Hematology in [place], [place] [address] [place] [phone] Rita Mendoza APRN, C.N.P., M.S.N. [address] [place] [phone] 05/18/2024 11:30 AM RN GERIATRIC Infusion Department of Oncology in [place], [place] [address] [place] [phone] Peyton Ryder M.D. [address] [place] [phone] 05/18/2024 3:00 PM RN GERIATRIC Appointment Department of Radiology, [facility] in [place], [place] [address] [place] [phone] Rita Mendoza APRN, C.N.P., M.S.N. [address] [place] [phone] 05/31/2024 11:00 AM RN GERIATRIC Lab Department of Laboratory Medicine and Pathology, [facility] in [place], [place] [address] [place] [phone] Brayan Gregg M.B.B.S. [address] [place] [phone] 05/31/2024 1:00 PM RN GERIATRIC Infusion Department of Oncology in [place], [place] [address] [place] [phone] Peyton Ryder M.D. [address] [place] [phone] Scheduled Orders Name Type Priority Associated Diagnoses Orde r Schedule CBC without Differential Lab Routine Chronic Kidney Disease (CKD), Stage 3 Unspecified (HCC) Expected: 09/28/2024 (Approximate), Expires: 07/01/2025 Renal Function Panel Lab Routine Chronic Kidney Disease (CKD), Stage 3 Unspecified (HCC) Expected: 09/28/2024 (Approximate), Expires: 07/01/2025 Parathyroid Hormone (PTH) Lab Routine Chronic Kidney Disease (CKD), Stage 3 Unspecified (HCC) Expected: 09/28/2024 (Approximate), Expires: 07/01/2025 Urinalysis, with Microscopic: Urine, Midstream Lab Routine Chronic Kidney Disease (CKD), Stage 3 Unspecified (HCC) Expected: 09/28/2024 (Approximate), Expires: 07/01/2025 Albumin, Random, Urine Lab Routine Chronic Kidney Disease (CKD), Stage 3 Unspecified (HCC) Expected: 09/28/2024 (Approximate), Expires: 07/01/2025 Scheduled Referrals Name Type Priority Associated Diagnoses Orde r Schedule Nephrology and Hypertension office visit (clinic) Outpatient Referral Routine Expected: 09/28/2024 (Approximate), Expires: 07/01/2025 Nephrology - Chronic kidney disease education visit (clinic) Outpatient Referral Routine Chronic Kidney Disease (CKD), Stage 3 Unspecified (HCC) Expected: 03/31/2024, Expires: 07/01/2025 Patient Education - ESRD Treatment Options (Clinic) Outpatient Referral Routine Chronic Kidney Disease (CKD), Stage 3 Unspecified (HCC) Expected: 03/31/2024 (Approximate), Expires: 07/01/2025 Patient Education - Keeping your kidneys healthy education visit (clinic) - (RST) Outpatient Referral Routine Chronic Kidney Disease (CKD), Stage 3 Unspecified (HCC) Expected: 03/31/2024 (Approximate), Expires: 07/01/2025 documented as of this encounter Visit Diagnoses Diagnosis Chronic Kidney Disease (CKD), Stage 3 Unspecified (HCC)- Primary documented in this encounter Additional Health Concerns Infection Onset Date Last Indicated Resolved Time Protective Environment 08/20/2022 08/20/2022 documented as of this encounter Care Teams Stucco Plasterer Relationship Specialty Start Date End Date Elsewhere, Pcp PCP - General Internal Medicine 09/03/22 documented as of this encounter
--- OUTSIDE RECORDS SUMMARY | 2024-05-13 20:11 | XMS_ITS | Encounter Summary ---
Author Organization [facility] Address [address] [place] [phone] Care Team Providers Care Statistical Assistant Name Role Phone Elsewhere, Pcp Primary Care Provider Unavailabl e Reason for Visit * Episode Based Medications (Routine) - Authorized Specialty Diagnoses / Procedures Referred By Contamilcar t Referred To Contact Diagnoses Bufferer Current Drug Therapy, Chemotherapy Multiple Myeloma Not Having Achieved Remission (HCC) Peyton Ryder M.D. [address] [place] [phone] Phone: tel: fax: Division of Hematology in [place], [place] [address] [place] [phone] Phone: tel: Referral ID Status Reason Start Date Expiration Date V isits Requested Visits Authorized [id number] Authorized 12/30/2022 12/29/2024 99 99 Encounter Details Date Type Department Care Team (Late st Contact Info) Description 05/03/2024 11:00 AM [facility]LE[facility] Infusion Department of Oncology in [place], [place] [address] [place] [phone] Peyton Ryder M.D. [address] [place] [phone] Multiple Myeloma Not Having Achieved Remission (HCC) (Primary Dx); Alf Current Drug Therapy, Chemotherapy Social History Tobacco Use Types Packs/Day Years Used Date Smoking Tobacco: Never Smokeless Tobacco: Never Comments:Never used Alcohol Use Standard Drinks/Week Comments Not Currently 4 (1 standard drink = 0.6 oz pure alcohol) None while on chemo. Before a couple of beers a week [facility] Utilities Answer Date Recorded In the past 12 months has e [employer], oil, or water [employer] threatened to shut off services in your [...] week 02/17/2022 How often do you attend [facility] or evangelical services? More than 4 times per year 02/17/2022 Do you belong to any clubs o r organizations such as muslim groups, unions, fraternal or athletic groups, or [...] Answer Date Recorded PHQ-2 Score 0 03/10/2023 [facility] - Occupational Stress Questionnaire Answer Date [...] PM CDT Legal Sex Male 11:09 PM [facility]LE[facility] Gender Identity Male 02/17/2022 4:26 PM CDT Sexual Orientation Straight 02/17/2022 4: 26 PM CDT documented as of this encounter Last Filed Vital Signs Vital Sign Reading Time Taken Comments Blood Pressure 145/63 05/03/2024 10:24 AM [facility] Pulse 56 05/03/2024 11:05 AM [facility] Temperature 36.5 C (97.7 F) 05/03/2024 10:24 AM [facility] Respiratory Rate - - Oxygen Saturation - - Inhaled Oxygen Concentration - - Weight 81 kg (178 lb 7.4 oz) 05/03/2024 10:24 AM [facility] Height - - Body Mass Index 27.65 04/20/2024 10:29 AM [facility]LEGATE documented in this encounter Plan of Treatment Upcoming Encounters Date Type Department Care Team (Late st Contact Info) Description 05/18/2024 8:30 AM [facility]LEGATE Appointment Department of Laboratory Medicine and Pathology, [facility] in [place], [place] [address] [place] [phone] Peyton Ryder M.D. [address] [place] [phone] 05/18/2024 10:30 AM [facility] Office Visit Division of Hematology in [place], [place] [address] [place] [phone] Rita Mendoza APRN, C.N.P., M.S.N. [address] [place] [phone] 05/18/2024 11:30 AM [facility] Infusion Department of Oncology in [place], [place] [address] [place] [phone] Peyton Ryder M.D. [address] [place] [phone] 05/18/2024 3:00 PM [facility] Appointment Department of Radiology, [facility], in [place], [place] [address] [place] [phone] Rita Mendoza APRN, C.N.P., M.S.N. [address] [place] [phone] 05/31/2024 11:00 AM [facility] Lab Department of Laboratory Medicine and Pathology, [facility], in [place], [place] [address] [place] [phone] Brayan Gregg M.B.B.S. [address] [place] [phone] 05/31/2024 1:00 PM [facility] Infusion Department of Oncology in [place], [place] [address] [place] [phone] Peyton Ryder M.D. [address] [place] [phone] documented as of this encounter Visit Diagnoses Diagnosis Multiple Myeloma Not Having Achieved Remission (HCC)- Primary Alf Current Drug Therapy, Chemotherapy documented in this encounter Administered Medications Inactive Administered Medications - up to 3 most recent administrations Medication Order MAR Action Action Date Dose Rate Site bortezomib injection 2.5 mg (Velcade) 2.5 mg (rounded from 2.496 mg = 1.3 mg/m2 1.92 m2 Treatment Plan BSA from Measured weight), subcutaneous, Once, On Thu05/03/24 at 1045, For 1 dose, Rotate injection siteIndications:Bufferer Current Drug Therapy, Chemotherapy,Multiple Myeloma Not Having Achieved Remission (HCC) Given 05/03/2024 10:57 AM [facility] 2.5 mg Left Lower Abdomen documented in this encounter Additional Health Concerns Infection Onset Date Last Indicated Resolved Time Protective Environment 08/20/2022 08/20/2022 documented as of this encounter Care Teams Statistical Assistant Relationship Specialty Start Date End Date Elsewhere, Pcp PCP - General Internal Medicine 4/26/23 documented as of this encounter
--- OUTSIDE RECORDS SUMMARY | 2024-05-13 20:11 | XMS_ITS | Encounter Summary ---
Author Organization [facility] Address [address] [place] [address] Care Team Providers Care Manager Card Name Role Phone Elsewhere, Pcp Primary Care Provider Unavailabl e Encounter Details Date Type Department Care Team (Late st Contact Info) Description 05/03/2024 Orders Only Division of Hematology in [place], [place] [address] [place] [phone] Rita Mendoza, EVGENY, C.N.P., M.S.N. [address] [place] [phone] Social History Tobacco Use Types Packs/Day Years Used Date Smoking Tobacco: Never Smokeless Tobacco: Never Comments:Never used Alcohol Use Standard Drinks/Week Comments Not Currently 4 (1 standard drink = 0.6 oz pure alcohol) None while on chemo. Before a couple of beers a week [facility] Utilities Answer Date Recorded In the past 12 months has e electric, gas, oil, or water company threatened to shut off services in your [...] week 02/17/2022 How often do you attend [facility] or zoroastrianism services? More than 4 times per year 02/17/2022 Do you belong to any clubs o r organizations such as confucianism groups, unions, fraternal or athletic groups, or [...] Answer Date Recorded PHQ-2 Score 0 03/10/2023 [facility] of Occupat ional Health - Occupational Stress [...] your living situation today? I have a [facility] place to live 03/16/2024 Education Answer Date Recorded What is the highest level of school you have completed or the highest degree you have received? Bachelor's degree (e.g., BA, AB, BS) 02/17/2022 Sex and Gender Information Value Date Recorded Sex Assigned at Male 02/17/2022 4:26 PM CDT Legal Sex Male 11:09 PM RELATIONSHIP CONSULTANT Gender Identity Male 02/17/2022 4:26 PM CDT Sexual Orientation Straight 02/17/2022 4: 26 PM CDT documented as of this encounter Plan of Treatment Upcoming Encounters Date Type Department Care Team (Late st Contact Info) Description 05/18/2024 8:30 AM RELATIONSHIP CONSULTANT Appointment Department of Laboratory Medicine and Pathology, [facility], in [place], [place] [address] [place] [address] Peyton Ryder M.D. [address] [place] [phone] 05/18/2024 10:30 AM RELATIONSHIP CONSULTANT Office Visit Division of Hematology in [place], [place] [address] [place] [phone] Rita Mendoza APRN, Bubba.NFrandy., M.S.N. [address] [place] [phone] 05/18/2024 11:30 AM RELATIONSHIP CONSULTANT Infusion Department of Oncology in [place], [place] [address] [place] [phone] Peyton Ryder M.D. [address] [place] [phone] 05/18/2024 3:00 PM RELATIONSHIP CONSULTANT Appointment Department of Radiology, [facility] in [address] [phone] Rita Mendoza APRN, Bubba.NFrandy., M.S.N. [address] [place] [phone] 05/31/2024 11:00 AM RELATIONSHIP CONSULTANT Lab Department of Laboratory Medicine and Pathology, [facility], in [place], [place] [address] [place] [phone] Brayan Gregg M.B.B.SRodolfo [address] [place] [phone] 05/31/2024 1:00 PM RELATIONSHIP CONSULTANT Infusion Department of Oncology in [address] [phone] Peyton Ryder M.D. [address] [place] [phone] documented as of this encounter Visit Diagnoses Not on filedocumented in this encounter Additional Health Concerns Infection Onset Date Last Indicated Resolved Time Protective Environment 08/20/2022 08/20/2022 documented as of this encounter Care Teams Manager Card Relationship Specialty Start Date End Date Elsewhere, Pcp PCP - General Internal Medicine 09/03/22 documented as of this encounter
--- OUTSIDE RECORDS SUMMARY | 2024-05-13 20:11 | XMS_ITS | Encounter Summary ---
Author Organization [facility] Address [address] [place] [address] Care Team Providers Care Repeat Chief Name Role Phone Elsewhere, Pcp Primary Care Provider Unavailabl e Reason for Visit * Episode Based Medications (Routine) - Authorized Specialty Diagnoses / Procedures Referred By Contamilcar t Referred To Contact Diagnoses Hospitality Coordinator Current Drug Therapy, Chemotherapy Multiple Myeloma Not Having Achieved Remission (HCC) Peyton Ryder M.D. [address] [place] [phone] Phone: tel: fax: Division of Hematology in [place], [place] [address] [place] [phone] Phone: tel: Referral ID Status Reason Start Date Expiration Date V isits Requested Visits Authorized [id number] Authorized 12/30/2022 12/29/2024 99 99 Encounter Details Date Type Department Care Team (Latest Contact Info) Description 04/20/2024 8:11 AM CORRECTIONAL OFFICER SERGEANT - 04/20/2024 11:59 PM [facility] Hospital Encounter Department of Laboratory Medicine and Pathology, [facility], in [place], [place] [address] [place] [phone] Peyton Ryder M.D. [address] [place] [phone] Hospitality Coordinator Current Drug Therapy, Chemotherapy; Multiple Myeloma Not Having Achieved Remission (HCC) Discharge Disposition: Home or Self Care Social History Tobacco Use Types Packs/Day Years Used Date Smoking Tobacco: Never Smokeless Tobacco: Never Comments:Never used Alcohol Use Standard Drinks/Week Comments Not Currently 4 (1 standard drink = 0.6 oz pure alcohol) None while on chemo. Before a couple of beers a week [facility] Utilities Answer Date Recorded In the past 12 months has e [employer], [employer], or water [employer] threatened to shut off services in your [...] How often do you attend chur or muslim services? More than 4 times per year 02/17/2022 Do you belong to any clubs o r organizations such as sikh groups, unions, fraternal or athletic groups, or [...] Answer Date Recorded PHQ-2 Score 0 03/10/2023 [facility] of Occupat ional Health - Occupational Stress [...] CDT Legal Sex Male 11:09 PM CORRECTIONAL OFFICER SERGEANT Gender Identity Male 02/17/2022 4:26 PM CDT Sexual Orientation Straight 02/17/2022 4: 26 PM CDT documented as of this encounter Medications at Time of Discharge acetaminophen (TYLENOL) 325 mg tablet Take 975 mg by mouth 3 (three) times a day. Breakfast and bedtime acyclovir (Zovirax) 400 mg tabletIndication s:Multiple Myeloma Not Having Achieved Remission (HCC) Take 1 tablet (400 mg total) by mouth 2 (two) times a day. 60 tablet 6 12/02/2023 amLODIPine (Norvasc) 10 mg tablet Take 1 tablet by mouth daily. 01/15/2024 bortezomib (VELCADE) 2.5 mg injection Inject 2.25 mg as directed once a week. Every Thursday calcium citrate-vitamin D3 (CITRACAL+D) 315 mg-5 mcg (200 Unit) per tablet Take 2 tablets by mouth 2 (two) times a day with meals. chlorthalidone (Hygroton) 25 mg tablet Take 1 tablet (25 mg total) by mouth daily. 90 tablet 3 04/06/2024 diclofenac sodium (VOLTAREN) 1 % gel 07/31/2023 ferrous sulfate 325 mg (65 mg iron) tablet Take 1 tablet (65 mg of iron total) by mouth daily. PLEASE HOLD UNTIL INSTRUCTED TO RESUME BY HEMATOLOGY 09/09/2022 levothyroxine (SYNTHROID, LEVOTHROID) 150 mcg tablet Take 150 mcg by mouth every morning before breakfast. Thursday, Thursday and Thursday. levothyroxine (SYNTHROID, LEVOTHROID) 175 mcg tablet Take 1 tablet by mouth 4 (four) times a week. Thursday, Thursday, , Thursday12/12/2021 lisinopriL (PRINIVIL,ZESTRI L) 20 mg tablet Take 1 tablet by mouth daily. 04/27/2023 pantoprazole (Protonix) 40 mg EC tablet Take 1 tablet by mouth daily. 01/15/2024 zoledronic acid (ZOMETA) 4 mg/5 mL injection Infuse 4 mg into a venous catheter every 3 (three) months. documented as of this encounter Plan of Treatment Upcoming Encounters Date Type Department Care Team (Late st Contact Info) Description 05/18/2024 8:30 AM CORRECTIONAL OFFICER SERGEANT Appointment Department of Laboratory Medicine and Pathology, [place], [place] [address] [place] [phone] Peyton Ryder M.D. [address] [place] [phone] 05/18/2024 10:30 AM CORRECTIONAL OFFICER SERGEANT Office Visit Division of Hematology in [address] [phone] Rita Mendoza APRN, C.N.P., M.S.N. [address] [place] [phone] 05/18/2024 11:30 AM CORRECTIONAL OFFICER SERGEANT Infusion Department of Oncology in [place], [place] [address] [place] [phone] Peyton Ryder M.D. [address] [place] [phone] 05/18/2024 3:00 PM CORRECTIONAL OFFICER SERGEANT Appointment Department of Radiology, [place], [place] [address] [place] [phone] Rita Mendoza APRN, C.N.P., M.S.N. [address] [place] [phone] 05/31/2024 11:00 AM CORRECTIONAL OFFICER SERGEANT Lab Department of Laboratory Medicine and Pathology, [facility] in [place], [place] [address] [place] [phone] Brayan Gregg M.B.B.S. [address] [place] [phone] 05/31/2024 1:00 PM CORRECTIONAL OFFICER SERGEANT Infusion Department of Oncology in [place], [place] [address] [place] [phone] Peyton Ryder M.D. [address] [place] [phone] documented as of this encounter Procedures Procedure Name Priority Date/Time Associated Diagnosis Comments QUANTITATIVE M-PROTEIN STUDY, S Routine 04/20/2024 8:35 AM CORRECTIONAL OFFICER SERGEANT Hospitality Coordinator Current Drug Therapy, Chemotherapy Multiple Myeloma Not Having Achieved Remission (HCC) CBC CHEMO - NO ALERTS Routine 04/20/2024 8:35 AM CORRECTIONAL OFFICER SERGEANT Detention Current Drug Therapy, Chemotherapy Multiple Myeloma Not Having Achieved Remission (HCC) IMMUNOGLOBULIN FREE LIGHT CHAINS, S Routine 04/20/2024 8:35 AM CORRECTIONAL OFFICER SERGEANT Hospitality Coordinator Current Drug Therapy, Chemotherapy Multiple Myeloma Not Having Achieved Remission (HCC) COMPREHENSIVE METABOLIC PANEL, S/P Routine 04/20/2024 8:35 AM CORRECTIONAL OFFICER SERGEANT Hospitality Coordinator Current Drug Therapy, Chemotherapy Multiple Myeloma Not Having Achieved Remission (HCC) documented in this encounter Results * (ABNORMAL) CBC, Chemotherapy, No Alerts (04/20/2024 8:35 AM CORRECTIONAL OFFICER SERGEANT) Hemoglobin 12.3(L) 13.2 - 16.6 g/dL 04/20/2024 9:32 AM CORRECTIONAL OFFICER SERGEANT DTL Platelet Count 198 135 - 317 x10(9)/L 04/20/2024 9:32 AM CORRECTIONAL OFFICER SERGEANT DTL Leukocytes 5.1 3.4 - 9.6 x10(9)/L 04/20/2024 9:32 AM CORRECTIONAL OFFICER SERGEANT DTL Neutrophils 3.20 1.56 - 6.45 x10(9)/L 04/20/2024 9:32 AM CORRECTIONAL OFFICER SERGEANT [facility] Blood (Blood, Venous) 04/20/2024 8:35 AM CORRECTIONAL OFFICER SERGEANT 04/20/2024 9:03 AM CORRECTIONAL OFFICER SERGEANT us Peyton Ryder M.D. LAB BLOOD ADD-ON Final Result [facility] [address] [place] [address], [place] DTL [facility] [address] [place] [address] [facility] [address] [place] [address] * (ABNORMAL) Quantitative M-protein Study (04/20/2024 8:35 AM CORRECTIONAL OFFICER SERGEANT) Immunoglobulin A (IgA), S 131 61 - 356 mg/dL 04/20/2024 2:23 PM CORRECTIONAL OFFICER SERGEANT [facility] Immunoglobulin M (IgM), S 22(L) 37 - 286 mg/dL 04/20/2024 2:23 PM CORRECTIONAL OFFICER SERGEANT [facility] Immunoglobulin G (IgG), S 981 767 - 1590 mg/dL 04/20/2024 2:24 PM CORRECTIONAL OFFICER SERGEANT [facility] Therapeutic Antibody Administered? Unspecified 04/20/2024 11:30 AM CORRECTIONAL OFFICER SERGEANT [facility] M-protein GK 0.126(H) g/dL 04/21/2024 10:27 AM CORRECTIONAL OFFICER SERGEANT [facility] Glycosylation Yes(A) 04/21/2024 10:27 AM CORRECTIONAL OFFICER SERGEANT [facility] Flag, M-protein Isotype Positive(A) Negative 04/21/2024 10:27 AM CORRECTIONAL OFFICER SERGEANT [facility] QMPTS Interpretation IgG kappa 0.013 g/dL IgG kappa 0.113 g/dL Glycosylated. Patients with glycosylated light chains are at higher risk for AL amyloidosis. 04/21/2024 10:27 AM CORRECTIONAL OFFICER SERGEANT [facility] Comment: ----ADDITIONAL INFORMATION---- The submitted sample was assayed by five separate immunopurifications for IgG, IgA, IgM, kappa and lambda. The result reflects the findings of either no monoclonal protein detected or those monoclonal immunoglobulins that were detected. This test was developed and its performance characteristics determined by [facility] in a manner consistent with CLIA requirements. This test has not been cleared or approved by the U.S. Food and Drug Administration. Blood (Blood, Venous) 04/20/2024 8:35 AM CORRECTIONAL OFFICER SERGEANT 04/20/2024 11:30 AM CORRECTIONAL OFFICER SERGEANT Narrative [facility] - 04/21/2024 10:27 AM CORRECTIONAL OFFICER SERGEANT Specimen Information: Specimen ID: [id number] Specimen Type: Blood Specimen Collection Start Date: 04/20/2024 8:35 AM Specimen Received Date: 04/20/2024 11:30 AM Specimen ID: [id number] Specimen Type: Blood Specimen Collection Start Date: 04/20/2024 8:35 AM Specimen Received Date: 04/20/2024 11:30 AM Peyton Ryder M.D. LAB BLOOD ADD-ON Final Result [facility] [address] [place], [place] [phone] [place] [address] [place], [place] [phone] [place] [address] [address] [place] [address] [place] [address] [place] [address] * (ABNORMAL) Immunoglobulin Free Light Chains (04/20/2024 8:35 AM CORRECTIONAL OFFICER SERGEANT) Pathologist [facility] Sloan Free Light Chain, S 7.00(H) 0.3300 - 1.94 mg/dL 04/20/2024 11:55 AM CORRECTIONAL OFFICER SERGEANT [facility] Lambda Free Light Chain, S 3.95(H) 0.5700 - 2.63 mg/dL 04/20/2024 12:25 PM CORRECTIONAL OFFICER SERGEANT [facility] Sloan/Lambda FLC Ratio 1.77(H) 0.2600 - 1.65 04/20/2024 12:25 PM CORRECTIONAL OFFICER SERGEANT [facility] Comment: Elevated free light chain ratios between 1.66 and 3.00 may occur due to polyclonal hypergammaglobulinemia or impaired renal clearance. An isolated increased free light chain ratio in this range should be interpreted with caution, and clinical correlation is recommended. Blood (Blood, Venous) 04/20/2024 8:35 AM CORRECTIONAL OFFICER SERGEANT 04/20/2024 11:30 AM CORRECTIONAL OFFICER SERGEANT us Peyton Ryder M.D. LAB BLOOD ADD-ON Final Result [facility] [address] [place] [address] [facility] [address] [place] [address] * (ABNORMAL) Comprehensive Metabolic Panel (04/20/2024 8:35 AM CORRECTIONAL OFFICER SERGEANT) Potassium, S 4.6 3.6 - 5.2 mmol/L 04/20/2024 10:00 AM CORRECTIONAL OFFICER SERGEANT DTL Sodium, S 141 135 - 145 mmol/L 04/20/2024 10:00 AM CORRECTIONAL OFFICER SERGEANT DTL Chloride, S 106 98 - 107 mmol/L 04/20/2024 10:00 AM CORRECTIONAL OFFICER SERGEANT DTL Bicarbonate, S 23 22 - 29 mmol/L 04/20/2024 10:00 AM CORRECTIONAL OFFICER SERGEANT DTL Anion Gap 12 7 - 15 04/20/2024 10:00 AM CORRECTIONAL OFFICER SERGEANT DTL BUN (Blood Urea Nitrogen), S 49(H) 8 - 24 mg/dL 04/20/2024 10:00 AM CORRECTIONAL OFFICER SERGEANT DTL Creatinine 2.41(H) 0.74 - 1.35 mg/dL 04/20/2024 10:00 AM CORRECTIONAL OFFICER SERGEANT DTL Estimated GFR (eGFR) 27(L) >=60 mL/min/BS A 04/20/2024 10:00 AM CORRECTIONAL OFFICER SERGEANT DTL Comment: Estimated GFR calculated using the 2020 CKD_EPI creatinine equation. Calcium, Total, S 9.4 8.8 - 10.2 mg/dL 04/20/2024 10:00 AM CORRECTIONAL OFFICER SERGEANT DTL Glucose, S 93 70 - 140 mg/dL 04/20/2024 10:00 AM CORRECTIONAL OFFICER SERGEANT DTL Protein, Total, S 6.2(L) 6.3 - 7.9 g/dL 04/20/2024 10:00 AM CORRECTIONAL OFFICER SERGEANT DTL Albumin, S 4.1 3.5 - 5.0 g/dL 04/20/2024 10:00 AM CORRECTIONAL OFFICER SERGEANT DTL Aspartate Aminotransferase (AST), S 21 8 - 48 U/L 04/20/2024 10:00 AM CORRECTIONAL OFFICER SERGEANT DTL Alkaline Phosphatase, S 71 40 - 129 U/L 04/20/2024 10:00 AM CORRECTIONAL OFFICER SERGEANT DTL Alanine Aminotransferase (ALT), S 18 7 - 55 U/L 04/20/2024 10:00 AM CORRECTIONAL OFFICER SERGEANT DTL Bilirubin, Total, S 0.2 0.0 - 1.2 mg/dL 04/20/2024 10:00 AM CORRECTIONAL OFFICER SERGEANT DTL Blood (Blood, Venous) 04/20/2024 8:35 AM CORRECTIONAL OFFICER SERGEANT 04/20/2024 9:14 AM CORRECTIONAL OFFICER SERGEANT Peyton Ryder M.D. LAB BLOOD ADD-ON Final Result [facility] [address] [place] [address], [facility] DTL [facility] [address] [place] [address] documented in this encounter Visit Diagnoses Diagnosis Detention Current Drug Therapy, Chemotherapy Multiple Myeloma Not Having Achieved Remission (HCC) documented in this encounter Additional Health Concerns Infection Onset Date Last Indicated Resolved Time Protective Environment 08/20/2022 08/20/2022 documented as of this encounter Care Teams Repeat Chief Relationship Specialty Start Date End Date Elsewhere, Pcp PCP - General Internal Medicine 09/03/22 documented as of this encounter
--- OUTSIDE RECORDS SUMMARY | 2024-05-13 20:11 | XMS_ITS | Encounter Summary ---
Author Organization [facility] Address [address] [place] [address] Care Team Providers Care Ton Container Shipper Name Role Phone Elsewhere, Pcp Primary Care Provider Unavailabl e Reason for Visit * Reason Onset Date Comments 04/05+//myeloma//est 03/23/2024 Encounter Details Date Type Department Care Team (Latest Contact Info) Description 03/23/2024 Clinical Communication Division of Hematology in [place], [place] [address] [place] [phone] Peyton Ryder M.D. [address] [place] [phone] 04/05+//myeloma//es t Social History Tobacco Use Types Packs/Day Years Used Date Smoking Tobacco: Never Smokeless Tobacco: Never Comments:Never used Alcohol Use Standard Drinks/Week Comments Not Currently 4 (1 standard drink = 0.6 oz pure alcohol) None while on chemo. Before a couple of beers a week [facility] Utilities Answer Date Recorded In the past 12 months has th e electric, gas, oil, or water company [...] How often do you attend chur or confucianism services? More than 4 times per year 02/17/2022 Do you belong to any clubs o r organizations such as amish groups, unions, fraternal or athletic groups, or [...] Answer Date Recorded PHQ-2 Score 0 03/10/2023 [facility] of Occupat ional Health - Occupational [...] your living situation today? I have a [facility] place to live 03/16/2024 Education Answer Date Recorded What is the highest level of school you have completed or the highest degree you have received? Bachelor's degree (e.g., BA, AB, BS) 02/17/2022 Sex and Gender Information Value Date Recorded Sex Assigned at Male 02/17/2022 4:26 PM CDT Legal Sex Male 11:09 PM ASSOCIATE BUYER Gender Identity Male 02/17/2022 4:26 PM CDT Sexual Orientation Straight 02/17/2022 4: 26 PM CDT documented as of this encounter Plan of Treatment Upcoming Encounters Date Type Department Care Team (Late st Contact Info) Description 05/18/2024 8:30 AM ASSOCIATE BUYER Appointment Department of Laboratory Medicine and Pathology, [facility], in [place], [place] [address] [place] [phone] Peyton Ryder M.D. [address] [place] [phone] 05/18/2024 10:30 AM ASSOCIATE BUYER Office Visit Division of Hematology in [place], [place] [address] [place] [phone] Rita Mendoza APRN, C.NJesus, M.S.N. [address] [place] [phone] 05/18/2024 11:30 AM ASSOCIATE BUYER Infusion Department of Oncology in [place], [place] [address] [place] [phone] Peyton Ryder M.D. [address] [place] [phone] 05/18/2024 3:00 PM ASSOCIATE BUYER Appointment Department of Radiology, [facility], in [place], [place] [address] [place] [phone] Rita Mendoza APRN, Bubba.N.P., M.S.N. [address] [place] [phone] 05/31/2024 11:00 AM ASSOCIATE BUYER Lab Department of Laboratory Medicine and Pathology, [facility], in [place], [place] [address] [place] [address] Brayan Gregg M.B.B.SRodolfo [address] [place] [phone] 05/31/2024 1:00 PM ASSOCIATE BUYER Infusion Department of Oncology in [place], [place] [address] [place] [phone] Peyton Ryder M.D. [address] [place] [phone] documented as of this encounter Visit Diagnoses Not on filedocumented in this encounter Additional Health Concerns Infection Onset Date Last Indicated Resolved Time Protective Environment 08/20/2022 08/20/2022 documented as of this encounter Care Teams Ton Container Shipper Relationship Specialty Start Date End Date Elsewhere, Pcp PCP - General Internal Medicine 09/03/22 documented as of this encounter
--- OUTSIDE RECORDS SUMMARY | 2024-05-13 20:11 | XMS_ITS | Encounter Summary ---
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 [address] [place] [phone] Phone: tel: fax: Division of Hematology in [place], [place] [address] [place] [phone] Phone: tel: Referral ID Status Reason Start Date Expiration Date V isits Requested Visits Authorized [id number] Authorized 12/30/2022 12/29/2024 99 99 Encounter Details Date Type Department Care Team (Late st Contact Info) Description 04/20/2024 11:30 AM COMMERCIAL ENERGY RATER Infusion Department of Oncology in [place], [place] [address] [place] [phone] Peyton Ryder M.D. [address] [place] [phone] Multiple Myeloma Not Having Achieved Remission (HCC) (Primary Dx); Long-Term Current Drug Therapy, Chemotherapy Social History Tobacco Use Types Packs/Day Years Used Date Smoking Tobacco: Never Smokeless Tobacco: Never Comments:Never used Alcohol Use Standard Drinks/Week Comments Not Currently 4 (1 standard drink = 0.6 oz pure alcohol) None while on chemo. Before a couple of beers a week [facility] Utilities Answer Date Recorded In the past 12 months has e [employer], [employer], oil, or water [employer] threatened to shut off services in your [...] week 02/17/2022 How often do you attend [facility] or zoroastrianism services? More than 4 times per year 02/17/2022 Do you belong to any clubs o r organizations such as restorationist groups, unions, fraternal or athletic groups, or [...] Answer Date Recorded PHQ-2 Score 0 03/10/2023 [facility] of Occupat ional [facility] - Occupational Stress Questionnaire Answer Date Recorded [...] PM CDT Legal Sex Male 11:09 PM COMMERCIAL ENERGY RATER Gender Identity Male 02/17/2022 4:26 PM CDT Sexual Orientation Straight 02/17/2022 4: 26 PM CDT documented as of this encounter Plan of Treatment Upcoming Encounters Date Type Department Care Team (Late st Contact Info) Description 05/18/2024 8:30 AM COMMERCIAL ENERGY RATER Appointment Department of Laboratory Medicine and Pathology, [facility] in [place], [place] [address] [place] [phone] Peyton Ryder M.D. [address] [place] [phone] 05/18/2024 10:30 AM COMMERCIAL ENERGY RATER Office Visit Division of Hematology in [place], [place] [address] [place] [phone] Rita Mendoza APRN, C.N.P., M.S.N. [address] [place] [phone] 05/18/2024 11:30 AM COMMERCIAL ENERGY RATER Infusion Department of Oncology in [place], [place] [address] [place] [phone] Peyton Ryder M.D. [address] [place] [phone] 05/18/2024 3:00 PM COMMERCIAL ENERGY RATER Appointment Department of Radiology, [facility] in [place], [place] [address] [place] [phone] Rita Mendoza APRN, C.N.P., M.S.N. [address] [place] [phone] 05/31/2024 11:00 AM COMMERCIAL ENERGY RATER Lab Department of Laboratory Medicine and Pathology, [facility], in [place], [place] [address] [place] [phone] Brayan Gregg M.B.B.S. [address] [place] [phone] 05/31/2024 1:00 PM COMMERCIAL ENERGY RATER Infusion Department of Oncology in [place], [place] [address] [place] [phone] Peyton Ryder M.D. 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 documented in this encounter Administered Medications Inactive Administered Medications - up to 3 most recent administrations Medication Order MAR Action Action Date Dose Rate Site bortezomib injection 2 mg (Velcade) 2 mg (rounded from 1.9968 mg = 1.04 mg/m2 1.92 m2 Treatment Plan BSA from Measured weight), subcutaneous, Once, On Thu04/20/24 at 1200, For 1 dose, Rotate injection siteIndications:Loadmaster Current Drug Therapy, Chemotherapy,Multiple Myeloma Not Having Achieved Remission (HCC) Given 04/20/2024 12:23 PM COMMERCIAL ENERGY RATER 2 mg Right Lower Abdomen documented in this encounter Additional Health Concerns Infection Onset Date Last Indicated Resolved Time Protective Environment 08/20/2022 08/20/2022 documented as of this encounter Care Teams Rn Clinical Appeals Relationship Specialty Start Date End Date Elsewhere, Pcp PCP - General Internal Medicine 09/03/22 documented as of this encounter
--- OUTSIDE RECORDS SUMMARY | 2024-05-13 20:11 | XMS_ITS ---
Author Organization [facility] Address [address] [place] [address] Care Team Providers Care Card Clothier Name Role Phone Elsewhere, Pcp Primary Care Provider Unavailabl e [facility] Program Status:Identified (Enrolling) Start date:03/31/2024 Continued Care and Services Coordination
--- OUTSIDE RECORDS SUMMARY | 2024-05-13 20:11 | XMS_ITS ---
Author Organization [facility] Address [address] [place] [address] Care Team Providers Care Overhead Distribution Engineer Name Role Phone Unavailable Unavailable Unavailable Surgery Details Not on file Complications Check Surgery Details section. Procedure Estimated Blood Loss Check Surgery Details section. Procedure Findings Check Surgery Details section. Procedure Specimens Taken Check Surgery Details section.
--- OUTSIDE RECORDS SUMMARY | 2024-05-13 20:11 | XMS_ITS | Encounter Summary ---
Author Organization [facility] Address [address] [place] [address] Care Team Providers Care Wired Music Operator Name Role Phone Elsewhere, Pcp Primary Care Provider Unavailabl e Encounter Details Date Type Department Care Team (Late st Contact Info) Description 05/12/2024 Orders Only Division of Hematology in [place], [place] [address] [place] [phone] Rita Mendoza, EVGENY, C.N.P., M.S.N. [address] [place] [phone] Social History Tobacco Use Types Packs/Day Years Used Date Smoking Tobacco: Never Smokeless Tobacco: Never Comments:Never used Alcohol Use Standard Drinks/Week Comments Not Currently 4 (1 standard drink = 0.6 oz pure alcohol) None while on chemo. Before a couple of beers a week [facility] Utilities Answer Date Recorded In the [...] week 02/17/2022 How often do you attend [facility] or congregation services? More than 4 times per year 02/17/2022 Do you belong to any clubs o r organizations such as yazidi groups, unions, fraternal or athletic groups, or [...] Answer Date Recorded PHQ-2 Score 0 03/10/2023 [facility] of Occupat ional Health - Occupational Stress [...] your living situation today? I have a [facility] place to live 03/16/2024 Education Answer Date Recorded What is the highest level of school you have completed or the highest degree you have received? Bachelor's degree (e.g., BA, AB, BS) 02/17/2022 Sex and Gender Information Value Date Recorded Sex Assigned at Male 02/17/2022 4:26 PM CDT Legal Sex Male 11:09 PM PARAMEDIC INSTRUCTOR Gender Identity Male 02/17/2022 4:26 PM CDT Sexual Orientation Straight 02/17/2022 4: 26 PM CDT documented as of this encounter Plan of Treatment Upcoming Encounters Date Type Department Care Team (Late st Contact Info) Description 05/18/2024 8:30 AM PARAMEDIC INSTRUCTOR Appointment Department of Laboratory Medicine and Pathology, [facility], in [place], [place] [address] [place] [phone] Peyton Ryder M.D. [address] [place] [phone] 05/18/2024 10:30 AM PARAMEDIC INSTRUCTOR Office Visit Division of Hematology in [place], [place] [address] [place] [phone] Rita Mendoza APRN, Bubba.NFrandy., M.S.N. [address] [place] [phone] 05/18/2024 11:30 AM PARAMEDIC INSTRUCTOR Infusion Department of Oncology in [place], [place] [address] [place] [phone] Peyton Ryder M.D. [address] [place] [phone] 05/18/2024 3:00 PM PARAMEDIC INSTRUCTOR Appointment Department of Radiology, [facility] in [address] [phone] Rita Mendoza APRN, Bubba.NFrandy., M.S.N. [address] [place] [phone] 05/31/2024 11:00 AM PARAMEDIC INSTRUCTOR Lab Department of Laboratory Medicine and Pathology, [facility], in [place], [place] [address] [place] [phone] Brayan Gregg M.B.B.SRodolfo [address] [place] [phone] 05/31/2024 1:00 PM PARAMEDIC INSTRUCTOR Infusion Department of Oncology in [address] [phone] Peyton Ryder M.D. [address] [place] [phone] documented as of this encounter Visit Diagnoses Not on filedocumented in this encounter Additional Health Concerns Infection Onset Date Last Indicated Resolved Time Protective Environment 08/20/2022 08/20/2022 documented as of this encounter Care Teams Wired Music Operator Relationship Specialty Start Date End Date Elsewhere, Pcp PCP - General Internal Medicine 09/03/22 documented as of this encounter
--- OUTSIDE RECORDS SUMMARY | 2024-05-13 20:11 | XMS_ITS | Encounter Summary ---
Author Organization [facility] Address [address] [place] [address] Care Team Providers Care Bad Work Gatherer Name Role Phone Elsewhere, Pcp Primary Care Provider Unavailabl e Encounter Details Date Type Department Care Team (Late st Contact Info) Description 04/01/2024 Orders Only Division of Hematology in [place], [place] [address] [place] [phone] Peyton Ryder M.D. [address] [place] [phone] Social History Tobacco Use Types Packs/Day Years Used Date Smoking Tobacco: Never Smokeless Tobacco: Never Comments:Never used Alcohol Use Standard Drinks/Week Comments Not Currently 4 (1 standard drink = 0.6 oz pure alcohol) None while on chemo. Before a couple of beers a week [facility] Utilities Answer Date Recorded In the [...] How often do you attend chur or taoist services? More than 4 times per year 02/17/2022 Do you belong to any clubs o r organizations such as oriental orthodox groups, unions, fraternal or athletic groups, or [...] Answer Date Recorded PHQ-2 Score 0 03/10/2023 [facility] of Occupat ional Health - Occupational Stress [...] your living situation today? I have a [facility] place to live 03/16/2024 Education Answer Date Recorded What is the highest level of school you have completed or the highest degree you have received? Bachelor's degree (e.g., BA, AB, BS) 02/17/2022 Sex and Gender Information Value Date Recorded Sex Assigned at Male 02/17/2022 4:26 PM CDT Legal Sex Male 11:09 PM EQUIPMENT SERVICE TECHNICIAN Gender Identity Male 02/17/2022 4:26 PM CDT Sexual Orientation Straight 02/17/2022 4: 26 PM CDT documented as of this encounter Plan of Treatment Upcoming Encounters Date Type Department Care Team (Late st Contact Info) Description 05/18/2024 8:30 AM EQUIPMENT SERVICE TECHNICIAN Appointment Department of Laboratory Medicine and Pathology, [facility], in [place], [place] [address] [place] [phone] Peyton Ryder M.D. [address] [place] [phone] 05/18/2024 10:30 AM EQUIPMENT SERVICE TECHNICIAN Office Visit Division of Hematology in [place], [place] [address] [place] [phone] Rita Mendoza APRN, C.N.Germán., M.S.N. [address] [place] [phone] 05/18/2024 11:30 AM EQUIPMENT SERVICE TECHNICIAN Infusion Department of Oncology in [place], [place] [address] [place] [phone] Peyton Ryder M.D. [address] [place] [phone] 05/18/2024 3:00 PM EQUIPMENT SERVICE TECHNICIAN Appointment Department of Radiology, [facility] in [place], [place] [address] [place] [phone] Rita Mendoza APRN, Bubba.N.P., M.S.N. [address] [place] [phone] 05/31/2024 11:00 AM EQUIPMENT SERVICE TECHNICIAN Lab Department of Laboratory Medicine and Pathology, [facility] in [place], [place] [address] [place] [phone] Brayan Gregg M.BRodolfoB.S. [address] [place] [phone] 05/31/2024 1:00 PM EQUIPMENT SERVICE TECHNICIAN Infusion Department of Oncology in [place], [place] [address] [place] [phone] Peyton Ryder M.D. [address] [place] [phone] documented as of this encounter Visit Diagnoses Not on filedocumented in this encounter Additional Health Concerns Infection Onset Date Last Indicated Resolved Time Protective Environment 08/20/2022 08/20/2022 documented as of this encounter Care Teams Bad Work Gatherer Relationship Specialty Start Date End Date Elsewhere, Pcp PCP - General Internal Medicine 09/03/22 documented as of this encounter
--- OUTSIDE RECORDS SUMMARY | 2024-05-13 20:11 | XMS_ITS | Encounter Summary ---
Author Organization [facility] Address [address] [place] [phone] Care Team Providers Care Wine Master Name Role Phone Elsewhere, Pcp Primary Care Provider Unavailabl e Reason for Referral * MRI/CAT/PET Scan (Routine) - Authorized Specialty Diagnoses / Procedures Referred By Contac t Referred To Contact Radiology Diagnoses Multiple Myeloma Not Having Achieved Remission (HCC) Procedures CT Skeletal Survey Low Dose Whole Body without IV Contrast Rita Mendoza APRN, C.N.P., M.S.N. 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 [address] [place] [address] Phone: tel: fax: Division of Hematology in [place], [place] [address] [place] [address] Phone: tel: Referral ID Status Reason Start Date Expiration Date V isits Requested Visits Authorized [id number] Authorized 12/30/2022 12/29/2024 99 99 Encounter Details Date Type Department Care Team (Late st Contact Info) Description 04/20/2024 10:30 AM SALES EXECUTIVE INSURANCE Office Visit Division of Hematology in [place], [place] [address] [place] [phone] Rita Mendoza APRN, C.N.P., M.S.N. [address] [place] [phone] Elevated Creatinine (Primary Dx); Upholsterer Outside Current Drug Therapy, Chemotherapy; Multiple Myeloma Not Having Achieved Remission (HCC) Social History Tobacco Use Types Packs/Day Years Used Date Smoking Tobacco: Never Smokeless Tobacco: Never Comments:Never used Alcohol Use Standard Drinks/Week Comments Not Currently 4 (1 standard drink = 0.6 oz pure alcohol) None while on chemo. Before a couple of beers a week [facility] [email or web address] Answer Date Recorded In the past 12 months has [facility] [employer] gas, oil, or water [employer] threatened to shut off services in your [...] How often do you attend chur or mandaeism services? More than 4 times per year 02/17/2022 Do you belong to any clubs o r organizations such as alevism groups, unions, fraternal or athletic groups, or [...] [facility] of Occupat ional [facility] - Occupational Stress Questionnaire Answer Date [...] your living situation today? I have a [facility] place to live 03/16/2024 Education Answer Date Recorded What is the highest level of school you have completed or the highest degree you have received? Bachelor's degree (e.g., BA, AB, BS) 02/17/2022 Sex and Gender Information Value Date Recorded Sex Assigned at Male 02/17/2022 4:26 PM CDT Legal Sex Male 11:09 PM SALES EXECUTIVE INSURANCE Gender Identity Male 02/17/2022 4:26 PM CDT Sexual Orientation Straight 02/17/2022 4: 26 PM CDT documented as of this encounter Last Filed Vital Signs Vital Sign Reading Time Taken Comments Blood Pressure 145/71 04/20/2024 10:29 AM SALES EXECUTIVE INSURANCE Pulse 67 04/20/2024 10:29 AM SALES EXECUTIVE INSURANCE Temperature 35.8 C (96.4 F) 04/20/2024 10:29 AM SALES EXECUTIVE INSURANCE Respiratory Rate - - Oxygen Saturation - - Inhaled Oxygen Concentration - - Weight 80.6 kg (177 lb 9.3 oz) 04/20/2024 10:29 AM SALES EXECUTIVE INSURANCE Height 171.1 cm (5' 7.36) 04/20/2024 10:[address] Body Mass Index 27.51 04/20/2024 10:29 AM SALES EXECUTIVE INSURANCE documented in this encounter Progress Notes * Rita Mendoza, EVGENY, C.N.P., M.S.N. - 04/20/2024 10:30 AM CST SUBJECTIVE CHIEF COMPLAINT / REASON FOR VISIT Follow up of multiple myeloma, IgG Dante, biphasic pattern Primary staff property insurance claims examiner: Peyton Ryder MD ([phone]). HISTORY OF PRESENT ILLNESS Kishor Christianson is a 78 y.o. male who presents for ongoing management of multiple myeloma with the following hematologic history: Oncology History Overview Note Data from Initial Diagnosis Date of Diagnosis: 08/21/2021 Presenting symptoms: Patient was referred to hematology for evaluation of leucopenia with mild neutropenia, fatigue, unintentional weight loss and new onset anemia Hb 10.9, baseline 13-14. Labs: Date: August 2021 Hgb: 11.3 g/dL Plts: 242K Creatinine: 1.67 mg/dL Calcium: 8.3 mg/dL LDH: B2M: 30 Total Protein: 7.6 Albumin: 3.55 g/dL SPEP: M-spike: 2.22 g/dL Immunofixation: IgG Dante, biphasic pattern Immunoglobulins: Ig.27 mg/dL; IgA: 182.83 mg/dL; IgM: 32.24 mg/dL Free light chains (mg/dL): kappa: 40.31; lambda: 5.18; Dante:Lambda Ratio: 7.78 UPEP: Urine : total protein: mg; urine M-spike: mg, Immunofixation: Bone marrow biopsy: plasma cell myeloma 30-35% involvement, bone marrow cellularity 35-40%, FISH: Myeloma probes negative No treatment or imaging was pursued per patient preference. February: Repeat labs, and imaging was conducted for [facility] 2nd opinion. Labs: Date: 02/18/2022 Hgb: 10.5 g/dL Plts: 217K Creatinine: 1.74 mg/dL Calcium: 8.4 mg/dL LDH: 152 B2M: 14 Total Protein: 7.1 M Daniel 1.0 g/dL IgG kappa Albumin: 3.6 g/dL Immunoglobulins: Ig mg/dL; IgA: 162.mg/dL; IgM: 30 mg/dL Free light chains (mg/dL): kappa: 40.31; lambda: 5.18; Dante:Lambda Ratio: 7.78 UPEP: Urine : total protein: 1260 mg; urine M-spike: mg, Immunofixation: Bone survey: PET/CT Multifocal avid osteolytic myelomatous lesions throughout skeleton and diffuse marrow and splenic involvement. Multiple Myeloma Not Having Achieved Remission (HCC) 03/18/2022 - 11/11/2022 Chemotherapy Held Daratumumab 08/05/22 - significant fatigue, infections, recurrent hospitalizations (UTI, sepsis, hyperkalemia). Overall challenges in managing a triplet regimen. - Transitioned to Revlimid 10 mg days 1-21, dexamethasone 20 mg - HOLD chemotherapy as of August 13, and took a 4 week holiday. 09/02/22 - Admitted with acute severe GI bleed, HB down to 6.5. Received transfusions, multiple scopes source of bleeding not found. Chemotherapy was on hold when GI bleed. Daratumumab ( Subcutaneous ) / Lenalidomide / Dexamethasone Start Date: 03/18/2022 01/06/2023 - 06/16/2023 Chemotherapy CyBorD Weekly ( cycloPHOSphamide / Bortezomib / dexAMETHasone ) Start Date: 01/06/2023 06/30/2023 - Chemotherapy Bortezomib Every Other Week Start Date: 06/30/2023 In May of 2022, Mr. Christianson was admitted to the hospital between 05/13/22 and 05/16/22 for hyperkalemia after having been started on Bactrim for a UTI. Mr. Christianson was hospitalized at the [facility] from 07/1622 - 07/31/22 for bacterial sepsis, due to bibasilar pneumonia and Klebsiella pneumoniae UTI. He was treated with Zosyn/Zithromax and discharged on Levaquin. Daratumumab was discontinued at this time. He was again admitted to the hospital on 09/02/22 through 09/09/22 for management of exertional dyspnea in the setting of anemia and subsequent GI bleed. He was admitted to [facility] for UTI between 12/21/22 and 01/03/23 and treated with a 14 day course of Ertapenem. On 01/06/23, he was switched to cyclophosphamide 300 mg oral weekly, bortezomib 1.3 mg/m2 weekly, and dexamethasone 20mg weekly. He remains on every other week bortezomib at this time. INTERVAL HISTORY Kishor Chritsianson returns 04/20/24 for ongoing follow up accompanied by his , Yesenia. He remains on maintenance with every other week bortezomib at this time. He is doing well and denies any recurrent infections or illnesses. He has noticed increased heel pain, left greater than right. Denies radicular pains that radiate or extend up from the plantar aspect of the foot. He reports it comes and goes and does not impair his activities of daily living. 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 He denies numbness, tingling or ongoing pain. In December 2023, his chlorthalidone dose was increased to 25 mg, which Nephrology thinks may be the cause of his slowly rising creatinine. REVIEW OF SYSTEMS Denies fever, chills, night sweats, headache, dizziness, otalgia, sore throat, chest pain, palpitations, dyspnea, orthopnea, cough, nausea, vomiting, reflux, diarrhea or constipation. Denies peripheral neuropathy in the hands or feet. Positive for plantar foot pain. I have reviewed the medical, surgical, and social history. Past Medical History: Diagnosis Date Anemia Blood Transfusion No Diagnosis 13 units 05/2014, 10 units 08/2022 GI bleed Cancer Renal Cell Carcinoma Personal History 2010 Deficiency Vitamin B12 Hemorrhage Gastrointestinal Hyperkalemia 05/13/2022 Hypertension NOS Hyperthyroidism 1963 Hypothyroidism 1964 Malignant Neoplasm Of Kidney (HCC) 01/2011 Malignant Primary Neoplasm (Unknown Site) Unspecified (HCC) 08/2021 Multiple Myeloma NOS Other Injury Of Unspecified Body Region Personal History Of Malignant Neoplasm Of Prostate 2011 Personal History Of Other Malignant Neoplasm Of Kidney Primary Malignant Neoplasm Of Prostate (HCC) 01/2011 Renal Disease Past Surgical History: Procedure Laterality Date NEPHRECTOMY Left 2010 OTHER SURGICAL HISTORY 03/2011 PROSTATECTOMY 10/2011 TONSILLECTOMY HOME MEDICATIONS Current Outpatient Medications on File Prior to Visit Medication Sig Dispense Refill acetaminophen (TYLENOL) 325 mg tablet Take 975 mg by mouth 3 (three) times a day. Breakfast and bedtime acyclovir (Zovirax) 400 mg tablet Take 1 tablet (400 mg total) by mouth 2 (two) times a day. 60 tablet 6 amLODIPine (Norvasc) 10 mg tablet Take 1 tablet by mouth daily. bortezomib (VELCADE) 2.5 mg injection Inject 2.25 mg as directed once a week. Every Thursday calcium citrate-vitamin D3 (CITRACAL+D) 315 mg-5 mcg (200 Unit) per tablet Take 2 tablets by mouth 2 (two) times a day with meals. chlorthalidone (Hygroton) 25 mg tablet Take 1 tablet (25 mg total) by mouth daily. 90 tablet 3 diclofenac sodium (VOLTAREN) 1 % gel ferrous sulfate 325 mg (65 mg iron) tablet Take 1 tablet (65 mg of iron total) by mouth daily. PLEASE HOLD UNTIL INSTRUCTED TO RESUME BY HEMATOLOGY levothyroxine (SYNTHROID, LEVOTHROID) 150 mcg tablet Take 150 mcg by mouth every morning before breakfast. Thursday, Thursday and Thursday. levothyroxine (SYNTHROID, LEVOTHROID) 175 mcg tablet Take 1 tablet by mouth 4 (four) times a week. Thursday, Thursday, , Thursday lisinopriL (PRINIVIL,ZESTRIL) 20 mg tablet Take 1 tablet by mouth daily. pantoprazole (Protonix) 40 mg EC tablet Take 1 tablet by mouth daily. zoledronic acid (ZOMETA) 4 mg/5 mL injection Infuse 4 mg into a venous catheter every 3 (three) months. No current facility-administered medications on file prior to visit. OBJECTIVE PHYSICAL EXAM General: Patient appears comfortable, in no acute distress. Nonseptic appearance. Pleasant affect. Neuro: Alert and oriented to person, place, and time. Psych: Appropriate mood and affect. No acute delirium or agitation. Skin: No rashes, lesions, or ecchymosis. Heart: Regular heart rate and rhythm. Lungs: Equal and symmetric chest rise and fall. Lungs clear to auscultation bilaterally. No rales, wheezes or rhonchi. Extremities: No lower extremity edema. Compression socks. No calf tenderness. Gait: Steady and unassisted. Vitals: 04/20/24 1029 BP: 145/71 BP Location: Right arm Patient Position: Sitting Cuff Size: Regular Pulse: 67 Temp: (!) 35.8 ??C DIAGNOSTICS I have reviewed the recent relevant diagnostics. No results found. Recent Results (from the past 72 hours) Cystatin C with Estimated GFR Collection Time: 04/20/24 8:32 AM Result Value eGFR by Cystatin C 21 (L) Cystatin C 2.55 (H) Comprehensive Metabolic Panel Collection Time: 04/20/24 8:35 AM Result Value Potassium, S 4.6 Sodium, S 141 Chloride, S 106 Bicarbonate, S 23 Anion Gap 12 BUN (Blood Urea Nitrogen), S 49 (H) Creatinine 2.41 (H) Estimated GFR (eGFR) 27 (L) Calcium, Total, S 9.4 Glucose, S 93 Protein, Total, S 6.2 (L) Albumin, S 4.1 Aspartate Aminotransferase (AST), S 21 Alkaline Phosphatase, S 71 Alanine Aminotransferase (ALT), S 18 Bilirubin, Total, S 0.2 CBC, Chemotherapy, No Alerts Collection Time: 04/20/24 8:35 AM Result Value Hemoglobin 12.3 (L) Platelet Count 198 Leukocytes 5.1 Neutrophils 3.20 Discussed and answered all questions. ASSESSMENT / PLAN # Multiple Myeloma, IgG Dante, biphasic pattern # Chronic Kidney Disease, Stage 3, s/p L nephrectomy, prostate cancer s/p prostatectomy # Hyperkalemia Mr. Christianson is clinically doing very well and denies medication side effects or any acute concerns. Monoclonal protein studies are pending at the time of this note. If M-spike continues to rise, we mayconsider increasing his dose of Velcade from 1.04 mg/m2 to 1.3 mg/m2, given that he did not note improvement in his plantar foot pain with the dose reduction of Velcade since January 2024. We will await his monoclonal protein studies and then discuss this further. CBC, electrolytes and creatinineare sufficient to proceed with today's treatment without modifications. ADDENDUM: Given the ongoing rise in his M-spike, would recommend increasing Velcade dosing to 1.3 mg/m2. Dr. Ryder is agreeable to this plan. Patient notified. Plan: Treatment: Velcade 1.04 mg/m2 every other week Goals: Control Labs: CBC, CMP, monoclonal gammopathy monitoring, serum free light chains, and quantitative immunoglobulins. - patient has labs drawn on day 15 and discussed on day 1 per patient preference. Transfusion: Significant cytopenias would not be expected on this regimen, but our typical parameters are to transfuse to keep hemoglobin > 7 and platelets > 10. Recommend irradiated blood products. Supportive Cares Infection prophylaxis Continue acyclovir for herpes zoster prophylaxis. Thrombosis prophylaxis Continue daily aspirin. Myeloma bone prophylaxis Continue quarterly Zometa. Continue calcium and Vitamin D. Dental extractions are being deferred atthis time, as the patient is asymptomatic. Follow-Up: Return to clinic in one month. # Urinary tract infection, resolved # History of multidrug resistant Klebsiella UTI # Hypertension # s/p nephrectomy, left, 2010 s/p cancer Remains on Amlodipine 10 mg in the morning and Lisinopril 20 mg at night. His blood pressure is inadequately controlled, and this is reflected with the overall rise in 24 hour urine protein. Chlorthalidone was increased to 25 mg daily in December and his creatinine has been rising slowly since then. I asked that they keep a daily blood pressure log and send this to his Nephrology team for direction. Creatinine has risen to 2.41 mg/dL. Cystatin C was 2.55 mg/L today. Inbasket sent to Nephrology for direction. # Knee pain, left Followed locally and participating in physical therapy. Education We discussed the diagnosis and treatment plan in detail. The patient expressed understanding of thecontent. No apparent learning barriers were identified. I personally spent 45 minutes in care of the patient today. Time includes both non face to face andface to face patient care. Rita Mendoza APRN, C.NJesus, M.S.N. S EXECUTIVE INSURANCE S EXECUTIVE INSURANCE S EXECUTIVE INSURANCE S EXECUTIVE INSURANCE S EXECUTIVE INSURANCE documented in this encounter Plan of Treatment Upcoming Encounters Date Type Department Care Team (Late st Contact Info) Description 05/18/2024 8:30 AM SALES EXECUTIVE INSURANCE Appointment Department of Laboratory Medicine and Pathology, [facility] in [place], [place] [address] [place] [phone] Peyton Ryder M.D. [address] [place] [phone] 05/18/2024 10:30 AM SALES EXECUTIVE INSURANCE Office Visit Division of Hematology in [place], [place] [address] [place] [phone] Rita Mendoza APRN, C.N.P., M.S.N. [address] [place] [phone] 05/18/2024 11:30 AM SALES EXECUTIVE INSURANCE Infusion Department of Oncology in [place], [place] [address] [place] [phone] Peyton Ryder M.D. [address] [place] [phone] 05/18/2024 3:00 PM SALES EXECUTIVE INSURANCE Appointment Department of Radiology, [facility] in [address] [phone] Rita Mendoza APRN, C.N.P., M.S.N. [address] [place] [phone] 05/31/2024 11:00 AM SALES EXECUTIVE INSURANCE Lab Department of Laboratory Medicine and Pathology, [facility] in [address] [phone] Brayan Gregg M.B.B.S. [address] [place] [phone] 05/31/2024 1:00 PM SALES EXECUTIVE INSURANCE Infusion Department of Oncology in [address] [phone] Peyton Ryder M.D. [address] [place] [phone] Scheduled Orders Name Type Priority Associated Diagnoses Orde r Schedule CT Skeletal Survey Low Dose Whole Body without IV Contrast Imaging RAD - Routine (most inpatients and all outpatients) Multiple Myeloma Not Having Achieved Remission (HCC) Expected: 05/18/2024, Expires: 07/19/2025 documented as of this encounter Procedures Procedure Name Priority Date/Time Associated Diagnosis Comments CYSTATIN C WITH EGFR Routine 04/20/2024 8:32 AM SALES EXECUTIVE INSURANCE Multiple Myeloma Not Having Achieved Remission (HCC) Elevated Creatinine documented in this encounter Results * (ABNORMAL) Cystatin C with Estimated GFR (04/20/2024 8:32 AM SALES EXECUTIVE INSURANCE) eGFR by Cystatin C 21(L) >60 mL/min/BSA 04/20/2024 11:35 AM SALES EXECUTIVE INSURANCE DTL Comment: Estimated GFR calculated using the [...] 0.67 - 1.21 mg/L 04/20/2024 11:35 AM SALES EXECUTIVE INSURANCE DTL Blood (Blood, Venous) 04/20/2024 8:32 AM SALES EXECUTIVE INSURANCE 04/20/2024 11:13 AM SALES EXECUTIVE INSURANCE Rita Mendoza APRN, C.N.P., M.S.N. LAB BLOOD ADD-ON Final Result [facility] [address] [place] [address], [facility] [address] [place] [address] documented in this encounter Visit Diagnoses Diagnosis Elevated Creatinine- Primary Mcc Current Drug Therapy, Chemotherapy Multiple Myeloma Not Having Achieved Remission (HCC) documented in this encounter Additional Health Concerns Infection Onset Date Last Indicated Resolved Time Protective Environment 08/20/2022 08/20/2022 documented as of this encounter Care Teams Wine Master Relationship Specialty Start Date End Date Elsewhere, Pcp PCP - General Internal Medicine 09/03/22 documented as of this encounter
--- OUTSIDE RECORDS SUMMARY | 2024-05-13 20:11 | XMS_ITS | Referral Summary ---
Author Organization [facility] Address [address] [place] [address] Care Team Providers Care Private Wealth Advisor Name Role Phone Elsewhere, Pcp Primary Care Provider Unavailabl e Source Comments Patient records contain information from all sites at [facility]. For routine questions regarding patient records, call [phone] during business hours, M-F 8:00 AM - 5:00 PM Central Time. Record requests for emergency care only can be directed to [phone] at any time.[facility] Encounters Date Type Department Care Team Description 05/12/2024 Orders Only Division of Hematology in [place], [place] [address] [place] [address] Rita Mendoza APRN, C.N.P., M.S.N. 05/03/2024 Orders Only Division of Hematology in [place], [place] [address] [place] [address] Rita Mendoza APRN C.N.P., M.S.N. 05/03/2024 11:00 AM [employer] Infusion Department of Oncology in [place], [place] [address] [place] [address] Peyton Ryder M.D. 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 04/20/2024 11:30 AM [employer] Infusion Department of Oncology in [place], [place] [address] [place] [phone] Peyton Ryder M.D. Multiple Myeloma Not Having Achieved Remission (HCC) (Primary Dx); Jail Current Drug Therapy, Chemotherapy 04/20/2024 8:11 AM [employer] - 04/20/2024 11:59 PM [employer] Hospital Encounter Department of Laboratory Medicine and Pathology, [facility] in [place], [place] [address] [place] [phone] Peyton Ryder M.D. Jail Current Drug Therapy, Chemotherapy; Multiple Myeloma Not Having Achieved Remission (HCC) Discharge Disposition: Home or Self Care 04/20/2024 10:30 AM [employer] Office Visit Division of Hematology in [place], [place] [address] [place] [phone] Rita Mendoza APRN, C.NFrandy., M.S.N. Elevated Creatinine (Primary Dx); Jail Current Drug Therapy, Chemotherapy; Multiple Myeloma Not Having Achieved Remission (HCC) 04/01/2024 Orders Only Division of Hematology in [address] [phone] Peyton Ryder M.D. 03/31/2024 2:00 PM [employer] Telemedicine Division of Nephrology and Hypertension in [place], [place] [address] [place] [phone] Bautista Gregory M.D. Chronic Kidney Disease (CKD), Stage 3 Unspecified (HCC) (Primary Dx) 03/25/2024 3:45 PM [employer] Clinical Communication Virtual Review in [place], [place] 200 [place] [address] Previsit Preparation 03/23/2024 Clinical Communication Division of Hematology in [place], [place] [address] [place] [phone] Peyton Ryder M.D. 04/05+//myeloma//es t 03/22/2024 Orders Only Division of Hematology in [address] [phone] Ricardo Macdonald M.B.B.S. Multiple Myeloma Not Having Achieved Remission (HCC) (Primary Dx); Jail Current Drug Therapy, Chemotherapy 03/22/2024 12:00 PM [employer] Infusion Department of Oncology in [address] [phone] Peyton Ryder M.D. 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 Multiple Myeloma Not Having Achieved Remission (HCC) (Primary Dx); [employer]er Current Drug Therapy, Chemotherapy 03/22/2024 9:57 AM [employer] - 03/22/2024 11:59 PM [employer] Hospital Encounter Department of Laboratory Medicine and Pathology, [address] [phone] Bautista Gregory M.D. Chronic Kidney Disease (CKD), Stage 3 Unspecified (HCC) Discharge Disposition: Home or Self Care 03/22/2024 9:57 AM [employer] - 03/22/2024 11:59 PM [employer] Hospital Encounter Department of Laboratory Medicine and Pathology, [address] [phone] Bautista Gregory M.D. Chronic Kidney Disease (CKD), Stage 3 Unspecified (HCC) Discharge Disposition: Home or Self Care 03/08/2024 2:00 PM CDT Infusion Department of Oncology in [address] [phone] Peyton Ryder M.D. Urinary Tract Infection Site Not Specified (Primary Dx); Jail Current Drug Therapy, Chemotherapy; Multiple Myeloma Not Having Achieved Remission (HCC) 02/23/2024 2:00 PM CDT Infusion Department of Oncology in [place], [place] [address] [place] [address] Peyton Ryder M.D. 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 Resolved Problems Problem Noted Date Diagnosed Date Resolved Date Hyperkalemia 05/13/2022 05/16/2022 Immunizations Name Administration Dates Next Due Influenza high dose QV(65 years or older) (PF) 1 RESPIRATORY SYNCYTIAL VIRUS (RSV), UNSPECIFIED 1 Td (Adult), adsorbed 06/26/2004 Tdap 10/17/2011 influenza trivalent high dose (HD)(PF) 3 Social History Tobacco Use Types Packs/Day Years Used Date Smoking Tobacco: Never Smokeless Tobacco: Never Tobacco Cessation:Counseling Given: Not Answered Comments:Never used Alcohol Use Standard Drinks/Week Comments Not Currently 4 (1 standard drink = 0.6 oz pure alcohol) None while on chemo. Before a couple of beers a week [facility] [employer] Answer Date Recorded In the past 12 months has e [employer], oil, or water [employer] threatened to shut off services in your [...] often do you attend chur ch or anabaptist services? More than 4 times per year 02/17/2022 Do you belong to any clubs o r organizations such as latter day groups, unions, fraternal or athletic groups, or [...] Answer Date Recorded PHQ-2 Score 0 03/10/2023 [facility] - Occupational Stress Questionnaire Answer Date [...] your living situation today? I have a [facility] place to live 03/16/2024 Education Answer Date Recorded What is the highest level of school you have completed or the highest degree you have received? Bachelor's degree (e.g., BA, AB, BS) 02/17/2022 Sex and Gender Information Value Date Recorded Sex Assigned at Male 02/17/2022 4:26 PM CDT Legal Sex Male 11:09 PM [employer] Gender Identity Male 02/17/2022 4:26 PM CDT Sexual Orientation Straight 02/17/2022 4: 26 PM CDT Last Filed Vital Signs Vital Sign Reading Time Taken Comments Blood Pressure 145/63 05/03/2024 10:24 AM [employer] Pulse 56 05/03/2024 11:05 AM [employer] Temperature 36.5 C (97.7 F) 05/03/2024 10:24 AM [employer] Respiratory Rate 24 06/02/2023 1:47 PM [employer] Oxygen Saturation 95% 12/14/2022 5:15 AM CDT Inhaled Oxygen Concentration - - Weight 81 kg (178 lb 7.4 oz) 05/03/2024 10:24 AM [employer] Height 171.1 cm (5' 7.36) 04/20/2024 10:[address] [facility] Body Mass Index 27.65 04/20/2024 10:29 AM [employer] Plan of Treatment Upcoming Encounters Date Type Department Care Team (Late st Contact Info) Description 05/18/2024 8:30 AM [employer] Appointment Department of Laboratory Medicine and Pathology, [facility] in [place], [place] [address] [place] [phone] Peyton Ryder M.D. [address] [place] [phone] 05/18/2024 10:30 AM [employer] Office Visit Division of Hematology in [place], [place] [address] [place] [phone] Rita eMndoza APRN, C.N.P., M.S.N. [address] [place] [phone] 05/18/2024 11:30 AM [employer] Infusion Department of Oncology in [place], [place] [address] [place] [phone] Peyton Ryder M.D. [address] [place] [phone] 05/18/2024 3:00 PM [employer] Appointment Department of Radiology, [facility] in [place], [place] [address] [place] [phone] Rita Mendoza APRN, C.N.P., M.S.N. [address] [place] [phone] 05/31/2024 11:00 AM [employer] Lab Department of Laboratory Medicine and Pathology, [facility] in [place], [place] [address] [place] [phone] Brayan Gregg M.B.B.S. [address] [place] [phone] 05/31/2024 1:00 PM [employer] Infusion Department of Oncology in [address] [phone] Peyton Ryder M.D. [address] [place] [phone] Procedures Procedure Name Priority Date/Time Associated Diagnosis Comments CBC CHEMO - NO ALERTS Routine 05/03/2024 8:51 AM [employer] Current Drug Therapy, Chemotherapy Multiple Myeloma Not Having Achieved Remission (HCC) QUANTITATIVE M-PROTEIN STUDY, S Routine 05/03/2024 8:51 AM [employer] Jail Current Drug Therapy, Chemotherapy Multiple Myeloma Not Having Achieved Remission (HCC) IMMUNOGLOBULIN FREE LIGHT CHAINS, S Routine 05/03/2024 8:51 AM [employer] Mixer Current Drug Therapy, Chemotherapy Multiple Myeloma Not Having Achieved Remission (HCC) COMPREHENSIVE METABOLIC PANEL, S/P Routine 05/03/2024 8:51 AM [employer] Mixer Current Drug Therapy, Chemotherapy Multiple Myeloma Not Having Achieved Remission (HCC) CBC CHEMO - NO ALERTS Routine 04/20/2024 8:35 AM [employer] Jail Current Drug Therapy, Chemotherapy Multiple Myeloma Not Having Achieved Remission (HCC) QUANTITATIVE M-PROTEIN STUDY, S Routine 04/20/2024 8:35 AM [employer] Mixer Current Drug Therapy, Chemotherapy Multiple Myeloma Not Having Achieved Remission (HCC) IMMUNOGLOBULIN FREE LIGHT CHAINS, S Routine 04/20/2024 8:35 AM [employer] Mixer Current Drug Therapy, Chemotherapy Multiple Myeloma Not Having Achieved Remission (HCC) COMPREHENSIVE METABOLIC PANEL, S/P Routine 04/20/2024 8:35 AM [employer] Mixer Current Drug Therapy, Chemotherapy Multiple Myeloma Not Having Achieved Remission (HCC) CYSTATIN C WITH EGFR Routine 04/20/2024 8:32 AM [employer] Multiple Myeloma Not Having Achieved Remission (HCC) Elevated Creatinine PH, U Routine 03/22/2024 10:41 AM [employer] DIPSTICK, U Routine 03/22/2024 10:41 AM [employer] OSMOLALITY, U Routine 03/22/2024 10:41 AM [employer] MICROSCOPIC AUTOMATED Routine 03/22/2024 10:41 AM [employer] PROTEIN/CREATININE RATIO, RANDOM, URINE Routine 03/22/2024 10:41 AM [employer] Chronic Kidney Disease (CKD), Stage 3 Unspecified (HCC) ALBUMIN, RANDOM, U Routine 03/22/2024 10 :41 AM [employer] Chronic Kidney Disease (CKD), Stage 3 Unspecified (HCC) URINALYSIS WITH MICROSCOPIC Routine 03/22/2024 10:41 AM [employer] Chronic Kidney Disease (CKD), Stage 3 Unspecified (HCC) PARATHYROID HORMONE (PTH), S Routine 03/22/2024 10:14 AM [employer] Chronic Kidney Disease (CKD), Stage 3 Unspecified (HCC) RENAL FUNCTION PANEL, S Routine 03/22/2024 10:14 AM [employer] Chronic Kidney Disease (CKD), Stage 3 Unspecified (HCC) CBC WITHOUT DIFFERENTIAL, B Routine 03/22/2024 10:14 AM [employer] Chronic Kidney Disease (CKD), Stage 3 Unspecified (HCC) CBC CHEMO - NO ALERTS Routine 03/08/2024 12:04 PM CDT [employer] Food Products Mixer Current Drug Therapy, Chemotherapy Multiple Myeloma Not Having Achieved Remission (HCC) QUANTITATIVE M-PROTEIN STUDY, S Routine 03/08/2024 12:04 PM CDT [employer] Mixer Current Drug Therapy, Chemotherapy Multiple Myeloma Not Having Achieved Remission (HCC) IMMUNOGLOBULIN FREE LIGHT CHAINS, S Routine 03/08/2024 12:04 PM CDT [employer] Food [employer] Mixer Current Drug Therapy, Chemotherapy Multiple Myeloma Not Having Achieved Remission (HCC) COMPREHENSIVE METABOLIC PANEL, S/P Routine 03/08/2024 12:04 PM CDT Jail Current Drug Therapy, Chemotherapy Multiple Myeloma Not [...] (ABNORMAL) Quantitative M-protein Study (05/03/2024 8:51 AM [employer]) Only the most recent of3 resultswithin the time period is included. Immunoglobulin A (IgA), S 150 61 - 356 mg/dL 05/03/2024 2:34 PM [employer] SDSC Immunoglobulin M (IgM), S 22(L) 37 - 286 mg/dL 05/03/2024 2:34 PM [employer] [facility] Immunoglobulin G (IgG), S 985 767 - 1590 mg/dL 05/03/2024 2:34 PM [employer] [facility] Therapeutic Antibody Administered? Unspecified 05/03/2024 11:00 AM [employer] [facility]SC M-protein GK 0.132(H) g/dL 05/05/2024 1:31 PM [employer] [facility] Glycosylation Yes(A) 05/05/2024 1:31 PM [employer] [facility]SC Flag, M-protein Isotype Positive(A) Negative 05/05/2024 1:31 PM [employer] [facility] QMPTS Interpretation IgG kappa 0.014 g/dL IgG kappa 0.117 g/dL Glycosylated. Patients with glycosylated light chains are at higher risk for AL amyloidosis. 05/05/2024 1:31 PM [employer] [facility] Comment: ----ADDITIONAL INFORMATION---- The submitted sample was assayed by five separate immunopurifications for IgG, IgA, IgM, kappa and lambda. The result reflects the findings of either no monoclonal protein detected or those monoclonal immunoglobulins that were detected. This test was developed and its performance characteristics determined by [facility] in a manner consistent with CLIA requirements. This test has not been cleared or approved by the U.S. Food and Drug Administration. Blood (Blood, Venous) 05/03/2024 8:51 AM [employer] 05/03/2024 11:01 AM [employer] Narrative [facility] - 05/05/2024 1:31 PM [employer] Specimen Information: Specimen ID: [id number] Specimen Type: Blood Specimen Collection Start Date: 05/03/2024 8:51 AM Specimen Received Date: 05/03/2024 11:01 AM Specimen ID: [id number] Specimen Type: Blood Specimen Collection Start Date: 05/03/2024 8:51 AM Specimen Received Date: 05/03/2024 11:00 AM Peyton Ryder M.D. LAB BLOOD ADD-ON Final Result Performing Organization Address City/[facility]/ZIP Co de Phone Number [facility] [address] [place] [address] [facility] [address] [place] [address] [place] [address] [place] [address] [address] [place] [phone] * (ABNORMAL) CBC, Chemotherapy, No Alerts (05/03/2024 8:51 AM [employer]) Only the most recent of3 resultswithin the time period is included. Hemoglobin 12.4(L) 13.2 - 16.6 g/dL 05/03/2024 9:15 AM [employer] METH Platelet Count 191 135 - 317 x10(9)/L 05/03/2024 9:15 AM [employer] METH Leukocytes 4.6 3.4 - 9.6 x10(9)/L 05/03/2024 9:15 AM [employer] METH Neutrophils 2.97 1.56 - 6.45 x10(9)/L 05/03/2024 9:14 AM [employer] DHPM Blood (Blood, Venous) 05/03/2024 8:51 AM [employer] 05/03/2024 9:12 AM [employer] Peyton Ryder M.D. LAB BLOOD ADD-ON Final Result [facility] [address] [place] [address], [place] METH [facility] [address] [place] [address] [facility] [address] [place] [address] * (ABNORMAL) Immunoglobulin Free Light Chains (05/03/2024 8:51 AM [employer]) Only the most recent of3 resultswithin the time period is included. [place] Free Light Chain, S 6.34(H) 0.3300 - 1.94 mg/dL 05/03/2024 3:45 PM [employer] SDSC Lambda Free Light Chain, S 3.92(H) 0.5700 - 2.63 mg/dL 05/03/2024 4:54 PM [employer] SDS [place]/Lambda FLC Ratio 1.62 0.2600 - 1.65 05/03/2024 4:54 PM [employer] SDS Blood (Blood, Venous) 05/03/2024 8:51 AM [employer] 05/03/2024 11:01 AM [employer] Peyton Ryder M.D. LAB BLOOD ADD-ON Final Result [facility] [address] [place] [address] [facility] [address] [place] [address] * (ABNORMAL) Comprehensive Metabolic Panel (05/03/2024 8:51 AM [employer]) Only the most recent of4 resultswithin the time period is included. Potassium, S 4.6 3.6 - 5.2 mmol/L 05/03/2024 9:38 AM [employer] DTL Sodium, S 141 135 - 145 mmol/L 05/03/2024 9:38 AM [employer] DTL Chloride, S 107 98 - 107 mmol/L 05/03/2024 9:38 AM [employer] DTL Bicarbonate, S 25 22 - 29 mmol/L 05/03/2024 9:38 AM [employer] DTL Anion Gap 9 7 - 15 05/03/2024 9:38 AM [employer] DTL BUN (Blood Urea Nitrogen), S 43(H) 8 - 24 mg/dL 05/03/2024 9:38 AM [employer] DTL Creatinine 2.22(H) 0.74 - 1.35 mg/dL 05/03/2024 9:38 AM [employer] DTL Estimated GFR (eGFR) 30(L) >=60 mL/min/BS A 05/03/2024 9:38 AM [employer] DTL Comment: Estimated GFR calculated using the 2020 CKD_EPI creatinine equation. Calcium, Total, S 8.8 8.8 - 10.2 mg/dL 05/03/2024 9:38 AM [employer] DTL Glucose, S 97 70 - 140 mg/dL 05/03/2024 9:38 AM [employer] DTL Protein, Total, S 6.3 6.3 - 7.9 g/dL 05/03/2024 9:38 AM [employer] DTL Albumin, S 4.0 3.5 - 5.0 g/dL 05/03/2024 9:38 AM [employer] DTL Aspartate Aminotransferase (AST), S 17 8 - 48 U/L 05/03/2024 9:38 AM [employer] DTL Alkaline Phosphatase, S 75 40 - 129 U/L 05/03/2024 9:38 AM [employer] DTL Alanine Aminotransferase (ALT), S 14 7 - 55 U/L 05/03/2024 9:38 AM [employer] DTL Bilirubin, Total, S 0.3 0.0 - 1.2 mg/dL 05/03/2024 9:38 AM [employer] DTL Blood (Blood, Venous) 05/03/2024 8:51 AM [employer] 05/03/2024 9:18 AM [employer] Peyton Ryder M.D. LAB BLOOD ADD-ON Final Result [facility] [address] [place] [address], [facility] DTU[facility] LaboratoriesEn[facility] [address] [place] [address] * (ABNORMAL) Cystatin C with Estimated GFR (04/20/2024 8:32 AM [employer]) eGFR by Cystatin C 21(L) >60 mL/min/BSA 04/20/2024 11:35 AM [employer] DTL Comment: Estimated GFR calculated using the [...] 0.67 - 1.21 mg/L 04/20/2024 11:35 AM [employer] DTL Blood (Blood, Venous) 04/20/2024 8:32 AM [employer] 04/20/2024 11:13 AM [employer] Rita Mendoza APRN C.N.P., M.S.N. LAB BLOOD ADD-ON Final Result Performing Organization Address [facility] Co de Phone Number [facility] [address] [facility] 200 [place] [address] * Dipstick, Urine (03/22/2024 10:41 AM [employer]) Hemoglobin, QL, U Negative Negative 03/22/2024 11:59 AM [employer] DTL Leukocyte Esterase, U Negative Negative 03/22/2024 11:59 AM [employer] DTL Nitrite, U Negative Negative 03/22/2024 11:59 AM [employer] DTL Ketone, U Negative Negative mg/dL 03/22/2024 11:59 AM [employer] DTL Glucose, U Negative Negative mg/dL 03/22/2024 11:59 AM [employer] DTL Urine 03/22/2024 10:4 1 AM [employer] 03/22/2024 11:39 AM [employer] Bautista Gregory M.D. LAB URINE ORDERABLES Glenny l Result Performing Organization Address [facility] Co de Phone Number [facility] 200 [place] [address], [place] [address] * Microscopic Automated (03/22/2024 10:41 AM [employer]) Microscopy Normal 03/22/2024 11:59 AM [employer] DTL RBC None Seen <3 /hpf 03/22/2024 11:59 AM [employer] DTL WBC None Seen /hpf 03/22/2024 11:59 AM [employer] DTL Comment: ----REFERENCE VALUE---- <4 (Males) <11 (Females) Urine 03/22/2024 10:4 1 AM [employer] 03/22/2024 11:39 AM [employer] Bautista Gregory M.D. LAB URINE ORDERABLES Glenny l Result Performing Organization Address City/[facility]/ZIP Co de Phone Number [facility] [address] [place] [address] * pH, Urine (03/22/2024 10:41 AM [employer]) Pathologist [facility] pH, U 5.0 4.5 - 8.0 03/22/2024 12: 30 PM [employer] DTL Urine 03/22/2024 10:4 1 AM [employer] 03/22/2024 11:39 AM [employer] Bautista Gregory M.D. LAB URINE ORDERABLES Glenny l Result Performing Organization Address City/[facility]/ZIP Co de Phone Number [facility] [address] [place] [address] * (ABNORMAL) Albumin, Random, Urine (03/22/2024 10:41 AM [employer]) Albumin, Random, U 71.7 mg/L 2023 1:20 PM [employer] DTL Comment: ----ADDITIONAL INFORMATION---- This test has been modified from the mounter's instructions. Its performance characteristics were determined by [facility] in a manner consistent with CLIA requirements. This test has not been cleared or approved by the U.S. Food and Drug Administration. Creatinine 51 mg/dL 03/22/2024 12:18 PM [employer] DTL Albumin/Creatinine Ratio 141(H) <17 mg/g 03/22/2024 1:20 PM [employer] DTL Urine (Urine, Midstream) 03/22/2024 10:41 AM [employer] 03/22/2024 11:38 AM [employer] Bautista Gregory M.D. LAB URINE ORDERABLES Glenny l Result Performing Organization Address City/[facility]/ZIP Co de Phone Number [facility] 200 [place] [address], [place] [address] * (ABNORMAL) Protein/Creatinine Ratio, Random, Urine (03/22/2024 10:41 AM [employer]) Protein, Total, Random, U 15 mg/dL 03/22/2024 12:18 PM [employer] DTL Creatinine, Random, U 51 16 - 326 mg/dL 03/22/2024 12:18 PM [employer] DTL Protein/Creati nine Ratio 0.29(H) <0.18 mg/mg 03/22/2024 12:18 PM [employer] DTL Urine (Urine, Midstream) 03/22/2024 10:41 AM [employer] 03/22/2024 11:38 AM [employer] Bautista Gregory M.D. LAB URINE ORDERABLES Glenny l Result Performing Organization Address [facility]/ZIP Co de Phone Number [facility] 200 [place] [address], 66 [address] [address] * Osmolality, Urine (03/22/2024 10:41 AM [employer]) Osmolality, U 268 150 - 1150 mOsm/kg 03/22/2024 12:30 PM [employer] DTL Urine 03/22/2024 10:4 1 AM [employer] 03/22/2024 11:39 AM [employer] Bautista Gregory M.D. LAB URINE ORDERABLES Glenny l Result Performing Organization Address [facility] Co de Phone Number [facility] [address] [place] [address], [facility] DTL [facility] [address] [place] [address] * (ABNORMAL) Urinalysis, with Microscopic: Urine, Midstream (03/22/2024 10:41 AM [employer]) Source Urine, Urine, Midstream 03/22/2024 11:38 AM [employer] DTL Color, U Yellow 03/22/2024 11:39 AM [employer] DTL Clarity, U Clear 03/22/2024 11:39 AM [employer] DTL Protein, U 15 <26 mg/dL 03/22/2024 12:18 PM [employer] DTL Protein/Osmol ality 0.56(H) <0.42 ratio 03/22/2024 12:30 PM [employer] DTL Predicted 24 HR Protein, U 542(H) <229 mg/24 h 03/22/2024 12:30 PM [employer] DTL Predicted Range 172-1706 mg/24 h 03/22/2024 12:30 PM [employer] DTL Urine (Urine, Midstream) 03/22/2024 10:41 AM [employer] 03/22/2024 11:38 AM [employer] us Bautista Gregory M.D. LAB URINE ORDERABLES Glenny l Result Performing Organization Address City/[facility]/ZIP Co de Phone Number [facility] [address] [place] [address], [facility] DTL [facility] [address] [place] [address] * (ABNORMAL) Renal Function Panel (03/22/2024 10:14 AM [employer]) Potassium, S 4.4 3.6 - 5.2 mmol/L 03/22/2024 11:28 AM [employer] DTL Sodium, S 140 135 - 145 mmol/L 03/22/2024 11:28 AM [employer] DTL Chloride, S 104 98 - 107 mmol/L 03/22/2024 11:28 AM [employer] DTL Bicarbonate, S 26 22 - 29 mmol/L 03/22/2024 11:28 AM [employer] DTL Anion Gap 10 7 - 15 03/22/2024 11:28 AM [employer] DTL BUN (Blood Urea Nitrogen), S 42(H) 8 - 24 mg/dL 03/22/2024 11:28 AM [employer] DTL Creatinine 2.23(H) 0.74 - 1.35 mg/dL 03/22/2024 11:28 AM [employer] DTL Estimated GFR (eGFR) 30(L) >=60 mL/min/BSA 03/22/2024 11:28 AM [employer] DTL Comment: Estimated GFR calculated using the 2020 CKD_EPI creatinine equation. Calcium, Total, S 9.2 8.8 - 10.2 mg/dL 03/22/2024 11:28 AM [employer] DTL Glucose, S 88 70 - 140 mg/dL 03/22/2024 11:28 AM [employer] DTL Albumin, S 4.1 3.5 - 5.0 g/dL 03/22/2024 11:28 AM [employer] DTL Phosphorus (Inorganic), S 3.1 2.5 - 4.5 mg/dL 03/22/2024 11:28 AM [employer] DTL Blood (Blood, Venous) 03/22/2024 10:14 AM [employer] 03/22/2024 10:52 AM [employer] Bautista Gregory M.D. LAB BLOOD ADD-ON Final Re sult [facility] [address] [place] [address], [facility] DTL [facility] [address] [place] [address] * (ABNORMAL) CBC without Differential (03/22/2024 10:14 AM [employer]) Hemoglobin 12.2(L) 13.2 - 16.6 g/dL 03/22/2024 11:14 AM [employer] DTL Hematocrit 37.1(L) 38.3 - 48.6 % 03/22/2024 11:14 AM [employer] DTL Erythrocytes 3.68(L) 4.35 - 5.65 x10(12)/L 03/22/2024 11:14 AM [employer] DTL MCV 100.8(H) 78.2 - 97.9 fL 03/22/2024 11:14 AM [employer] DTL RBC Distrib Width 13.1 11.8 - 14.5 % 03/22/2024 11:14 AM [employer] DTL Platelet Count 220 135 - 317 x10(9)/L 03/22/2024 11:14 AM [employer] DTL Leukocytes 4.7 3.4 - 9.6 x10(9)/L 03/22/2024 11:14 AM [employer] DTL Blood (Blood, Venous) 03/22/2024 10:14 AM [employer] 03/22/2024 10:42 AM [employer] Bautista Gregory M.D. LAB BLOOD ADD-ON Final Re sult Performing Organization Address City/[facility]/ZIP Co de Phone Number [facility] [address] [place] [address] * (ABNORMAL) Parathyroid Hormone (PTH) (03/22/2024 10:14 AM [employer]) Pathologist [facility] Parathyroid Hormone (PTH), S 102(H) 15 - 65 pg/mL 03/22/2024 11:28 AM [employer] DTL Blood (Blood, Venous) 03/22/2024 10:14 AM [employer] 03/22/2024 10:52 AM [employer] Bautista Gregory M.D. LAB BLOOD ADD-ON Final Re sult Performing Organization Address City/[facility]/ZIP Co de Phone Number [facility] [address] [place] [address] * (ABNORMAL) Creatinine with Estimated GFR (03/08/2024 12:04 PM CDT) Pathologist [facility] Creatinine 2.11(H) 0.74 - 1.35 mg/dL 03/08/2024 12:45 PM CDT [facility] Estimated GFR (eGFR) 32(L) >=60 mL/min/BSA 03/08/2024 12:45 PM CDT [facility] Comment: Estimated GFR calculated using the 2020 CKD_EPI creatinine equation. Blood (Blood, Venous) 03/08/2024 12:04 PM CDT 03/08/2024 12:19 PM CDT Brayan Alex.B.S. LAB BLOOD ADD-ON Final Result Performing Organization Address City/[facility]/ZIP Co de Phone Number [facility] [address] [place] [address], [facility] METH [facility] [address] [place] [address] * Calcium, Total (03/08/2024 12:04 PM CDT) [facility] Calcium, Total, P 9.3 8.8 - 10.2 mg/dL 03/08/2024 12:45 PM CDT [facility] Blood (Blood, Venous) 03/08/2024 12:04 PM CDT 03/08/2024 12:19 PM CDT Brayan Baltazar.B.B.S. LAB BLOOD ADD-ON Final Result Performing Organization Address City/[facility]/ZIP Co de Phone Number [facility] [address] [place] [address], [facility] METH [facility] [address] [place] [address] * (ABNORMAL) CBC with Differential, Blood (02/23/2024 12:09 PM CDT) [facility] Hemoglobin 13.1(L) 13.2 - 16.6 g/dL [...] - 6.45 x10(9)/L 02/23/2024 12:54 PM CDT PM Lymphocytes 0.93(L) 0.95 - 3.07 x10(9)/L 02/23/2024 12:54 PM CDT DTL Monocytes 0.77 0.26 - 0.81 x10(9)/L 02/23/2024 12:54 PM CDT DTL Eosinophils 0.08 0.03 - 0.48 x10(9)/L 02/23/2024 12:54 PM CDT DTL Basophils <0.03 0.01 - 0.08 x10(9)/L 02/23/2024 12:54 PM CDT DTL Blood (Blood, Venous) 02/23/2024 12:09 PM CDT 02/23/2024 12:44 PM CDT Peyton Ryder M.D. LAB BLOOD ADD-ON Final Result [facility] [address] [place] [address], [facility] DTL [facility] [address] [place] [address] [facility] [address] [place] [address] * (ABNORMAL) S-TSH (Thyroid-Stimulating Hormone - Sensitive) (09/02/2022 6:05 AM CDT) [facility] TSH, Sensitive 5.7(H) 0.3 - 4.2 mIU/L 09/02/2022 8:30 AM CDT DTL Blood (Blood, Venous) 09/02/2022 6:05 AM CDT 09/02/2022 6:46 AM CDT Blaise Urias M.D., M.P.H. LAB BLOOD ADD-ON Fi nal Result [facility] [address] [place] [address], [facility] DTL [facility] [address] [place] [address] from Last 3 Months or Most Recently Relevant to Health Maintenance Additional Health Concerns Infection Onset Date Last Indicated Protective Environment 08/20/2022 3 Insurance [facility] MEDIC[facility] Advance Directives For more information, please contact: [phone] Documents on File Type Date Recorded Patient Client Relationship Consultant Expl anation Advance Directives 11/12/2022 10:54 AM Yseenia Christianson HCPOA/ADVOCATE/AGENT/R EPRESENTATIVE/SURROGAT E * Full Code (Latest Code Status on File) Date Activated Date Inactivated Comments 09/02/2022 1:27 AM 09/09/2022 6:03 PM Question Answer Comments Full Code: Discussed * Full Code Date Activated Date Inactivated Comments 05/13/2022 9:07 PM 05/16/2022 5:49 PM Question Answer Comments Full Code: Discussed Healthcare Agents on File Name Relationship Healthcare Agent Relationship Communication Yesenia Christianson Spouse Health Care Agent [email or web address] Yash Varun Christianson Son First Alternat e Health Care Agent Cameliade Christianson Daughter Second Alterna te Health Care Agent Care Teams Private Wealth Advisor Relationship Specialty Start Date End Date Elsewhere, Pcp PCP - General Internal Medicine 09/03/22
--- OUTSIDE RECORDS SUMMARY | 2024-05-13 20:11 | XMS_ITS | Encounter Summary ---
Author Organization [facility] Address [address] [place] [id number] Care Team Providers Care Gluer Machine Setup Operator Name Role Phone Elsewhere, Pcp Primary Care Provider Unavailabl e Encounter Details Date Type Department Care Team (Late st Contact Info) Description 04/25/2024 Orders Only Division of Hematology in [place], [place] [address] [place] [phone] Rita Mendoza, EVGENY, C.N.P., M.S.N. [address] [place] [phone] Social History Tobacco Use Types Packs/Day Years Used Date Smoking Tobacco: Never Smokeless Tobacco: Never Comments:Never used Alcohol Use Standard Drinks/Week Comments Not Currently 4 (1 standard drink = 0.6 oz pure alcohol) None while on chemo. Before a couple of beers a week [facility] Utilities Answer Date Recorded In the [...] week 02/17/2022 How often do you attend [facility] or mosque services? More than 4 times per year 02/17/2022 Do you belong to any clubs o r organizations such as mormonism groups, unions, fraternal or athletic groups, or [...] Answer Date Recorded PHQ-2 Score 0 03/10/2023 [facility] [place] of Occupat ional Health - Occupational Stress [...] your living situation today? I have a [facility] place to live 03/16/2024 Education Answer Date Recorded What is the highest level of school you have completed or the highest degree you have received? Bachelor's degree (e.g., BA, AB, BS) 02/17/2022 Sex and Gender Information Value Date Recorded Sex Assigned at Male 02/17/2022 4:26 PM CDT Legal Sex Male 11:09 PM COMPOSITE LAYUP WORKER Gender Identity Male 02/17/2022 4:26 PM CDT Sexual Orientation Straight 02/17/2022 4: 26 PM CDT documented as of this encounter Plan of Treatment Upcoming Encounters Date Type Department Care Team (Late st Contact Info) Description 05/18/2024 8:30 AM COMPOSITE LAYUP WORKER Appointment Department of Laboratory Medicine and Pathology, [facility], in [place], [place] [address] [place] [address] Peyton Ryder M.D. [address] [place] [phone] 05/18/2024 10:30 AM COMPOSITE LAYUP WORKER Office Visit Division of Hematology in [place], [place] [address] [place] [phone] Rita Mendoza APRN, Bubba.NFrandy., M.S.N. [address] [place] [phone] 05/18/2024 11:30 AM COMPOSITE LAYUP WORKER Infusion Department of Oncology in [place], [place] [address] [place] [phone] Peyton Ryder M.D. [address] [place] [phone] 05/18/2024 3:00 PM COMPOSITE LAYUP WORKER Appointment Department of Radiology, [facility] in [address] [phone] Rita Mendoza APRN, Bubba.NFrandy., M.S.N. [address] [place] [phone] 05/31/2024 11:00 AM COMPOSITE LAYUP WORKER Lab Department of Laboratory Medicine and Pathology, [facility], in [place], [place] [address] [place] [phone] Brayan Gregg M.B.B.SRodolfo [address] [place] [phone] 05/31/2024 1:00 PM COMPOSITE LAYUP WORKER Infusion Department of Oncology in [address] [phone] Peyton Ryder M.D. [address] [place] [phone] documented as of this encounter Visit Diagnoses Not on filedocumented in this encounter Additional Health Concerns Infection Onset Date Last Indicated Resolved Time Protective Environment 08/20/2022 08/20/2022 documented as of this encounter Care Teams Gluer Machine Setup Operator Relationship Specialty Start Date End Date Elsewhere, Pcp PCP - General Internal Medicine 09/03/22 documented as of this encounter
--- OUTSIDE RECORDS SUMMARY | 2024-05-13 20:11 | XMS_ITS ---
Author Organization [facility] Address [address] [place] [address] Care Team Providers Care Sound Engineer Audio Control Name Role Phone Elsewhere, Pcp Primary Care Provider Unavailabl e Active Problems * This document contains information received from the source organization and may not represent a complete record from that organization. 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 Current Oncology Plans Bortezomib Every Other Week* Plan Start Date:06/15/2023 Plan Provider:Peyton Ryder M.D. Linked Problems Fpc Current Drug Thera py, ChemotherapyMultiple Myeloma Not Having Achieved Remission (HCC) Treatment Medications Current Day (Day 1 , Cycle 13 - Planned for 05/25/2024) Next Day (Day 15, Cycle 13 - Planned for 06/07/2024) bortezomib (Velcade) bortezomib injectio n 2.5 mg (Velcade) bortezomib injection 2.5 mg (Velcade) ZOLEDRONIC ACID ( ZOMETA ) EVERY 3 MONTHS - FOR BONE METASTASIS* Plan Start Date:04/15/2022 Plan Provider:Peyton Ryder M.D. 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 Other Current Plans Vascular Access Patency - Peripheral Intravenous Catheter and Rapid Infusion Catheter* Plan Start Date:06/02/2023 Linked Problems Urinary Tract Infection Site Not Specified Treatment Medications No medications scheduled. Past Plans Flushes/Hydration Plan Name Start Date Discontinue Date Treatment Medications Discontinue Reason Plan Provider VASCULAR ACCESS PATENCY - PERIPHERAL INTRAVENOUS CATHETER AND RAPID INFUSION CATHETER 03/18/2022 03/12/2023 No medications scheduled. Therapy Complete - Hem/Onc Therapy Plan 2 Plan Name Start Date Discontinue Date Treatment Medications Discontinue Reason Plan Provider ertapenem (INVanz) 06/03/2023 06/08/2023 No medications scheduled. Therapy Complete Rita Mendoza APRN, C.N.P., M.S.N. Hematology / Oncology Treatment 1 Plan Name Start Date Discontinue Date Treatment Medications Discontinue Reason Plan Provider Cycles CyBorD Weekly ( cycloPHOSphamide / Bortezomib / dexAMETHasone ) 01/07/2006/17/2023 bortezomib (Velcade)cycl oPHOSphamide (Cytoxan) Therapy Complete Peyton Ryder M.D. 6 of 7 cycles started Daratumumab ( Subcutaneous ) / Lenalidomide / Dexamethasone 03/14/20 22 12/30/2022 daratumumab-h yaluronidase- fihj (Darzalex Faspro)lenali domide (Revlimid) Not Tolerated Peyton Ryder M.D. 8 of 9 cycles completed Infusion Therapy 1 Plan Name Start Date Discontinue Date Treatment Medications Discontinue Reason Plan Provider ertapenem (INVanz) 06/02/2023 06/02/2023 No medications scheduled. Therapy Complete Rita Mendoza APRN, C.N.P., M.S.N. Radiation Treatments * No radiation treatments are documented for this patient in [facility]. Treatments may have been administered in another system. Resolved Problems Problem Noted Date Diagnosed Date Resolved Date Hyperkalemia 05/13/2022 05/16/2022
--- NOTE | 2024-05-13 20:12 | ED.GENADULT ---
HPI - General Adult General Time Seen by Provider: 20:12 Date Seen: 05/13/24 Chief complaint: Unspecified Complaint, Adult Stated complaint: needs lab draw Time Seen by Provider: 05/13/24 20:11 Source: patient, family, RN notes reviewed and old records reviewed Mode of arrival: ambulatory Limitations: no limitations History of Present Illness HPI narrative: Kishor is a very pleasant 78-year-old male recently diagnosed with a UTI but found to have a resistant organism who comes to the emergency room for a blood draw. I was contacted earlier today as patient's noted that he had a resistant organism Citrobacter to the Keflex he was prescribed. I did prescribe Omnicef 300 b.i.d. but there is significant concern from the pharmacist because of the GFR being low. Patient notes a GFR of 27 on April 20 and 30 on May 03. He was seen on 05/06 with symptoms consistent with the UTI. Patient had noted this in the past and a urinalysis was suspicious patient was placed on Keflex. He notes considerable improvement on the Keflex. He has not had any fever chills or vomiting. Yesterday Kishor's noted that the Citrobacter was resistant to cefazolin. She has been on the phone with various nursing personnel today trying to find an alternative. As per previously noted I did prescribe Omnicef 300 b.i.d. but given the decreased GFR below 30 on 04/20 there was considerable concern. I spoke to patient's and gave her an option of coming in [facility] for a blood draw at which time we would represcribed Omnicef if necessary to the once a day dosing. Did offer a dose of Rocephin tonight but patient has a fear of needles and is declining. Related Data Home Medications ?Medication ?Instructions ?Recorded ?Confirmed acetaminophen 325 mg tablet 975 mg PO BID PRN 05/10/22 06/03/23 acyclovir 400 mg tablet 400 mg PO BID 05/10/22 05/06/24 amlodipine 10 mg tablet 10 mg PO DAILY 05/10/22 05/06/24 levothyroxine 175 mcg tablet 175 mcg PO BASSAM@0630 05/10/22 05/06/24 (Levo-T) pantoprazole 40 mg tablet,delayed 40 mg PO DAILY 05/10/22 05/06/24 release levothyroxine 150 mcg tablet 150 mcg PO MOWEFR@0630 12/21/22 05/06/24 bortezomib 3.5 mg injection powder 2.5 mg subcut QWEEK 06/03/23 05/06/24 for solution (Velcade) cyclophosphamide 1 gram 300 mg PO .weekly 06/03/23 06/03/23 intravenous powder for solution chlorthalidone 25 mg tablet 12.5 mg PO QAM 06/05/23 05/06/24 lisinopril 20 mg tablet 20 mg PO DAILY 06/05/23 05/06/24 Zometa 05/06/24 diclofenac sodium 1 % topical gel 1 ea topical QID 05/06/24 05/06/24 Previous Rx's ?Medication ?Instructions ?Recorded calcium 500 mg (as 1 tab PO BIDWM #60 tabs 07/31/22 carbonate)-vitamin D3 5 mcg (200 unit) tablet (Oyster Shell Calcium-Vitamin D3) ferrous sulfate 325 mg (65 mg 325 mg PO DAILYWM #30 tabs 07/31/22 iron) tablet cephalexin 500 mg capsule 500 mg PO BID 10 days #20 caps 05/06/24 cefdinir 300 mg capsule 300 mg PO ONCE 7 days #7 caps 05/13/24 Allergies Allergy/AdvReac Type Severity Reaction Status Date / Time Iodinated Contrast Media Allergy Severe Verified 10/30/23 13:54 sulfamethoxazole (From Allergy Severe Verified 10/30/23 13:54 Bactrim) trimethoprim (From Bactrim) Allergy Severe Verified 10/30/23 13:54 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 ?A49.8 - Other bacterial infections of unspecified site (ICD-10) ?Z16.12 - Extended spectrum beta lactamase (ESBL) resistance (ICD-10) Single kidney ?Z90.5 - Acquired absence of kidney (ICD-10) Elevated troponin ?R77.8 - Other specified abnormalities of plasma proteins (ICD-10) Hypokalemia ?E87.6 - Hypokalemia (ICD-10) Hypocalcemia ?E83.51 - Hypocalcemia (ICD-10) Iron deficiency anemia ?D50.9 - Iron deficiency anemia, unspecified (ICD-10) GI bleeding ?K92.2 - Gastrointestinal hemorrhage, unspecified (ICD-10) Diarrhea ?R19.7 - Diarrhea, unspecified (ICD-10) Pneumonia ?J18.9 - Pneumonia, unspecified organism (ICD-10) Urinary tract infection ?N39.0 - Urinary tract infection, site not specified (ICD-10) Weakness ?R53.1 - Weakness (ICD-10) Iron deficiency ?E61.1 - Iron deficiency (ICD-10) Pancytopenia ?D61.818 - Other pancytopenia (ICD-10) Chronic anemia ?D64.9 - Anemia, unspecified (ICD-10) History of GI bleed ?Z87.19 - Personal history of other diseases of the digestive system (ICD-10) Hypothyroid ?E03.9 - Hypothyroidism, unspecified (ICD-10) CKD (chronic kidney disease) ?N18.9 - Chronic kidney disease, unspecified (ICD-10) Hypertension ?I10 - Essential (primary) hypertension (ICD-10) History of kidney cancer ?Z85.528 - Personal history of other malignant neoplasm of kidney (ICD-10) History of prostate cancer ?Z85.46 - Personal history of malignant neoplasm of prostate (ICD-10) Multiple myeloma ?C90.00 - Multiple myeloma not having achieved remission (ICD-10) 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 - Phimosis (ICD-10) Surgical History History of bone marrow biopsy ?Z98.890 - Other specified postprocedural states (ICD-10) S/P tonsillectomy and adenoidectomy ?Z90.89 - Acquired absence of other organs (ICD-10) History of prostatectomy ?Z90.79 - Acquired absence of other genital organ(s) (ICD-10) History of nephrectomy ?Z90.5 - Acquired absence of kidney (ICD-10) Social History What is your current living situation?: I presently have a place to live Problems where you live: no known problems Problems where you live details: na In the past 12 months, utilities in danger of being shut off: no In past 12 months, lack of transportation kept you from medical appts, meetings, work, or getting things needed for daily living: no In the past 12 mos, have been you worried that your food would run out before you had money to buy more?: never true In the past 12 mos, the food you bought just didn't last and you didn't have money to buy more?: never true Highest level of school completed/degree received: Bachelor's degree Smoking Status: Never smoker Do you use any of these nicotine containing products: None How often do you have a drink containing alcohol: never AUDIT-C Alcohol total score: 0 Non-prescribed substance use: denies use How often does anyone, including family, friends and others, physically hurt you: never How often does anyone, including family, friends and others, insult or talk down to you: never How often does anyone, including family, friends and others, threaten you with harm: never How often does anyone, including family, friends and others, scream or curse at you: never service: No Exam Narrative: Exam Narrative: Alert and oriented. Heart with bradycardic rate but normal rhythm. Lungs are clear. Patient is not experiencing respiratory distress and looks well at this time. Const: Vital Signs, click to edit/add: Vital Signs - 24 hr 05/13/24 20:11 Temperature 97.7 F Pulse Rate [Pulse Oximeter] 46 L Respiratory Rate 16 Blood Pressure [Ri ght Upper Arm] 135/81 Pulse Oximetry 97 Oxygen Delivery Me thod Room Air Documenting provider has reviewed patient's vital signs: yes Course Course ED Course: As per our plan Kishor will go home and I will contact Kishor's with the results of the Chem profile and decision regarding dosing of Omnicef. Vital Signs Vital signs: Initial Vital Signs Temperature 97.7 F 05/13/24 20:11 Temperature Source Temporal Artery Scan 05/13/24 20:11 Pulse Rate 46 L 05/13/24 20:11 Respiratory Rate 16 05/13/24 20:11 Blood Pressure 135/81 05/13/24 20:11 Blood Pressure Mean 99 05/13/24 20:11 Blood Pressure Position Sitting 05/13/24 20:11 Pulse Oximetry 97 05/13/24 20:11 Oxygen Delivery Method Room Air 05/13/24 20:11 Vital Signs Temperature 97.7 F 05/13/24 20:11 Pulse Rate 46 L 05/13/24 20:11 Respiratory Rate 16 05/13/24 20:11 Blood Pressure 135/81 05/13/24 20:11 Pulse Oximetry 97 05/13/24 20:11 Oxygen Delivery Method Room Air 05/13/24 20:11 Temperature 97.7 F 05/13/24 20:11 Pulse Rate 46 L 05/13/24 20:11 Respiratory Rate 16 05/13/24 20:11 Blood Pressure 135/81 05/13/24 20:11 Pulse Oximetry 97 05/13/24 20:11 Oxygen Delivery Method Room Air 05/13/24 20:11 Medical Decision Making MDM Narrative Medical decision making narrative: 1. UTI-patient actually improved quite a bit with Keflex. Unfortunately on the culture patient has a resistance to Keflex with this particular organism Citrobacter freundii. 2. Disposition-patient discharged home and will await phone call after results of labs are returned. Addendum:Patient's creatinine clearance is 27 0.2 and GFR of 30 with a creatinine of 2.2 given this finding will use Omnicef also known as cefdinir 300 mg daily for 7 days. Mrs. Christianson is happy with this plan as I talked to her on the phone. Prescription sent to [facility] pharmacy. Return as needed for worsening symptoms. Medical Records Medical records reviewed: Yes I reviewed the patient's medical records Lab Data Lab results reviewed: Yes I reviewed the patient's lab results Labs: Lab Results 05/13/24 Range/Units 20:22 Sodium 138 (135-149) mmol/L Potassium 4.6 (3.6-5.1) mmol/L Chloride 105 (96-114) mmol/L Carbon Dioxide 23 (20-32) mmol/L Anion Gap 10 (7-15) mEq/L BUN 46 H (7-30) mg/dL Creatinine 2.2 H (0.5-1.5) mg/dL Estimated Creat Clear 27.20 Estimated GFR 30 ml/min Glucose 83 (60-115) mg/dL Calcium 9.2 (8.4-10.6) mg/dL Discharge Plan Discharge Clinical Impression: UTI (urinary tract infection) Qualifiers: Urinary tract infection type: site unspecified Hematuria presence: without hematuria Qualified Code(s): N39.0 - Urinary tract infection, site not specified Patient Disposition: Home, Self-Care Condition: Unchanged Additional Instructions: Will notify you with the results of the blood test and prescribed cefdinir as appropriate. Prescriptions: New cefdinir 300 mg capsule 300 mg PO ONCE 7 Days Qty: 7 0RF No Action acyclovir 400 mg tablet 400 mg PO BID amlodipine 10 mg tablet 10 mg PO DAILY levothyroxine [Levo-T] 175 mcg tablet 175 mcg PO SUTUTHSA@0630 Patient Comments: 4 days a week pantoprazole 40 mg tablet,delayed release (DR/EC) 40 mg PO DAILY acetaminophen 325 mg tablet 975 mg PO BID PRN calcium carbonate-vitamin D3 [Oyster Shell Calcium-Vit D3] 500 mg-5 mcg (200 unit) Tablet 1 tab PO BIDWM Qty: 60 0RF ferrous sulfate 325 mg (65 mg iron) Tablet 325 mg PO DAILYWM Qty: 30 0RF levothyroxine 150 mcg tablet 150 mcg PO MOWEFR@0630 cyclophosphamide 1 gram recon soln 300 mg PO .weekly bortezomib [Velcade] 3.5 mg recon soln 2.5 mg subcut QWEEK Rx Instructions: administer as 2.5 mg/mL final concentration lisinopril 20 mg tablet 20 mg PO DAILY chlorthalidone 25 mg tablet 12.5 mg PO QAM diclofenac sodium 1 % gel 1 ea topical QID Zometa cephalexin 500 mg capsule 500 mg PO BID 10 Days Qty: 20 0RF Follow Up/Referrals: Juwan Goldman MD [Primary Care Provider] - Stand Alone Forms: [facility] Info Instructions
[2024-05-13 20:42] LABS: Chloride* 105 mmol/L (96-114); Sodium* 138 mmol/L (135-149)
[2024-05-13 20:43] LABS: Potassium* 4.6 mmol/L (3.6-5.1)
[2024-05-13 20:45] LABS: Anion Gap 10 mEq/L (7-15); Carbon Dioxide* 23 mmol/L (20-32); Creatinine* 2.2 mg/dL (0.5-1.5); Estimated Glomerular Filt Rate 30 ml/min
[2024-05-13 20:46] LABS: Blood Urea Nitrogen* 46 mg/dL (7-30); Calcium* 9.2 mg/dL (8.4-10.6); Glucose* 83 mg/dL (60-115)
== END 2024-05-13 20:25 | disposition home or self-care (01) ==
PROVIDERS: Emergency Provider Family Medicine; PCP Family Medicine
DX: N39.0 Urinary tract infection, site not specified (principal)
CPT/HCPCS: 36415; 80048; 99283